=== PATIENT | male | born 1950 | race Caucasian/White ===

== ENCOUNTER 2016-11-07 22:15 | Inpatient (IN) ==
--- NOTE | 2016-11-07 22:38 | Emergency Department Note ---
Disposition Clinical Impression: CAP (community acquired pneumonia), Hypoxic CHF exacerbation Qualifiers: Congestive heart failure type: combined Qualified Code(s): I50.43 - Acute on chronic combined systolic (congestive) and diastolic (congestive) heart failure Disposition: Admitted As Inpatient Condition: Fair Referrals: NO,PCP [Non-Partnered Physician] - Forms: ED Satisfaction Letter Time of Disposition: 22:54 SOB HPI - General Chief Complaint: ED Shortness of Breath/Dyspnea Stated Complaint: CHF, ДМИТРИЙ Time Seen by Provider: 11/07/16 22:20 Source: patient, EMS Limitations: no limitations Nursing Notes Reviewed: Yes Vital Signs Reviewed: Yes - History of Present Illness 66-year-old male with a history of CHF, CAD status post stents 2 in July 2014 presents with worsening shortness of breath for the last 1 week, he has had intermittent productive sputum low in color, is also had worsening leg swelling. Patient also has a history of CAD, diabetes, obesity, CK-MB, PAD, chronic low back pain, hyperlipidemia, tobacco use. Patient was sent from the [facility] urgent care, where they did an chest x-ray that showed interval increase and bilateral pleural effusions, a troponin of 0.02 and white count of 11, they did not include his BNP imaging, he came by EMS, complains of shortness of breath and denies chest pain at this time, denies weight changes however he has not weighed himself lately. He was given DuoNeb 3 and Solu-Medrol 125 381 mg baby aspirin, and 40 of IV Lasix prior to arrival. Pt Subjective Complaint: shortness of breath Onset (ago): week(s) (1) Context: recent illness Severity: mild Consistency/Duration: intermittent Improves with: oxygen Worsens with: nothing Known history of: congestive heart failure - Related Data Allergies Allergy/AdvReac Type Severity Reaction Status Date / Time Doxepin Allergy Hives Verified 11/07/16 22:47 Penicillins Allergy Hives Verified 11/07/16 22:47 Sulfa (Sulfonamide Allergy Hives Verified 11/07/16 22:47 Antibiotics) All systems ED: reviewed and negative except as stated. Constitutional: Denies: fever, chills Cardiovascular: Reports: as per HPI, chest pain Respiratory: Reports: as per HPI, cough, dyspnea, wheezes, sputum production Gastrointestinal: Denies: abdominal pain, nausea Musculoskeletal: Reports: back pain (Chronic LBP). Denies: neck pain Neurological: Denies: headache, weakness Psychiatric: Denies: anxiety, depression Past Medical History - Past Medical History Attestation: Yes The following information was validated with the patient. Source: patient, old records reviewed Medical history: Reports: CHF, coronary artery disease, diabetes, hyperlipidemia , hypertension, peripheral artery disease, renal disease Psychiatric history: Reports: depression, PTSD - Social History Smoking Status: Former smoker Smokeless Tobacco Status: No Alcohol use: Reports: none Drug use: Reports: none Physical Exam - General Limitations: no limitations General appearance: alert, other (mildly short of breath) - ENT ENT exam: normal exam, normal oropharynx - Neck Neck exam: Present: normal inspection, full ROM - Chest Chest inspection: Present: normal inspection, symmetric chest wall rise - Respiratory Respiratory exam: Present: accessory muscle use, prolonged expiratory phase - Expanded Respiratory Exam Location: rales: Left, Right (R>L) - Cardiovascular Cardiovascular exam: Present: normal rhythm, +S3 - Abdominal Exam Abdominal exam: Present: soft. Absent: Non-Tender - Extremities Exam Extremities exam: Present: normal inspection, full ROM - Back Exam Back exam: Present: normal inspection, full ROM - Skin Skin exam: Present: warm, dry, other (+2 pitting edema bilaterally) Course Course Narrative: 66-year-old with CHF exacerbation, bilateral pleural effusions on chest x-ray, admitting to medicine service, adding a BNP and a BMP for further evaluation, also adding nitroglycerin for the patient for HF RDB has been given DuoNeb, Lasix, Solu-Medrol, aspirin 81 mg 3 troponin is negative EKG with no ischemic changes Vital Signs Temperature 98.6 F 11/07/16 22:18 Pulse Rate 82 11/07/16 22:18 Respiratory Rate 18 11/07/16 22:18 Blood Pressure 179/85 11/07/16 22:18 O2 Sat by Pulse Oximetry 88 11/07/16 22:18 Temperature 98.6 F 11/07/16 22:18 Pulse Rate 82 11/07/16 22:18 Respiratory Rate 18 11/07/16 22:18 Blood Pressure 179/85 11/07/16 22:18 O2 Sat by Pulse Oximetry 89 11/07/16 22:33 Oxygen Delivery Oxygen Delivery Nasal Cannula Shortness of Breath/Dyspnea - MDM Narrative Medical decision making narrative: 60 male with CHF exacerbation, boomurese at the urgent care, also given duo nebs, Solu-Medrol, this point we have nitroglycerin for CHF, he will also get Levaquin given that his concerning findings for possible pneumonia white count 11 with some neutrophilia, chest x-ray needs to be repeated but [facility] chest x-ray showed bilateral pleural effusions and possible right-sided consolidation - Differential Diagnosis Likely: congestive heart failure, pneumonia - Medical Records Medical records reviewed: Yes I reviewed the patient's medical records. - Lab Data Lab results reviewed: Yes I reviewed the patient's lab results. Lab results narrative: A T troponin 0.02 white blood cell count 11.0 hemoglobin 11.2 platelets 304 CK 108 AST 16 ALT 22 total bili 0.3 direct bili 0.1 sodium 140 potassium 5.3 chloride 109 bicarbonate 22 glucose 147 BUNs 37 creatinine 3.21 proBNP 65913 GFR 24 Result diagrams: 11/07/16 22:51 - Radiology Data Radiology results reviewed: Yes I reviewed the patient's radiology results. Verbal development of consolidation the right lower lobe and to a lesser degree in the right middle lobe left lower lobe likely representing accommodation atelectasis and pneumonia radiographic follow-up until clear is recommended interval increase in the size of right pleural effusion and interval development of small free-flowing left pleural effusion mild pericardial effusion on CXR 11/07 - EKG Data EKG attestation: Yes I reviewed and interpreted this EKG. EKG shows normal: Reports: sinus rhythm Rate: Reports: normal Rhythm: Reports: NSR (Rate 84 bpm MO 152 QRS [address] segment elevations or depressions, inverted T waves in V5 and V6) Interpretation: Reports: nonspecific ST-T wave changes - Core Measures AMI Core Measures Followed: Yes (given at [facility] 3 X81mg asa) Attestation Statement - Attestation Attestation: I, Chai Mcintyre MD, personally evaluated this patient and discussed their management with the resident physician. I reviewed the resident's note and agree with the documented findings, medical decision making, and plan of care. 66-year-old male transferred here from the [facility] urgent care for shortness of breath. Patient has a history of CHF. He complains of intermittent increased shortness of breath for the past 3 weeks but acutely much worse over the past 24 hours. No chest pain. No fever. On examination patient is a well-developed well-nourished elderly male in no acute distress. He is alert and oriented 3. There is no cyanosis or diaphoresis. Breath sounds are decreased bilaterally with some bibasilar rales. No wheezes noted. Heart regular rate and rhythm. Abdomen soft and nontender with normal bowel sounds. 1+ pedal edema. [facility]. Additional labs obtained here. BNP 1200, creatinine 2.86, potassium 5.5. The hospitalist, Dr. Rodriguez, was consulted and accepted admission of the patient.
[2016-11-07] MEDS ORDERED: Nitroglycerin 0.4 MG TAB.SUBL SL ONE (22:48)
[2016-11-07] MEDS ORDERED: Levofloxacin 750 MG/150 ML 750 MG/150 ML BAG IVPB ONE (22:54)
[2016-11-07] MEDS ORDERED: Acetaminophen 325 MG TABLET PO PRN (23:06)
[2016-11-07] MEDS ORDERED: Naloxone 0.4 MG/ML INJ IVP PRN (23:06)
[2016-11-07] MEDS ORDERED: Ondansetron 4 MG/2 ML VIAL IVP PRN (23:06)
[2016-11-07 23:11] LABS: Calcium 9.4 mg/dL (8.6-10.8); Potassium 5.5 mEq/L (3.5-4.5)
--- NOTE | 2016-11-08 00:26 | Internal Med History&Physical ---
Date of Encounter: 11/07/16 Time of Encounter: 23:45 Assessment and Plan (1) CHF (congestive heart failure) Current visit: Yes Status: Acute Patient presents with worsening shortness of breath, orthopnea and pedal edema. On exam, bilateral basal crepitations in. Edema present. Chest x-ray from [facility] reveals bilateral pleural effusions that are increasing. Elevated BNP on labs. Patient will be admitted to inpatient status. High risk due to risk of worsening respiratory failure and need for intravenous diuresis. Expected to be in the hospital for at least 2 midnights. Expected discharge disposition is to home. Patient will be placed on 60 mg intravenous Lasix twice a day. Strict input and output monitoring. Daily weights. Fluid restricted in sodium restricted diet. He states that he had an echo in July 2016 at the [facility]. Will obtain those records. If his troponins trend up, we will obtain a limited echo to evaluate for any wall motion of the modalities. Depending on the records from [facility] and his progress, we will consider cardiology consult. Qualifiers: Congestive heart failure type: unspecified congestive heart failure type Congestive heart failure chronicity: acute on chronic Qualified Code(s): I50.9 - Heart failure, unspecified (2) CAD (coronary artery disease) Current visit: Yes Status: Chronic Patient reports some chest tightness and has nonspecific T-wave changes on his EKG. Troponins are negative. Cycle troponins. Continue his current medications. Outpatient follow-up with his chief architect for stress test versus left heart catheterization. Qualifiers: Coronary Disease-Associated Artery/Lesion type: [place] artery [place] vs. transplanted heart: [place] heart Associated angina: without angina Qualified Code(s): I25.10 - Atherosclerotic heart disease of [place] coronary artery without angina pectoris (3) HTN (hypertension) Current visit: Yes Status: Chronic Controlled blood pressure. Continue home medications. Qualifiers: Hypertension type: essential hypertension Qualified Code(s): I10 - Essential (primary) hypertension (4) Diabetes mellitus Current visit: Yes Status: Chronic Continue home dose of basal insulin with sliding scale insulin. Renal function is at baseline. If renal function gets worse with diuresis, will consult nephrology-Dr. Pearson. Avoid nephrotoxic medications and hypotension. Qualifiers: Diabetes mellitus type: type 2 Diabetes mellitus complication status: with kidney complications Diabetes mellitus complication detail: with chronic kidney disease Diabetes mellitus senior living insulin use: with assistant terminal manager use Chronic kidney disease stage: stage 4 (severe) Qualified Code(s): E11.22 - Type 2 diabetes mellitus with diabetic chronic kidney disease; N18.4 - Chronic kidney disease, stage 4 (severe); Z79.4 - continuous churn buttermaker (current) use of insulin (5) PAD (peripheral artery disease) Current visit: Yes Status: Chronic Continue current home medications. Patient counseled regarding smoking cessation (6) Respiratory failure Current visit: Yes Status: Acute Patient does not use oxygen at home and is currently requiring oxygen. This is due to CHF exacerbation and pulmonary edema. Management as above. Qualifiers: Chronicity: acute Respiratory failure complication: hypoxia Qualified Code(s): J96.01 - Acute respiratory failure with hypoxia (7) Tobacco abuse Current visit: Yes Status: Chronic Counseled regarding the need for smoking cessation. Internal Medicine - H&P: HPI Chief complaint: Shortness of breath Admitted From: Hospital to Hospital Transfer Plans for Post Hospital Care: Home History of present illness: Mr. Jackson is a 66 year old male with a history of CHF, coronary artery disease was transferred [facility] to [facility] emergency department due to shortness of breath of 3 days' duration. Patient states that he has been struggling with shortness of breath since June 2016. He states that he was diagnosed with CHF at that time and he was admitted as inpatient in the [facility] and had echocardiogram performed. He states that he was diuresed while he was in the [place] and his shortness of breath improved and he was subsequently discharged. He states that he was following with a chief architect as an outpatient. He states that the cardio just had planned to do a stress test. However, the patient was not able to do it due to his fluctuating shortness of breath. He states that the current episode started about 3-4 days ago with worsening shortness of breath on exertion. He also reports orthopnea but denies any paroxysmal nocturnal dyspnea. He states that he has been sleeping in a recliner since June 2016 as he is unable to lie down flat due to shortness of breath. He reports a dry cough but denies any sputum production. He denies any wheezing, fever or chills. He reports chronic leg swelling since June 2016. He reports that his dose of Lasix was recently increased from 60 mg a day to 80 mg a day. He reports that he follows up with Dr. Pearson from nephrology for his chronic kidney disease. He denies any recent weight changes. He denies any recent sick contacts. He states that he lives alone and uses a scooter to get around. He uses a cane at home. He denies any recent travel history. He also reports chest tightness over his lower chest on both sides that is about 5/6 in intensity that occurs intermittently. He reports lightheadedness but denies any palpitations. He states that he is not compliant with fluid restriction or salt restriction. He states that he uses sea salt at home. He does check his weights daily. Past Med Surg Social Fam HX - Past Medical History Attestation: Yes The following information was validated with the patient. Source: patient Medical history: CHF, coronary artery disease, diabetes, hyperlipidemia, hypertension, peripheral artery disease, renal disease Psychiatric history: depression, PTSD - Past Surgical History Surgical History: non-contributory - Social History Smoking Status: Current every day smoker Smokeless Tobacco Status: No Alcohol use: none Drug use: none Current living situation: Home - Independent Activity Level: Uses cane/walker, Other (Scooter) Recent Out of Country Travel Within the Last 8 Weeks: No Exposure or Possible Exposure to Illness During Travel: No - Additional Family History Additional family history: Reviewed; not pertinent Internal Medicine - H&P: Meds Allergies Doxepin Allergy (Verified 11/07/16 22:47) Hives Penicillins Allergy (Verified 11/07/16 22:47) Hives Sulfa (Sulfonamide Antibiotics) Allergy (Verified 11/07/16 22:47) Hives All Systems PM: A 10-system review of systems was performed and is negative for pertinent findings except as documented above in the HPI. Review of systems: 10 systems have been reviewed and are negative except as mentioned in the history of present illness - Constitutional Vitals: Temp Pulse Resp BP Pulse Ox 98.6 F 82 18 179/85 89 11/07/16 22:18 11/07/16 22:18 11/07/16 22:18 11/07/16 22:18 11/07/16 22:33 Exam: Gen.: Lying in bed. Mild distress. Eyes: Pupils equal, round and reactive to light. Extraocular muscles intact. ENT: Moist mucous membranes. No oropharyngeal erythema or discharge. Chest: Bilateral basal crepitations present. End expiratory wheezing present. CVS: First and second heart sounds present. No murmurs, rubs or gallops. Mild tachycardia present. Bilateral lower extremity 2+ pitting pedal edema present. Abdomen: Soft, nontender, distended. Bowel sounds present. No hepatosplenomegaly. Skin: No decubitus ulcers appreciated. Bilateral lower extremity chronic venous stasis changes present. METALLURGICAL SPECIALIST: No focal neuro deficits present. Psychiatric: Alert, awake and oriented to time, place and person. Lymphatic system: No lymphadenopathy appreciated Internal Med - H&P Results - Labs CBC & Chem 7: 11/07/16 22:51 Labs: Cardiac Enzymes 11/07/16 Range/Units 23:56 Troponin I 0.03 (0-0.03) ng/mL Labs from [facility] reviewed. WBC count 11,000. Hemoglobin 11.2. Platelets 304. Sodium 140, potassium 4.3, chloride 109, bicarbonate 22, BUN 37, creatinine 2.81 (2.5 in September 2016), calcium 8.8, albumin 2.2, glucose 147 - EKG Data -: EKG Interpreted by Myself EKG shows normal: sinus rhythm, ST-T waves (T-wave inversions in leads 1, aVL, V5 and V6) Rate: normal - EKG Data Prior EKG available for review: yes When compared to previous EKG: there are significant changes Interpretation IM: suggestive of ischemia - Impressions Chest x-ray PA reveals increased bilateral pleural effusions. Reports of his CT of the chest revealed right lower lobe, middle lobe and left lower lobe consolidation which is suspicious for atelectatis versus pneumonia. Renal ultrasound reveals 1.3 cm hypoechoic lesion in the left kidney consistent with a cyst. Follow-up renal ultrasound is recommended.
[2016-11-08] MEDS ORDERED: Dextrose Gel 15 GM PO PRN ×2 (00:32)
[2016-11-08] MEDS ORDERED: D5% in Water 1,000 ML IVC PRN (00:32)
[2016-11-08] MEDS ORDERED: *HR* Dextrose 50 % in Water (Syg) 50 ML SYRINGE IVP PRN (00:32)
[2016-11-08] MEDS ORDERED: Insulin DETEMIR 100 UNIT/ML X5UNITS SQ SCH (00:45)
[2016-11-08] MEDS: Nitroglycerin 1 INCH/GM PACKET TP SCH ×2 (03:11→07:45)
[2016-11-08] MEDS: *HR* Heparin 5,000 UNIT/ML VIAL SQ SCH ×4 (03:12→23:47)
[2016-11-08 07:46] LABS: Albumin 2.1 g/dL (3.5-5.0); Albumin/Globulin Ratio 0.5 (1.1-2.2); Bilirubin,Total 0.2 mg/dL (0.2-1.2); Calcium 8.8 mg/dL (8.6-10.8); Potassium 5.4 mEq/L (3.5-4.5); Total Protein 6.1 g/dL (6.0-8.3)
[2016-11-08 07:58] LABS: Basophils % 0.1 %; Hematocrit 35.1 % (37.5-50.1); Immature Granulocytes % 0.4 % (0-4); Lymphocytes # 0.8 K/mcL (0.6-4.6); Lymphocytes % 10.8 %; Mean Corpuscular HGB Conc 31.3 g/dL (31.6-35.5); Mean Corpuscular Hemoglobin 27.3 pg (28.0-33.3); Mean Corpuscular Volume 87.1 fL (83.0-100.0); Monocytes # 0.1 K/mcL (0.0-1.3); Neutrophils # 6.1 K/mcL (1.6-8.9); Platelet Count 261 K/mcL (140-400); Red Blood Count 4.03 M/mcL (4.19-5.50); Red Cell Distribution Width 16.3 % (11.5-14.5); Segmented Neutrophils % 87.7 %
[2016-11-08] MEDS: Aspirin Enteric Coated 81 MG Tablet PO SCH (08:27)
[2016-11-08] MEDS: Furosemide 40 MG/4 ML VIAL IVP SCH ×2 (08:27→16:16)
[2016-11-08] MEDS: Insulin LISPRO 300 UNITS/3 ML VIAL SQ SCH ×4 (08:28→21:10)
[2016-11-08] MEDS ORDERED: Furosemide 40 MG/4 ML VIAL IVP SCH (09:00)
[2016-11-08] MEDS ORDERED: traMADol 50 MG TABLET PO PRN ×2 (11:07→11:13)
[2016-11-08] MEDS: amLODIPine 5 MG TABLET PO SCH (12:51)
--- NOTE | 2016-11-08 15:38 | Electrocardiograph Report ---
[place] [id number] Test Date: 2016-11-07 Pat Name: Jostin Jackson Department: 104 Room: [facility] Gender: M Python Engineer: LULA : 1950 Requested By: Presley Simmons Order Number: [id number] Reading MD: Ashley Mejia Measurements Intervals [place] Rate: 84 P: 87 SD: 152 QRS: 32 QRSD: 124 T: 86 QT: 372 QTc: 413 Interpretive Statements SINUS RHYTHM POSSIBLE LEFT ATRIAL ENLARGEMENT MODERATE INTRAVENTRICULAR CONDUCTION DELAY NONSPECIFIC T-WAVE ABNORMALITY Electronically Signed On 11-08-2016 15:36:33 EDT by Ashley Mejia
[2016-11-08] MEDS: Gabapentin 300 MG CAPSULE PO SCH ×2 (16:16→20:52)
--- NOTE | 2016-11-08 17:06 | Internal Med Progress Note ---
Date of Encounter: 11/08/16 Time of Encounter: 09:00 - Assessment and plan (1) DVT prophylaxis Current Visit: Yes Status: Acute Assessment and plan: Heparin subcutaneously (2) CHF exacerbation Current Visit: Yes Status: Acute Assessment and plan: Pt has a history of CHF. Presented with shortness of breath, elevated BNP, chest x-ray shows pulmonary vascular congestion and pleural effusion. - Consider CHF exacerbation. - Lasix 60 mg IV twice a day - Strict I/O - Supportive treatment with oxygen and BiPAP as needed - Place echocardiogram - Continue beta anita, imdur, add hydralazine Qualifiers: Congestive heart failure type: combined Qualified Code(s): I50.43 - Acute on chronic combined systolic (congestive) and diastolic (congestive) heart failure (3) CAD (coronary artery disease) Current Visit: Yes Status: Chronic Assessment and plan: Continue home medication aspirin, beta anita, statin. No chest pain. Qualifiers: Coronary Disease-Associated Artery/Lesion type: [place] artery [place] vs. transplanted heart: [place] heart Associated angina: without angina Qualified Code(s): I25.10 - Atherosclerotic heart disease of [place] coronary artery without angina pectoris (4) HTN (hypertension) Current Visit: Yes Status: Chronic Assessment and plan: Cont home medication. Hold Lisinopril b/o Cr 2.77 (possible chronic, no baseline available). add hydralazine po. Qualifiers: Hypertension type: essential hypertension Qualified Code(s): I10 - Essential (primary) hypertension (5) Diabetes mellitus Current Visit: Yes Status: Chronic Assessment and plan: Continue basal and sliding scale insulin. Follow up glucose level Qualifiers: Diabetes mellitus type: type 2 Diabetes mellitus complication status: with kidney complications Diabetes mellitus complication detail: with chronic kidney disease Diabetes mellitus intermediate teacher insulin use: with mcfp use Chronic kidney disease stage: stage 4 (severe) Qualified Code(s): E11.22 - Type 2 diabetes mellitus with diabetic chronic kidney disease; N18.4 - Chronic kidney disease, stage 4 (severe); Z79.4 - long term care pharmacist (current) use of insulin (6) PAD (peripheral artery disease) Current Visit: Yes Status: Chronic Assessment and plan: Continue aspirin and atorvastatin - Time Spent With Patient 25 - 35 minutes - Subjective Interval history: Patient is a 66-year-old male admitted for CHF exacerbation. His past medical history significant for CAD, CHF, diabetes, hypertension, PAD, CKD. Patient was seen and examined. Shortness of breath has improved after IV Lasix use. BP is high, add hydralazine 25 mg by mouth every 8 hours. Continue closely monitor patient. Strict I/O. - Constitutional Vitals: Temp Pulse Resp BP Pulse Ox 97.3 F L 83 18 183/80 93 11/08/16 15:50 11/08/16 15:50 11/08/16 15:50 11/08/16 15:50 11/08/16 15:50 General appearance: Present: A&O X 3, pleasant, no acute distress, answers questions appropriately - Head Head exam: Present: atraumatic, normocephalic - Eye Eye exam: Present: PERRL, conjuntiva pink, sclera anicteric Pupils: Present: PERRL - Neck Neck exam general surgery: Present: supple, trachea midline. Absent: lymphadenopathy - Respiratory Respiratory exam: Present: CTAB. Absent: accessory muscle use, rales, rhonchi, wheezes - Cardiovascular Cardiovascular exam: Present: RRR, +S1, +S2. Absent: diastolic murmur, gallop, rubs, systolic murmur - GI/Abdominal GI/Abdominal exam: Present: normal bowel sounds, soft, no peritoneal signs. Absent: distended, tenderness - Extremities Exam Extremities exam: Present: pedal edema (B/L), warm, radial pulses palpable and symetrical. Absent: calf tenderness, cyanotic - Neurological Exam Neurological exam: Present: CN II-XII intact, oriented X3, no focal deficits. Absent: pronater drift, facial droop, speech deficit - Skin Skin exam: Present: dry, intact Internal Medicine: Result - Labs CBC & Chem 7: 11/08/16 07:20 11/08/16 07:20 Labs: Short CBC 11/08/16 Range/Units 07:20 WBC 7.0 (4.3-11.1) K/mcL Hgb 11.0 L (12.9-16.9) g/dL Hct 35.1 L (37.5-50.1) % Plt Count 261 (140-400) K/mcL Neutrophils # 6.1 (1.6-8.9) K/mcL BMP 11/08/16 07:20 Sodium 134 L Potassium 5.4 H Chloride 109 Carbon Dioxide 19 BUN 36 H Creatinine 2.77 H Glucose 218 H Calcium 8.8 Cardiac Enzymes 11/08/16 Range/Units 07:20 Troponin I 0.02 (0-0.03) ng/mL Liver Function 11/08/16 Range/Units 07:20 Total Bilirubin 0.2 (0.2-1.2) mg/dL AST 13 (5-34) Units/L ALT 13 (0-55) Units/L Alkaline Phosphatase 126 (38-126) Units/L Albumin 2.1 L (3.5-5.0) g/dL - Impressions Impressions Chest X-Ray 11/08/16 05:07 IMPRESSION: Cardiomegaly with bilateral pleural effusions suggesting CHF. D/ / Carlos Taylor MD / Carlos Taylor MD Interpreting Provider: Carlos Taylor MD Consult Discharge Plan - Plan [facility]errals: [facility] [Primary Care Provider[facility] -
[2016-11-08] MEDS ORDERED: Perflutren Lipid Microsphere 1.3 ML in 0.9 % Sodium Chloride 8.7 ML IVP ONE (19:35)
--- NOTE | 2016-11-08 19:45 | Venous Imaging Report ---
LE Venous Duplex Patient Name:Jostin Jackson Order Number:[id number] Procedure Date:11/08/2016 Date:1950Age:66 yrs Gender:Male Location:[facility] Room #: 2A35 Extension Supervisor:Mattie Oliveros Referring MD:Carter Styles MD electronics mechanic:[facility] Yuki MD:Keven Iniguez MD Secondary Indications: Risk Factors Yes/No Anticoagulants Yes Smoking Current Yes Hx of DVT No Hx of Chemotherapy No Impressions: Normal bilateral lower extremity deep and superficial venous exam. Recommendations: After imaging the patient returned to their room. Findings Venous Duplex Results: Right: Venous imaging of the lower extremity reveals full patency and normal vessel compressibility of the right distal iliac, right common femoral, right superficial femoral, right popliteal, right posterior tibial, right peroneal, right great saphenous and right lesser saphenous. Doppler signals in the evaluated veins were normal. Left: Venous imaging of the lower extremity reveals full patency and normal vessel compressibility of the left distal iliac, left common femoral, left superficial femoral, left popliteal, left posterior tibial, left peroneal, left great saphenous and left lesser saphenous. Doppler signals in the evaluated veins were normal. Lower Extremity Venous Duplex Side Vein Compress Spontaneous Flow Augment Diameter (cm) Depth (cm) Right Distal Iliac Normal Yes Phasic Yes Right Common Femoral Normal Yes Phasic Yes Right Superficial Femoral Normal Yes Phasic Yes Right Popliteal Normal Yes Phasic Yes Right Posterior Tibial Normal Yes Phasic Yes Right Peroneal Normal Yes Phasic Yes Right Great Saphenous Normal Yes Phasic Yes Right Lesser Saphenous Normal Yes Phasic Yes Left Distal Iliac Normal Yes Phasic Yes Left Common Femoral Normal Yes Phasic Yes Left Superficial Femoral Normal Yes Phasic Yes Left Popliteal Normal Yes Phasic Yes Left Posterior Tibial Normal Yes Phasic Yes Left Peroneal Normal Yes Phasic Yes Left Great Saphenous Normal Yes Phasic Yes Left Lesser Saphenous Normal Yes Phasic Yes Updated by Keven Iniguez MD on 11/08/2016 7:40:35 PM electronically signed on 11/08/2016 7:40:47 PM with status of Final
[2016-11-08] MEDS: BuPROPion SR (12 HR) 150 MG TABLET PO SCH (20:52)
[2016-11-08] MEDS: hydrALAZINE 25 MG TABLET PO SCH ×2 (20:52→23:47)
[2016-11-08] MEDS: Insulin DETEMIR 100 UNIT/ML X5UNITS SQ SCH (20:53)
[2016-11-08] MEDS: traZODone 50 MG TABLET PO SCH (20:58)
[2016-11-08] MEDS: Magnesium Oxide 400 MG TABLET PO SCH (23:47)
[2016-11-09 02:36] LABS: Basophils % 0.1 %; Eosinophils # 0.1 K/mcL (0.0-0.6); Eosinophils % 0.4 %; Hematocrit 36.2 % (37.5-50.1); Hemoglobin 11.5 g/dL (12.9-16.9); Immature Granulocytes % 0.3 % (0-4); Lymphocytes # 2.4 K/mcL (0.6-4.6); Lymphocytes % 16.2 %; Mean Corpuscular HGB Conc 31.8 g/dL (31.6-35.5); Mean Corpuscular Hemoglobin 27.5 pg (28.0-33.3); Mean Corpuscular Volume 86.6 fL (83.0-100.0); Mean Platelet Volume 8.9 fL (9.4-12.4); Monocytes # 1.1 K/mcL (0.0-1.3); Monocytes % 7.8 %; Platelet Count 288 K/mcL (140-400); Red Blood Count 4.18 M/mcL (4.19-5.50); Red Cell Distribution Width 16.6 % (11.5-14.5); Segmented Neutrophils % 75.2 %
[2016-11-09 02:48] LABS: Calcium 9.1 mg/dL (8.6-10.8); Potassium 4.9 mEq/L (3.5-4.5)
[2016-11-09] MEDS: Lisinopril 20 MG TABLET PO SCH (08:53)
[2016-11-09] MEDS: Isosorbide MONOnitrate (24 HR) 30 MG TAB.ER.24H PO SCH (08:53)
[2016-11-09] MEDS: BuPROPion SR (12 HR) 150 MG TABLET PO SCH ×2 (08:53→21:34)
[2016-11-09] MEDS: Furosemide 40 MG/4 ML VIAL IVP SCH ×2 (08:53→16:02)
[2016-11-09] MEDS: amLODIPine 5 MG TABLET PO SCH (08:54)
[2016-11-09] MEDS: Magnesium Oxide 400 MG TABLET PO SCH ×2 (08:54→21:34)
[2016-11-09] MEDS: hydrALAZINE 25 MG TABLET PO SCH ×2 (08:54→16:03)
[2016-11-09] MEDS: Aspirin Enteric Coated 81 MG Tablet PO SCH (08:54)
[2016-11-09] MEDS: Gabapentin 300 MG CAPSULE PO SCH ×3 (08:54→21:34)
[2016-11-09] MEDS: *HR* Heparin 5,000 UNIT/ML VIAL SQ SCH ×2 (08:54→16:02)
[2016-11-09] MEDS: Insulin LISPRO 300 UNITS/3 ML VIAL SQ SCH ×4 (08:55→21:35)
[2016-11-09 10:23] LABS: Bilirubin,Urine Negative (Negative); Blood,Urine Trace (Negative); Clarity,Urine Clear (Clear); Color,Urine Yellow (Yellow); Glucose,Urine (UA) 100 mg/dL (Normal); Ketones,Urine Negative (Negative); Leukocyte Esterase,Urine Negative (Negative); Nitrite,Urine Negative (Negative); Protein,Urine >=300 mg/dL (Neg-Trace); Specific Gravity,Urine 1.012 (1.010-1.025); Urobilinogen,Urine Normal (Normal)
[2016-11-09 10:25] LABS: Bacteria,Urine None Seen per hpf (None-Few); Hyaline Casts,Urine None Seen per lpf (None-Few); RBC,Urine 0-3 per hpf (0-3); Squamous Epithelial Cell,Urine Moderate per lpf (None-Few); WBC,Urine 0-3 per hpf (0-3)
--- NOTE | 2016-11-09 15:16 | Internal Med Progress Note ---
Date of Encounter: 11/09/16 Time of Encounter: 10:00 - Assessment and plan (1) DVT prophylaxis Current Visit: Yes Status: Acute Assessment and plan: Heparin subcutaneously (2) CHF exacerbation Current Visit: Yes Status: Acute Assessment and plan: Pt has a history of CHF. Presented with shortness of breath, elevated BNP, chest x-ray shows pulmonary vascular congestion and pleural effusion. - Consider CHF exacerbation. - Lasix 60 mg IV twice a day - Strict I/O - Supportive treatment with oxygen and BiPAP as needed - Continue beta anita, imdur, add hydralazine, resume lisinopril - Echo shows EF 40% with moderate diastolic dysfunction. Qualifiers: Congestive heart failure type: combined Qualified Code(s): I50.43 - Acute on chronic combined systolic (congestive) and diastolic (congestive) heart failure (3) CAD (coronary artery disease) Current Visit: Yes Status: Chronic Assessment and plan: Continue home medication aspirin, beta anita, statin. No chest pain. Qualifiers: Coronary Disease-Associated Artery/Lesion type: [place] artery [place] vs. transplanted heart: [place] heart Associated angina: without angina Qualified Code(s): I25.10 - Atherosclerotic heart disease of [place] coronary artery without angina pectoris (4) HTN (hypertension) Current Visit: Yes Status: Chronic Assessment and plan: Cont home medication. Resume lisinopril, add hydralazine po. Qualifiers: Hypertension type: essential hypertension Qualified Code(s): I10 - Essential (primary) hypertension (5) Diabetes mellitus Current Visit: Yes Status: Chronic Assessment and plan: Continue basal and sliding scale insulin. Follow up glucose level Qualifiers: Diabetes mellitus type: type 2 Diabetes mellitus complication status: with kidney complications Diabetes mellitus complication detail: with chronic kidney disease Diabetes mellitus roasterman insulin use: with detention use Chronic kidney disease stage: stage 4 (severe) Qualified Code(s): E11.22 - Type 2 diabetes mellitus with diabetic chronic kidney disease; N18.4 - Chronic kidney disease, stage 4 (severe); Z79.4 - nursing home (current) use of insulin (6) PAD (peripheral artery disease) Current Visit: Yes Status: Chronic Assessment and plan: Continue aspirin and atorvastatin - Time Spent With Patient 25 - 35 minutes - Subjective Interval history: Patient is a 66-year-old male admitted for CHF exacerbation. His past medical history significant for CAD, CHF, diabetes, hypertension, PAD, CKD. Patient was seen and examined. Shortness of breath has improved after IV Lasix use. Pt has good urine output, decrease lasix to 40 mg bid iv. Pt knows he has chronic kidney problem, Cr stable, resume lisinopril 40mg po daily. Continue closely monitor patient. Strict I/O. Elevated WBC for unclear etiology, CXR negative, UA shows no UTI, will continue to monitor. - Constitutional Vitals: Temp Pulse Resp BP Pulse Ox 97.9 F 77 16 149/75 97 11/09/16 11:42 11/09/16 11:42 11/09/16 11:42 11/09/16 11:42 11/09/16 08:29 General appearance: Present: A&O X 3, pleasant, no acute distress, answers questions appropriately - Head Head exam: Present: atraumatic, normocephalic - Eye Eye exam: Present: PERRL, conjuntiva pink, sclera anicteric Pupils: Present: PERRL - Neck Neck exam general surgery: Present: supple, trachea midline. Absent: lymphadenopathy - Respiratory Respiratory exam: Present: CTAB. Absent: accessory muscle use, rales, rhonchi, wheezes - Cardiovascular Cardiovascular exam: Present: RRR, +S1, +S2. Absent: diastolic murmur, gallop, rubs, systolic murmur - GI/Abdominal GI/Abdominal exam: Present: normal bowel sounds, soft, no peritoneal signs. Absent: distended, tenderness - Extremities Exam Extremities exam: Present: warm, radial pulses palpable and symetrical. Absent : calf tenderness, cyanotic, pedal edema - Neurological Exam Neurological exam: Present: CN II-XII intact, oriented X3, no focal deficits. Absent: pronater drift, facial droop, speech deficit - Skin Skin exam: Present: dry, intact Internal Medicine: Result - Labs CBC & Chem 7: 11/09/16 02:24 11/09/16 02:24 Labs: Short CBC 11/09/16 Range/Units 02:24 WBC 14.6 H D (4.3-11.1) K/mcL Hgb 11.5 L (12.9-16.9) g/dL Hct 36.2 L (37.5-50.1) % Plt Count 288 (140-400) K/mcL Neutrophils # 11.0 H (1.6-8.9) K/mcL BMP 11/09/16 02:24 Sodium 138 Potassium 4.9 H Chloride 109 Carbon Dioxide 21 BUN 45 H Creatinine 2.78 H Glucose 110 H Calcium 9.1 Urine 11/09/16 Range/Units 10:08 Urine Color Yellow (Yellow) Urine Clarity Clear (Clear) Urine pH 7.0 (5.0-8.0) pH Units Ur Specific [place] 1.012 (1.010-1.025) Urine Protein >=300 H (Neg-Trace) mg/dL Urine Glucose (UA) 100 H (Normal) mg/dL Consult Discharge Plan - Plan [facility]: [facility] [Primary Care Provider[facility] -
[2016-11-09] MEDS: traZODone 50 MG TABLET PO SCH (21:33)
[2016-11-09] MEDS: Insulin DETEMIR 100 UNIT/ML X5UNITS SQ SCH (21:35)
[2016-11-10] MEDS: hydrALAZINE 25 MG TABLET PO SCH ×2 (00:14→08:13)
[2016-11-10] MEDS: *HR* Heparin 5,000 UNIT/ML VIAL SQ SCH ×2 (00:14→08:13)
[2016-11-10 06:21] LABS: Basophils # 0.1 K/mcL (0.0-0.2); Basophils % 0.5 %; Eosinophils # 0.3 K/mcL (0.0-0.6); Eosinophils % 2.6 %; Hematocrit 34.2 % (37.5-50.1); Hemoglobin 10.8 g/dL (12.9-16.9); Immature Granulocytes % 0.3 % (0-4); Lymphocytes # 3.1 K/mcL (0.6-4.6); Lymphocytes % 28.3 %; Mean Corpuscular HGB Conc 31.6 g/dL (31.6-35.5); Mean Corpuscular Hemoglobin 27.1 pg (28.0-33.3); Mean Corpuscular Volume 85.9 fL (83.0-100.0); Mean Platelet Volume 8.7 fL (9.4-12.4); Monocytes # 0.9 K/mcL (0.0-1.3); Monocytes % 8.7 %; Neutrophils # 6.4 K/mcL (1.6-8.9); Platelet Count 275 K/mcL (140-400); Red Blood Count 3.98 M/mcL (4.19-5.50); Red Cell Distribution Width 16.5 % (11.5-14.5); Segmented Neutrophils % 59.6 %
[2016-11-10 06:33] LABS: Calcium 8.6 mg/dL (8.6-10.8); Potassium 4.5 mEq/L (3.5-4.5)
[2016-11-10] MEDS: Magnesium Oxide 400 MG TABLET PO SCH (08:12)
[2016-11-10] MEDS: Aspirin Enteric Coated 81 MG Tablet PO SCH (08:12)
[2016-11-10] MEDS: BuPROPion SR (12 HR) 150 MG TABLET PO SCH (08:12)
[2016-11-10] MEDS: amLODIPine 5 MG TABLET PO SCH (08:12)
[2016-11-10] MEDS: Gabapentin 300 MG CAPSULE PO SCH (08:12)
[2016-11-10] MEDS: Furosemide 40 MG/4 ML VIAL IVP SCH (08:13)
[2016-11-10] MEDS: Isosorbide MONOnitrate (24 HR) 30 MG TAB.ER.24H PO SCH (08:13)
[2016-11-10] MEDS: Lisinopril 20 MG TABLET PO SCH (08:13)
[2016-11-10] MEDS: Insulin LISPRO 300 UNITS/3 ML VIAL SQ SCH (08:13)
[2016-11-10] MEDS ORDERED: Insulin LISPRO 300 UNITS/3 ML VIAL SQ SCH ×2 (08:35)
--- NOTE | 2016-11-10 11:05 | Discharge Summary ---
Date of Encounter: 11/10/16 Time of Encounter: 10:00 - Discharge Diagnosis (1) DVT prophylaxis Priority: Secondary Status: Acute (2) CHF exacerbation Priority: Primary Status: Acute Qualifiers: Congestive heart failure type: combined Qualified Code(s): I50.43 - Acute on chronic combined systolic (congestive) and diastolic (congestive) heart failure (3) CAD (coronary artery disease) Priority: Secondary Status: Chronic Qualifiers: Coronary Disease-Associated Artery/Lesion type: [place] artery [place] vs. 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 mellitus 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 Chronic kidney disease stage: stage 4 (severe) Qualified Code(s): E11.22 - Type 2 diabetes mellitus with diabetic chronic kidney disease; N18.4 - Chronic kidney disease, stage 4 (severe); Z79.4 - exterminator helper termite (current) use of insulin (6) PAD (peripheral artery disease) Priority: Secondary Status: Chronic - Discharge Medications Home Medications: Acetaminophen [Tylenol Arthritis] 1,300 mg PO BID 11/08/16 [History] Amlodipine Besylate 10 mg PO DAILY 11/08/16 [History] Aspirin [Lo-Dose Aspirin EC] 81 mg PO DAILY 11/08/16 [History] Atorvastatin Calcium [Lipitor] 80 mg PO HS 11/08/16 [History] BuPROPion SR (12 HR) [Wellbutrin SR] 150 mg PO BID 11/08/16 [History] Calcium Carbonate 1,300 mg PO DAILY 11/08/16 [History] Carvedilol [Coreg] 25 mg PO BID 11/08/16 [History] Cetirizine HCl [All Day Allergy] 10 mg PO DAILY 11/08/16 [History] Cholecalciferol (Vitamin D3) [Vitamin D3] 1,000 unit PO DAILY 11/08/16 [History] Clotrimazole 1% CRM [Lotrimin 1%] 1 appl TP DAILY 11/08/16 [History] Eucerin Creme 57 appl TP DAILY 11/08/16 [History] Ferrous Gluconate 324 mg PO BID 11/08/16 [History] Furosemide [Lasix] 60 mg PO BID 11/08/16 [History] Gabapentin [Gralise] 300 mg PO TID 11/08/16 [History] GuaiFENesin/Dextromethorphan [Children's Mucinex Cough Liq] 5 ml PO BID [History] Insulin Glargine [Lantus] 20 unit SQ HS 11/08/16 [History] Isosorbide MONOnitrate (24 HR) [Imdur] 90 mg PO DAILY 11/08/16 [History] Lisinopril [Zestril] 40 mg PO DAILY 11/08/16 [History] Magnesium Oxide [Magnesium] 400 mg PO BID 11/08/16 [History] Mometasone/Formoterol [Dulera 200 Mcg/5 Mcg Inhaler] 2 puff IH DAILY 11/08/16 [ History] Multivit-Min/FA/Lycopen/Lutein [Centravites 50 Plus Tablet] 1 each PO DAILY [History] Mupirocin [Bactroban Oint] 1 appl TP DAILY PRN 11/08/16 [History] Omeprazole [PriLOSEC] 20 mg PO DAILY 11/08/16 [History] Prazosin HCl [Minipress] 6 mg PO HS 11/08/16 [History] Spironolactone [Aldactone] 25 mg PO DAILY 11/08/16 [History] Tamsulosin HCl [Flomax] 0.4 mg PO DAILY 11/08/16 [History] Tramadol HCl [Ultram] 50 mg PO BID PRN 11/08/16 [History] Trazodone HCl 25 - 50 mg PO HS 11/08/16 [History] Vit C/E/Zn/Coppr/Lutein/Zeaxan [Preservision Areds 2 Softgel] 1 tab PO BID 11/08 [History] Allergies/Adverse Reactions: Allergies Doxepin Allergy (Verified 11/07/16 22:47) Hives Penicillins Allergy (Verified 11/07/16 22:47) Hives Sulfa (Sulfonamide Antibiotics) Allergy (Verified 11/07/16 22:47) Hives Procedures/tests Complete & Pending: Procedures Performed prior 72 hours Category Date Time Status ECG 12 lead ECG [ECG] Routine Y 11/07/16 22:22 Completed EV echocardiogram w enhance Routine Y 11/08/16 17:01 Completed Venous Doppler [EV venous imaging LE BI] Routine Y 11/08/16 00:30 Completed - Notes to Outpatient Provider 1. Patient's potassium pill is on hold upon discharge because he presents hyperkalemia upon admission (Which may be due to potassium and spironolactone use), please f/u potassium level. Date of admission: 11/07/16 23:56 Primary care physician: [facility] Consults: 11/08/16 03:31 Consult to Changer Fixer [CONS] Routine Reason for SW Consult: hi patient lives at home independently. may need home o2 Discharging clinician: Presley Simmons Anticipated date of discharge: 11/10/16 - Patient Status Disposition: Home, Self-Care Condition: Fair Functional capacity at discharge: uses cane/walker Overall status at discharge: patient is back to baseline - Discharge Instructions [facility] Up With: [facility] Care Provider[facility] - 11/15/16 - Diet and Activity Activity: increase activity as tolerated Diet: diabetic diet, low fat, low cholesterol, low salt diet Interval History: Mr. Jackson is a 66 year old male with a history of CHF, coronary artery disease was transferred from [facility] to [facility] emergency department due to shortness of breath of 3 days' duration. Patient states that he has been struggling with shortness of breath since June 2016. He states that he was diagnosed with CHF at that time and he was admitted as inpatient in the [facility] and had echocardiogram performed. He states that he was diuresed while he was in the [facility] and his shortness of breath improved and he was subsequently discharged. He states that he was following with a top cutter as an outpatient. He states that the cardio just had planned to do a stress test. However, the patient was not able to do it due to his fluctuating shortness of breath. He states that the current episode started about 3-4 days ago with worsening shortness of breath on exertion. He also reports orthopnea but denies any paroxysmal nocturnal dyspnea. He states that he has been sleeping in a recliner since June 2016 as he is unable to lie down flat due to shortness of breath. He reports a dry cough but denies any sputum production. He denies any wheezing, fever or chills. He reports chronic leg swelling since June 2016. He reports that his dose of Lasix was recently increased from 60 mg a day to 80 mg a day. He reports that he follows up with Dr. Pearson from nephrology for his chronic kidney disease. Hospital course: Mr. Jackson is a 66 year old male admitted for CHF exacerbation. Patient was given Lasix IV, he has very good urine output and a negative fluid balance. After treatment, his condition has improved. Appear euvolemic now. Will discharge patient home and follow-up with PCP in week. I saw and examined the patient today. He is awake alert, oriented 3. Denies chest pain or shortness of breath. Vital signs stable. Patient has a COPD, needs oxygen, he has oxygen at home ([facility] Patient is stable to discharge home and follow-up with PCP as outpatient. - Time Spent with Patient Total time spent providing and/or coordinating discharge services: 40 minutes Greater than 30 minutes - Constitutional Vitals: Temp Pulse Resp BP Pulse Ox 97.4 F L 73 16 181/81 100 11/10/16 07:36 11/10/16 07:36 11/10/16 07:36 11/10/16 07:36 11/10/16 07:36 General appearance: Present: A&O X 3, pleasant, no acute distress, answers questions appropriately - Head Head exam: Present: atraumatic, normocephalic - Eye Eye exam: Present: PERRL, conjuntiva pink, sclera anicteric Pupils: Present: PERRL - Neck Neck exam general surgery: Present: supple, trachea midline. Absent: lymphadenopathy - Respiratory Respiratory exam: Present: CTAB. Absent: accessory muscle use, rales, rhonchi, wheezes - Cardiovascular Cardiovascular exam: Present: RRR, +S1, +S2. Absent: diastolic murmur, gallop, rubs, systolic murmur - GI/Abdominal GI/Abdominal exam: Present: normal bowel sounds, soft, no peritoneal signs. Absent: distended, tenderness - Extremities Exam Extremities exam: Present: warm, radial pulses palpable and symetrical. Absent : calf tenderness, cyanotic, pedal edema - Neurological Exam Neurological exam: Present: CN II-XII intact, oriented X3, no focal deficits. Absent: pronater drift, facial droop, speech deficit - Skin Skin exam: Present: dry, intact
[2016-11-10 12:07] VITALS: BP 161/74
== END 2016-11-10 13:46 | disposition home or self-care (01) | DRG 291 ==
LOC: EMEROO 22:15 → 2ANU 22:15
PROVIDERS: ADMIT Internal Medicine Sleep Medicine; ATTEND Internal Medicine

== ENCOUNTER 2017-05-08 20:49 | Inpatient (IN) ==
[2017-05-09] MEDS ORDERED: Naloxone 0.4 MG/ML INJ IVP PRN (01:18)
[2017-05-09] MEDS ORDERED: Acetaminophen 325 MG TABLET PO PRN (01:18)
[2017-05-09] MEDS ORDERED: *HR* HYDROcodone/Acet 5/325 mg TABLET PO PRN (01:18)
[2017-05-09] MEDS ORDERED: D5% in Water 1,000 ML IVC PRN (01:23)
[2017-05-09] MEDS ORDERED: Dextrose Gel 15 GM PO PRN ×2 (01:23)
[2017-05-09] MEDS ORDERED: *HR* Dextrose 50 % in Water (Syg) 50 ML SYRINGE IVP PRN (01:23)
[2017-05-09] MEDS ORDERED: Ipratropium/Albuterol Neb 3 ML IH PRN (01:25)
[2017-05-09 01:30] LABS: Basophils % 0.4 %; Eosinophils % 0.1 %; Hematocrit 36.1 % (37.5-50.1); Hemoglobin 11.5 g/dL (12.9-16.9); Immature Granulocytes % 0.4 % (0-4); Lymphocytes # 0.5 K/mcL (0.6-4.6); Lymphocytes % 4.6 %; Mean Corpuscular HGB Conc 31.9 g/dL (31.6-35.5); Mean Corpuscular Hemoglobin 29.7 pg (28.0-33.3); Mean Corpuscular Volume 93.3 fL (83.0-100.0); Mean Platelet Volume 8.7 fL (9.4-12.4); Monocytes # 0.1 K/mcL (0.0-1.3); Monocytes % 0.9 %; Neutrophils # 9.5 K/mcL (1.6-8.9); Platelet Count 241 K/mcL (140-400); Red Blood Count 3.87 M/mcL (4.19-5.50); Red Cell Distribution Width 16.2 % (11.5-14.5); Segmented Neutrophils % 93.6 %
[2017-05-09] MEDS ORDERED: traZODone 50 MG TABLET PO PRN (01:31)
[2017-05-09 01:39] LABS: INR 1.1; Prothrombin Time 11.8 Seconds (9.4-12.1)
[2017-05-09 01:41] LABS: Activated Partial Thrombo Time 50.7 Seconds (26.0-36.0)
[2017-05-09 01:44] LABS: Albumin/Globulin Ratio 0.9 (1.1-2.2); Bilirubin,Total 0.2 mg/dL (0.3-1.0); Calcium 8.7 mg/dL (8.6-10.3); Globulin 3.2 g/dL (2.4-3.5); Potassium 4.8 mEq/L (3.5-5.1); Total Protein 6.2 g/dL (6.4-8.9)
[2017-05-09] MEDS ORDERED: *HR* Heparin 5,000 UNIT/ML VIAL IVP ONE (01:46)
[2017-05-09] MEDS ORDERED: *HR* Heparin 5,000 UNIT/ML VIAL IVP PRN ×2 (01:46)
[2017-05-09] MEDS ORDERED: Heparin 25,000 UNIT/500 ML D5W 25,000 UNIT/500 ML BAG IVC SCH (02:00)
[2017-05-09] MEDS ORDERED: Azithromycin 500 MG in D5% in Water 250 ML IVPB SCH (02:00)
[2017-05-09] MEDS: Ipratropium/Albuterol Neb 3 ML IH SCH ×4 (03:48→21:24)
--- NOTE | 2017-05-09 05:55 | Internal Med History&Physical ---
Date of Encounter: 05/09/17 Time of Encounter: 01:00 Assessment and Plan (1) Pulmonary embolism Current visit: Yes Status: Acute Patient has sudden onset SOB with desaturation and tachycardia. PE was suspected by [facility] and the patient has Ckd, cannot have CTA, patient was transferred to our hospital for VQ scan. - VQ scan has been done, consider intermittent probability of PE. - Patient also has elevated d-dimer. - Heparin drip was started at this point, after discussed with patient and family regarding the risks and benefits. Patient and the family agrees to the treatment plan. - Will order US legs to r/o DVT. - Echo to r/o RV strain. - As patient also has pneumonia and CHF exacerbation to explain the shortness of breath, will further consult pulmonology for further management. Patient is at high risk because he is on heparin drip and needed close monitoring Qualifiers: Pulmonary embolism type: other Chronicity: acute Acute cor pulmonale presence: without acute cor pulmonale Qualified Code(s): I26.99 - Other pulmonary embolism without acute cor pulmonale (2) CHF exacerbation Current visit: No Status: Acute Previous echo shows LVEF 40%. Patient has elevated BNP and symptoms of shortness of breath. Consider CHF exacerbation - We will place patient on IV Lasix. - Fluid restriction - Strict I and O - Closely monitor renal function as patient is on IV Lasix. We will consult nephrology. Qualifiers: Congestive heart failure type: combined Qualified Code(s): I50.43 - Acute on chronic combined systolic (congestive) and diastolic (congestive) heart failure (3) CAP (community acquired pneumonia) Current visit: No Status: Acute Chest x-ray shows bilateral basal pneumonia. We will continue azithromycin and Rocephin treatment. Qualifiers: Laterality: unspecified laterality Qualified Code(s): J18.9 - Pneumonia, unspecified organism (4) CAD (coronary artery disease) Current visit: No Status: Chronic Patient has history of CAD S/P stent. We will continue home medications. Troponin level in [place] is negative. We will track another [address] patient on continuous cardiac monitoring. Qualifiers: Coronary Disease-Associated Artery/Lesion type: [place] artery [place] vs. transplanted heart: [place] heart Associated angina: without angina Qualified Code(s): I25.10 - Atherosclerotic heart disease of [place] coronary artery without angina pectoris (5) HTN (hypertension) Current visit: No Status: Chronic Continue home medications but hold lisinopril and spironolactone because of CKD and hyperkalemia in [facility] (which is improved after keyaxalate use). 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 Jackson is a 67 year old male with history of CHF, diabetes, PAD, stage IV CKD, CAD S/P stent transferred from the [facility] for sudden onset shortness of breath, desaturation, and the tachycardia. [facility] transfer pt to our hospital for V/Q scan to r/o PE. Patient was admitted to the [facility] 2 days ago for pneumonia and was treated with azithromycin and Rocephin. Patient said his pneumonia symptoms started about 3 weeks ago with cough and yellowish sputum. No fever. Patient complaining of right-sided chest wall pain, was seen on deep breath and arm movement for about 3 weeks. Today, when he go to the bathroom, he suddenly developed shortness of breath, with saturation down to 80's, need a higher level oxygen to maintain saturation, and the tachycardia. His d-dimer level was found elevated. Patient was also found elevated BNP and was given Lasix 20 mg +40 mg in the [facility] before transfer. Patient feels much better after he gets to our hospital, oxygen saturation has improved as well. Tachycardia also resolved. Past Med Surg Social Fam HX - Past Medical History Medical history: CHF, coronary artery disease, diabetes, hyperlipidemia, hypertension, peripheral artery disease, renal disease Psychiatric history: depression, PTSD - Past Surgical History Surgical History: non-contributory, appendectomy - Social History Smoking Status: Current every day smoker Smokeless Tobacco Status: No Alcohol use: none Drug use: none - Family History Mother Name: Ruma Pantoja Living Status: Age at : 70 Cause of : lung cancer Internal Medicine - H&P: Meds Acetaminophen [Tylenol Arthritis] 1,300 mg PO BID 11/08/16 [History] Amlodipine Besylate 10 mg PO DAILY 11/08/16 [History] Aspirin [Lo-Dose Aspirin EC] 81 mg PO DAILY 11/08/16 [History] Atorvastatin Calcium [Lipitor] 80 mg PO HS 11/08/16 [History] BuPROPion SR (12 HR) [Wellbutrin SR] 150 mg PO BID 11/08/16 [History] Calcium Carbonate 1,300 mg PO DAILY 11/08/16 [History] Carvedilol [Coreg] 25 mg PO BID 11/08/16 [History] Cetirizine HCl [All Day Allergy] 5 mg PO DAILY 11/08/16 [History] Cholecalciferol (Vitamin D3) [Vitamin D3] 1,000 unit PO DAILY 11/08/16 [History] Clotrimazole 1% CRM [Lotrimin 1%] 1 appl TP DAILY 11/08/16 [History] Eucerin Creme 57 appl TP DAILY 11/08/16 [History] Ferrous Gluconate 324 mg PO BID 11/08/16 [History] Furosemide [Lasix] 40 mg PO BID 11/08/16 [History] Gabapentin [Gralise] 300 mg PO TID 11/08/16 [History] GuaiFENesin/Dextromethorphan [Children's Mucinex Cough Liq] 5 ml PO BID [History] Insulin Glargine [Lantus] 20 unit SQ HS 11/08/16 [History] Isosorbide MONOnitrate (24 HR) [Imdur] 90 mg PO DAILY 11/08/16 [History] Lisinopril [Zestril] 40 mg PO DAILY 11/08/16 [History] Magnesium Oxide [Magnesium] 400 mg PO BID 11/08/16 [History] Mometasone/Formoterol [Dulera 200 Mcg/5 Mcg Inhaler] 2 puff IH DAILY 11/08/16 [ History] Multivit-Min/FA/Lycopen/Lutein [Centravites 50 Plus Tablet] 1 each PO DAILY [History] Mupirocin [Bactroban Oint] 1 appl TP DAILY PRN 11/08/16 [History] Omeprazole [PriLOSEC] 20 mg PO DAILY 11/08/16 [History] Prazosin HCl [Minipress] 10 mg PO HS 11/08/16 [History] Spironolactone [Aldactone] 25 mg PO DAILY 11/08/16 [History] Tamsulosin HCl [Flomax] 0.4 mg PO DAILY 11/08/16 [History] Tramadol HCl [Ultram] 50 mg PO TID PRN 11/08/16 [History] Trazodone HCl 100 mg PO HS PRN 11/08/16 [History] Vit C/E/Zn/Coppr/Lutein/Zeaxan [Preservision Areds 2 Softgel] 1 tab PO BID 11/08 [History] Albuterol Inhaler 2 puff IH QID 05/09/17 [History] Albuterol Neb [AccuNeb] 3 ml IN Q6HR 05/09/17 [History] Calcitriol 0.25 mg PO DAILY 05/09/17 [History] Cetirizine HCl 5 mg PO DAILY 05/09/17 [History] Chlorhexidine Gluconate 12 % PO BID 05/09/17 [History] Ipratropium 2 puff IN BID 05/09/17 [History] 3 Allergy/AdvReac Type Severity Reaction Status Date / Time Doxepin Allergy Hives Verified 11/07/16 22:47 Penicillins Allergy Hives Verified 11/07/16 22:47 Sulfa (Sulfonamide Allergy Hives Verified 11/07/16 22:47 Antibiotics) All Systems PM: A 10-system review of systems was performed and is negative for pertinent findings except as documented above in the HPI. - Constitutional Vitals: Temp Pulse Resp BP Pulse Ox 98.4 F 86 18 163/78 95 05/08/17 22:26 05/09/17 04:48 05/09/17 04:48 05/09/17 04:48 05/09/17 04:48 General appearance: Present: A&O X 3, no acute distress, answers questions appropriately - Head Head exam: Present: atraumatic, normocephalic - Eye Eye exam: Present: PERRL, conjuntiva pink, sclera anicteric Pupils: Present: PERRL - Neck Neck exam general surgery: Present: supple, trachea midline. Absent: lymphadenopathy - Respiratory Respiratory exam: Present: chest wall tenderness (On the right side), CTAB. Absent: accessory muscle use, rales, rhonchi, wheezes Additional comments: Coarse breath sounds bilaterally - Cardiovascular Cardiovascular exam: Present: RRR, +S1, +S2. Absent: diastolic murmur, gallop, rubs, systolic murmur - GI/Abdominal GI/Abdominal exam: Present: normal bowel sounds, soft, no peritoneal signs. Absent: distended, tenderness - Extremities Exam Extremities exam: Present: warm, radial pulses palpable and symmetrical. Absent : calf tenderness, cyanotic, pedal edema - Neurological Exam Neurological exam: Present: CN II-XII intact, oriented X3, no focal deficits. Absent: pronater drift, facial droop, speech deficit - Skin Skin exam: Present: dry, intact Internal Med - H&P Results - Labs CBC & Chem 7: 05/09/17 01:20 05/09/17 01:20 Labs: Short CBC 05/09/17 Range/Units 01:20 WBC 10.2 (4.3-11.1) K/mcL Hgb 11.5 L (12.9-16.9) g/dL Hct 36.1 L (37.5-50.1) % Plt Count 241 (140-400) K/mcL Neutrophils # 9.5 H (1.6-8.9) K/mcL BMP 05/09/17 01:20 Sodium 136 Potassium 4.8 Chloride 113 H Carbon Dioxide 16 L BUN 42 H Creatinine 3.15 H Glucose 162 H Calcium 8.7 Liver Function 05/09/17 Range/Units 01:20 Total Bilirubin 0.2 L (0.3-1.0) mg/dL AST 17 (13-39) Units/L ALT 20 (7-52) Units/L Alkaline Phosphatase 105 H (34-104) Units/L Albumin 3.0 L (3.5-5.7) g/dL - EKG Data -: EKG Interpreted by Myself EKG shows normal: sinus rhythm Rate: tachycardia - Impressions ITS Impressions Pulmonary Perfusion Imaging 12/21/17 22:58 IMPRESSION: Given the presence of bilateral pleural effusions this is an intermediate probability scan pattern for pulmonary embolus. D/ / Calin Willis MD / Calin Willis MD Interpreting Provider: Calin Willis MD Chest X-Ray 05/08/17 23:15 IMPRESSION: Bibasilar pleuroparenchymal disease, right greater than left. D/ / Calin Willis MD / Calin Willis MD Interpreting Provider: Calin Willis MD
[2017-05-09] MEDS ORDERED: cefTRIAXone 1,000 MG in Water for inj. (sterile) 10 ML IVP SCH (09:00)
--- NOTE | 2017-05-09 09:21 | Pulmonology Consult Note ---
Date of Encounter: 05/09/17 Time of Encounter: 09:15 Assessment and Plan (1) Systolic and diastolic CHF, acute on chronic Current Visit: Yes Status: Acute Patient has acute on chronic systolic diastolic heart failure complicated by right lower pneumonia will continue diuresis as done by the primary team.. (2) HCAP (healthcare-associated pneumonia) Current Visit: Yes Status: Acute Reviewing the CT scan it looks like bilateral lower lobe airspace disease more on the right suspect aspiration , may he aspirated had a mucous plug caused this shortness of breadth highly doubt this is acute pulmonary embolis, DVT scan is negative , ECHO didnt show any RV strain will stop the heparin drip. will change the antibiotics to broad spectrum antibiotics to encourage sitting up and incentive spirometry. Discussed the recs with the Nurse. History of Present Illness Consult date: 05/09/17 Requesting physician: Anoop Parra Chief complaint: Shortness of breadth on exertion History of present illness: 67 year old male with past medical history signifcant for CAD s/p stent with ischemic cardiomyopathy with EF of 30% with severe pulmonary hypertension , COPD was recently treated for pneumonia at the [place] comes with sudden shortness of breadth and desaturation , diaphoretic and tachycardic concern for PE send from [place] for V/Q scan for evaluation for PE , V/Q scan shows intermediate probability for PE , was started on heparin drip , pulmonary was consulted for evaluation of pulmonary embolism. Patient says his shortness of breadth is slightly better , denies any chest pain , has some cough and some sputum production , denies any fever or chills . Past Med Surg Social Fam HX - Past Medical History Medical history: CHF, coronary artery disease, diabetes, hyperlipidemia, hypertension, peripheral artery disease, renal disease Psychiatric history: depression, PTSD - Past Surgical History Surgical History: non-contributory, appendectomy - Social History Smoking Status: Current every day smoker Smokeless Tobacco Status: No Alcohol use: none Drug use: none - Family History Mother Name: Ruma Pantoja Living Status: Age at : 70 Cause of : lung cancer Medications and Allergies Aspirin [Lo-Dose Aspirin EC] 81 mg PO DAILY 11/08/16 [History] Atorvastatin Calcium [Lipitor] 80 mg PO HS 11/08/16 [History] BuPROPion SR (12 HR) [Wellbutrin SR] 150 mg PO BID 11/08/16 [History] Carvedilol [Coreg] 25 mg PO BID 11/08/16 [History] Cholecalciferol (Vitamin D3) [Vitamin D3] 1,000 unit PO DAILY 11/08/16 [History] Ferrous Gluconate 324 mg PO BID 11/08/16 [History] GuaiFENesin/Dextromethorphan [Children's Mucinex Cough Liq] 5 ml PO BID [History] Insulin Glargine [Lantus] 20 unit SQ HS 11/08/16 [History] Isosorbide MONOnitrate (24 HR) [Imdur] 90 mg PO DAILY 11/08/16 [History] Magnesium Oxide [Magnesium] 400 mg PO BID 11/08/16 [History] Mometasone/Formoterol [Dulera 200 Mcg/5 Mcg Inhaler] 2 puff IH DAILY 11/08/16 [ History] Multivit-Min/FA/Lycopen/Lutein [Centravites 50 Plus Tablet] 1 each PO DAILY [History] Omeprazole [PriLOSEC] 20 mg PO DAILY 11/08/16 [History] Spironolactone [Aldactone] 25 mg PO DAILY 11/08/16 [History] Tamsulosin HCl [Flomax] 0.4 mg PO DAILY 11/08/16 [History] Tramadol HCl [Ultram] 50 mg PO TID PRN 11/08/16 [History] Trazodone HCl 100 mg PO HS PRN 11/08/16 [History] Vit C/E/Zn/Coppr/Lutein/Zeaxan [Preservision Areds 2 Softgel] 1 tab PO BID 11/08 [History] Albuterol Sulfate [Albuterol Inhaler] 2 puff IH Q6HR PRN 05/09/17 [History] Calcitriol [Rocaltrol] 0.25 mcg PO DAILY 05/09/17 [History] Cetirizine HCl [Zyrtec] 10 mg PO DAILY 05/09/17 [History] Ipratropium [Atrovent Inhaler] 2 puff IH BID PRN 05/09/17 [History] Ipratropium/Albuterol Neb [Duoneb] 3 ml IH Q6HR PRN 05/09/17 [History] 3 Allergy/AdvReac Type Severity Reaction Status Date / Time Doxepin Allergy Hives Verified 11/07/16 22:47 Penicillins Allergy Hives Verified 11/07/16 22:47 Sulfa (Sulfonamide Allergy Hives Verified 11/07/16 22:47 Antibiotics) All Systems: A 10-system review of systems was performed and is negative for pertinent findings except as documented above in the HPI. Physical Examination Vital Signs: Vital Signs, Last 4 Hours Temp Pulse Resp BP Pulse Ox 05/09/17 07:00 98.4 F 88 20 171/85 98 Effort: mildly labored Auscultation: bilateral: wheezes, other (bilateral crackles ) Extremities: edema (edema ) Results - Laboratory Findings CBC and BMP: 05/09/17 01:20 05/09/17 01:20 PT/INR, D-dimer PT 11.8 Seconds (9.4-12.1) 05/09/17 01:20 D-Dimer 1267 ng/mLFEU (0-500) H 05/09/17 01:20 Abnormal lab findings: Abnormal lab results RBC 3.87 M/mcL (4.19-5.50) L 05/09/17 01:20 Hgb 11.5 g/dL (12.9-16.9) L 05/09/17 01:20 Hct 36.1 % (37.5-50.1) L 05/09/17 01:20 RDW 16.2 % (11.5-14.5) H 05/09/17 01:20 MPV 8.7 fL (9.4-12.4) L 05/09/17 01:20 Neutrophils # 9.5 K/mcL (1.6-8.9) H 05/09/17 01:20 Lymphocytes # 0.5 K/mcL (0.6-4.6) L 05/09/17 01:20 APTT 50.7 Seconds (26.0-36.0) H 05/09/17 01:20 D-Dimer 1267 ng/mLFEU (0-500) H 05/09/17 01:20 Chloride 113 mEq/L (98-107) H 05/09/17 01:20 Carbon Dioxide 16 mEq/L (23-29) L 05/09/17 01:20 BUN 42 mg/dL (8-23) H 05/09/17 01:20 Creatinine 3.15 mg/dL (0.70-1.30) H 05/09/17 01:20 Est GFR ( Amer) 24 (> 60) L 05/09/17 01:20 Est GFR (Non-Af Amer) 20 (> 60) L 05/09/17 01:20 Glucose 162 mg/dL (70-105) H 05/09/17 01:20 POC Glucose 157 (58-89) H 05/08/17 22:23 Total Bilirubin 0.2 mg/dL (0.3-1.0) L 05/09/17 01:20 Alkaline Phosphatase 105 Units/L (34-104) H 05/09/17 01:20 Troponin I 0.04 ng/mL (< 0.04) H* 05/09/17 06:08 B-Natriuretic Peptide 1515 pg/mL (Less than 100) H 05/09/17 01:20 Serum Total Protein 6.2 g/dL (6.4-8.9) L 05/09/17 01:20 Albumin 3.0 g/dL (3.5-5.7) L 05/09/17 01:20 Albumin/Globulin Ratio 0.9 (1.1-2.2) L 05/09/17 01:20 - Clinical Findings Intake & Output: Intake & Output 05/08/17 05/09/17 05/09/17 23:59 07:59 15:59 Weight 89 kg Consult Discharge Plan - Plan [facility]: [facility]Primary Care Provider[facility] - 05/26/17 3:00 pm
[2017-05-09] MEDS: amLODIPine 5 MG TABLET PO SCH (09:32)
[2017-05-09] MEDS: Aspirin Enteric Coated 81 MG Tablet PO SCH (09:33)
[2017-05-09] MEDS: Isosorbide MONOnitrate (24 HR) 30 MG TAB.ER.24H PO SCH (09:33)
[2017-05-09] MEDS: Magnesium Oxide 400 MG TABLET PO SCH ×2 (09:34→20:03)
[2017-05-09] MEDS: (Preservision Areds 2) PO SCH ×2 (09:35→20:26)
--- NOTE | 2017-05-09 09:35 | Nephrology Consult Note ---
Date of Encounter: 05/09/17 Time of Encounter: 08:20 History of Present Illness - Reason for Consult Chronic Kidney Disease - History of Present Illness A/P-VQ scan-"intermediate probability pulmonary embolus. Mild elevation of creat 3.15, above patients baseline of 2.7-2.9. Most likely diuretics contributing. May have to accept higher azotemia related to diuretics, related to history of CHF. Avoid nephrotoxins. Will continue to monitor. Mr. Jackson is a 67 year old male known to practice with stable CKD 4 in setting of hypertension with diuretics contributing due to history of CHF, last seen about two months ago. Baseline creat 1.7-1.9. Other PMH-CHF, coronary artery disease, diabetes, hyperlipidemia, hypertension, peripheral artery disease, depression, PTSD. Patient had sudden onset of shortness of breath yesterday, was evaluated at [place], unable to do CTA with CKD and transferred to [facility] for VQ scan. Elevated D-Dimer, started on Heparin drip. CXR- bibasilar pleural effusions, airspace disease. At time of consult, patient sitting on edge of bed , eating breakfast. O2 sat 95% on room air. Denies any SOB. Creat 3.15, no documented urine output, though patient states voiding large amounts of urine. Denies any recent illness, vomiting, diarrhea or NSAID use. Past Med Surg Social Fam HX - Past Medical History Medical history: CHF, coronary artery disease, diabetes, hyperlipidemia, hypertension, peripheral artery disease, renal disease Psychiatric history: depression, PTSD - Past Surgical History Surgical History: non-contributory, appendectomy - Social History Smoking Status: Current every day smoker Smokeless Tobacco Status: No Alcohol use: none Drug use: none - Family History Mother Name: Ruma Pantoja Living Status: Age at : 70 Cause of : lung cancer Medications and Allergies Aspirin [Lo-Dose Aspirin EC] 81 mg PO DAILY 11/08/16 [History] Atorvastatin Calcium [Lipitor] 80 mg PO HS 11/08/16 [History] BuPROPion SR (12 HR) [Wellbutrin SR] 150 mg PO BID 11/08/16 [History] Carvedilol [Coreg] 25 mg PO BID 11/08/16 [History] Cholecalciferol (Vitamin D3) [Vitamin D3] 1,000 unit PO DAILY 11/08/16 [History] Ferrous Gluconate 324 mg PO BID 11/08/16 [History] GuaiFENesin/Dextromethorphan [Children's Mucinex Cough Liq] 5 ml PO BID [History] Insulin Glargine [Lantus] 20 unit SQ HS 11/08/16 [History] Isosorbide MONOnitrate (24 HR) [Imdur] 90 mg PO DAILY 11/08/16 [History] Magnesium Oxide [Magnesium] 400 mg PO BID 11/08/16 [History] Mometasone/Formoterol [Dulera 200 Mcg/5 Mcg Inhaler] 2 puff IH DAILY 11/08/16 [ History] Multivit-Min/FA/Lycopen/Lutein [Centravites 50 Plus Tablet] 1 each PO DAILY [History] Omeprazole [PriLOSEC] 20 mg PO DAILY 11/08/16 [History] Spironolactone [Aldactone] 25 mg PO DAILY 11/08/16 [History] Tamsulosin HCl [Flomax] 0.4 mg PO DAILY 11/08/16 [History] Tramadol HCl [Ultram] 50 mg PO TID PRN 11/08/16 [History] Trazodone HCl 100 mg PO HS PRN 11/08/16 [History] Vit C/E/Zn/Coppr/Lutein/Zeaxan [Preservision Areds 2 Softgel] 1 tab PO BID 11/08 [History] Albuterol Sulfate [Albuterol Inhaler] 2 puff IH Q6HR PRN 05/09/17 [History] Calcitriol [Rocaltrol] 0.25 mcg PO DAILY 05/09/17 [History] Cetirizine HCl [Zyrtec] 10 mg PO DAILY 05/09/17 [History] Ipratropium [Atrovent Inhaler] 2 puff IH BID PRN 05/09/17 [History] Ipratropium/Albuterol Neb [Duoneb] 3 ml IH Q6HR PRN 05/09/17 [History] 3 Allergy/AdvReac Type Severity Reaction Status Date / Time Doxepin Allergy Hives Verified 11/07/16 22:47 Penicillins Allergy Hives Verified 11/07/16 22:47 Sulfa (Sulfonamide Allergy Hives Verified 11/07/16 22:47 Antibiotics) Review of Systems All Systems: reviewed and no additional remarkable complaints except as stated Exam - Vital Signs Vital signs: Initial Vital Signs Temp Pulse Resp BP Pulse Ox 98.4 F 81 20 150/81 93 05/08/17 22:26 05/08/17 22:26 05/08/17 22:26 05/08/17 22:26 05/08/17 22:26 Vital Signs - Last 8 Hours Temp Pulse Resp BP Pulse Ox 05/09/17 07:00 98.4 F 88 20 171/85 98 05/09/17 04:48 86 18 163/78 95 05/09/17 03:48 20 98 Intake and Output 05/08/17 05/09/17 05/09/17 23:59 07:59 15:59 Other: Weight 89 kg Blood Glucose* 157 222 Patient Weight 05/09/17 23:59 Weight 89 kg - General Appearance General appearance: well-developed, well-nourished, appears started age EENT: mucous membranes moist Neck: no JVD Respiratory: clear Cardiology: edema, regular rate, regular rhythm Additional Comments: Mild pitting edema LE, left chronically > than right. Chronic vascular skin changes. Gastrointestinal: normoactive bowel sounds, no tenderness Integumentary: warm and dry Neurologic: alert and oriented x3 Psychiatric: mood/affect appropriate, cooperative Results - Lab Results 05/09/17 01:20 05/09/17 01:20 Most recent lab results Calcium 8.7 mg/dL (8.6-10.3) 05/09/17 01:20 Consult Discharge Plan - Plan [facility]errals: [facility] [Primary Care Provider] - 05/26/17 3:00 pm
[2017-05-09] MEDS: Insulin LISPRO 300 UNITS/3 ML VIAL SQ SCH ×4 (09:57→20:10)
[2017-05-09] MEDS: Furosemide 40 MG/4 ML VIAL IVP SCH ×2 (09:57→18:04)
[2017-05-09 10:19] LABS: Activated Partial Thrombo Time 282.3 Seconds (26.0-36.0)
[2017-05-09 10:35] LABS: Heparin anti-factor XA UFH 0.75 IU/mL (0.30-0.70)
[2017-05-09] MEDS ORDERED: Vancomycin 1,750 MG in D5% in Water 500 ML IVPB SCH (16:00)
--- NOTE | 2017-05-09 17:27 | Event Note ---
Date of Encounter: 05/09/17 Time of Encounter: 11:00 [facility] on chronic systolic heart failure and community-acquired pneumonia with concerns for pulmonary embolism Pulmonology consulted with recommendations with recommendations for CT scan which showed bilateral lower lobe airspace disease more on the right suspect aspiration Pulmonology does not suspect that this is an acute pulmonary embolis as DVT scan is negative and ECHO didnt show any RV strain. Heparin drip was therefore discontinued. Further recommendations to change antibiotics to broad spectrum.
[2017-05-09] MEDS: MetroNIDAZOLE 500 MG/100 ML 500 MG/100 ML BAG IVPB SCH ×2 (18:03→23:31)
[2017-05-09] MEDS: Aztreonam 1,000 MG in Water for inj. (sterile) 20 ML 10 ML IVP SCH ×2 (18:04→23:30)
[2017-05-09 18:18] LABS: Albumin 2.9 g/dL (3.5-5.7); Albumin/Globulin Ratio 0.9 (1.1-2.2); Bilirubin,Indirect 0.2 mg/dL (0.0-1.2); Bilirubin,Total 0.2 mg/dL (0.3-1.0); Globulin 3.1 g/dL (2.4-3.5)
[2017-05-09] MEDS: Vancomycin 1,750 MG in D5% in Water 500 ML IVPB SCH (19:26)
[2017-05-09] MEDS: Insulin DETEMIR 100 UNIT/ML X5UNITS SQ SCH (20:04)
[2017-05-10] MEDS: Ipratropium/Albuterol Neb 3 ML IH SCH ×4 (04:16→21:44)
--- NOTE | 2017-05-10 06:53 | Pulmonology Progress Note ---
Date of Encounter: 05/10/17 Time of Encounter: 06:45 Assessment and Plan (1) Systolic and diastolic CHF, acute on chronic Current Visit: Yes Status: Acute To continue diuresis , needs good blood pressure control as it worsens both systolic and diastolic function blood pressure management according to primary team . (2) HCAP (healthcare-associated pneumonia) Current Visit: Yes Status: Acute Patient is overall getting better with no much sputum production , will descalate antibiotics on discharge can go home on either levaquin for 7 Days or Doxycycline for 7 days . Will sign off call with questions . Subjective Principal diagnosis: Congestive heart failure Interval history: 67 year old male here admitted for exacerbation of congestive heart failure and Suspected gram positive and gram negative pneumonia. Saw him today sitting on the side of the bed feels he lots of better saying almost ready to go home. Objective PUL Vital signs: Last Vital Signs Temp 97.3 F L 05/10/17 04:28 Pulse 83 05/10/17 04:28 Resp 20 05/10/17 04:28 BP 164/84 05/10/17 04:28 Pulse Ox 97 05/10/17 04:28 Auscultation: bilateral: rhonchi (scattered rhonchi) Results - Laboratory Findings CBC and BMP: 05/10/17 08:52 05/10/17 08:49 PT/INR, D-dimer PT 11.8 Seconds (9.4-12.1) 05/09/17 01:20 D-Dimer 1267 ng/mLFEU (0-500) H 05/09/17 01:20 Abnormal lab findings: Abnormal lab results RBC 3.87 M/mcL (4.19-5.50) L 05/09/17 01:20 Hgb 11.5 g/dL (12.9-16.9) L 05/09/17 01:20 Hct 36.1 % (37.5-50.1) L 05/09/17 01:20 RDW 16.2 % (11.5-14.5) H 05/09/17 01:20 MPV 8.7 fL (9.4-12.4) L 05/09/17 01:20 Neutrophils # 9.5 K/mcL (1.6-8.9) H 05/09/17 01:20 Lymphocytes # 0.5 K/mcL (0.6-4.6) L 05/09/17 01:20 APTT 282.3 Seconds (26.0-36.0) H* D 05/09/17 09:27 D-Dimer 1267 ng/mLFEU (0-500) H 05/09/17 01:20 Heparin Anti-Xa, Unfract 0.75 IU/mL (0.30-0.70) H 05/09/17 09:27 Chloride 113 mEq/L (98-107) H 05/09/17 01:20 Carbon Dioxide 16 mEq/L (23-29) L 05/09/17 01:20 BUN 42 mg/dL (8-23) H 05/09/17 01:20 Creatinine 3.15 mg/dL (0.70-1.30) H 05/09/17 01:20 Est GFR ( Amer) 24 (> 60) L 05/09/17 01:20 Est GFR (Non-Af Amer) 20 (> 60) L 05/09/17 01:20 Glucose 162 mg/dL (70-105) H 05/09/17 01:20 POC Glucose 147 (58-89) H 05/09/17 16:38 Total Bilirubin 0.2 mg/dL (0.3-1.0) L 05/09/17 17:51 Troponin I 0.04 ng/mL (< 0.04) H* 05/09/17 17:51 B-Natriuretic Peptide 1515 pg/mL (Less than 100) H 05/09/17 01:20 Serum Total Protein 6.0 g/dL (6.4-8.9) L 05/09/17 17:51 Albumin 2.9 g/dL (3.5-5.7) L 05/09/17 17:51 Albumin/Globulin Ratio 0.9 (1.1-2.2) L 05/09/17 17:51 - Clinical Findings Intake & Output: Intake & Output 05/09/17 05/09/17 05/10/17 15:59 23:59 07:59 Intake Total 297 / 297 1420 / 1420 50 / 50 Output Total 400 / 400 1050 / 1050 450 / 450 Balance -103 / -103 370 / 370 -400 / -400 Weight 88.5 kg Consult Discharge Plan - Plan Instructions: Heart Failure (DC), Pulmonary Embolism (DC), Acute Kidney Injury (DC), Acute Kidney Injury (GEN), Diabetes Mellitus Type 2 in Adults (DC), Peripheral Vascular Disorders (DC), Chronic Hypertension (DC), Pneumonia (DC), Cigarette Smoking and Your Health, 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
[2017-05-10] MEDS: Insulin LISPRO 300 UNITS/3 ML VIAL SQ SCH ×4 (07:49→21:21)
[2017-05-10] MEDS: Furosemide 40 MG/4 ML VIAL IVP SCH ×2 (07:56→19:29)
[2017-05-10] MEDS: Aztreonam 1,000 MG in Water for inj. (sterile) 20 ML 10 ML IVP SCH ×2 (07:57→19:27)
[2017-05-10] MEDS: amLODIPine 5 MG TABLET PO SCH (07:59)
[2017-05-10] MEDS: Aspirin Enteric Coated 81 MG Tablet PO SCH (07:59)
[2017-05-10] MEDS: Isosorbide MONOnitrate (24 HR) 30 MG TAB.ER.24H PO SCH (07:59)
[2017-05-10] MEDS: Magnesium Oxide 400 MG TABLET PO SCH ×2 (08:00→19:50)
[2017-05-10] MEDS: MetroNIDAZOLE 500 MG/100 ML 500 MG/100 ML BAG IVPB SCH ×2 (08:01→19:28)
--- NOTE | 2017-05-10 08:20 | Nephrology Progress Note ---
Date of Encounter: 05/10/17 Time of Encounter: 08:00 - Assessment and Plan (1) GLORIA (acute kidney injury) Current Visit: Yes Status: Acute VQ scan-"intermediate probability pulmonary embolus. Mild elevation of creat 3.15, today labs pending, above patients baseline of 2.7-2.9. Most likely diuretics contributing. May have to accept higher azotemia related to diuretics , related to history of CHF. Avoid nephrotoxins. Will continue to monitor. If discharged, will follow in office. Subjective Interval history: Sitting on edge of bed, eating breakfast. Denies SOB. Wants to go home. Objective - Vital Signs Vital signs: Vital Signs Temp Pulse Resp BP Pulse Ox 05/10/17 07:30 97.6 F 82 15 167/97 96 05/10/17 04:28 97.3 F L 83 20 164/84 97 05/10/17 04:16 18 94 05/10/17 00:35 97.8 F 78 20 161/77 94 05/09/17 21:24 16 98 05/09/17 20:04 98.2 F 81 24 152/81 96 05/09/17 15:49 20 95 05/09/17 15:00 93 18 167/85 96 05/09/17 11:00 81 16 150/78 98 Intake and Output 05/09/17 05/10/17 05/10/17 23:59 07:59 15:59 Intake Total 1430 / 1430 50 / 50 Output Total 1050 / 1050 450 / 450 Balance 380 / 380 -400 / -400 Intake: IV Fluids 120 / 120 Azactam 1,000 MG In Water for 20 inj. (sterile) 10 ML @ 150 mls/ hr IVP Q8HR [facility] Rx#:[id number] Flagyl Premix 500 MG/100 ML 500 100 / 100 mg In 100 ml @ 100 mls/hr IVPB Q8HR [facility] Rx#:[id number] Oral 510 / 510 50 / 50 Free Water 800 / 800 Output: Urine 1050 / 1050 450 / 450 Other: Meal Dinner Percent of Meal Consumed 100% Stool Size Small Stool Consistency formed Stool Color Brown # Voids 0 0 # Urine Diapers 1 Weight 88.5 kg Blood Glucose* 179 74 Patient Weight 05/10/17 23:59 Weight 88.5 kg - General Appearance General appearance: Present: well-developed, well-nourished, appears started age EENT: Present: mucous membranes moist Neck: Present: no JVD Respiratory: Present: clear Cardiology: Present: edema, regular rate, regular rhythm Additional Comments: Mild Gastrointestinal: Present: normoactive bowel sounds, no tenderness Integumentary: Present: warm and dry Neurologic: Present: alert and oriented x3 Psychiatric: Present: mood/affect appropriate, cooperative - Lab 05/09/17 01:20 05/09/17 01:20 Most recent lab results Calcium 8.7 mg/dL (8.6-10.3) 05/09/17 01:20 Consult Discharge Plan - Plan [facility]errals: [facility] [Primary Care Provider] - 05/26/17 3:00 pm
[2017-05-10 09:04] LABS: Basophils # 0.1 K/mcL (0.0-0.2); Basophils % 0.6 %; Eosinophils # 0.1 K/mcL (0.0-0.6); Eosinophils % 1.2 %; Hematocrit 33.5 % (37.5-50.1); Hemoglobin 10.9 g/dL (12.9-16.9); Immature Granulocytes % 0.4 % (0-4); Lymphocytes # 2.2 K/mcL (0.6-4.6); Mean Corpuscular HGB Conc 32.5 g/dL (31.6-35.5); Mean Corpuscular Hemoglobin 29.7 pg (28.0-33.3); Mean Corpuscular Volume 91.3 fL (83.0-100.0); Mean Platelet Volume 8.8 fL (9.4-12.4); Monocytes # 0.7 K/mcL (0.0-1.3); Monocytes % 6.1 %; Neutrophils # 7.8 K/mcL (1.6-8.9); Platelet Count 274 K/mcL (140-400); Red Blood Count 3.67 M/mcL (4.19-5.50); Red Cell Distribution Width 15.8 % (11.5-14.5); Segmented Neutrophils % 71.7 %
[2017-05-10 09:42] LABS: Albumin 2.9 g/dL (3.5-5.7); Bilirubin,Total 0.3 mg/dL (0.3-1.0); Calcium 8.4 mg/dL (8.6-10.3); Total Protein 5.9 g/dL (6.4-8.9)
[2017-05-10] MEDS: (Preservision Areds 2) PO SCH ×2 (10:48→19:52)
--- NOTE | 2017-05-10 17:02 | Internal Med Progress Note ---
Date of Encounter: 05/10/17 Time of Encounter: 11:00 - Assessment and plan (1) HCAP (healthcare-associated pneumonia) Current Visit: Yes Status: Acute Assessment and plan: -Chest CT showed right larger than left pleural effusions in addition airspace disease in the right lower lobe at least in part represents compressive atelectasis from the pleural effusion. -Continue IV vancomycin and aztreonam -Pulmonology consulted and appreciate recommendations (2) Systolic and diastolic CHF, acute on chronic Current Visit: Yes Status: Acute Assessment and plan: -Continue IV diuresis with Lasix (3) CKD (chronic kidney disease) stage 4, GFR 15-29 ml/min Current Visit: Yes Status: Acute Assessment and plan: -Creatinine elevated but stable -Nephrology consulted and appreciate recommendations (4) HTN (hypertension) Current Visit: No Status: Chronic Assessment and plan: -Controlled; continue current management Qualifiers: Hypertension type: essential hypertension Qualified Code(s): I10 - Essential (primary) hypertension (5) Diabetes mellitus Current Visit: No Status: Chronic Assessment and plan: -Controlled; continue current management Qualifiers: Diabetes mellitus type: type 2 Diabetes mellitus complication status: with kidney complications Diabetes mellitus complication detail: with chronic kidney disease Diabetes mellitus termite exterminator helper insulin use: with termite exterminator helper use Chronic kidney disease stage: stage 4 (severe) Qualified Code(s): E11.22 - Type 2 diabetes mellitus with diabetic chronic kidney disease; N18.4 - Chronic kidney disease, stage 4 (severe); Z79.4 - halfway (current) use of insulin - Subjective Interval history: Patient reports some improvement in shortness of breath - Constitutional Vitals: Temp Pulse Resp BP Pulse Ox 97.8 F 84 17 173/82 98 05/10/17 15:16 05/10/17 15:16 05/10/17 16:13 05/10/17 15:16 05/10/17 16:13 General appearance: Present: A&O X 3, no acute distress, answers questions appropriately - Respiratory Respiratory exam: Present: CTAB. Absent: accessory muscle use, rales, rhonchi, wheezes - Cardiovascular Cardiovascular exam: Present: RRR, +S1, +S2. Absent: diastolic murmur, gallop, rubs, systolic murmur Internal Medicine: Result - Labs CBC & Chem 7: 05/10/17 08:52 05/10/17 08:49 Labs: Short CBC 05/10/17 Range/Units 08:52 WBC 10.8 (4.3-11.1) K/mcL Hgb 10.9 L (12.9-16.9) g/dL Hct 33.5 L (37.5-50.1) % Plt Count 274 (140-400) K/mcL Neutrophils # 7.8 (1.6-8.9) K/mcL BMP 05/10/17 08:49 Sodium 137 Potassium 4.0 Chloride 113 H Carbon Dioxide 17 L BUN 49 H Creatinine 3.09 H Glucose 95 Calcium 8.4 L Cardiac Enzymes 05/09/17 Range/Units 17:51 Troponin I 0.04 H* (< 0.04) ng/mL Liver Function 05/09/17 05/10/17 Range/Units 17:51 08:49 Total Bilirubin 0.2 L 0.3 (0.3-1.0) mg/dL Direct Bilirubin 0.0 (0.0-0.2) mg/dL AST 16 17 (13-39) Units/L ALT 18 19 (7-52) Units/L Alkaline Phosphatase 100 82 (34-104) Units/L Albumin 2.9 L 2.9 L (3.5-5.7) g/dL - ABG Interpretation ABG results: PT/INR, D-dimer PT 11.8 Seconds (9.4-12.1) 05/09/17 01:20 D-Dimer 1267 ng/mLFEU (0-500) H 05/09/17 01:20 Consult Discharge Plan - Plan Instructions: Heart Failure (DC), Pulmonary Embolism (DC), Acute Kidney Injury (DC), Acute Kidney Injury (GEN), Diabetes Mellitus Type 2 in Adults (DC), Peripheral Vascular Disorders (DC), Chronic Hypertension (DC), Pneumonia (DC), Cigarette Smoking and Your Health, Plywood Layup Line Core Layer (GEN) Referrals: [facility] [Primary Care Provider] - 05/26/17 3:00 pm
[2017-05-10] MEDS: Vancomycin 1,750 MG in D5% in Water 500 ML IVPB SCH (19:51)
[2017-05-10] MEDS: Insulin DETEMIR 100 UNIT/ML X5UNITS SQ SCH (19:51)
[2017-05-11] MEDS: Aztreonam 1,000 MG in Water for inj. (sterile) 20 ML 10 ML IVP SCH ×2 (00:04→11:07)
[2017-05-11] MEDS: MetroNIDAZOLE 500 MG/100 ML 500 MG/100 ML BAG IVPB SCH ×2 (00:05→11:08)
[2017-05-11] MEDS: Ipratropium/Albuterol Neb 3 ML IH SCH ×2 (05:00→10:57)
[2017-05-11 10:25] VITALS: BP 135/87
[2017-05-11] MEDS: Insulin LISPRO 300 UNITS/3 ML VIAL SQ SCH ×2 (11:04→13:11)
[2017-05-11] MEDS: Aspirin Enteric Coated 81 MG Tablet PO SCH (11:09)
[2017-05-11] MEDS: amLODIPine 5 MG TABLET PO SCH (11:09)
[2017-05-11] MEDS: Isosorbide MONOnitrate (24 HR) 30 MG TAB.ER.24H PO SCH (11:09)
[2017-05-11] MEDS: Furosemide 40 MG/4 ML VIAL IVP SCH (11:09)
[2017-05-11] MEDS: Magnesium Oxide 400 MG TABLET PO SCH (11:09)
[2017-05-11] MEDS: (Preservision Areds 2) PO SCH (11:09)
--- NOTE | 2017-05-11 12:16 | Discharge Summary ---
Date of Encounter: 05/11/17 Time of Encounter: 09:00 - Discharge Diagnosis (1) HCAP (healthcare-associated pneumonia) Priority: Primary Status: Acute (2) Systolic and diastolic CHF, acute on chronic Priority: Primary Status: Acute (3) CKD (chronic kidney disease) stage 4, GFR 15-29 ml/min Priority: Secondary Status: Acute (4) HTN (hypertension) Priority: Secondary Status: Chronic Qualifiers: Hypertension type: essential hypertension Qualified Code(s): I10 - Essential (primary) hypertension (5) Diabetes mellitus Priority: Secondary Status: Chronic Qualifiers: Diabetes mellitus type: type 2 Diabetes mellitus complication status: with kidney complications Diabetes mellitus complication detail: with chronic kidney disease Diabetes mellitus prison insulin use: with watermaster use Chronic kidney disease stage: stage 4 (severe) Qualified Code(s): E11.22 - Type 2 diabetes mellitus with diabetic chronic kidney disease; N18.4 - Chronic kidney disease, stage 4 (severe); Z79.4 - [facility] (current) use of insulin - Discharge Medications Prescriptions: Furosemide [Lasix] 20 mg PO BID #60 tablet Levofloxacin [Levaquin] 750 mg PO DAILY 7 Days #7 tablet Home Medications: Aspirin [Lo-Dose Aspirin EC] 81 mg PO DAILY 11/08/16 [History] Atorvastatin Calcium [Lipitor] 80 mg PO HS 11/08/16 [History] BuPROPion SR (12 HR) [Wellbutrin SR] 150 mg PO BID 11/08/16 [History] Carvedilol [Coreg] 25 mg PO BID 11/08/16 [History] Cholecalciferol (Vitamin D3) [Vitamin D3] 1,000 unit PO DAILY 11/08/16 [History] Ferrous Gluconate 324 mg PO BID 11/08/16 [History] GuaiFENesin/Dextromethorphan [Children's Mucinex Cough Liq] 5 ml PO BID [History] Insulin Glargine [Lantus] 20 unit SQ HS 11/08/16 [History] Isosorbide MONOnitrate (24 HR) [Imdur] 90 mg PO DAILY 11/08/16 [History] Magnesium Oxide [Magnesium] 400 mg PO BID 11/08/16 [History] Mometasone/Formoterol [Dulera 200 Mcg/5 Mcg Inhaler] 2 puff IH DAILY 11/08/16 [ History] Multivit-Min/FA/Lycopen/Lutein [Centravites 50 Plus Tablet] 1 each PO DAILY [History] Omeprazole [PriLOSEC] 20 mg PO DAILY 11/08/16 [History] Tamsulosin HCl [Flomax] 0.4 mg PO DAILY 11/08/16 [History] Tramadol HCl [Ultram] 50 mg PO TID PRN 11/08/16 [History] Trazodone HCl 100 mg PO HS PRN 11/08/16 [History] Vit C/E/Zn/Coppr/Lutein/Zeaxan [Preservision Areds 2 Softgel] 1 tab PO BID 11/08 [History] Albuterol Sulfate [Albuterol Inhaler] 2 puff IH Q6HR PRN 05/09/17 [History] Calcitriol [Rocaltrol] 0.25 mcg PO DAILY 05/09/17 [History] Cetirizine HCl [Zyrtec] 10 mg PO DAILY 05/09/17 [History] Ipratropium [ATROVENT Inhaler] 2 puff IH BID PRN 05/09/17 [History] Ipratropium/Albuterol Neb [Duoneb] 3 ml IH Q6HR PRN 05/09/17 [History] Furosemide [Lasix] 20 mg PO BID #60 tablet 05/11/17 [Rx] Levofloxacin [Levaquin] 750 mg PO DAILY 7 Days #7 tablet 05/11/17 [Rx] Allergies/Adverse Reactions: 3 Allergy/AdvReac Type Severity Reaction Status Date / Time Doxepin Allergy Hives Verified 11/07/16 22:47 Penicillins Allergy Hives Verified 11/07/16 22:47 Sulfa (Sulfonamide Allergy Hives Verified 11/07/16 22:47 Antibiotics) Procedures/tests Complete & Pending: Procedures Performed prior 72 hours Category Date Time Status CT chest wo con [CT] Routine Cat Scan 05/09/17 14:00 Completed NM pul vent and perfuse [NM] Stat Exams 05/08/17 22:58 Completed EV echocardiogram Routine Y 05/09/17 07:22 Completed Venous Doppler [EV venous imaging LE BI] Routine Y 05/09/17 01:40 Completed Date of admission: 05/08/17 22:05 [facility] care physician[facility] Consults: 05/09/17 01:36 Consult to Nephrology [CONS] Routine Consulting Provider: [facility] Reason for Consult: Stage CKD, help for management Call Completed: No 05/09/17 01:50 Consult to Pulmonology [CONS] Routine Consulting Provider: [facility] [place] Reason for Consult: intermittent probablity of PE, help for management Call Completed: No - Patient Status Disposition: Home, Self-Care - Discharge Instructions Instructions: Heart Failure (DC), Pulmonary Embolism (DC), Acute Kidney Injury (DC), Acute Kidney Injury (GEN), Diabetes Mellitus Type 2 in Adults (DC), Peripheral Vascular Disorders (DC), Chronic Hypertension (DC), Pneumonia (DC), Cigarette Smoking and Your Health, 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 Reason for the transfer was to rule out PE with a VQ scan. During patients hospital stay at [facility], PE was ruled out with VQ scan and venous Dopplers was negative for DVT. Chest CT showed right larger than left pleural effusions in addition airspace disease in the right lower lobe at least in part represents compressive atelectasis from the pleural effusion. Patient was treated for HCAP with IV vancomycin and aztreonam. Patient was also treated for acute on chronic systolic and diastolic failure with IV Lasix. Echocardiogram on 05/09/17 showed LVEF of 30% with global left ventricular systolic dysfunction in addition to mild left ventricular diastolic dysfunction with normal right ventricular structure/function; severe pulmonary hypertension. Patients symptoms of shortness of breath has resolved and will be discharged home to continue oral Lasix and a seven-day course of Levaquin. Patient will follow up with primary care provider as well as nephrology for management of CKD stage IV. - Time Spent with Patient Total time spent providing and/or coordinating discharge services: Less than 30 minutes - Constitutional Vitals: Temp Pulse Resp BP Pulse Ox 97.9 F 84 18 135/87 99 05/11/17 08:00 05/11/17 08:00 05/11/17 10:57 05/11/17 08:00 05/11/17 10:57 General appearance: Present: A&O X 3, no acute distress, answers questions appropriately - Respiratory Respiratory exam: Present: CTAB. Absent: accessory muscle use, rales, rhonchi, wheezes - Cardiovascular Cardiovascular exam: Present: RRR, +S1, +S2. Absent: diastolic murmur, gallop, rubs, systolic murmur
== END 2017-05-11 14:19 | disposition home or self-care (01) | DRG 190 ==
LOC: 2NENU 22:05
PROVIDERS: ADMIT Internal Medicine; ATTEND Hospitalist

== ENCOUNTER 2017-06-04 20:34 | Inpatient (IN) ==
[2017-06-04] MEDS ORDERED: Ipratropium/Albuterol Neb 3 ML IH ONE (21:13)
--- NOTE | 2017-06-04 21:32 | Emergency Department Note ---
Disposition Clinical Impression: Acute exacerbation of chronic obstructive airways disease CHF exacerbation Qualifiers: Congestive heart failure type: combined Qualified Code(s): I50.43 - Acute on chronic combined systolic (congestive) and diastolic (congestive) heart failure Disposition: Admitted As Inpatient Condition: Fair Time of Disposition: 23:08 SOB HPI - General Chief Complaint: ED Shortness of Breath/Dyspnea Stated Complaint: jarvis Time Seen by Provider: 06/04/17 21:05 Source: patient, EMS Mode of arrival: ambulatory Limitations: no limitations Nursing Notes Reviewed: Yes Vital Signs Reviewed: Yes - History of Present Illness 67-year-old male presents to the emergency department complaining of shortness of breath. He was transferred here from the [place] for CHF and COPD they did the entire work up there said he had COPD and CHF exacerbation. Patient states had shortness of breath for the last couple days he is normally on home oxygen but said that he only uses it when needed. She is a red be intubated for his COPD. States has increased swelling in his legs bilaterally as well as having difficult time breathing. [facility] Solu-Medrol as well as DuoNeb treatment and Lasix. Patient did well with this. They tried to admit him to their hospital was that he was sick enough to need to be transferred here. He otherwise has no complaints including nausea vomiting, fevers, headaches, blurry vision, neck pain, back pain, chest pain, abdominal pain, or any kind of pain with urination or any pain or tingling going on the arms or legs. She otherwise has no complaints - Related Data Home Medications Medication Instructions Recorded Confirmed Aspirin [Lo-Dose Aspirin EC] 81 mg PO DAILY 11/08/16 06/04/17 Atorvastatin Calcium [Lipitor] 80 mg PO HS 11/08/16 06/04/17 BuPROPion SR (12 HR) [Wellbutrin 150 mg PO BID 11/08/16 06/04/17 SR] Carvedilol [Coreg] 25 mg PO BID 11/08/16 06/04/17 Cholecalciferol (Vitamin D3) 2,000 unit PO DAILY 11/08/16 06/04/17 [Vitamin D3] Ferrous Gluconate 324 mg PO BID 11/08/16 06/04/17 Insulin Glargine [Lantus] 20 unit SQ HS 11/08/16 06/04/17 Isosorbide MONOnitrate (24 HR) 90 mg PO DAILY 11/08/16 06/04/17 [Imdur] Mometasone/Formoterol [Dulera 200 2 puff IH DAILY 11/08/16 06/04/17 Mcg/5 Mcg Inhaler] Omeprazole [PriLOSEC] 20 mg PO DAILY 11/08/16 06/04/17 Tamsulosin HCl [Flomax] 0.4 mg PO DAILY 11/08/16 06/04/17 Tramadol HCl [Ultram] 50 mg PO TID PRN 11/08/16 06/04/17 Trazodone HCl 100 mg PO HS PRN 11/08/16 06/04/17 Vit C/E/Zn/Coppr/Lutein/Zeaxan 1 tab PO BID 11/08/16 06/04/17 [Preservision Areds 2 Softgel] Albuterol Sulfate [Albuterol 2 puff IH QID 05/09/17 06/04/17 Inhaler] Calcitriol [Rocaltrol] 0.25 mcg PO DAILY 05/09/17 06/04/17 Cetirizine HCl [Zyrtec] 10 mg PO HS 05/09/17 06/04/17 Ipratropium [ATROVENT Inhaler] 2 puff IH BID 05/09/17 06/04/17 Ipratropium/Albuterol Neb [Duoneb] 3 ml IH Q6HR PRN 05/09/17 06/04/17 Amlodipine Besylate 10 mg PO DAILY 06/04/17 06/04/17 Calcium Carbonate 1,300 mg PO DAILY 06/04/17 06/04/17 Furosemide [Lasix] 40 mg PO BID 06/04/17 06/04/17 Gabapentin [Neurontin] 300 mg PO TID 06/04/17 06/04/17 GuaiFENesin/Dextromethorphan 5 ml PO BID PRN 06/04/17 06/04/17 [Tussin Dm Syrup] Prazosin HCl [Minipress] 10 mg PO HS 06/04/17 06/04/17 Allergies Allergy/AdvReac Type Severity Reaction Status Date / Time Doxepin Allergy Hives Verified 11/07/16 22:47 Penicillins Allergy Hives Verified 11/07/16 22:47 Sulfa (Sulfonamide Allergy Hives Verified 11/07/16 22:47 Antibiotics) Review of Systems: 10 point review of systems done and negative unless otherwise stated in history of present illness. All systems ED: reviewed and negative except as stated. Review of Systems: As Per HPI Past Medical History - Past Medical History Attestation: Yes The following information was validated with the patient. Source: patient Medical history: Reports: CHF, coronary artery disease, diabetes, hyperlipidemia , hypertension, peripheral artery disease, renal disease Surgical history: Reports: non-contributory, appendectomy Psychiatric history: Reports: depression, PTSD - Social History Smoking Status: Current every day smoker Smokeless Tobacco Status: No Alcohol use: Reports: none Drug use: Reports: none Physical Exam - General Limitations: no limitations General appearance: alert - Head Head exam: atraumatic, normocephalic, normal inspection - Eye Eye exam: Present: normal appearance, PERRL, EOMI - ENT ENT exam: normal exam, normal oropharynx, mucous membranes moist - Neck Neck exam: Present: normal inspection, full ROM, trachea midline - Chest Chest inspection: Present: normal inspection, symmetric chest wall rise - Respiratory Respiratory exam: Present: respiratory distress (Is in mild respiratory distress he is currently on nonrebreather when I examined him.), wheezes, accessory muscle use. Absent: stridor - Expanded Respiratory Exam Location: wheezes: Lower, Upper, Right, Left, rales: Left, Right, Upper, Lower, rhonchi: Left, Right, Upper, Lower - Cardiovascular Cardiovascular exam: Present: regular rate, normal rhythm, normal heart sounds - Extremities Exam Extremities exam: Present: normal inspection, full ROM. Absent: tenderness, pedal edema - Expanded Lower Extremity Exam Neurovascular/Tendon exam: Absent: motor deficit, sensory deficit, tendon deficit - Back Exam Back exam: Present: normal inspection, full ROM. Absent: tenderness - Neurological Exam Neurological exam: Present: alert, oriented X3 - Skin Skin exam: Present: warm Course Course Narrative: 67-year-old male presents to the emergency department complaining of COPD and CHF he has a workup done at the [facility]. He was transferred here for further evaluation. They did a whole workup there at this time I will call the hospitalist to see if they can admit him. Vital Signs Temperature 97.6 F 06/04/17 20:36 Pulse Rate 91 06/04/17 20:36 Respiratory Rate 22 06/04/17 20:36 Blood Pressure 186/100 06/04/17 20:36 O2 Sat by Pulse Oximetry 91 06/04/17 20:36 Temperature 97.6 F 06/04/17 20:36 Pulse Rate 95 06/04/17 22:16 Respiratory Rate 30 06/04/17 22:51 Blood Pressure 165/81 06/04/17 22:51 O2 Sat by Pulse Oximetry 98 06/04/17 22:16 Oxygen Delivery Oxygen Delivery Bipap Shortness of Breath/Dyspnea - MDM Narrative Medical decision making narrative: 67-year-old male presents to the emergency department complaining of CHF and COPD symptoms and the [facility] where they did most of the workup. I talked to the hospitalist Dr. Olivas. Who agreed to accept the patient but he asked that we review her labs are reordered the troponin, CBC, EMP as well as coags. Due to patient's difficulty in breathing we also gave him another 6 mL of DuoNeb treatment. I also started him on BiPAP as he was still in respiratory distress satting at 85% on BiPAP he did much better. He was started around to that it did help his breathing much more. Patient was already given Lasix. We also gave patient 2 mg of morphine as well as Nitropaste to help with the CHF. Patient tolerated all this well. X-ray was done at the [place] which did show pulmonary edema bilaterally. He is accepted to the hospitalist service and admitted there. Patient is admitted in stable condition. Patient was also started on Levaquin. - Medical Records Medical records reviewed: Yes I reviewed the patient's medical records. - Lab Data Lab results reviewed: Yes I reviewed the patient's lab results. Result diagrams: 06/04/17 21:54 06/04/17 21:54 Lab Results 06/04/17 06/04/17 06/04/17 Range/Units 21:54 21:54 21:54 WBC 12.2 H (4.3-11.1) K/mcL RBC 4.37 (4.19-5.50) M/mcL Hgb 12.9 (12.9-16.9) g/dL Hct 41.8 (37.5-50.1) % MCV 95.7 (83.0-100.0) fL MCH 29.5 (28.0-33.3) pg MCHC 30.9 L (31.6-35.5) g/dL RDW 18.0 H (11.5-14.5) % Plt Count 237 (140-400) K/mcL MPV 8.8 L (9.4-12.4) fL Immature Gran % 0.3 (0-4) % Seg Neutrophils % 93.9 % Lymphocytes % 4.8 % Monocytes % 0.6 % Eosinophils % 0.2 % Basophils % 0.2 % Neutrophils # 11.4 H (1.6-8.9) K/mcL Lymphocytes # 0.6 (0.6-4.6) K/mcL Monocytes # 0.1 (0.0-1.3) K/mcL Eosinophils # 0.0 (0.0-0.6) K/mcL Basophils # 0.0 (0.0-0.2) K/mcL PT 12.0 (9.4-12.1) Seconds INR 1.1 APTT 61.3 H (26.0-36.0) Seconds Sodium 136 (136-145) mEq/L Potassium 5.4 H (3.5-5.1) mEq/L Chloride 108 H (98-107) mEq/L Carbon Dioxide 24 (23-29) mEq/L BUN 40 H (8-23) mg/dL Creatinine 2.87 H (0.70-1.30) mg/dL Est GFR ( Amer) 27 L (> 60) Est GFR (Non-Af Amer) 22 L (> 60) BUN/Creatinine Ratio 14 (6-26) Glucose 224 H (70-105) mg/dL Calculated Osmolality 299 (280-300) Calcium 9.0 (8.6-10.3) mg/dL Magnesium 1.7 (1.6-2.6) mg/dL Total Bilirubin 0.3 (0.3-1.0) mg/dL AST 15 (13-39) Units/L ALT 15 (7-52) Units/L Alkaline Phosphatase 128 H (34-104) Units/L Troponin I (< 0.04) ng/mL B-Natriuretic Peptide (Less than 100) pg/mL Serum Total Protein 6.9 (6.4-8.9) g/dL Albumin 3.1 L (3.5-5.7) g/dL Globulin 3.8 H (2.4-3.5) g/dL Albumin/Globulin Ratio 0.8 L (1.1-2.2) 06/04/17 06/04/17 Range/Units 21:54 21:54 WBC (4.3-11.1) K/mcL RBC (4.19-5.50) M/mcL Hgb (12.9-16.9) g/dL Hct (37.5-50.1) % MCV (83.0-100.0) fL MCH (28.0-33.3) pg MCHC (31.6-35.5) g/dL RDW (11.5-14.5) % Plt Count (140-400) K/mcL MPV (9.4-12.4) fL Immature Gran % (0-4) % Seg Neutrophils % % Lymphocytes % % Monocytes % % Eosinophils % % Basophils % % Neutrophils # (1.6-8.9) K/mcL Lymphocytes # (0.6-4.6) K/mcL Monocytes # (0.0-1.3) K/mcL Eosinophils # (0.0-0.6) K/mcL Basophils # (0.0-0.2) K/mcL PT (9.4-12.1) Seconds INR APTT (26.0-36.0) Seconds Sodium (136-145) mEq/L Potassium (3.5-5.1) mEq/L Chloride (98-107) mEq/L Carbon Dioxide (23-29) mEq/L BUN (8-23) mg/dL Creatinine (0.70-1.30) mg/dL Est GFR ( Amer) (> 60) Est GFR (Non-Af Amer) (> 60) BUN/Creatinine Ratio (6-26) Glucose (70-105) mg/dL Calculated Osmolality (280-300) Calcium (8.6-10.3) mg/dL Magnesium (1.6-2.6) mg/dL Total Bilirubin (0.3-1.0) mg/dL AST (13-39) Units/L ALT (7-52) Units/L Alkaline Phosphatase (34-104) Units/L Troponin I 0.03 (< 0.04) ng/mL B-Natriuretic Peptide 1955 H (Less than 100) pg/mL Serum Total Protein (6.4-8.9) g/dL Albumin (3.5-5.7) g/dL Globulin (2.4-3.5) g/dL Albumin/Globulin Ratio (1.1-2.2) - Radiology Data Radiology results reviewed: Yes I reviewed the patient's radiology results. - EKG Data EKG attestation: Yes I reviewed and interpreted this EKG. EKG results narrative: EKG done at 2047 review myself and attending shows sinus rhythm at a rate of 94. There is no acute ST-T wave, no acute T-wave changes. There is no signs of any ischemia. There is no heart blocks or hypertrophy or heart strain. There is no WPW/Brugada syndrome there is no old EKG to compare with at this time. Critical Care Time Critical Care Time: Yes Total Critical Care Time: 35 Attestation: Critical care performed: Time is exclusive of separately billable procedures. Time includes: direct patient care, patient reassessment, coordination of patient care, interpretation of data (laboratory data, radiology data, and respiratory data), review of patient's medical records, medical consultation and documentation of patient care. Procedures included in critical care time: Procedures excluded from critical care time: Attestation Statement - Attestation Attestation: I, Chai Mcintyre MD, personally evaluated this patient and discussed their management with the resident physician. I reviewed the resident's note and agree with the documented findings, medical decision making, and plan of care. 67-year-old male transferred here from the local [place] for acute exacerbation of COPD and CHF. Patient complains of increased difficulty breathing over the past 2 days getting progressively worse. He was seen at the [place] urgent care and had a complete workup. Chest x-ray revealed pulmonary edema with bilateral pleural effusions, right greater than left. ProBNP was 23,000. The hospitalist at the [place] refused to accept the patient there for admission and recommended he be transferred here because they did not have any specialty backup. On examination patient is a well-developed well-nourished elderly male in mild respiratory distress. He is alert and oriented 3. There is no cyanosis or diaphoresis. Diffuse tight bilateral expiratory wheezes with prolonged expiratory phase. Heart regular. Abdomen soft and nontender. Patient was placed on BiPAP. The emergency department. Labs reviewed. No acute changes on EKG. The hospitalist, Dr. Olivas, was consulted and accepted admission of the patient.
[2017-06-04] MEDS ORDERED: *HR* Morphine 2 MG/ML SYRINGE IVP ONE (21:33)
[2017-06-04] MEDS ORDERED: Nitroglycerin 1 INCH/GM PACKET TP ONE (21:33)
[2017-06-04 22:00] LABS: Basophils % 0.2 %; Eosinophils % 0.2 %; Hematocrit 41.8 % (37.5-50.1); Hemoglobin 12.9 g/dL (12.9-16.9); Immature Granulocytes % 0.3 % (0-4); Lymphocytes # 0.6 K/mcL (0.6-4.6); Lymphocytes % 4.8 %; Mean Corpuscular HGB Conc 30.9 g/dL (31.6-35.5); Mean Corpuscular Hemoglobin 29.5 pg (28.0-33.3); Mean Corpuscular Volume 95.7 fL (83.0-100.0); Mean Platelet Volume 8.8 fL (9.4-12.4); Monocytes # 0.1 K/mcL (0.0-1.3); Monocytes % 0.6 %; Neutrophils # 11.4 K/mcL (1.6-8.9); Platelet Count 237 K/mcL (140-400); Red Blood Count 4.37 M/mcL (4.19-5.50); Segmented Neutrophils % 93.9 %
[2017-06-04 22:06] LABS: INR 1.1
[2017-06-04 22:08] LABS: Activated Partial Thrombo Time 61.3 Seconds (26.0-36.0)
[2017-06-04] MEDS ORDERED: Levofloxacin 750 MG/150 ML 750 MG/150 ML BAG IVPB ONE (22:12)
[2017-06-04 22:13] LABS: Albumin 3.1 g/dL (3.5-5.7); Albumin/Globulin Ratio 0.8 (1.1-2.2); Bilirubin,Total 0.3 mg/dL (0.3-1.0); Globulin 3.8 g/dL (2.4-3.5); Potassium 5.4 mEq/L (3.5-5.1); Total Protein 6.9 g/dL (6.4-8.9)
--- NOTE | 2017-06-04 22:21 | Internal Med History&Physical ---
<Cain Orozco - Last Filed: 06/04/17 23:41> Date of Encounter: 06/04/17 Time of Encounter: 22:18 Assessment and Plan (1) CHF exacerbation Current visit: Yes Status: Acute Patient has an elevated BNP from [facility] which was repeated here at [facility]. The patient has bilateral pleural effusions and pulmonary edema noted in the chest x-ray from [facility]. The patient has an extensive history of CHF but has been compliant to his medications accordingly he states. The patient currently is on furosemide 40 mg twice a day. It has been taking his medications as prescribed. Patient is also on spironolactone 25 mg daily. We will continue these medications at this time with the exception of the Lasix which we will start on a Lasix drip at 5 mg per hour. Patient's last EF was 30% on 05/09/2017, we will repeat this tomorrow. Patient was placed on BiPAP to great success here in the emergency department for symptoms. Patient administered nitroglycerin paste as well as diuretics. Patient tolerated well. Qualifiers: Congestive heart failure type: combined Qualified Code(s): I50.43 - Acute on chronic combined systolic (congestive) and diastolic (congestive) heart failure (2) COPD exacerbation Current visit: Yes Status: Acute This is likely a mixed picture of CHF combined with COPD exacerbation. We will administer 2 nebs when necessary as well as administer steroids. Patient agrees to plan. He states he is feeling better after being placed on BiPAP. (3) CKD (chronic kidney disease) stage 4, GFR 15-29 ml/min Current visit: No Status: Chronic GFR at baseline as well as creatinine improved from previous admission. We will continue to monitor patient. We will consult nephrology for further care and workup if necessary. Hold off at this time. (4) CAD (coronary artery disease) Current visit: No Status: Chronic Patient's troponin is negative for any elevation today. If patient begins to experience any chest pain we will repeat troponin. EKG demonstrates no acute findings. Qualifiers: Coronary Disease-Associated Artery/Lesion type: [place] artery [place] vs. transplanted heart: [place] heart Associated angina: without angina Qualified Code(s): I25.10 - Atherosclerotic heart disease of [place] coronary artery without angina pectoris (5) Diabetes mellitus Current visit: No Status: Chronic Sliding scale insulin. Qualifiers: Diabetes mellitus type: type 2 Diabetes mellitus complication status: with kidney complications Diabetes mellitus complication detail: with chronic kidney disease Diabetes mellitus exterminator insulin use: with fci use Chronic kidney disease stage: stage 4 (severe) Qualified Code(s): E11.22 - Type 2 diabetes mellitus with diabetic chronic kidney disease; N18.4 - Chronic kidney disease, stage 4 (severe); N18.4 - Chronic kidney disease, stage 4 ( severe); N18.4 - Chronic kidney disease, stage 4 (severe); N18.4 - Chronic kidney disease, stage 4 (severe); Z79.4 - termite exterminator (current) use of insulin; Z79.4 - shelter (current) use of insulin; Z79.4 - shelter (current) use of insulin; Z79.4 - shelter (current) use of insulin (6) HTN (hypertension) Current visit: No Status: Chronic Qualifiers: Hypertension type: essential hypertension Qualified Code(s): I10 - Essential (primary) hypertension Internal Medicine - H&P: HPI Chief complaint: Dyspnea Admitted From: Hospital to Hospital Transfer ([facility] in [place]) Plans for Post Hospital Care: Home History of present illness: Mr. Jackson is a 67 year old male with extensive history of COPD, CHF and CAD arrives to the emergency department complaining of dysp[place] at the [place] [facility]. The patient had a workup at the [place] [facility] care which revealed a small leukocytosis of 12.8, potassium of 5.8, creatinine of 2.8, elevated pro BNP, with a chest x-ray that demonstrates decompensated CHF associated with pulmonary edema. The patient was apparently going to be admitted to the [facility] but specialist did not feel he was appropriate at the [facility]. It was at that time he was transferred to [facility] emergency department for further care and workup. The patient arrived to [facility] emergency department 89% on 3 L nasal cannula. He was switched quickly to BiPAP due to elevated respiratory rate and slight alteration of mentation. On BiPAP the patient states he is feeling much better. He is no longer tachypneic and resting comfortably and BiPAP. He is still sitting upright but able to breathe without difficulty. He is speaking in full sentences to me in the room. The patient states that he has had numerous admissions for CHF exacerbation is well as pneumonia. The patient states he recently stopped taking his antibiotic 4 days ago after completing a round after his last discharge from [facility]. The patient states that he has been taking all of his other main medications as prescribed. He is otherwise resting comfortably on BiPAP at this time. The patient denies any fevers but does admit to cough, bilateral lower extremity edema, no hemoptysis, no unilateral leg swelling, no history of DVT or PE. He denies any chest discomfort associated with this episode of dyspnea. The patient states that he wants to get a thoracentesis due to this fluid in the lower part of his lungs. Patient's last admission was in late April. His last echocardiogram was on 05/09/2017. It demonstrated an EF of 30%. Past Med Surg Social Fam HX - Past Medical History Attestation: Yes The following information was validated with the patient. Source: patient, old records reviewed, nursing notes reviewed Medical history: CHF, coronary artery disease, diabetes, hyperlipidemia, hypertension, peripheral artery disease, renal disease Psychiatric history: depression, PTSD - Past Surgical History Surgical History: non-contributory, appendectomy - Social History Smoking Status: Current every day smoker Smokeless Tobacco Status: No Alcohol use: none Drug use: none Occupational status: previously employed, retired Current living situation: Home - Family History Mother Living Status: Internal Medicine - H&P: Meds Aspirin [Lo-Dose Aspirin EC] 81 mg PO DAILY 11/08/16 [History] Atorvastatin Calcium [Lipitor] 80 mg PO HS 11/08/16 [History] BuPROPion SR (12 HR) [Wellbutrin SR] 150 mg PO BID 11/08/16 [History] Carvedilol [Coreg] 25 mg PO BID 11/08/16 [History] Cholecalciferol (Vitamin D3) [Vitamin D3] 2,000 unit PO DAILY 11/08/16 [History] Ferrous Gluconate 324 mg PO BID 11/08/16 [History] Insulin Glargine [Lantus] 20 unit SQ HS 11/08/16 [History] Isosorbide MONOnitrate (24 HR) [Imdur] 90 mg PO DAILY 11/08/16 [History] Mometasone/Formoterol [Dulera 200 Mcg/5 Mcg Inhaler] 2 puff IH DAILY 11/08/16 [ History] Omeprazole [PriLOSEC] 20 mg PO DAILY 11/08/16 [History] Tamsulosin HCl [Flomax] 0.4 mg PO DAILY 11/08/16 [History] Tramadol HCl [Ultram] 50 mg PO TID PRN 11/08/16 [History] Trazodone HCl 100 mg PO HS PRN 11/08/16 [History] Vit C/E/Zn/Coppr/Lutein/Zeaxan [Preservision Areds 2 Softgel] 1 tab PO BID 11/08 [History] Albuterol Sulfate [Albuterol Inhaler] 2 puff IH QID 05/09/17 [History] Calcitriol [Rocaltrol] 0.25 mcg PO DAILY 05/09/17 [History] Cetirizine HCl [Zyrtec] 10 mg PO HS 05/09/17 [History] Ipratropium [ATROVENT Inhaler] 2 puff IH BID 05/09/17 [History] Ipratropium/Albuterol Neb [Duoneb] 3 ml IH Q6HR PRN 05/09/17 [History] Amlodipine Besylate 10 mg PO DAILY 06/04/17 [History] Calcium Carbonate 1,300 mg PO DAILY 06/04/17 [History] Furosemide [Lasix] 40 mg PO BID 06/04/17 [History] Gabapentin [Neurontin] 300 mg PO TID 06/04/17 [History] GuaiFENesin/Dextromethorphan [Tussin Dm Syrup] 5 ml PO BID PRN 06/04/17 [History ] Prazosin HCl [Minipress] 10 mg PO HS 06/04/17 [History] 3 Allergy/AdvReac Type Severity Reaction Status Date / Time Doxepin Allergy Hives Verified 11/07/16 22:47 Penicillins Allergy Hives Verified 11/07/16 22:47 Sulfa (Sulfonamide Allergy Hives Verified 11/07/16 22:47 Antibiotics) All Systems PM: A 10-system review of systems was performed and is negative for pertinent findings except as documented above in the HPI. - Constitutional Constitutional: weakness, no anorexia, no excessive sweating, no fever(s), no malaise - EENT Eyes: no change in vision, no discharge, no pain, no photophobia - Cardiovascular Cardiovascular ROS IM: dyspnea, dyspnea on exertion, edema, no chest pain, no irregular heart rhythm, no lightheadedness, no palpitations - Respiratory Respiratory: cough, dyspnea, dyspnea on exertion, wheezing, no hemoptysis, no snoring, no stridor, no pain on inspiration - Gastrointestinal Gastrointestinal: no abdominal pain, no diarrhea, no hematemesis, no hematochezia, no melena, no nausea, no vomiting - Musculoskeletal Musculoskeletal ROS IM: no numbness, no tingling - Integumentary Integumentary IM: no rash, no unusual bruising - Neurological Neurological ROS: no confusion, no convulsions, no focal weakness, no numbness, no tingling, no tremor(s) - Constitutional Vitals: Temp Pulse Resp BP Pulse Ox 97.6 F 95 16 177/81 98 06/04/17 20:36 06/04/17 22:16 06/04/17 22:16 06/04/17 22:16 06/04/17 22:16 General appearance: Present: mild distress (Respiratory on BiPAP, but improved from previous examination by ED physician. Patient speaking in full sentences at this time.), A&O X 3, pleasant - Head Head exam: Present: atraumatic, normocephalic - Eye Eye exam: Present: PERRL, conjuntiva pink, sclera anicteric Pupils: Present: PERRL - Neck Neck exam general surgery: Present: supple, trachea midline. Absent: lymphadenopathy - Respiratory Respiratory exam: Present: rales (bilateral lower lobes), wheezes, tachypnea ( mild). Absent: accessory muscle use, respiratory distress, rhonchi, stridor - Cardiovascular Cardiovascular exam: Present: RRR, +S1, +S2. Absent: diastolic murmur, gallop, rubs, systolic murmur - GI/Abdominal GI/Abdominal exam: Present: normal bowel sounds, soft, no peritoneal signs. Absent: distended, tenderness - Extremities Exam Extremities exam: Present: pedal edema (mild trace), warm, radial pulses palpable and symmetrical. Absent: calf tenderness, cyanotic - Neurological Exam Neurological exam: Present: CN II-XII intact, oriented X3, no focal deficits. Absent: pronater drift, facial droop, speech deficit - Skin Skin exam: Present: dry, intact Internal Med - H&P Results - Labs CBC & Chem 7: 06/04/17 21:54 06/04/17 21:54 Labs: Short CBC 06/04/17 Range/Units 21:54 WBC 12.2 H (4.3-11.1) K/mcL Hgb 12.9 (12.9-16.9) g/dL Hct 41.8 (37.5-50.1) % Plt Count 237 (140-400) K/mcL Neutrophils # 11.4 H (1.6-8.9) K/mcL BMP 06/04/17 21:54 Sodium 136 Potassium 5.4 H Chloride 108 H Carbon Dioxide 24 BUN 40 H Creatinine 2.87 H Glucose 224 H Calcium 9.0 Cardiac Enzymes 06/04/17 Range/Units 21:54 Troponin I 0.03 (< 0.04) ng/mL Liver Function 06/04/17 Range/Units 21:54 Total Bilirubin 0.3 (0.3-1.0) mg/dL AST 15 (13-39) Units/L ALT 15 (7-52) Units/L Alkaline Phosphatase 128 H (34-104) Units/L Albumin 3.1 L (3.5-5.7) g/dL <Lemuel Olivas - Last Filed: 06/05/17 04:20> Date of Encounter: 06/05/17 Time of Encounter: 02:20 - Constitutional Constitutional: fatigue, weakness, weight gain - EENT Eyes: no blurry vision, no change in vision Nose, mouth and throat: no nasal congestion, no sinus pressure, no sore throat - Cardiovascular Cardiovascular ROS IM: dyspnea, dyspnea on exertion, edema, orthopnea, paroxysmal nocturnal dyspnea - Respiratory Respiratory: cough, dyspnea, dyspnea on exertion, wheezing - Gastrointestinal Gastrointestinal: no abdominal pain, no diarrhea, no vomiting - Genitourinary Genitourinary ROS male: no dysuria, no flank pain, no hematuria - Musculoskeletal Musculoskeletal ROS IM: no back pain - Integumentary Integumentary IM: no rash - Neurological Neurological ROS: no confusion, no convulsions, no focal weakness - Psychiatric Psychiatric: no anxiety, no depression - Endocrine Endocrine IM: no polydipsia, no polyuria - Hematologic/Lymphatic Hematologic/Lymphatic: no easy bruising, no lymphadenopathy - Allergic/Immunologic Allergic/Immunologic: wheezing, no GI upset with certain foods - Constitutional Vitals: Temp Pulse Resp BP Pulse Ox 98.2 F 73 21 172/78 96 06/04/17 23:30 06/05/17 04:00 06/05/17 03:49 06/05/17 03:49 06/05/17 03:49 General appearance: Present: A&O X 3, pleasant Exam: No distress on BiPap; Off BiPap, patient in moderate respiratory distress - Head Head exam: Present: normal inspection - Eye Eye exam: Present: PERRL. Absent: scleral icterus - ENT ENT exam: Present: mucous membranes dry, normal exam - Neck Neck exam general surgery: Present: supple - Respiratory Respiratory exam: Present: decreased breath sounds, rales, respiratory distress (mild ), wheezes - Cardiovascular Cardiovascular exam: Present: RRR, +S1, +S2 - GI/Abdominal GI/Abdominal exam: Present: soft. Absent: guarding, tenderness - Extremities Exam Extremities exam: Present: pedal edema (1-2+), warm, radial pulses palpable and symmetrical - Back Exam Back exam: Absent: CVA tenderness (L), CVA tenderness (R) - Neurological Exam Neurological exam: Present: alert, oriented X3, no focal deficits - Psychiatric Psychiatric exam: Present: normal affect, normal mood - Skin Skin exam: Present: dry, warm Internal Med - H&P Results - Labs CBC & Chem 7: 06/04/17 21:54 06/04/17 21:54 - EKG Data -: EKG Interpreted by Myself - EKG Data EKG comments: 06/05/17 04:12 NSR; no acute ST-T changes - Diagnostic Studies Chest x-ray Status: image reviewed by me (CHF) - Attending Attestation I discussed the patient [facility] [place], PMH, ROS, lab data, and exam findings with Dr. Orozco. I then saw and examined patient independently as well. I spoke with ER earlier and requested he be placed on BIPap, receive IV Morphine, and nitropaste for concerns of acute pulmonary edema. Per reports from nursing staff and Dr. Orozco, patient improved markedly with the above measures. Presently, he is resting well on Bipap, but once I remove it, he becomes quite distressed from a respiratory standpoint. Therefore, we will continue BiPap for now, continue IV Lasix drip, and continue antibiotics with steroids and aerosols for COPD flare. Patient is in acute respiratory failure requiring above aggressive measures. Should he fail such measures, he would then need ETT and mechanical ventilation. As such, he will need acute inpatient care for several days and will likely need ongoing care and close follow up with cardiology upon discharge. 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 Patient needs to follow closely with local cardiology and/or [facility]. Other than my comments above and noted exam findings, I agree with Dr. Orozco's assessment and plan.
[2017-06-04 22:55] LABS: Magnesium 1.7 mg/dL (1.6-2.6)
[2017-06-04] MEDS ORDERED: *HR* Dextrose 50 % in Water (Syg) 50 ML SYRINGE IVP PRN (23:40)
[2017-06-04] MEDS ORDERED: Dextrose Gel 15 GM/37.5 ML TUBE PO PRN ×2 (23:40)
[2017-06-04] MEDS ORDERED: D5% in Water 1,000 ML IVC PRN (23:40)
[2017-06-05] MEDS: Ipratropium/Albuterol Neb 3 ML IH SCH ×7 (00:13→20:00)
[2017-06-05] MEDS: traZODone 50 MG TABLET PO SCH ×2 (01:46→20:57)
[2017-06-05] MEDS: Furosemide 240 MG in D5% in Water 96 ML IVC SCH (01:46)
[2017-06-05] MEDS: *HR* Heparin 5,000 UNIT/ML VIAL SQ SCH ×2 (06:30→18:25)
[2017-06-05] MEDS: Aspirin Enteric Coated 81 MG Tablet PO SCH (08:49)
[2017-06-05] MEDS: amLODIPine 5 MG TABLET PO SCH (08:49)
[2017-06-05] MEDS: Isosorbide MONOnitrate (24 HR) 30 MG TAB.ER.24H PO SCH (08:49)
[2017-06-05] MEDS: Spironolactone 25 MG TABLET PO SCH (08:49)
--- NOTE | 2017-06-05 16:33 | Internal Med Progress Note ---
Date of Encounter: 06/05/17 Time of Encounter: 16:39 - Assessment and plan (1) Systolic and diastolic CHF, acute on chronic Current Visit: No Status: Acute Assessment and plan: Continue Lasix drip at 5 mg per hour (2) COPD exacerbation Current Visit: Yes Status: Acute Assessment and plan: I will add IV steroids and antibiotics levaquin continue nebulizer (3) Respiratory failure Current Visit: No Status: Acute Assessment and plan: Acute on chronic hypoxic respiratory failure. The patient was on 3 L at home. Currently on 4 L nasal cannula he required the BiPAP on admission Qualifiers: Chronicity: acute Respiratory failure complication: hypoxia Qualified Code(s): J96.01 - Acute respiratory failure with hypoxia (4) HTN (hypertension) Current Visit: No Status: Chronic Assessment and plan: Continue home medications Qualifiers: Hypertension type: essential hypertension Qualified Code(s): I10 - Essential (primary) hypertension (5) Diabetes mellitus Current Visit: No Status: Chronic Qualifiers: Diabetes mellitus type: type 2 Diabetes mellitus complication status: with kidney complications Diabetes mellitus complication detail: with chronic kidney disease Diabetes mellitus nursing home insulin use: with exterminator helper use Chronic kidney disease stage: stage 4 (severe) Qualified Code(s): E11.22 - Type 2 diabetes mellitus with diabetic chronic kidney disease; N18.4 - Chronic kidney disease, stage 4 (severe); N18.4 - Chronic kidney disease, stage 4 ( severe); N18.4 - Chronic kidney disease, stage 4 (severe); N18.4 - Chronic kidney disease, stage 4 (severe); Z79.4 - long-term (current) use of insulin; Z79.4 - intermediate designer (current) use of insulin; Z79.4 - intermediate designer (current) use of insulin; Z79.4 - intermediate designer (current) use of insulin (6) CKD (chronic kidney disease) stage 4, GFR 15-29 ml/min Current Visit: No Status: Chronic Assessment and plan: Creatinine has been at her baseline continue Lasix drip (7) CAD (coronary artery disease) Current Visit: No Status: Chronic Assessment and plan: stable Qualifiers: Coronary Disease-Associated Artery/Lesion type: [place] artery [place] vs. transplanted heart: [place] heart Associated angina: without angina Qualified Code(s): I25.10 - Atherosclerotic heart disease of [place] coronary artery without angina pectoris - Time Spent With Patient 25 - 35 minutes - Subjective Interval history: Mr. Jackson is a 67 year old male with extensive history of COPD, CHF and CAD arrives to the emergency department complaining of dyspnea at the [facility]. The patient had a workup at the [facility] urgent care which revealed a small leukocytosis of 12.8, potassium of 5.8, creatinine of 2.8, elevated pro BNP, with a chest x-ray that demonstrates decompensated CHF associated with pulmonary edema. The patient arrived to [facility] emergency department 89% on 3 L nasal cannula. He was switched quickly to BiPAP due to elevated respiratory rate and slight alteration of mentation. On BiPAP the patient states he is feeling much better. Patient's last admission was in late April. His last echocardiogram was on 05/09/2017. It demonstrated an EF of 30%. Patient is doing better, he is off BiPAP, on 4 L nasal cannula sat 94%. 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 We will consult a pulmonary. - Constitutional Vitals: Temp Pulse Resp BP Pulse Ox 98.8 F 79 22 157/94 90 06/05/17 15:55 06/05/17 16:19 06/05/17 16:19 06/05/17 11:49 06/05/17 16:19 General appearance: Present: A&O X 3, morbidly obese, pleasant Exam: CONSTITUTIONAL: patient appears as an age appropriate male in no acute distress. EYES Clear sclerae, bilateral pupils are equal, reactive to light. EMOI. RESPIRATORY: No accessory muscle use, bilateral diminished BS to auscultation, no wheezing, no crackles/rales. CARDIOVASCULAR: Regular heart rate, normal S1 and S2, no murmurs GASTROINTESTINAL: bowel sounds present, soft, no tenderness. MUSCULOSKELETAL: Joints in normal range of motion, no clubbing, +++ edema, no cyanosis. Bilateral peripheral pulses 2+. NEUROLOGIC: CN II to XII are grossly intact, no focal neurological deficit. Internal Medicine: Result - Labs CBC & Chem 7: 06/04/17 21:54 06/04/17 21:54 - ABG Interpretation ABG results: PT/INR, D-dimer PT 12.0 Seconds (9.4-12.1) 06/04/17 21:54 Consult Discharge Plan - Plan [facility]errals: [facility] [Primary Care Provider] -
[2017-06-05] MEDS: MethylPREDNISolone 40 MG/ML VIAL IVP SCH (18:25)
[2017-06-05] MEDS: Gabapentin 300 MG CAPSULE PO SCH (20:57)
[2017-06-05] MEDS: Insulin LISPRO 300 UNITS/3 ML VIAL SQ SCH (20:58)
[2017-06-05] MEDS: traMADol 50 MG TABLET PO PRN (21:04)
[2017-06-06] MEDS: Ipratropium/Albuterol Neb 3 ML IH SCH ×7 (00:13→23:12)
[2017-06-06] MEDS: MethylPREDNISolone 40 MG/ML VIAL IVP SCH ×3 (00:59→21:45)
[2017-06-06] MEDS: *HR* Heparin 5,000 UNIT/ML VIAL SQ SCH ×2 (05:54→18:36)
[2017-06-06] MEDS ORDERED: Dextrose Gel 15 GM/37.5 ML TUBE PO PRN ×2 (08:50)
[2017-06-06] MEDS ORDERED: D5% in Water 1,000 ML IVC PRN (08:50)
[2017-06-06] MEDS ORDERED: *HR* Dextrose 50 % in Water (Syg) 50 ML SYRINGE IVP PRN (08:50)
[2017-06-06] MEDS: amLODIPine 5 MG TABLET PO SCH (08:56)
[2017-06-06] MEDS: Spironolactone 25 MG TABLET PO SCH (08:56)
[2017-06-06] MEDS: Isosorbide MONOnitrate (24 HR) 30 MG TAB.ER.24H PO SCH (08:56)
[2017-06-06] MEDS: Aspirin Enteric Coated 81 MG Tablet PO SCH (08:56)
[2017-06-06] MEDS: Gabapentin 300 MG CAPSULE PO SCH ×3 (08:56→21:45)
[2017-06-06 10:15] LABS: Calcium 8.4 mg/dL (8.6-10.3); Potassium 5.7 mEq/L (3.5-5.1)
--- NOTE | 2017-06-06 10:29 | Internal Med Progress Note ---
Date of Encounter: 06/06/17 Time of Encounter: 10:27 - Assessment and plan (1) Systolic and diastolic CHF, acute on chronic Current Visit: No Status: Acute Assessment and plan: Continue Lasix drip at 5 mg per hour, patient is not diuresing, blood pressure is not well controlled. Consult heel pricker (2) COPD exacerbation Current Visit: Yes Status: Acute Assessment and plan: Continue IV steroids and antibiotics levaquin continue nebulizer Consult pulmonary (3) Respiratory failure Current Visit: No Status: Acute Assessment and plan: Acute on chronic hypoxic respiratory failure. The patient was on 3 L at home. Currently on 4 L nasal cannula he required the BiPAP on admission Qualifiers: Chronicity: acute Respiratory failure complication: hypoxia Qualified Code(s): J96.01 - Acute respiratory failure with hypoxia (4) HTN (hypertension) Current Visit: No Status: Chronic Assessment and plan: Continue home medications Qualifiers: Hypertension type: essential hypertension Qualified Code(s): I10 - Essential (primary) hypertension (5) Diabetes mellitus Current Visit: No Status: Chronic Qualifiers: Diabetes mellitus type: type 2 Diabetes mellitus complication status: with kidney complications Diabetes mellitus complication detail: with chronic kidney disease Diabetes mellitus prison insulin use: with intermission coordinator use Chronic kidney disease stage: stage 4 (severe) Qualified Code(s): E11.22 - Type 2 diabetes mellitus with diabetic chronic kidney disease; N18.4 - Chronic kidney disease, stage 4 (severe); N18.4 - Chronic kidney disease, stage 4 ( severe); N18.4 - Chronic kidney disease, stage 4 (severe); N18.4 - Chronic kidney disease, stage 4 (severe); Z79.4 - [facility] (current) use of insulin; Z79.4 - intermission coordinator (current) use of insulin; Z79.4 - intermission coordinator (current) use of insulin; Z79.4 - [facility] (current) use of insulin (6) CKD (chronic kidney disease) stage 4, GFR 15-29 ml/min Current Visit: No Status: Chronic Assessment and plan: Creatinine trending up, continue Lasix drip, will consult nephrology (7) CAD (coronary artery disease) Current Visit: No Status: Chronic Assessment and plan: stable Qualifiers: Coronary Disease-Associated Artery/Lesion type: [place] artery [place] vs. transplanted heart: [place] heart Associated angina: without angina Qualified Code(s): I25.10 - Atherosclerotic heart disease of [place] coronary artery without angina pectoris (8) Hyperkalemia Current Visit: Yes Status: Acute Assessment and plan: from spirolactone, will d/c spirolactone will follow up am, - Time Spent With Patient 25 - 35 minutes - Subjective Interval history: Mr. Jackson is a 67 year old male with extensive history of COPD, CHF and CAD arrives to the emergency department complaining of dyspnea at the [facility]. The patient had a workup at the [facility] care which revealed a small leukocytosis of 12.8, potassium of 5.8, creatinine of 2.8, elevated pro BNP, with a chest x-ray that demonstrates decompensated CHF associated with pulmonary edema. The patient arrived to [facility] emergency department 89% on 3 L nasal cannula. He was switched quickly to BiPAP due to elevated respiratory rate and slight alteration of mentation. On BiPAP the patient states he is feeling much better. Patient's last admission was in late April. His last echocardiogram was on 05/09/2017. It demonstrated an EF of 30%. Patient is not doing well, he requires continuous BiPAP. With FiO2 60% He is not diuresing creatinine trending up, we will consult a certified nurse - Constitutional Vitals: Temp Pulse Resp BP Pulse Ox 98.2 F 73 26 162/86 94 06/06/17 06:58 06/06/17 08:55 06/06/17 08:05 06/06/17 06:58 06/06/17 08:05 General appearance: Present: A&O X 3, morbidly obese, pleasant Exam: CONSTITUTIONAL: patient appears as an age appropriate male in no acute distress. EYES Clear sclerae, bilateral pupils are equal, reactive to light. EMOI. RESPIRATORY: No accessory muscle use, bilateral clear to auscultation, no wheezing, no crackles/rales. CARDIOVASCULAR: Regular heart rate, normal S1 and S2, no murmurs GASTROINTESTINAL: bowel sounds present, soft, no tenderness. MUSCULOSKELETAL: Joints in normal range of motion, no clubbing, ++edema, no cyanosis. Bilateral peripheral pulses 2+. NEUROLOGIC: CN II to XII are grossly intact, no focal neurological deficit. Internal Medicine: Result - Labs CBC & Chem 7: 06/04/17 21:54 06/06/17 09:44 Labs: [facility] 06/06/17 09:44 Sodium 134 L Potassium 5.7 H Chloride 106 Carbon Dioxide 25 BUN 49 H Creatinine 3.07 H Glucose 243 H Calcium 8.4 L - ABG Interpretation ABG results: PT/INR, D-dimer PT 12.0 Seconds (9.4-12.1) 06/04/17 21:54 Consult Discharge Plan - Plan Referrals: [facility] [Primary Care Provider] -
--- NOTE | 2017-06-06 11:28 | Nephrology Consult Note ---
Date of Encounter: 06/06/17 Time of Encounter: 11:10 Assessment and Plan (1) GLORIA (acute kidney injury) Current Visit: No Status: Acute GLORIA superimposed on CKD. Baseline creat 1.7-1.9. in setting CHF, COPD exacerbation, diuretics. Would continue Lasix drip at present. Will obtain CXR today. Continue to monitor. Avoid nephrotoxins. Accurate I&O. History of Present Illness - Reason for Consult Acute Kidney Injury - History of Present Illness Mr. Jackson is a 67 year old male known to practice with stable CKD 4 in setting of hypertension with diuretics contributing due to history of CHF, last seen about two months ago. Baseline creat 1.7-1.9. Recent [place] for [facility], creat peaked to 3.15 during that stay. Other PMH-CHF, coronary artery disease, diabetes, hyperlipidemia, hypertension, peripheral artery disease, depression, PTSD. Patient was transferred to [place] on Jun 04 from [place] for shortness of breath and increased LE swelling. He was started on Lasix, duonebs and Solu- medrol. He missed his follow up Neph visit due to this. Initial creat 2.87, today 3.07. He currently is on a Lasix drip. LE mild pitting with shriveled appearance and chronic vascular skin changes. On Bipap, somewhat tachypneic, though he states he is doing better. Documented urine output for today is 850 cc. K+ 5.7. Past Med Surg Social Fam HX - Past Medical History Medical history: CHF, COPD, coronary artery disease, diabetes, hyperlipidemia, hypertension, peripheral artery disease, renal disease Psychiatric history: depression, PTSD - Past Surgical History Surgical History: appendectomy - Social History Smoking Status: Current every day smoker Smokeless Tobacco Status: No Alcohol use: none Drug use: none - Family History Mother Living Status: Medications and Allergies Aspirin [Lo-Dose Aspirin EC] 81 mg PO DAILY 11/08/16 [History] Atorvastatin Calcium [Lipitor] 80 mg PO HS 11/08/16 [History] BuPROPion SR (12 HR) [Wellbutrin SR] 150 mg PO BID 11/08/16 [History] Carvedilol [Coreg] 25 mg PO BID 11/08/16 [History] Cholecalciferol (Vitamin D3) [Vitamin D3] 2,000 unit PO DAILY 11/08/16 [History] Ferrous Gluconate 324 mg PO BID 11/08/16 [History] Insulin Glargine [Lantus] 20 unit SQ HS 11/08/16 [History] Isosorbide MONOnitrate (24 HR) [Imdur] 90 mg PO DAILY 11/08/16 [History] Mometasone/Formoterol [Dulera 200 Mcg/5 Mcg Inhaler] 2 puff IH DAILY 11/08/16 [ History] Omeprazole [PriLOSEC] 20 mg PO DAILY 11/08/16 [History] Tamsulosin HCl [Flomax] 0.4 mg PO DAILY 11/08/16 [History] Tramadol HCl [Ultram] 50 mg PO TID PRN 11/08/16 [History] Trazodone HCl 100 mg PO HS PRN 11/08/16 [History] Vit C/E/Zn/Coppr/Lutein/Zeaxan [Preservision Areds 2 Softgel] 1 tab PO BID 11/08 [History] Albuterol Sulfate [Albuterol Inhaler] 2 puff IH QID 05/09/17 [History] Calcitriol [Rocaltrol] 0.25 mcg PO DAILY 05/09/17 [History] Cetirizine HCl [Zyrtec] 10 mg PO HS 05/09/17 [History] Ipratropium [ATROVENT Inhaler] 2 puff IH BID 05/09/17 [History] Ipratropium/Albuterol Neb [Duoneb] 3 ml IH Q6HR PRN 05/09/17 [History] Amlodipine Besylate 10 mg PO DAILY 06/04/17 [History] Calcium Carbonate 1,300 mg PO DAILY 06/04/17 [History] Furosemide [Lasix] 40 mg PO BID 06/04/17 [History] Gabapentin [Neurontin] 300 mg PO TID 06/04/17 [History] GuaiFENesin/Dextromethorphan [Tussin Dm Syrup] 5 ml PO BID PRN 06/04/17 [History ] Prazosin HCl [Minipress] 10 mg PO HS 06/04/17 [History] 3 Allergy/AdvReac Type Severity Reaction Status Date / Time Doxepin Allergy Hives Verified 11/07/16 22:47 Penicillins Allergy Hives Verified 11/07/16 22:47 Sulfa (Sulfonamide Allergy Hives Verified 11/07/16 22:47 Antibiotics) Review of Systems All Systems: reviewed and no additional remarkable complaints except as stated Exam - Vital Signs Vital signs: Initial Vital Signs Temp Pulse Resp BP Pulse Ox 97.6 F 91 22 186/100 91 06/04/17 20:36 06/04/17 20:36 06/04/17 20:36 06/04/17 20:36 06/04/17 20:36 Vital Signs - Last 8 Hours Temp Pulse Resp BP Pulse Ox 06/06/17 10:33 98.5 F 86 20 172/92 93 06/06/17 08:55 73 06/06/17 08:05 26 94 06/06/17 06:58 98.2 F 73 20 162/86 94 06/06/17 06:17 22 97 06/06/17 04:33 97.9 F 90 17 166/95 87 06/06/17 04:20 78 Intake and Output 06/05/17 06/06/17 06/06/17 23:59 07:59 15:59 Intake Total 720 / 720 120 / 120 960 / 960 Output Total 350 / 350 500 / 500 350 / 350 Balance 370 / 370 -380 / -380 610 / 610 Intake: Oral 720 / 720 120 / 120 960 / 960 Output: Urine 350 / 350 500 / 500 350 / 350 Other: Meal Dinner Breakfast Percent of Meal Consumed 100% 90% Weight 100.839 kg Blood Glucose* 150 225 261 Patient Weight 06/06/17 23:59 Weight 100.839 kg - General Appearance General appearance: well-developed, well-nourished, appears started age EENT: mucous membranes moist Neck: no JVD Additional Comments: harsh, diminished Cardiology: edema, regular rate, regular rhythm Additional Comments: mild to 1+, shriveled appearance, chronic vascular skin changes. Gastrointestinal: normoactive bowel sounds, no tenderness Integumentary: warm and dry Neurologic: alert and oriented x3 Results - Lab Results 06/04/17 21:54 06/06/17 09:44 Most recent lab results Calcium 8.4 mg/dL (8.6-10.3) L 06/06/17 09:44 Magnesium 1.7 mg/dL (1.6-2.6) 06/04/17 21:54 Consult Discharge Plan - Plan [facility]errals: [facility] [Primary Care Provider] -
[2017-06-06] MEDS: Insulin LISPRO 300 UNITS/3 ML VIAL SQ SCH ×3 (11:38→21:45)
[2017-06-06] MEDS: Furosemide 240 MG in D5% in Water 96 ML IVC SCH ×2 (12:32→12:40)
--- NOTE | 2017-06-06 15:21 | Pulmonology Consult Note ---
Date of Encounter: 06/06/17 Time of Encounter: 09:00 Assessment and Plan (1) COPD exacerbation Current Visit: Yes Status: Suspected Patient with known diagnosis of COPD and tobacco abuse and I suspect this is mainly CHF exacerbation rather than COPD exacerbation. Lowering systemic steroid is appropriate and will add Symbicort to his treatment with empiric coverage of antibiotic is reasonable and to discontinue if cultures negative. I have advised the patient that he will need follow-up with pulmonary clinic with the rate is in [place] or at the [place] and he will need pulmonary function test and also should not smoke any tobacco. Patient will need pulmonary rehabilitation and pulmonary function tests. Thank you for consultation and please do not hesitate to call for any questions. (2) Systolic and diastolic CHF, acute on chronic Current Visit: No Status: Acute This is will be managed by the primary team (3) Suspected sleep apnea Current Visit: Yes Status: Suspected Patient will need workup as outpatient and have a sleep study if he has not had one before and having [place] BiPAP is helping his breathing which will be helpful for his respiratory failure as well as possible sleep apnea. History of Present Illness Consult date: 06/06/17 Requesting physician: Gus Rodriguez Reason for consult: COPD Chief complaint: Shortness of breath History of present illness: This is a pleasant 67-year-old man with multiple comorbidities and cardiopulmonary diseases. Patient has presented to the emergency room complaining of worsening of his dyspnea and he has known ejection fraction of 50 %. Patient is been diagnosed with CHF exacerbation. Patient has history of COPD and continues to smoke tobacco. He has productive cough with some wheezing and denies any hemoptysis and this has not significantly changed from his baseline. Patient does not remember about his last pulmonary function test and to use inhalers but not on a regular basis. Patient also might have been tested for obstructive sleep apnea but he does not remember. Patient has been placed on BiPAP and he feels it is helping him and he can breathe better. Patient denies any fever or chills and he has orthopnea. He denies any chest pain or nausea and vomiting at this time. Past Med Surg Social Fam HX - Past Medical History Medical history: CHF, COPD, coronary artery disease, diabetes, hyperlipidemia, hypertension, peripheral artery disease, renal disease Psychiatric history: depression, PTSD - Past Surgical History Surgical History: appendectomy - Social History Smoking Status: Current every day smoker Smokeless Tobacco Status: No Alcohol use: none Drug use: none - Family History Mother Living Status: Medications and Allergies Aspirin [Lo-Dose Aspirin EC] 81 mg PO DAILY 11/08/16 [History] Atorvastatin Calcium [Lipitor] 80 mg PO HS 11/08/16 [History] BuPROPion SR (12 HR) [Wellbutrin SR] 150 mg PO BID 11/08/16 [History] Carvedilol [Coreg] 25 mg PO BID 11/08/16 [History] Cholecalciferol (Vitamin D3) [Vitamin D3] 2,000 unit PO DAILY 11/08/16 [History] Ferrous Gluconate 324 mg PO BID 11/08/16 [History] Insulin Glargine [Lantus] 20 unit SQ HS 11/08/16 [History] Isosorbide MONOnitrate (24 HR) [Imdur] 90 mg PO DAILY 11/08/16 [History] Mometasone/Formoterol [Dulera 200 Mcg/5 Mcg Inhaler] 2 puff IH DAILY 11/08/16 [ History] Omeprazole [PriLOSEC] 20 mg PO DAILY 11/08/16 [History] Tamsulosin HCl [Flomax] 0.4 mg PO DAILY 11/08/16 [History] Tramadol HCl [Ultram] 50 mg PO TID PRN 11/08/16 [History] Trazodone HCl 100 mg PO HS PRN 11/08/16 [History] Vit C/E/Zn/Coppr/Lutein/Zeaxan [Preservision Areds 2 Softgel] 1 tab PO BID 11/08 [History] Albuterol Sulfate [Albuterol Inhaler] 2 puff IH QID 05/09/17 [History] Calcitriol [Rocaltrol] 0.25 mcg PO DAILY 05/09/17 [History] Cetirizine HCl [Zyrtec] 10 mg PO HS 05/09/17 [History] Ipratropium [ATROVENT Inhaler] 2 puff IH BID 05/09/17 [History] Ipratropium/Albuterol Neb [Duoneb] 3 ml IH Q6HR PRN 05/09/17 [History] Amlodipine Besylate 10 mg PO DAILY 06/04/17 [History] Calcium Carbonate 1,300 mg PO DAILY 06/04/17 [History] Furosemide [Lasix] 40 mg PO BID 06/04/17 [History] Gabapentin [Neurontin] 300 mg PO TID 06/04/17 [History] GuaiFENesin/Dextromethorphan [Tussin Dm Syrup] 5 ml PO BID PRN 06/04/17 [History ] Prazosin HCl [Minipress] 10 mg PO HS 06/04/17 [History] 3 Allergy/AdvReac Type Severity Reaction Status Date / Time Doxepin Allergy Hives Verified 11/07/16 22:47 Penicillins Allergy Hives Verified 11/07/16 22:47 Sulfa (Sulfonamide Allergy Hives Verified 11/07/16 22:47 Antibiotics) All Systems: A 10-system review of systems was performed and is negative for pertinent findings except as documented above in the HPI. Physical Examination Vital Signs: Vital Signs, Last 4 Hours Pulse Resp BP Pulse Ox 06/06/17 13:56 163/84 06/06/17 11:41 78 170/89 06/06/17 11:21 24 96 General appearance: no acute distress Eyes: nonicteric ENT: oropharynx dry Mallampati (class): 4 Neck: supple, no lymphadenopathy Effort: mildly labored Inspection: other (Obese) Auscultation: bilateral: diminished breath sounds, rales (In the bases) Percussion: bilateral: not dull Cardiovascular: regular rate and rhythm, murmur noted Gastrointestinal: normoactive bowel sounds, non-distended Extremities: no cyanosis, edema normal mental status, non-focal exam mood appropriate Results - Laboratory Findings CBC and BMP: 06/04/17 21:54 06/06/17 09:44 PT/INR, D-dimer PT 12.0 Seconds (9.4-12.1) 06/04/17 21:54 Abnormal lab findings: Abnormal lab results WBC 12.2 K/mcL (4.3-11.1) H 06/04/17 21:54 MCHC 30.9 g/dL (31.6-35.5) L 06/04/17 21:54 RDW 18.0 % (11.5-14.5) H 06/04/17 21:54 MPV 8.8 fL (9.4-12.4) L 06/04/17 21:54 Neutrophils # 11.4 K/mcL (1.6-8.9) H 06/04/17 21:54 APTT 61.3 Seconds (26.0-36.0) H 06/04/17 21:54 Sodium 134 mEq/L (136-145) L 06/06/17 09:44 Potassium 5.7 mEq/L (3.5-5.1) H 06/06/17 09:44 BUN 49 mg/dL (8-23) H 06/06/17 09:44 Creatinine 3.07 mg/dL (0.70-1.30) H 06/06/17 09:44 Est GFR ( Amer) 25 (> 60) L 06/06/17 09:44 Est GFR (Non-Af Amer) 20 (> 60) L 06/06/17 09:44 Glucose 243 mg/dL (70-105) H 06/06/17 09:44 POC Glucose 150 (58-89) H 06/05/17 19:30 Calcium 8.4 mg/dL (8.6-10.3) L 06/06/17 09:44 Alkaline Phosphatase 128 Units/L (34-104) H 06/04/17 21:54 B-Natriuretic Peptide 1955 pg/mL (Less than 100) H 06/04/17 21:54 Albumin 3.1 g/dL (3.5-5.7) L 06/04/17 21:54 Globulin 3.8 g/dL (2.4-3.5) H 06/04/17 21:54 Albumin/Globulin Ratio 0.8 (1.1-2.2) L 06/04/17 21:54 - Diagnostic Findings Chest x-ray: report reviewed, image reviewed - Clinical Findings Intake & Output: Intake & Output 06/05/17 06/06/17 06/06/17 23:59 07:59 15:59 Intake Total 720 / 720 120 / 120 1320 / 1320 Output Total 350 / 350 500 / 500 730 / 730 Balance 370 / 370 -380 / -380 590 / 590 Weight 100.839 kg Consult Discharge Plan - Plan [facility]errals: [facility] [Primary Care Provider] - 06/17/17 10:30 am (green team)
--- NOTE | 2017-06-06 16:44 | Cardiology Consult Note ---
<Nevin Garcia Jairon - Last Filed: 06/06/17 16:42> Date of Encounter: 06/06/17 Time of Encounter: 16:42 Assessment and Plan (1) Systolic and diastolic CHF, acute on chronic Current Visit: No Status: Acute CXR 06/06/2017 no significant interval change of CHF. -EF from October 2016 40%, EF from 05/09/2017 30%. -unclear if EF is chronic. [facility] -continue with IV diuresis -Will discuss with Dr. Bains (2) CAD (coronary artery disease) Current Visit: No Status: Chronic Patients last echo was 30% on 05/09/2017. ECG with no acute findings. Troponins negative. -Patient with history of stent, obtain previous records. -FU repeat echo Qualifiers: Coronary Disease-Associated Artery/Lesion type: [place] artery [place] vs. transplanted heart: [place] heart Associated angina: without angina Qualified Code(s): I25.10 - Atherosclerotic heart disease of [place] coronary artery without angina pectoris (3) Respiratory failure Current Visit: No Status: Acute Patient tolerating BiPAP. -continue management per primary team. Qualifiers: Chronicity: acute Respiratory failure complication: hypoxia Qualified Code(s): J96.01 - Acute respiratory failure with hypoxia (4) GOLRIA (acute kidney injury) Current Visit: No Status: Acute Nephrology following. -Continue IV diuresis with lasix. Discussion w patient/family: The assessment and plan as outlined above was discussed with the patient and/or family members who expressed understanding and agreement. All questions were answered. Thank you for involving us in the care of your patient. Please call with any questions. History of Present Illness Consult date: 06/06/17 Requesting physician: Gus Rodriguez Consult reason: Systolic and diastolic chf, acute on chronic Chief complaint: Shortness of breath/dyspnea History of present illness: Mr. Jackson is a 67 year old male with extensive past medical history COPD, CHF, and CAD who arrived to [facility] on 06/04/2016 as a transfer from the [place]. Chest x-ray at [facility] urgent care indicated decompensated CHF with pulmonary edema, creatinine of 2.8, potassium of 5.8, and elevated pro BNP. Patient was satting 89% on 3 L nasal cannula upon arrival. He was promptly switched to BiPAP secondary to respiratory distress. Patient reports improvement in his symptoms after beginning BiPAP. Patient was recently admitted to [facility] in late April. Echocardiogram examination on 05/09/2017 demonstrated an EF of 30%. Currently, patient is demonstrating an GLORIA superimposed on chronic kidney disease with nephrology following. Patient appears very fluid overloaded with diffuse edema in all 4 extremities. He is on a Lasix drip at 5 mg per hour. He has produced 1.5 L of urine in the last 24 hours. Past Med Surg Social Fam HX - Past Medical History Attestation: Yes The following information was validated with the patient. Source: patient Medical history: CHF, COPD, coronary artery disease, diabetes, hyperlipidemia, hypertension, peripheral artery disease, renal disease Psychiatric history: depression, PTSD - Past Surgical History Surgical History: appendectomy - Social History Smoking Status: Current every day smoker Smokeless Tobacco Status: No Alcohol use: none Drug use: none - Family History Mother Living Status: Medications and Allergies Aspirin [Lo-Dose Aspirin EC] 81 mg PO DAILY 11/08/16 [History] Atorvastatin Calcium [Lipitor] 80 mg PO HS 11/08/16 [History] BuPROPion SR (12 HR) [Wellbutrin SR] 150 mg PO BID 11/08/16 [History] Carvedilol [Coreg] 25 mg PO BID 11/08/16 [History] Cholecalciferol (Vitamin D3) [Vitamin D3] 2,000 unit PO DAILY 11/08/16 [History] Ferrous Gluconate 324 mg PO BID 11/08/16 [History] Insulin Glargine [Lantus] 20 unit SQ HS 11/08/16 [History] Isosorbide MONOnitrate (24 HR) [Imdur] 90 mg PO DAILY 11/08/16 [History] Mometasone/Formoterol [Dulera 200 Mcg/5 Mcg Inhaler] 2 puff IH DAILY 11/08/16 [ History] Omeprazole [PriLOSEC] 20 mg PO DAILY 11/08/16 [History] Tamsulosin HCl [Flomax] 0.4 mg PO DAILY 11/08/16 [History] Tramadol HCl [Ultram] 50 mg PO TID PRN 11/08/16 [History] Trazodone HCl 100 mg PO HS PRN 11/08/16 [History] Vit C/E/Zn/Coppr/Lutein/Zeaxan [Preservision Areds 2 Softgel] 1 tab PO BID 11/08 [History] Albuterol Sulfate [Albuterol Inhaler] 2 puff IH QID 05/09/17 [History] Calcitriol [Rocaltrol] 0.25 mcg PO DAILY 05/09/17 [History] Cetirizine HCl [Zyrtec] 10 mg PO HS 05/09/17 [History] Ipratropium [ATROVENT Inhaler] 2 puff IH BID 05/09/17 [History] Ipratropium/Albuterol Neb [Duoneb] 3 ml IH Q6HR PRN 05/09/17 [History] Amlodipine Besylate 10 mg PO DAILY 06/04/17 [History] Calcium Carbonate 1,300 mg PO DAILY 06/04/17 [History] Furosemide [Lasix] 40 mg PO BID 06/04/17 [History] Gabapentin [Neurontin] 300 mg PO TID 06/04/17 [History] GuaiFENesin/Dextromethorphan [Tussin Dm Syrup] 5 ml PO BID PRN 06/04/17 [History ] Prazosin HCl [Minipress] 10 mg PO HS 06/04/17 [History] 3 Allergy/AdvReac Type Severity Reaction Status Date / Time Doxepin Allergy Hives Verified 11/07/16 22:47 Penicillins Allergy Hives Verified 11/07/16 22:47 Sulfa (Sulfonamide Allergy Hives Verified 11/07/16 22:47 Antibiotics) All Systems Review: A 10-system review of systems was performed and is negative for pertinent findings except as documented above in the HPI. - Constitutional Constitutional: weakness, no fever(s), no frequent falls, no headache(s) - Cardiovascular Cardiovascular: dyspnea on exertion, leg edema, no chest pain at rest, no lightheadedness, no palpitations, no syncope - Respiratory Respiratory: dyspnea, no cough - Gastrointestinal Gastrointestinal: no abdominal pain, no diarrhea, no hematemesis, no hematochezia - Genitourinary Genitourinary: no dysuria, no hematuria - Integumentary Integumentary: no erythema, no rash - Neurological Neurological: no abnormal speech Physical Examination Vital Signs, Last 4 Hours Temp Pulse Resp BP Pulse Ox 06/06/17 16:06 98.1 F 90 20 170/74 97 06/06/17 15:30 88 06/06/17 13:56 163/84 General: Conversant, Other (Bipap currently) HEENT: Atraumatic, Normocephaly Cardiac: Reg Rate and Rhythm Lungs: Other (wheezes, bibasilar rales) Neuro: Alert and responsive Abdomen: Soft, Non-Tender Skin: No rashes noted on visualized skin Musculoskeletal: No Chest Wall Tenderness Extremities: No Clubbing, No Cyanosis, Other (marked edema, shriveled appearance of skin with chronic vascular skin changes) Results 06/04/17 21:54 06/06/17 09:44 Lab Results 06/06/17 09:44 Sodium 134 L Potassium 5.7 H Chloride 106 Carbon Dioxide 25 BUN 49 H Creatinine 3.07 H Glucose 243 H Calcium 8.4 L Consult Discharge Plan - Plan [facility]errals: [facility] [Primary Care Provider] - 06/17/17 10:30 am (jeimy team) <Arlene Bains - Last Filed: 06/07/17 10:34> Date of Encounter: 06/07/17 - Attending Attestation I examined this patient and my medical decision-making was reviewed with the Resident Physician. I agree with the documented findings, disposition and treatment plan. Impression: 67-year-old male presenting with shortness of breath, dyspnea. Patient's [facility]. He states that he has CAD and had stents placed in 2014 at the [facility]. He said that he started to decline in the spring of 2016 and has had multiple hospitalizations for similar complaints. He remembers being told that his heart was weak around that time but he does not recall if he had CHF previously. He also has chronic kidney disease, COPD and nicotine abuse. At the bedside, the patient is sitting upright, somewhat dyspneic but in no acute distress and able to converse. He is been intermittently short of breath for the last several months requiring repeated hospitalizations. Presently, this started a few days ago. He admits to noncompliance with fluid restriction. He admits to orthopneic symptoms and lower extremity edema. PLAN: 1. Decompensated heart failure: Patient had an echo performed in October 2016 demonstrating an ejection fraction of 40%. Then in April he had another one demonstrating an ejection fraction of 30%. It is unclear whether reduction in EF is relatively new or not. As appear that symptoms began around July 2016. At this time, I agree with IV diuresis with careful watch on renal function. [facility], with particular emphasis on history of EF. We briefly discussed the role for heart catheterization. He does have chronic kidney disease stage IV and would be at risk for contrast-induced nephropathy and probably a very small risk of requiring dialysis. I discussed this with the patient. He is hesitant to proceed if after review of records we discovered this is the appropriate approach. He would like to think about this , discussed with nephrology and his sons. Continue BB. Hold PERI/ARB given renal dysfunction. 2. CAD: He has CAD having stents in 2014. He denies any invasive procedures since that time. Recommend continuing aspirin and statin. Assessment and Plan Discussion w patient/family: The assessment and plan as outlined above was discussed with the patient and/or family members who expressed understanding and agreement. All questions were answered. Thank you for involving us in the care of your patient. Please call with any questions. History of Present Illness History of present illness: Mr. Jackson is a 67 year old male All Systems Review: A 10-system review of systems was performed and is negative for pertinent findings except as documented above in the HPI. Physical Examination Vital Signs, Last 4 Hours Temp Pulse Resp BP Pulse Ox 06/07/17 08:02 18 87 06/07/17 07:26 98.2 F 85 18 175/130 91 Results 06/07/17 06:15 06/07/17 06:15 Lab Results 06/07/17 06/07/17 06:15 06:15 WBC 9.9 Hgb 10.9 L D Hct 35.1 L Plt Count 221 Sodium 133 L Potassium 5.6 H Chloride 106 Carbon Dioxide 25 BUN 58 H Creatinine 3.19 H Glucose 228 H Calcium 8.4 L
[2017-06-06] MEDS: Budesonide/Formoterol 160/4.5 MDI IH SCH (20:15)
[2017-06-06] MEDS: traZODone 50 MG TABLET PO SCH (21:45)
[2017-06-06] MEDS: Levofloxacin 750 MG/150 ML 750 MG/150 ML BAG IVPB SCH (21:45)
[2017-06-07] MEDS: Ipratropium/Albuterol Neb 3 ML IH SCH ×6 (04:32→23:06)
[2017-06-07] MEDS: *HR* Heparin 5,000 UNIT/ML VIAL SQ SCH ×2 (06:12→17:33)
[2017-06-07 06:42] LABS: Calcium 8.4 mg/dL (8.6-10.3); Potassium 5.6 mEq/L (3.5-5.1)
--- NOTE | 2017-06-07 06:47 | Electrocardiograph Report ---
[address] [place], [place] [address] Test Date: 2017-06-04 Pat Name: Jostin Jackson Department: 104 Room: 2N11 Gender: M Human Resource Assistant: JESSICA : 1950 Requested By: Chai Mcintyre Order Number: [id number] Reading MD: Elpidio Bradshaw MD Measurements Intervals [place] Rate: 94 P: 89 KS: 191 QRS: 5 QRSD: 119 T: 59 QT: 347 QTc: 399 Interpretive Statements SINUS RHYTHM Poor R wave progression INFERIOR MYOCARDIAL INFARCTION, PROBABLY OLD BASELINE ARTIFACT, REPEAT EKG Electronically Signed On 06-07-2017 6:45:56 EST by Elpidio Bradshaw MD
[2017-06-07 07:31] LABS: Basophils % 0.1 %; Hematocrit 35.1 % (37.5-50.1); Immature Granulocytes % 0.5 % (0-4); Lymphocytes # 0.6 K/mcL (0.6-4.6); Lymphocytes % 5.5 %; Mean Corpuscular HGB Conc 31.1 g/dL (31.6-35.5); Mean Corpuscular Hemoglobin 29.1 pg (28.0-33.3); Mean Corpuscular Volume 93.6 fL (83.0-100.0); Mean Platelet Volume 9.5 fL (9.4-12.4); Monocytes # 0.3 K/mcL (0.0-1.3); Monocytes % 2.8 %; Platelet Count 221 K/mcL (140-400); Red Blood Count 3.75 M/mcL (4.19-5.50); Red Cell Distribution Width 16.9 % (11.5-14.5); Segmented Neutrophils % 91.1 %
[2017-06-07 07:45] LABS: Hemoglobin 10.9 g/dL (12.9-16.9)
[2017-06-07] MEDS: Gabapentin 300 MG CAPSULE PO SCH ×3 (07:50→20:13)
[2017-06-07] MEDS: Aspirin Enteric Coated 81 MG Tablet PO SCH (07:50)
[2017-06-07] MEDS: MethylPREDNISolone 40 MG/ML VIAL IVP SCH ×2 (07:50→20:14)
[2017-06-07] MEDS: amLODIPine 5 MG TABLET PO SCH (07:50)
[2017-06-07] MEDS: Isosorbide MONOnitrate (24 HR) 30 MG TAB.ER.24H PO SCH (07:50)
[2017-06-07] MEDS: Insulin LISPRO 300 UNITS/3 ML VIAL SQ SCH ×4 (07:51→20:14)
[2017-06-07] MEDS: Budesonide/Formoterol 160/4.5 MDI IH SCH ×2 (08:02→20:33)
--- NOTE | 2017-06-07 10:48 | Nephrology Progress Note ---
Date of Encounter: 06/07/17 Time of Encounter: 10:43 - Assessment and Plan (1) CKD (chronic kidney disease) stage 4, GFR 15-29 ml/min Current Visit: No Status: Chronic 1. CKD stage 4 with baseline creatinine in the high 2 range probably related to diabetes and hypertension. Serum cr minimally elevated as expected secondary to IV Lasix. Has hyperkalemia. Serum globulin is elevated Check SPEP, UA. Follow-up renal panel and uric acid level in a.m. pt is nonoliguric 2. Hyperkalemia. Has intermittent hyperkalemia as outpatient. Add renal diet to current diet order. Dose of Kayexalate today 3. Essential hypertension. BPs high. currently on amlodipine 10, carvedilol 25 twice a day, isosorbide 30 and prazosin 5 mg Add hydralazine 50 mg 3 times a day. Avoid ARB/ACEI given the advanced kidney 4. CHF, Acute, systolic. he is Volume overload. continue IV lasix drip. pt is non oliguric and in neg fluid balance. anticipate chaging lasix drip to scheduled iv lasix in a.m. CXR; cardiomegaly, interstitial edema and shelli pleural effusions Subjective Principal diagnosis: f/u of acute on chronic kidney disease Interval history: 67-year-old male with CKD stage IV baseline creatinine high 2 range was admitted with shortness of breath. DX ed with CHF and COPD exacerbation. Lasix drip at 5 mg per hour, IV steroids and Levaquin were started. Serum cr 2.8 on admission, 3 yesterday. Has home oxygen at 3 L. He was on BiPAP yesterday currently on 6 L of O2 Afebrile, BP 160-170, heart rate 80-90's Intake 1.9 urine output 1.5 L. Last night 1.3 urine output. Shortness of breath is slowly improving Objective - Vital Signs Vital signs: Vital Signs Temp Pulse Resp BP Pulse Ox 06/07/17 08:02 18 87 06/07/17 07:26 98.2 F 85 18 175/130 91 06/07/17 04:32 22 98 06/07/17 04:29 97.9 F 79 25 165/108 98 06/07/17 00:09 98.4 F 72 20 157/92 98 01/19/18 23:13 24 96 06/06/17 20:16 32 94 06/06/17 19:45 98.3 F 92 35 94 06/06/17 16:11 23 170/74 98 06/06/17 16:06 98.1 F 90 20 170/74 97 06/06/17 15:30 88 06/06/17 13:56 163/84 06/06/17 11:41 78 170/89 06/06/17 11:21 24 96 Intake and Output 06/06/17 06/07/17 06/07/17 23:59 07:59 15:59 Intake Total 150 / 150 0 / 0 480 / 480 Output Total 0 / 0 945 / 945 450 / 450 Balance 150 / 150 -945 / -945 Intake: IV Fluids 150 / 150 Levaquin Premix 750mg/150 mL 150 / 150 750 mg In 150 ml @ 100 mls/hr IVPB Q48H [facility] Rx#:[id number] Oral 0 / 0 0 / 0 480 / 480 Output: Urine 0 / 0 945 / 945 450 / 450 Other: Meal Breakfast Percent of Meal Consumed 100% Weight 100.2 kg Blood Glucose* 211 208 Patient Weight 06/07/17 23:59 Weight 100.2 kg - General Appearance Exam: CVS; s1s2 present, regular RESP; good air entry, scattered expiratory wheezing present ABD; soft, NT, BS present EXT; trace edema. 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 CN grossly intact - Lab 06/07/17 06:15 06/07/17 06:15 Most recent lab results Calcium 8.4 mg/dL (8.6-10.3) L 06/07/17 06:15 Magnesium 1.7 mg/dL (1.6-2.6) 06/04/17 21:54 Consult Discharge Plan - Plan [facility] Care Provider[facility] - 06/17/17 10:30 am (jeimy team)
--- NOTE | 2017-06-07 13:38 | Internal Med Progress Note ---
Date of Encounter: 06/07/17 Time of Encounter: 01:35 - Assessment and plan (1) Systolic and diastolic CHF, acute on chronic Current Visit: No Status: Acute Assessment and plan: Has acute on chronic combined systolic and diastolic heart failure. Continue Lasix drip at 5 mg per hour, patient is not diuresing, blood pressure is not well controlled. Follow again cardiology following. Symptomatically he is improving. (2) Respiratory failure with hypoxia Current Visit: Yes Status: Acute Assessment and plan: His decompensated congestive heart failure is causing respiratory failure with a high requirement of oxygen. He is not appropriately keeping his oxygen. Depending on his diuresis expect the oxygenation to improve. Qualifiers: Chronicity: acute Qualified Code(s): J96.01 - Acute respiratory failure with hypoxia (3) CKD (chronic kidney disease) stage 4, GFR 15-29 ml/min Current Visit: No Status: Chronic Assessment and plan: As chronic kidney disease stage IV now on Lasix infusion for his decompensated congestive heart failure. Nephrology following. He also had hyperkalemia. With Lasix infusion he is diuresing , leg swelling is improving but that is increasing his renal function which is expected. Continue to monitor his renal function. (4) Hyperkalemia Current Visit: Yes Status: Acute - Subjective Interval history: He has been treated for combined acute on chronic systolic and diastolic heart failure. Also has chronic kidney disease stage IV. On Lasix infusion. His BUN /creatinine is slightly increasing. Nephrology following. His shortness of breath is somewhat stable. He is keeping his oxygen in the mouth inserted in his nose advised to keep it in the Nose. also reports that he is having increasing urine output. Swelling is improving but he still has significant leg edema. Has cough without any hemoptysis. Denies any chest pain. No fever. - Constitutional Vitals: Temp Pulse Resp BP Pulse Ox 98.4 F 81 18 183/83 89 06/07/17 11:04 06/07/17 11:04 06/07/17 11:04 06/07/17 11:04 06/07/17 11:04 General appearance: Present: A&O X 3, morbidly obese, pleasant Exam: Chronically ill-looking elderly male. No respiratory distress at rest. He is on oxygen He has pallor or no cyanosis or jaundice. Neck without any cervical or supraclavicular lymphadenopathy. CVS, S1-S2 regular no significant murmur appreciated. RS, decreased air entry bilaterally. No crepitations noted. Abdomen, no distention. Soft. Nontender. No masses felt. Extremities, bilateral leg edema at least 2+. Chronic skin changes on both legs. 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 Right upper limb there is swelling. Internal Medicine: Result - Labs CBC & Chem 7: 06/07/17 06:15 06/07/17 06:15 Labs: Short CBC 06/07/17 Range/Units 06:15 WBC 9.9 (4.3-11.1) K/mcL Hgb 10.9 L D (12.9-16.9) g/dL Hct 35.1 L (37.5-50.1) % Plt Count 221 (140-400) K/mcL Neutrophils # 9.0 H (1.6-8.9) K/mcL BMP 06/07/17 06:15 Sodium 133 L Potassium 5.6 H Chloride 106 Carbon Dioxide 25 BUN 58 H Creatinine 3.19 H Glucose 228 H Calcium 8.4 L - ABG Interpretation ABG results: PT/INR, D-dimer PT 12.0 Seconds (9.4-12.1) 06/04/17 21:54 - Impressions Impressions Chest X-Ray 06/06/17 11:27 IMPRESSION: No significant interval change of congestive heart failure. D/ / Ni Lopez MD / Ni Lopez MD Interpreting Provider: Ni Lopez MD Consult Discharge Plan - Plan Referrals: [place],PCP [Primary Care Provider] - 06/17/17 10:30 am (green team)
[2017-06-07 15:20] LABS: Bilirubin,Urine Negative (Negative); Blood,Urine Small (Negative); Clarity,Urine Clear (Clear); Color,Urine Yellow (Yellow); Glucose,Urine (UA) 500 mg/dL (Normal); Ketones,Urine Negative (Negative); Leukocyte Esterase,Urine Negative (Negative); Nitrite,Urine Negative (Negative); PH,Urine 6.5 pH Units (5.0-8.0); Protein,Urine >=300 mg/dL (Neg-Trace); Specific Gravity,Urine 1.014 (1.010-1.025); Urobilinogen,Urine Normal (Normal)
[2017-06-07 15:22] LABS: Bacteria,Urine None Seen per hpf (None-Few); Hyaline Casts,Urine None Seen per lpf (None-Few); Squamous Epithelial Cell,Urine Moderate per lpf (None-Few); WBC,Urine 0-3 per hpf (0-3)
[2017-06-07] MEDS: hydrALAZINE 25 MG TABLET PO PRN (15:54)
[2017-06-07] MEDS: traZODone 50 MG TABLET PO SCH (20:13)
[2017-06-08] MEDS: Ipratropium/Albuterol Neb 3 ML IH SCH ×5 (04:44→20:32)
[2017-06-08] MEDS: *HR* Heparin 5,000 UNIT/ML VIAL SQ SCH ×2 (06:06→17:48)
[2017-06-08 06:27] LABS: Albumin 2.7 g/dL (3.5-5.7); Calcium 8.2 mg/dL (8.6-10.3); Phosphorous 3.7 mg/dL (2.7-4.5); Potassium 5.4 mEq/L (3.5-5.1); Uric Acid 7.1 mg/dL (2.3-7.6)
[2017-06-08] MEDS: amLODIPine 5 MG TABLET PO SCH (07:55)
[2017-06-08] MEDS: Isosorbide MONOnitrate (24 HR) 30 MG TAB.ER.24H PO SCH (07:55)
[2017-06-08] MEDS: MethylPREDNISolone 40 MG/ML VIAL IVP SCH ×2 (07:55→21:46)
[2017-06-08] MEDS: hydrALAZINE 25 MG TABLET PO PRN (07:55)
[2017-06-08] MEDS: Aspirin Enteric Coated 81 MG Tablet PO SCH (07:55)
[2017-06-08] MEDS: Insulin LISPRO 300 UNITS/3 ML VIAL SQ SCH ×4 (07:56→21:47)
[2017-06-08] MEDS: Gabapentin 300 MG CAPSULE PO SCH ×3 (07:56→21:48)
[2017-06-08] MEDS: Budesonide/Formoterol 160/4.5 MDI IH SCH ×2 (08:02→20:32)
[2017-06-08] MEDS ORDERED: Furosemide 240 MG in D5% in Water 96 ML IVC SCH ×2 (08:31→11:26)
[2017-06-08] MEDS ORDERED: Isosorbide MONOnitrate (24 HR) 30 MG TAB.ER.24H PO SCH (09:00)
--- NOTE | 2017-06-08 10:33 | Nephrology Progress Note ---
Date of Encounter: 06/08/17 Time of Encounter: 10:14 - Assessment and Plan (1) CKD (chronic kidney disease) stage 4, GFR 15-29 ml/min Current Visit: No Status: Chronic 1. CKD stage 4. Has worsening renal function as expected secondary to IV Lasix. f/u SPEP and renal panel in a.m. 2. Hyperkalemia. serum potassium improving. Continue renal diet. Repeat another dose of Kayexalate 3. Essential htn. Hydralazine was added yesterday, does not seem to her was increased by cardiology service today 4. CHF, Acute, systolic. LVEF 30% from last month. Pt is diuresing, in negative fluid balance and clinically improving. d/w cardiology service. Decrease IV Lasix drip from 5 mg to 2.5 mg per hour. Subjective Principal diagnosis: f/u of acute on chronic kidney disease Interval history: 67-year-old male with CKD stage IV baseline creatinine high 2 range was admitted with shortness of breath. DX ed with CHF and COPD exacerbation. Lasix drip at 5 mg per hour, IV steroids and Levaquin were started. Serum cr 2.8 on admission, trended up to 3.1 Has home oxygen at 3 L. Shortness of breath is improving, cough productive of minimal whitish phlegm. Peripheral edema is improving SBP remains high in 160s, heart rate 70s. On 6 L nasal cannula In negative fluid balance. Intake 1.4, urine output 2.4 L Objective - Vital Signs Vital signs: Vital Signs Temp Pulse Resp BP Pulse Ox 06/08/17 08:02 18 93 06/08/17 07:29 97.8 F 72 20 168/85 97 06/08/17 05:19 97.7 F 79 22 161/74 99 06/08/17 04:44 21 99 06/08/17 04:25 70 06/08/17 00:39 97.7 F 75 20 166/80 98 06/07/17 23:50 78 06/07/17 23:06 20 93 06/07/17 20:33 19 92 06/07/17 20:03 97.8 F 94 20 186/86 92 06/07/17 19:35 80 06/07/17 16:54 18 170/80 92 06/07/17 16:24 98.3 F 83 18 170/80 92 06/07/17 12:21 18 183/83 88 06/07/17 11:04 98.4 F 81 18 183/83 89 Intake and Output 06/07/17 06/08/17 06/08/17 23:59 07:59 15:59 Intake Total 480 / 480 150 / 150 Output Total 675 / 675 1000 / 1000 Balance -195 / -195 -850 / -850 Intake: Oral 480 / 480 150 / 150 Output: Urine 675 / 675 1000 / 1000 Other: Meal Dinner Percent of Meal Consumed 100% Weight 100 kg Blood Glucose* 227 263 Patient Weight 06/08/17 23:59 Weight 100 kg - General Appearance Exam: CVS; s1s2 present, regular RESP; good air entry, clear ABD; soft, NT, BS present EXT; 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 CN grossly intact - Lab 06/07/17 06:15 06/08/17 06:00 Most recent lab results Calcium 8.2 mg/dL (8.6-10.3) L 06/08/17 06:00 Phosphorus 3.7 mg/dL (2.7-4.5) 06/08/17 06:00 Magnesium 1.7 mg/dL (1.6-2.6) 06/04/17 21:54 Consult Discharge Plan - Plan [facility]errals: [facility] [Primary Care Provider] - 06/17/17 10:30 am (jeimy team)
--- NOTE | 2017-06-08 12:00 | Cardiology Progress Note ---
Date of Encounter: 06/08/17 Time of Encounter: 10:00 Assessment and Plan (1) CHF (congestive heart failure) Current Visit: No Status: Acute Patient presented with decompensated systolic heart failure. His I/O's suggest he is net positive and weights do not appear to be reliable. The patient overall feels better but is not back to his baseline. Discussed with Nephrology - worsening renal function. They recommended decreasing rate of lasix drip and potentially stopping it tomorrow. Overall, I suspect he is not compliant with heart failure lifestyle changes at home - diet and fluid intake. I discussed this with the patient and strongly encouraged strict attention to therapy. Recommend continuing coreg. Presume ACEI/ARB were not started as an outpatient secondary to renal dysfunction. Would not be a candidate for spironolactone. In regards to patient's presentation, [facility] It does appear that he had an echo performed in October 2016 demonstrating an ejection fraction of 40% - unclear whether this was new or old. He subsequently had another echo performed in April 2017 demonstrating an ejection fraction of 30%. Patient tells me that his symptoms and frequent rehospitalizations started in July 2016 suggesting that these findings may be new. We have requested records from the [place] - have not received them presumably due to the weekend. We will attempt requesting again on Friday. Have discussed consideration for proceeding with left heart catheterization with the patient. He states that he discussed this also with his sons. He expressed the understanding of the potential side effect of contrast-induced nephropathy, with risk of requiring dialysis which may be temporary or permanent. He states that regardless of this risk, he would want to proceed with left heart catheterization. This will need to be discussed with nephrology before proceeding and would ideally obtain medical records to determine whether cardiomyopathy is new or old. Qualifiers: Congestive heart failure type: unspecified congestive heart failure type Congestive heart failure chronicity: acute on chronic Qualified Code(s): I50.9 - Heart failure, unspecified (2) CAD (coronary artery disease) Current Visit: No Status: Chronic Patient reports known CAD, having stents placed in 2014 at the [facility]. He denies any invasive procedures since that time. Recommend continuing aspirin and statin. Qualifiers: Coronary Disease-Associated Artery/Lesion type: [place] artery [place] vs. transplanted heart: [place] heart Associated angina: without angina Qualified Code(s): I25.10 - Atherosclerotic heart disease of [place] coronary artery without angina pectoris (3) Swelling of right upper extremity Current Visit: Yes Status: Acute Patient plans to have RUE US done today. Discussion w patient/family: The assessment and plan as outlined above was discussed with the patient and/or family members who expressed understanding and agreement. All questions were answered. Thank you for involving us in the care of your patient. Please call with any questions. Subjective Principal diagnosis: f/u of acute on chronic kidney disease Interval history: Patient SOB and LE edema feeling better today but still not back to baseline. No new complaints. Objective Vital Signs, Last 4 Hours Resp Pulse Ox 06/08/17 11:25 18 92 06/08/17 08:02 18 93 General: Conversant, No Apparent Distress HEENT: Mucus Membranes Moist Neck: Other (no significant JVD) Cardiac: Reg Rate and Rhythm, Other (no significant murmur) Lungs: Other (breath sounds clear) Neuro: Alert and responsive, No focal deficits noted Abdomen: Soft, Other (normal bowel sounds) Extremities: Other (bilateral LE edema improving, BEL hose in place, RUE swelling) Results 06/07/17 06:15 06/08/17 06:00 Lab Results 06/08/17 06:00 Sodium 134 L Potassium 5.4 H Chloride 106 Carbon Dioxide 23 BUN 68 H Creatinine 3.41 H Glucose 242 H Calcium 8.2 L - Imaging and Cardiology Echo: report reviewed - EKG Interpretation EKG results cardiology: other (24h telemetry reviewed; demonstrates NSR average HR 77 bpm without significant dysrhythmia) Consult Discharge Plan - Plan [facility]errals: [facility] [Primary Care Provider] - 06/17/17 10:30 am (jeimy team)
--- NOTE | 2017-06-08 14:43 | Internal Med Progress Note ---
Date of Encounter: 06/08/17 Time of Encounter: 14:56 - Assessment and plan (1) Diabetes mellitus Current Visit: No Status: Chronic Assessment and plan: Insulin sliding scale. 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 Chronic kidney disease stage: stage 4 (severe) Qualified Code(s): E11.22 - Type 2 diabetes mellitus with diabetic chronic kidney disease; N18.4 - Chronic kidney disease, stage 4 (severe); N18.4 - Chronic kidney disease, stage 4 ( severe); N18.4 - Chronic kidney disease, stage 4 (severe); N18.4 - Chronic kidney disease, stage 4 (severe); Z79.4 - longterm (current) use of insulin; 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 (3) Systolic and diastolic CHF, acute on chronic Current Visit: No Status: Acute Assessment and plan: Has acute on chronic combined systolic and diastolic heart failure. Improving symptomatically. Good fluid balance. 1030 mL negative over the last 24 hours. Continue Lasix drip. Fluid restriction 1500 mL daily. Daily weights. Strict I 's and O's. (4) CKD (chronic kidney disease) stage 4, GFR 15-29 ml/min Current Visit: No Status: Chronic Assessment and plan: Avoid nephrotoxins. Follow up with nephrology. (5) COPD exacerbation Current Visit: Yes Status: Suspected Assessment and plan: Continue IV steroids and antibiotics levaquin continue nebulizer (6) Hyperkalemia Current Visit: Yes Status: Acute Assessment and plan: Hold spironolactone. Agree with Kayexalate. Low potassium diet. (7) Respiratory failure with hypoxia Current Visit: Yes Status: Acute Assessment and plan: His decompensated congestive heart failure is causing respiratory failure with a high requirement of oxygen. Depending on his diuresis expect the oxygenation to improve. Continue supplemental oxygen by nasal cannula. Qualifiers: Chronicity: acute Qualified Code(s): J96.01 - Acute respiratory failure with hypoxia - Subjective Interval history: Reports improvement and shortness of breath over the last 24 hours. Has been diuresing well with IV Lasix continuous infusion. Denies chest pain palpitations fevers chills nausea vomiting. - Constitutional Vitals: Temp Pulse Resp BP Pulse Ox 97.8 F 79 18 153/99 92 06/08/17 11:55 06/08/17 11:55 06/08/17 11:55 06/08/17 11:55 06/08/17 11:55 General appearance: Present: A&O X 3, morbidly obese, pleasant - Eye Eye exam: Present: PERRL, conjuntiva pink, sclera anicteric Pupils: Present: PERRL - Respiratory Respiratory exam: Present: CTAB, rales. Absent: accessory muscle use, rhonchi, wheezes - Cardiovascular Cardiovascular exam: Present: irregular rhythm, +S1, +S2. Absent: diastolic murmur, gallop, rubs, systolic murmur - GI/Abdominal GI/Abdominal exam: Present: normal bowel sounds, soft, no peritoneal signs. Absent: distended, tenderness - Extremities Exam Extremities exam: Present: pedal edema, warm, radial pulses palpable and symmetrical. Absent: calf tenderness, cyanotic - Skin Skin exam: Present: dry, intact Internal Medicine: Result - Labs CBC & Chem 7: 06/07/17 06:15 06/08/17 06:00 Labs: BMP 06/08/17 06:00 Sodium 134 L Potassium 5.4 H Chloride 106 Carbon Dioxide 23 BUN 68 H Creatinine 3.41 H Glucose 242 H Calcium 8.2 L Liver Function 06/08/17 Range/Units 06:00 Albumin 2.7 L (3.5-5.7) g/dL Urine 06/07/17 Range/Units 15:07 Urine Color Yellow (Yellow) Urine Clarity Clear (Clear) Urine pH 6.5 (5.0-8.0) pH Units Ur Specific [place] 1.014 (1.010-1.025) Urine Protein >=300 H (Neg-Trace) mg/dL Urine Glucose (UA) 500 H (Normal) mg/dL - ABG Interpretation ABG results: PT/INR, D-dimer PT 12.0 Seconds (9.4-12.1) 06/04/17 21:54 Consult Discharge Plan - Plan [facility]errals: [facility] [Primary Care Provider] - 06/17/17 10:30 am (green team)
[2017-06-08] MEDS: traZODone 50 MG TABLET PO SCH (21:48)
[2017-06-08] MEDS: Levofloxacin 750 MG/150 ML 750 MG/150 ML BAG IVPB SCH (21:49)
[2017-06-09] MEDS: Ipratropium/Albuterol Neb 3 ML IH SCH ×7 (00:25→23:40)
[2017-06-09] MEDS: *HR* Heparin 5,000 UNIT/ML VIAL SQ SCH ×2 (05:41→17:12)
[2017-06-09 06:43] LABS: Basophils % 0.1 %; Hematocrit 35.3 % (37.5-50.1); Hemoglobin 11.1 g/dL (12.9-16.9); Immature Granulocytes % 0.6 % (0-4); Lymphocytes # 0.5 K/mcL (0.6-4.6); Lymphocytes % 4.4 %; Mean Corpuscular HGB Conc 31.4 g/dL (31.6-35.5); Mean Corpuscular Hemoglobin 29.1 pg (28.0-33.3); Mean Corpuscular Volume 92.4 fL (83.0-100.0); Mean Platelet Volume 9.4 fL (9.4-12.4); Monocytes # 0.5 K/mcL (0.0-1.3); Monocytes % 4.4 %; Neutrophils # 10.8 K/mcL (1.6-8.9); Platelet Count 215 K/mcL (140-400); Red Blood Count 3.82 M/mcL (4.19-5.50); Red Cell Distribution Width 16.4 % (11.5-14.5); Segmented Neutrophils % 90.5 %
[2017-06-09 06:59] LABS: Albumin 2.8 g/dL (3.5-5.7); Calcium 8.2 mg/dL (8.6-10.3); Phosphorous 3.4 mg/dL (2.7-4.5); Potassium 5.5 mEq/L (3.5-5.1)
[2017-06-09] MEDS: amLODIPine 5 MG TABLET PO SCH (08:10)
[2017-06-09] MEDS: Isosorbide MONOnitrate (24 HR) 60 MG TAB.ER.24H PO SCH (08:10)
[2017-06-09] MEDS: Gabapentin 300 MG CAPSULE PO SCH ×3 (08:10→21:16)
[2017-06-09] MEDS: Insulin LISPRO 300 UNITS/3 ML VIAL SQ SCH ×5 (08:11→21:18)
[2017-06-09] MEDS: MethylPREDNISolone 40 MG/ML VIAL IVP SCH ×2 (08:11→21:17)
[2017-06-09] MEDS: Aspirin Enteric Coated 81 MG Tablet PO SCH (08:11)
[2017-06-09] MEDS: Budesonide/Formoterol 160/4.5 MDI IH SCH ×2 (08:26→20:07)
--- NOTE | 2017-06-09 09:46 | Cardiology Progress Note ---
Addendum entered and electronically signed by Nevin Garcia MD 06/09/17 15 :59: Cardiology to sign off. Re-consult as needed. FU as an outpatient for potential LHC already scheduled. Original Note: <Nevin Garcia - Last Filed: 06/09/17 15:21> Date of Encounter: 06/09/17 Time of Encounter: 09:43 Assessment and Plan (1) Systolic and diastolic CHF, acute on chronic Current Visit: No Status: Acute CXR 06/06/2017 no significant interval change of CHF. -Echo EF from October 2016 40%, Echo EF from 05/09/2017 30%. Unclear if these diminished ejection fractions new or old. Awaiting medical records. Patient states symptoms and frequent hospitalizations started in July 2016 suggesting that these findings may be new. -unclear if EF is chronic. [facility] medical records reviewed. -Nephrology recommends against LHC until renal function improves back to baseline -Lasix drip stopped today. -Will discuss with - Will consider LHC once patient is cleared from a renal standpoint in 4-5 weeks. -FU as an outpatient in 4-5 weeks. (2) CAD (coronary artery disease) Current Visit: No Status: Chronic Patient reports known CAD, having stents placed in [address] [facility]. He denies any invasive procedures since that time. -Recommend continuing aspirin, statin, and BB. Qualifiers: Coronary Disease-Associated Artery/Lesion type: [place] artery [place] vs. transplanted heart: [place] heart Associated angina: without angina Qualified Code(s): I25.10 - Atherosclerotic heart disease of [place] coronary artery without angina pectoris (3) Respiratory failure Current Visit: No Status: Acute Patient tolerating BiPAP. -continue management per primary team. Qualifiers: Chronicity: acute Respiratory failure complication: hypoxia Qualified Code(s): J96.01 - Acute respiratory failure with hypoxia (4) GLORIA (acute kidney injury) Current Visit: No Status: Acute Nephrology following. -Follow their recommendations regarding diuresis as creatinine continuing to trend upwards to 3.67 today (baseline 2.8). (5) Swelling of right upper extremity Current Visit: Yes Status: Acute RUE US performed on 06/08/2017 -No evidence of acute or chronic deep or superficial venous thrombus. Discussion w patient/family: The assessment and plan as outlined above was discussed with the patient and/or family members who expressed understanding and agreement. All questions were answered. Thank you for involving us in the care of your patient. Please call with any questions. Subjective Principal diagnosis: Decompensated systolic heart failure Interval history: Patient feeling much improved this morning. He denies shortness of breath, chest pain or pressure, cough, or mucous production. He denies chest palpitations, nausea, vomitting or diarrhea. Per patient, he wants to proceed with C despite risks of rn long term care need for dialysis afterwards secondary to his declining renal function. Objective Vital Signs, Last 4 Hours Temp Pulse Resp BP Pulse Ox 06/09/17 08:29 20 93 06/09/17 08:23 81 06/09/17 07:48 98.2 F 72 20 158/104 93 General: Conversant, No Apparent Distress HEENT: Atraumatic, Normocephaly, Mucus Membranes Moist Cardiac: Reg Rate and Rhythm, Normal S1 and S2 Lungs: Other (Bilateral bibasilar crackles, right greater than left, no wheeze or rhonchi. Diminished air movement at bases. ) Neuro: Alert and responsive, No focal deficits noted Abdomen: Soft, Non-Tender Extremities: No Clubbing, No Cyanosis, Other (2+ pitting edema) Results 06/09/17 06:30 06/09/17 06:30 Lab Results 06/09/17 06/09/17 06/09/17 06:30 06:30 06:30 WBC 11.9 H Hgb 11.1 L Hct 35.3 L Plt Count 215 Sodium 133 L Potassium 5.5 H Chloride 106 Carbon Dioxide 21 L BUN 90 H Creatinine 3.67 H Glucose 266 H Calcium 8.2 L Magnesium 1.3 L - VTE Documentation of Mechanical Device: Graduated compression elastic hosiery Consult Discharge Plan - Plan [facility]errals: [facility] [Primary Care Provider] - 06/17/17 10:30 am (jeimy team) <Mukul Adams - Last Filed: 06/09/17 19:36> Date of Encounter: 06/09/17 Assessment and Plan Discussion w patient/family: The assessment and plan as outlined above was discussed with the patient and/or family members who expressed understanding and agreement. All questions were answered. Thank you for involving us in the care of your patient. Please call with any questions. Objective Vital Signs, Last 4 Hours Temp Pulse Resp BP Pulse Ox 06/09/17 16:31 98.2 F 81 18 172/95 95 06/09/17 16:07 18 94 Results 06/09/17 06:30 06/09/17 06:30 Lab Results 06/09/17 06/09/17 06/09/17 06:30 06:30 06:30 WBC 11.9 H Hgb 11.1 L Hct 35.3 L Plt Count 215 Sodium 133 L Potassium 5.5 H Chloride 106 Carbon Dioxide 21 L BUN 90 H Creatinine 3.67 H Glucose 266 H Calcium 8.2 L Magnesium 1.3 L - Attending Attestation I examined this patient and my medical decision-making was reviewed with the Resident Physician. I agree with the documented findings, disposition and treatment plan as described except to the extent set forth below. PT reports shortness of breath much improved, now able lie flat to sleep. Also reports lower extremity swelling improved. He continues to uses BIPAP when short of breath with improvement in symptoms. IMP: 1. Acute on chronic decompensated systolic heart failure, with progressively decreasing EF from 40% October 2016, to 30% 04/2017. Symptoms, decreased EF highly suggestive of ischemic cardiomyopathy with progressive CAD. Pt is not a candidate for LHC due to acute on chronic renal failure, will tx medically, revaluate as outpatient in 4 to 5 weeks, unless pt develops ACS. Long conversation with patient concerning delaying LHC, report he will contact office with any chest pain or worsening CHF symptoms between now and outpatient visit. 2. CAD: known severe two vessel CAD, post PCI unknown vessel in 2014, old records requested. 3. GLORIA; worsening renal function, appreciate nephrology input, will delay LHC to allow improvement in renal function unless pt develops ACS.
--- NOTE | 2017-06-09 09:59 | Nephrology Progress Note ---
Date of Encounter: 06/09/17 Time of Encounter: 09:25 - Assessment and Plan (1) GLORIA (acute kidney injury) Current Visit: No Status: Acute GLORIA superimposed on CKD, Baseline creat 2.8 in setting CHF, COPD exacerbation, diuretics. Will discontinue Lasix drip. Recommend holding off on LHC if not emergent until back to baseline creat. Continue to monitor. Avoid nephrotoxins. Accurate I&O. Subjective Principal diagnosis: Decompensated systolic heart failure Interval history: Sitting on edge of bed. States breathing easier. documented urine output 1000cc. Objective - Vital Signs Vital signs: Vital Signs Temp Pulse Resp BP Pulse Ox 06/09/17 08:29 20 93 06/09/17 08:23 81 06/09/17 07:48 98.2 F 72 20 158/104 93 06/09/17 04:33 17 94 06/09/17 04:25 80 06/09/17 02:40 97.7 F 79 20 145/67 95 06/09/17 00:26 19 92 06/08/17 23:25 84 06/08/17 21:42 97.8 F 56 20 139/80 92 06/08/17 20:33 22 91 06/08/17 19:15 84 06/08/17 17:09 98.9 F 77 20 148/72 91 06/08/17 16:35 16 93 06/08/17 11:55 97.8 F 79 18 153/99 92 06/08/17 11:25 18 92 Intake and Output 06/08/17 06/09/17 06/09/17 23:59 07:59 15:59 Intake Total 400 / 400 300 / 300 480 / 480 Output Total 300 / 300 Balance 400 / 400 0 / 0 480 / 480 Intake: IV Fluids 160 / 160 Lasix 240 MG In Dextrose 5% 96 10 / 10 ML @ 10 MG/HR 5 mls/hr IVC . Q24H [facility] Rx#:[id number] Levaquin Premix 750mg/150 mL 150 / 150 750 mg In 150 ml @ 100 mls/hr IVPB Q48H [facility] Rx#:[id number] Oral 240 / 240 300 / 300 480 / 480 Output: Urine 300 / 300 Other: Meal Breakfast Percent of Meal Consumed 100% Stool Size Large Small Stool Consistency formed formed Stool Color Brown Brown # Urine Diapers 1 # Bowel Movements 1 Weight 98.9 kg Blood Glucose* 247 252 Patient Weight 06/09/17 23:59 Weight 98.9 kg - General Appearance General appearance: Present: well-developed, well-nourished, appears started age EENT: Present: mucous membranes moist Neck: Present: no JVD Additional Comments: harsh Cardiology: Present: no edema, regular rate, regular rhythm Gastrointestinal: Present: normoactive bowel sounds, no tenderness Integumentary: Present: warm and dry Neurologic: Present: alert and oriented x3 - Lab 06/09/17 06:30 06/09/17 06:30 Most recent lab results Calcium 8.2 mg/dL (8.6-10.3) L 06/09/17 06:30 Phosphorus 3.4 mg/dL (2.7-4.5) 06/09/17 06:30 Magnesium 1.3 mg/dL (1.6-2.6) L 06/09/17 06:30 - VTE Documentation of Mechanical Device: Graduated compression elastic hosiery Consult Discharge Plan - Plan [facility]: [facility] Provider[facility] - 06/17/17 10:30 am (jeimy team)
--- NOTE | 2017-06-09 15:04 | Internal Med Progress Note ---
Date of Encounter: 06/09/17 Time of Encounter: 15:01 - Assessment and plan (1) Diabetes mellitus Current Visit: No Status: Chronic Assessment and plan: Poorly controlled over the last 24 hours. We will increase Levemir to 8 units twice a day and add pre-meal bolus Humalog. 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 use Chronic kidney disease stage: stage 4 (severe) Qualified Code(s): E11.22 - Type 2 diabetes mellitus with diabetic chronic kidney disease; N18.4 - Chronic kidney disease, stage 4 (severe); N18.4 - Chronic kidney disease, stage 4 ( severe); N18.4 - Chronic kidney disease, stage 4 (severe); N18.4 - Chronic kidney disease, stage 4 (severe); Z79.4 - halfway (current) use of insulin; Z79.4 - halfway (current) use of insulin; Z79.4 - halfway (current) use of insulin; Z79.4 - superintendent container terminal (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 (3) Systolic and diastolic CHF, acute on chronic Current Visit: No Status: Acute Assessment and plan: Has acute on chronic combined systolic and diastolic heart failure. Improving symptomatically. Continue Lasix drip. Fluid restriction 1400 mL daily. Daily weights. Strict I 's and O's. (4) CKD (chronic kidney disease) stage 4, GFR 15-29 ml/min Current Visit: No Status: Chronic Assessment and plan: Avoid nephrotoxins. Appreciate nephrology recommendations. Agree with holding Lasix drip and monitoring kidney function. (5) COPD exacerbation Current Visit: Yes Status: Suspected Assessment and plan: Transition to oral prednisone 40 mg daily. Continue with Levaquin. Continue with inhaled albuterol and ipratropium. (6) Hyperkalemia Current Visit: Yes Status: Acute Assessment and plan: Hold spironolactone. Agree with Kayexalate. Low potassium diet. (7) Respiratory failure with hypoxia Current Visit: Yes Status: Acute Assessment and plan: His decompensated congestive heart failure is causing respiratory failure with a high requirement of oxygen. Depending on his diuresis expect the oxygenation to improve. Continue supplemental oxygen by nasal cannula. Qualifiers: Chronicity: acute Qualified Code(s): J96.01 - Acute respiratory failure with hypoxia - Subjective Interval history: Reports improvement and shortness of breath over the last 24 hours. Has been diuresing well with IV Lasix infusion. Denies chest pain palpitations fevers chills nausea vomiting. - Constitutional Vitals: Temp Pulse Resp BP Pulse Ox 98.1 F 73 18 115/57 93 06/09/17 11:09 06/09/17 11:09 06/09/17 12:02 06/09/17 11:09 06/09/17 12:02 General appearance: Present: A&O X 3, morbidly obese, pleasant - Respiratory Respiratory exam: Present: CTAB. Absent: accessory muscle use, rales, rhonchi, wheezes - Cardiovascular Cardiovascular exam: Present: irregular rhythm, +S1, +S2. Absent: diastolic murmur, gallop, rubs, systolic murmur - GI/Abdominal GI/Abdominal exam: Present: normal bowel sounds, soft, no peritoneal signs. Absent: distended, tenderness - Extremities Exam Extremities exam: Present: warm, radial pulses palpable and symmetrical. Absent : calf tenderness, cyanotic, pedal edema - Neurological Exam Neurological exam: Present: CN II-XII intact, oriented X3, no focal deficits. Absent: pronater drift, facial droop, speech deficit - Skin Skin exam: Present: dry, intact Internal Medicine: Result - Labs CBC & Chem 7: 06/09/17 06:30 06/09/17 06:30 Labs: Short CBC 06/09/17 Range/Units 06:30 WBC 11.9 H (4.3-11.1) K/mcL Hgb 11.1 L (12.9-16.9) g/dL Hct 35.3 L (37.5-50.1) % Plt Count 215 (140-400) K/mcL Neutrophils # 10.8 H (1.6-8.9) K/mcL BMP 06/09/17 06:30 Sodium 133 L Potassium 5.5 H Chloride 106 Carbon Dioxide 21 L BUN 90 H Creatinine 3.67 H Glucose 266 H Calcium 8.2 L Liver Function 06/09/17 Range/Units 06:30 Albumin 2.8 L (3.5-5.7) g/dL - ABG Interpretation ABG results: PT/INR, D-dimer PT 12.0 Seconds (9.4-12.1) 06/04/17 21:54 - Impressions Impressions Chest X-Ray 06/08/17 10:45 IMPRESSION: Stable chest demonstrating bilateral pleural effusions and cardiomegaly. D/ / 06/08/2017 15:47:23 Keven Sharpe MD / harleen Interpreting Provider: Keven Sharpe MD - VTE Documentation of Mechanical Device: Graduated compression elastic hosiery Consult Discharge Plan - Plan [facility]errals: [facility] [Primary Care Provider[facility] - 06/17/17 10:30 am (green team)
[2017-06-09] MEDS ORDERED: Magnesium Sulfate 1 GM in D5% in Water 100 ML IVPB ONE (16:00)
[2017-06-09] MEDS: traZODone 50 MG TABLET PO SCH (21:15)
[2017-06-09] MEDS: Insulin DETEMIR 100 UNIT/ML X5UNITS SQ SCH (21:17)
[2017-06-10] MEDS: hydrALAZINE 25 MG TABLET PO PRN (00:36)
[2017-06-10] MEDS: Ipratropium/Albuterol Neb 3 ML IH SCH ×6 (03:42→22:41)
[2017-06-10] MEDS: *HR* Heparin 5,000 UNIT/ML VIAL SQ SCH ×2 (05:35→17:41)
[2017-06-10 05:59] LABS: Hemoglobin 10.7 g/dL (12.9-16.9); Immature Granulocytes % 0.8 % (0-4); Lymphocytes # 0.5 K/mcL (0.6-4.6); Lymphocytes % 5.2 %; Mean Corpuscular HGB Conc 31.5 g/dL (31.6-35.5); Mean Corpuscular Hemoglobin 29.1 pg (28.0-33.3); Mean Corpuscular Volume 92.4 fL (83.0-100.0); Mean Platelet Volume 9.9 fL (9.4-12.4); Monocytes # 0.3 K/mcL (0.0-1.3); Neutrophils # 8.7 K/mcL (1.6-8.9); Platelet Count 202 K/mcL (140-400); Red Blood Count 3.68 M/mcL (4.19-5.50); Red Cell Distribution Width 15.9 % (11.5-14.5)
[2017-06-10 06:19] LABS: Calcium 8.2 mg/dL (8.6-10.3); Potassium 5.5 mEq/L (3.5-5.1)
[2017-06-10] MEDS: Budesonide/Formoterol 160/4.5 MDI IH SCH ×2 (07:47→20:12)
[2017-06-10] MEDS: Gabapentin 300 MG CAPSULE PO SCH ×2 (08:09→19:59)
[2017-06-10] MEDS: Isosorbide MONOnitrate (24 HR) 60 MG TAB.ER.24H PO SCH (08:09)
[2017-06-10] MEDS: amLODIPine 5 MG TABLET PO SCH (08:12)
[2017-06-10] MEDS: Insulin LISPRO 300 UNITS/3 ML VIAL SQ SCH ×7 (08:12→19:58)
[2017-06-10] MEDS: Aspirin Enteric Coated 81 MG Tablet PO SCH (08:13)
--- NOTE | 2017-06-10 08:14 | Nephrology Progress Note ---
Date of Encounter: 06/10/17 Time of Encounter: 08:12 - Assessment and Plan (1) CKD (chronic kidney disease) stage 4, GFR 15-29 ml/min Current Visit: No Status: Chronic The patient has acute kidney injury superimposed on stage IV chronic kidney disease. Baseline creatinine is around 2.8-3.0. Creatinine is improving since holding the Lasix. Patient has a clinical presentation of acute systolic congestive heart failure complicated by severe pulmonary hypertension. He likely requires a high preload to help maintain cardiac output in that situation. I think we can leave him off diuretics for another day or so. Possibly tomorrow regarding have to restart diuretics so that his congestive heart failure does not worsen. We will have to monitor his renal function closely. Once his renal function is stabilized he can undergo cardiac catheterization. The patient is aware of the inherent renal risks. (2) Systolic and diastolic CHF, acute on chronic Current Visit: No Status: Acute (3) GLORIA (acute kidney injury) Current Visit: No Status: Acute (4) COPD exacerbation Current Visit: Yes Status: Suspected Subjective Principal diagnosis: Decompensated systolic heart failure Interval history: Patient reports overall he is feeling better. Her shortness of breath has improved. He is not experiencing any chest pain. Serum creatinine is improved from 3.67 down to 3.29. B UN is 92. Urine output is 900 mL. Objective - Vital Signs Vital signs: Vital Signs Temp Pulse Resp BP Pulse Ox 06/10/17 07:48 16 98 06/10/17 05:35 66 06/10/17 03:43 18 100 06/10/17 03:00 97.3 F L 73 18 163/67 98 06/10/17 00:23 97.5 F L 69 19 172/83 99 06/09/17 23:38 20 99 06/09/17 23:15 65 06/09/17 21:15 77 06/09/17 20:14 97.6 F 74 17 168/76 98 06/09/17 20:07 18 92 06/09/17 16:31 98.2 F 81 18 172/95 95 06/09/17 16:07 18 94 06/09/17 15:20 98.0 F 75 18 164/77 94 06/09/17 12:02 18 93 06/09/17 11:09 98.1 F 73 20 115/57 95 06/09/17 08:29 20 93 01/22/18 08:23 81 Intake and Output 06/09/17 06/10/17 06/10/17 23:59 07:59 15:59 Intake Total 240 / 240 Output Total 350 / 350 Balance -110 / -110 Intake: Oral 240 / 240 Output: Urine 350 / 350 Other: Meal Dinner Percent of Meal Consumed 100% Stool Size Small Stool Consistency soft Stool Characteristics Normal for Patient Stool Color Brown Weight 98.997 kg Blood Glucose* 262 Patient Weight 06/10/17 23:59 Weight 98.997 kg - General Appearance Exam: Patient is alert and oriented. He is in no acute distress. Lungsbreath sounds in the bases otherwise clear. Heart regular rate and rhythm. Abdomen is benign. Extremities show 2+ lower extremity swelling. This is worse on the left. Compression stockings are in place. - Lab 06/10/17 05:40 06/10/17 05:40 Most recent lab results Calcium 8.2 mg/dL (8.6-10.3) L 06/10/17 05:40 Phosphorus 3.4 mg/dL (2.7-4.5) 06/09/17 06:30 Magnesium 1.3 mg/dL (1.6-2.6) L 06/09/17 06:30 - VTE Documentation of Mechanical Device: Graduated compression elastic hosiery Consult Discharge Plan - Plan Referrals: KRYST[facility],PCP [Primary Care Provider] - 06/17/17 10:30 am (jeimy team)
[2017-06-10] MEDS ORDERED: predniSONE 20 MG TABLET PO SCH (09:00)
[2017-06-10] MEDS ORDERED: levoFLOXacin 750 MG TABLET PO SCH (09:00)
[2017-06-10] MEDS: Insulin DETEMIR 100 UNIT/ML X5UNITS SQ SCH ×2 (09:13→19:59)
--- NOTE | 2017-06-10 13:31 | Internal Med Progress Note ---
Date of Encounter: 06/10/17 Time of Encounter: 13:29 - Subjective Interval history: Interval History: In NOD A&O x3 Breathing comfortably. Physical Exam: See below Assessment and Plan CAD (coronary artery disease) H/o prior stents placed in 2014 at the [facility]. Continue aspirin, statin , and BB. Cardiology want to do cath when renal function improves. Acute on chronic systolic and diastolic CHF: Current Visit: No Status: Acute Echo from October 2016 40% LVEF Echo from 05/09/2017 30% LVEF Lasix drip stopped due to GLORIA. Consider cath in 4-5 weeks when renal function improved. FU as an outpatient in 4-5 weeks. GLORIA (acute kidney injury) on CKD IV: Nephrology following. Creatine began trending up from baseline 2.8 Creatinine is improving since holding the Lasix. Hold for another day or so per nephrology. DM-2: Poor controll. Levimer increased to 10 units SQ BID in addition to SSI ( Med) with meals. Placed on DM diet today. - Constitutional Vitals: Temp Pulse Resp BP Pulse Ox 98.0 F 69 22 171/84 96 06/10/17 11:53 06/10/17 11:53 06/10/17 11:53 06/10/17 11:53 06/10/17 11:53 General appearance: Present: A&O X 3, morbidly obese, pleasant, no acute distress, answers questions appropriately - Head Head exam: Present: atraumatic, normocephalic - Eye Eye exam: Present: EOMI, normal appearance, PERRL, conjuntiva pink, sclera anicteric Pupils: Present: PERRL - Neck Neck exam general surgery: Present: supple, trachea midline. Absent: lymphadenopathy - Respiratory Respiratory exam: Present: CTAB. Absent: accessory muscle use, rales, respiratory distress, rhonchi, stridor, wheezes, tachypnea - Cardiovascular Cardiovascular exam: Present: RRR, +S1, +S2. Absent: diastolic murmur, gallop, JVD, rubs, systolic murmur - GI/Abdominal GI/Abdominal exam: Present: normal bowel sounds, soft, no peritoneal signs. Absent: distended, tenderness - Extremities Exam Extremities exam: Present: warm, radial pulses palpable and symmetrical. Absent : calf tenderness, cyanotic, pedal edema - Expanded Lower Extremities Exam Lower Leg exam: Present: swelling - Neurological Exam Neurological exam: Present: CN II-XII intact, oriented X3, no focal deficits. Absent: pronater drift, facial droop, speech deficit - Psychiatric Psychiatric exam: Present: normal affect, normal mood - Skin Skin exam: Present: dry, intact Internal Medicine: Result - Labs CBC & Chem 7: 06/10/17 05:40 06/10/17 05:40 Labs: Short CBC 06/10/17 Range/Units 05:40 WBC 9.5 (4.3-11.1) K/mcL Hgb 10.7 L (12.9-16.9) g/dL Hct 34.0 L (37.5-50.1) % Plt Count 202 (140-400) K/mcL Neutrophils # 8.7 (1.6-8.9) K/mcL BMP 06/10/17 05:40 Sodium 135 L Potassium 5.5 H Chloride 109 H Carbon Dioxide 22 L BUN 92 H Creatinine 3.29 H Glucose 240 H Calcium 8.2 L - ABG Interpretation ABG results: PT/INR, D-dimer PT 12.0 Seconds (9.4-12.1) 06/04/17 21:54 - VTE Documentation of Mechanical Device: Graduated compression elastic hosiery Consult Discharge Plan - Plan [facility]errals: [facility] [Primary Care Provider[facility] - 06/17/17 10:30 am (jeimy team)
[2017-06-10] MEDS: traZODone 50 MG TABLET PO SCH (19:59)
[2017-06-10] MEDS: Albuterol 2.5 MG/3 ML NEBULIZER IH PRN (20:11)
[2017-06-11] MEDS: Ipratropium/Albuterol Neb 3 ML IH SCH ×5 (04:53→19:59)
[2017-06-11 05:40] LABS: Albumin 2.6 g/dL (3.5-5.7); Albumin/Globulin Ratio 0.9 (1.1-2.2); Bilirubin,Total 0.2 mg/dL (0.3-1.0); Calcium 8.1 mg/dL (8.6-10.3); Potassium 4.8 mEq/L (3.5-5.1); Total Protein 5.6 g/dL (6.4-8.9)
[2017-06-11] MEDS: *HR* Heparin 5,000 UNIT/ML VIAL SQ SCH ×2 (05:48→17:01)
[2017-06-11] MEDS: Budesonide/Formoterol 160/4.5 MDI IH SCH ×2 (07:44→19:58)
[2017-06-11] MEDS: Insulin LISPRO 300 UNITS/3 ML VIAL SQ SCH ×7 (08:15→21:31)
[2017-06-11] MEDS: predniSONE 20 MG TABLET PO SCH (08:16)
[2017-06-11] MEDS: Aspirin Enteric Coated 81 MG Tablet PO SCH (08:16)
[2017-06-11] MEDS: Isosorbide MONOnitrate (24 HR) 60 MG TAB.ER.24H PO SCH (08:16)
[2017-06-11] MEDS: Gabapentin 300 MG CAPSULE PO SCH ×2 (08:16→21:29)
[2017-06-11] MEDS: amLODIPine 5 MG TABLET PO SCH (08:17)
--- NOTE | 2017-06-11 08:25 | Nephrology Progress Note ---
Date of Encounter: 06/11/17 Time of Encounter: 08:23 - Assessment and Plan (1) CKD (chronic kidney disease) stage 4, GFR 15-29 ml/min Current Visit: No Status: Chronic The patient has acute kidney injury superimposed on stage IV chronic kidney disease. Baseline creatinine is around 2.8-3.0. Creatinine is improving since holding the Lasix. Patient has a clinical presentation of acute systolic congestive heart failure complicated by severe pulmonary hypertension. He likely requires a high preload to help maintain cardiac output in that situation. The patient's blood pressure is suboptimal. I am going to make some changes to his hydralazine dosage. I am also going to resume Lasix at a conservative dose and continue to monitor his renal function. (2) Systolic and diastolic CHF, acute on chronic Current Visit: No Status: Acute (3) GLORIA (acute kidney injury) Current Visit: No Status: Acute (4) COPD exacerbation Current Visit: Yes Status: Suspected Subjective Principal diagnosis: Decompensated systolic heart failure Interval history: Patient reports she feels well. He says his breathing has been stable. Urine output is 1600 mL. Serum creatinine is relatively stable at 3.50. Blood pressure is suboptimal. Objective - Vital Signs Vital signs: Vital Signs Temp Pulse Resp BP Pulse Ox 06/11/17 07:47 66 18 143/105 99 06/11/17 04:53 18 98 06/11/17 04:15 97.6 F 70 16 169/76 96 06/10/17 23:44 97.8 F 65 20 176/79 06/10/17 22:42 16 97 06/10/17 20:13 18 97 06/10/17 19:28 97.9 F 80 18 181/88 94 06/10/17 17:30 75 06/10/17 16:16 97.4 F L 73 20 169/95 100 06/10/17 15:57 18 97 06/10/17 14:45 93 06/10/17 11:53 98.0 F 69 22 171/84 96 06/10/17 11:32 69 20 96 06/10/17 11:05 16 95 Intake and Output 06/10/17 06/11/17 06/11/17 23:59 07:59 15:59 Intake Total 120 / 120 400 / 400 Output Total 700 / 700 300 / 300 Balance -580 / -580 100 / 100 Intake: Oral 120 / 120 400 / 400 Output: Urine 700 / 700 300 / 300 Other: Meal Dinner Percent of Meal Consumed 100% Weight 99.32 kg Blood Glucose* 307 172 Patient Weight 06/11/17 23:59 Weight 99.32 kg - General Appearance Exam: Patient is alert and oriented. In no acute distress. Lung sounds otherwise clear. Heart regular rate and rhythm. Abdomen is benign. Lower extremity swelling is about the same as yesterday. - Lab 06/10/17 05:40 06/11/17 04:15 Most recent lab results Calcium 8.1 mg/dL (8.6-10.3) L 06/11/17 04:15 Phosphorus 3.4 mg/dL (2.7-4.5) 06/09/17 06:30 Magnesium 1.3 mg/dL (1.6-2.6) L 06/09/17 06:30 - VTE Documentation of Mechanical Device: Graduated compression elastic hosiery Consult Discharge Plan - Plan [facility]errals: [facility] [Primary Care Provider] - 06/17/17 10:30 am (jeimy team)
[2017-06-11 08:33] LABS: Alpha 2 Globulin (PEP) 1.36 g/dL (0.48-1.05)
[2017-06-11] MEDS: Furosemide 40 MG TABLET PO SCH (08:53)
[2017-06-11] MEDS: Insulin DETEMIR 100 UNIT/ML X5UNITS SQ SCH ×2 (08:53→21:30)
[2017-06-11 13:12] LABS: IFE Reflexed NOT DONE
--- NOTE | 2017-06-11 14:28 | Internal Med Progress Note ---
Date of Encounter: 06/11/17 Time of Encounter: 14:26 - Subjective Interval history: Interval History: In NOD A&O x3 Breathing comfortably. Physical Exam: See below Assessment and Plan CAD (coronary artery disease) H/o prior stents placed in 2014 at the [facility]. Continue aspirin, statin , and BB. Cardiology want to do cath when renal function improves. Acute on chronic systolic and diastolic CHF: Current Visit: No Status: Acute Echo from October 2016 40% LVEF Echo from 05/09/2017 30% LVEF Lasix drip stopped due to GLORIA. Consider cath in 4-5 weeks when renal function improved. FU as an outpatient in 4-5 weeks. GLORIA (acute kidney injury) on CKD IV: Nephrology following. Creatine began trending up from baseline 2.8 Creatinine is improved while holding Lasix. Nephrology okay with restarting Lasix today. DM-2: Poor controll. Levimer increased to 10 units SQ BID in addition to SSI ( Med) with meals. Placed on DM diet today. Essential HTN: PRN Hydralazne added Diabetic wound LLE.: Wound care consult ordered. General appearance: Present: A&O X 3, morbidly obese, pleasant, no acute distress, answers questions appropriately - Head Head exam: Present: atraumatic, normocephalic - Eye Eye exam: Present: EOMI, normal appearance, PERRL, conjuntiva pink, sclera anicteric Pupils: Present: PERRL - Neck Neck exam general surgery: Present: supple, trachea midline. Absent: lymphadenopathy - Respiratory Respiratory exam: Present: CTAB. Absent: accessory muscle use, rales, respiratory distress, rhonchi, stridor, wheezes, tachypnea - Cardiovascular Cardiovascular exam: Present: RRR, +S1, +S2. Absent: diastolic murmur, gallop, JVD, rubs, systolic murmur - GI/Abdominal GI/Abdominal exam: Present: normal bowel sounds, soft, no peritoneal signs. Absent: distended, tenderness - Extremities Exam Extremities exam: Present: warm, radial pulses palpable and symmetrical. Absent : calf tenderness, cyanotic, pedal edema - Expanded Lower Extremities Exam Lower Leg exam: Present: swelling - Neurological Exam Neurological exam: Present: CN II-XII intact, oriented X3, no focal deficits. Absent: pronater drift, facial droop, speech deficit - Psychiatric Psychiatric exam: Present: normal affect, normal mood - Constitutional Vitals: Temp Pulse Resp BP Pulse Ox 98.5 F 69 18 160/76 91 06/11/17 11:37 06/11/17 12:10 06/11/17 12:10 06/11/17 12:10 06/11/17 12:10 General appearance: Present: A&O X 3, morbidly obese, pleasant, no acute distress, answers questions appropriately Internal Medicine: Result - Labs CBC & Chem 7: 06/10/17 05:40 06/11/17 04:15 Labs: BMP 06/11/17 04:15 Sodium 140 Potassium 4.8 Chloride 113 H Carbon Dioxide 22 L BUN 97 H Creatinine 3.50 H Glucose 173 H Calcium 8.1 L Liver Function 06/11/17 Range/Units 04:15 Total Bilirubin 0.2 L (0.3-1.0) mg/dL AST 19 (13-39) Units/L ALT 48 (7-52) Units/L Alkaline Phosphatase 81 (34-104) Units/L Albumin 2.6 L (3.5-5.7) g/dL - ABG Interpretation ABG results: PT/INR, D-dimer PT 12.0 Seconds (9.4-12.1) 06/04/17 21:54 - VTE Documentation of Mechanical Device: Graduated compression elastic hosiery Consult Discharge Plan - Plan Referrals: KRYSTINA,PCP [Primary Care Provider] - 06/17/17 10:30 am (green team)
[2017-06-11] MEDS: hydrALAZINE 25 MG TABLET PO SCH ×2 (15:06→23:53)
[2017-06-11] MEDS: BuPROPion SR (12 HR) 150 MG TABLET PO SCH (17:01)
[2017-06-11] MEDS: Albuterol 2.5 MG/3 ML NEBULIZER IH PRN (19:58)
[2017-06-11] MEDS: traZODone 50 MG TABLET PO SCH (21:30)
[2017-06-11] MEDS: Clotrimazole 1% CRM 15 GM TUBE TP SCH (21:30)
[2017-06-11] MEDS: traMADol 50 MG TABLET PO PRN (21:41)
[2017-06-12] MEDS: Ipratropium/Albuterol Neb 3 ML IH SCH ×7 (00:50→23:35)
[2017-06-12 05:48] LABS: Albumin 2.4 g/dL (3.5-5.7); Albumin/Globulin Ratio 1.1 (1.1-2.2); Bilirubin,Total 0.2 mg/dL (0.3-1.0); Calcium 7.6 mg/dL (8.6-10.3); Globulin 2.2 g/dL (2.4-3.5); Potassium 4.7 mEq/L (3.5-5.1); Total Protein 4.6 g/dL (6.4-8.9)
[2017-06-12] MEDS: *HR* Heparin 5,000 UNIT/ML VIAL SQ SCH ×2 (05:54→16:57)
[2017-06-12] MEDS: Budesonide/Formoterol 160/4.5 MDI IH SCH ×2 (07:56→20:47)
[2017-06-12] MEDS: Insulin LISPRO 300 UNITS/3 ML VIAL SQ SCH ×7 (08:11→21:16)
[2017-06-12] MEDS: hydrALAZINE 25 MG TABLET PO SCH ×3 (08:18→23:32)
[2017-06-12] MEDS: Clotrimazole 1% CRM 15 GM TUBE TP SCH ×2 (08:18→21:15)
[2017-06-12] MEDS: Isosorbide MONOnitrate (24 HR) 60 MG TAB.ER.24H PO SCH (08:18)
[2017-06-12] MEDS: predniSONE 20 MG TABLET PO SCH (08:18)
[2017-06-12] MEDS: Gabapentin 300 MG CAPSULE PO SCH ×2 (08:18→21:15)
[2017-06-12] MEDS: Furosemide 40 MG TABLET PO SCH (08:18)
[2017-06-12] MEDS: amLODIPine 5 MG TABLET PO SCH (08:18)
[2017-06-12] MEDS: BuPROPion SR (12 HR) 150 MG TABLET PO SCH ×2 (08:18→16:58)
[2017-06-12] MEDS: Aspirin Enteric Coated 81 MG Tablet PO SCH (08:18)
[2017-06-12] MEDS: Insulin DETEMIR 100 UNIT/ML X5UNITS SQ SCH ×2 (09:23→21:16)
--- NOTE | 2017-06-12 09:34 | Nephrology Progress Note ---
Date of Encounter: 06/12/17 Time of Encounter: 09:05 - Assessment and Plan (1) GLORIA (acute kidney injury) Current Visit: No Status: Acute GLORIA superimposed on CKD, Baseline creat 2.8-3.0 in setting CHF, COPD exacerbation, diuretics. Renal fct slowly improving, creat 3.29. Documented urine output 300cc. SBP remains elevated, will increase Hydralazine. Recommend holding off on LHC if not emergent until back to baseline creat. Continue to monitor. Avoid nephrotoxins. Accurate I&O. Subjective Principal diagnosis: Decompensated systolic heart failure Interval history: Sitting up in chair, states feeling better. Objective - Vital Signs Vital signs: Vital Signs Temp Pulse Resp BP Pulse Ox 06/12/17 08:22 77 06/12/17 07:59 16 98 06/12/17 07:00 97.8 F 71 18 166/75 95 06/12/17 04:41 18 98 06/12/17 04:15 97.6 F 74 19 159/73 95 06/12/17 00:50 16 94 06/11/17 23:37 74 18 160/76 94 06/11/17 20:28 87 18 181/90 94 06/11/17 19:59 16 94 06/11/17 17:06 97 06/11/17 16:15 18 96 06/11/17 16:04 98.3 F 70 18 155/72 93 06/11/17 14:50 72 06/11/17 12:10 69 18 160/76 91 06/11/17 11:37 98.5 F 74 18 160/76 91 Intake and Output 06/11/17 06/12/17 06/12/17 23:59 07:59 15:59 Intake Total 640 / 640 240 / 240 120 / 120 Output Total 0 / 0 850 / 850 Balance 640 / 640 -610 / -610 120 / 120 Intake: Oral 640 / 640 240 / 240 120 / 120 Output: Urine 0 / 0 850 / 850 Other: Meal Dinner Breakfast Percent of Meal Consumed 100% 100% Stool Size Moderate Stool Consistency formed Stool Color Brown # Voids 1 Weight 104.128 kg Blood Glucose* 228 81 Patient Weight 06/12/17 23:59 Weight 104.128 kg - General Appearance General appearance: Present: well-developed, well-nourished, appears started age EENT: Present: mucous membranes moist Neck: Present: no JVD Respiratory: Present: clear Cardiology: Present: regular rate, regular rhythm Additional Comments: mild-1+ LE edema Gastrointestinal: Present: normoactive bowel sounds, no tenderness Integumentary: Present: warm and dry Neurologic: Present: alert and oriented x3 - Lab 06/10/17 05:40 06/12/17 04:05 Most recent lab results Calcium 7.6 mg/dL (8.6-10.3) L 06/12/17 04:05 Phosphorus 3.4 mg/dL (2.7-4.5) 06/09/17 06:30 Magnesium 1.3 mg/dL (1.6-2.6) L 06/09/17 06:30 - VTE Documentation of Mechanical Device: Graduated compression elastic hosiery Consult Discharge Plan - Plan Referrals: KRYSTINA,PCP [Primary Care Provider] - 06/17/17 10:30 am (green team)
--- NOTE | 2017-06-12 15:53 | Internal Med Progress Note ---
Date of Encounter: 06/12/17 Time of Encounter: 15:53 - Subjective Interval history: Interval History: In NOD A&O x3 Breathing comfortably. Physical Exam: See below Assessment and Plan CAD (coronary artery disease) H/o prior stents placed in 2014 at the [facility]. Continue aspirin, statin , and BB. Cardiology want to do cath when renal function improves. Acute on chronic systolic and diastolic CHF: Current Visit: No Status: Acute Echo from October 2016 40% LVEF Echo from 05/09/2017 30% LVEF Lasix drip stopped due to GLORIA. Consider cath in 4-5 weeks when renal function improved. FU as an outpatient in 4-5 weeks. GLORIA (acute kidney injury) on CKD IV: Nephrology following. Creatine began trending up from baseline 2.8 Creatinine is improved while holding Lasix. Nephrology okay with restarting Lasix today. DM-2: Poor controll. Levimer increased to 10 units SQ BID in addition to SSI ( Med) with meals. Placed on DM diet today. Essential HTN: PRN Hydralazne added Diabetic wound LLE.: Wound care consult ordered. General appearance: Present: A&O X 3, morbidly obese, pleasant, no acute distress, answers questions appropriately - Head Head exam: Present: atraumatic, normocephalic - Eye Eye exam: Present: EOMI, normal appearance, PERRL, conjuntiva pink, sclera anicteric Pupils: Present: PERRL - Neck Neck exam general surgery: Present: supple, trachea midline. Absent: lymphadenopathy - Respiratory Respiratory exam: Present: CTAB. Absent: accessory muscle use, rales, respiratory distress, rhonchi, stridor, wheezes, tachypnea - Cardiovascular Cardiovascular exam: Present: RRR, +S1, +S2. Absent: diastolic murmur, gallop, JVD, rubs, systolic murmur - GI/Abdominal GI/Abdominal exam: Present: normal bowel sounds, soft, no peritoneal signs. Absent: distended, tenderness - Extremities Exam Extremities exam: Present: warm, radial pulses palpable and symmetrical. Absent : calf tenderness, cyanotic, pedal edema - Expanded Lower Extremities Exam Lower Leg exam: Present: swelling - Neurological Exam Neurological exam: Present: CN II-XII intact, oriented X3, no focal deficits. Absent: pronater drift, facial droop, speech deficit - Psychiatric Psychiatric exam: Present: normal affect, normal mood - Constitutional Vitals: Temp Pulse Resp BP Pulse Ox 98.1 F 75 18 135/63 98 06/12/17 15:00 06/12/17 15:00 06/12/17 15:00 06/12/17 15:00 06/12/17 15:00 General appearance: Present: A&O X 3, morbidly obese, pleasant, no acute distress, answers questions appropriately Internal Medicine: Result - Labs CBC & Chem 7: 06/10/17 05:40 06/12/17 04:05 Labs: BMP 06/12/17 04:05 Sodium 141 Potassium 4.7 Chloride 117 H Carbon Dioxide 19 L BUN 99 H Creatinine 3.29 H Glucose 99 Calcium 7.6 L Liver Function 06/12/17 Range/Units 04:05 Total Bilirubin 0.2 L (0.3-1.0) mg/dL AST 23 (13-39) Units/L ALT 52 (7-52) Units/L Alkaline Phosphatase 71 (34-104) Units/L Albumin 2.4 L (3.5-5.7) g/dL - ABG Interpretation ABG results: PT/INR, D-dimer PT 12.0 Seconds (9.4-12.1) 06/04/17 21:54 - VTE Documentation of Mechanical Device: Graduated compression elastic hosiery Consult Discharge Plan - Plan Referrals: KRYSTINA,PCP [Primary Care Provider] - 06/17/17 10:30 am (green team)
[2017-06-12] MEDS: traZODone 50 MG TABLET PO SCH (21:14)
[2017-06-13] MEDS: Ipratropium/Albuterol Neb 3 ML IH SCH ×6 (04:29→23:37)
[2017-06-13] MEDS: *HR* Heparin 5,000 UNIT/ML VIAL SQ SCH ×2 (05:38→17:19)
[2017-06-13] MEDS: Budesonide/Formoterol 160/4.5 MDI IH SCH ×2 (07:49→20:00)
[2017-06-13] MEDS: Gabapentin 300 MG CAPSULE PO SCH ×2 (08:03→21:14)
[2017-06-13] MEDS: predniSONE 20 MG TABLET PO SCH (08:03)
[2017-06-13] MEDS: hydrALAZINE 25 MG TABLET PO SCH ×2 (08:03→17:18)
[2017-06-13] MEDS: BuPROPion SR (12 HR) 150 MG TABLET PO SCH ×2 (08:03→17:18)
[2017-06-13] MEDS: Aspirin Enteric Coated 81 MG Tablet PO SCH (08:03)
[2017-06-13] MEDS: Furosemide 40 MG TABLET PO SCH (08:04)
[2017-06-13] MEDS: amLODIPine 5 MG TABLET PO SCH (08:04)
[2017-06-13] MEDS: Insulin LISPRO 300 UNITS/3 ML VIAL SQ SCH ×7 (08:04→21:16)
[2017-06-13] MEDS: Isosorbide MONOnitrate (24 HR) 60 MG TAB.ER.24H PO SCH (08:04)
[2017-06-13] MEDS: Clotrimazole 1% CRM 15 GM TUBE TP SCH ×2 (08:04→21:35)
[2017-06-13 08:38] LABS: Basophils % 0.1 %; Eosinophils # 0.1 K/mcL (0.0-0.6); Hematocrit 33.9 % (37.5-50.1); Hemoglobin 10.8 g/dL (12.9-16.9); Immature Granulocytes % 0.7 % (0-4); Lymphocytes # 1.1 K/mcL (0.6-4.6); Lymphocytes % 8.7 %; Mean Corpuscular HGB Conc 31.9 g/dL (31.6-35.5); Mean Corpuscular Hemoglobin 29.5 pg (28.0-33.3); Mean Corpuscular Volume 92.6 fL (83.0-100.0); Monocytes # 1.2 K/mcL (0.0-1.3); Monocytes % 9.9 %; Neutrophils # 9.7 K/mcL (1.6-8.9); Platelet Count 217 K/mcL (140-400); Red Blood Count 3.66 M/mcL (4.19-5.50); Red Cell Distribution Width 16.4 % (11.5-14.5); Segmented Neutrophils % 79.6 %
[2017-06-13 08:53] LABS: Calcium 8.2 mg/dL (8.6-10.3); Potassium 4.6 mEq/L (3.5-5.1)
[2017-06-13] MEDS: Insulin DETEMIR 100 UNIT/ML X5UNITS SQ SCH ×2 (09:07→21:15)
--- NOTE | 2017-06-13 10:35 | Nephrology Progress Note ---
Date of Encounter: 06/13/17 Time of Encounter: 09:45 - Assessment and Plan (1) GLORIA (acute kidney injury) Current Visit: No Status: Acute GLORIA superimposed on CKD, Baseline creat 2.8-3.0 in setting CHF, COPD exacerbation, diuretics. Renal fct slowly improving, creat 3.24. Documented urine output 1350cc. SBP remains elevated, hesitant but will restart Lisinopril 10mg daily. Recommend holding off on LHC if not emergent until back to baseline creat. Continue to monitor. Avoid nephrotoxins. Accurate I&O. Subjective Principal diagnosis: Decompensated systolic heart failure Interval history: Sitting up in bed. States feeling good. SBP 150-170. Objective - Vital Signs Vital signs: Vital Signs Temp Pulse Resp BP Pulse Ox 06/13/17 08:12 76 06/13/17 07:51 17 98 06/13/17 07:24 97.7 F 70 17 171/75 96 06/13/17 04:29 20 99 06/13/17 04:18 97.7 F 79 18 178/97 98 06/13/17 03:20 79 06/12/17 23:35 16 98 06/12/17 23:30 82 06/12/17 23:11 81 18 173/81 96 06/12/17 21:05 80 06/12/17 20:48 16 98 06/12/17 20:11 78 18 163/73 97 06/12/17 16:00 20 96 06/12/17 15:00 98.1 F 75 18 135/63 98 06/12/17 11:34 18 150/68 96 06/12/17 10:46 98.3 F 76 18 150/68 96 Intake and Output 06/12/17 06/13/17 06/13/17 23:59 07:59 15:59 Intake Total 520 / 520 500 / 500 240 / 240 Output Total 500 / 500 600 / 600 Balance 20 / 20 -100 / -100 240 / 240 Intake: Oral 520 / 520 500 / 500 240 / 240 Output: Urine 500 / 500 Urine/Stool Mix 600 / 600 Other: Meal Dinner Breakfast Percent of Meal Consumed 100% 100% Stool Size Large Small Stool Consistency liquid liquid Stool Characteristics Normal for Patient Stool Color Brown Brown # Voids 1 # Bowel Movements 1 Weight 101.775 kg Blood Glucose* 237 165 Patient Weight 06/13/17 23:59 Weight 101.775 kg - General Appearance General appearance: Present: well-developed, well-nourished, appears started age EENT: Present: mucous membranes moist Neck: Present: no JVD Respiratory: Present: clear Cardiology: Present: edema, regular rate, regular rhythm Additional Comments: mild pitting LE Gastrointestinal: Present: normoactive bowel sounds, no tenderness Integumentary: Present: warm and dry Neurologic: Present: alert and oriented x3 Psychiatric: Present: mood/affect appropriate, cooperative - Lab 06/13/17 08:21 06/13/17 08:21 Most recent lab results Calcium 8.2 mg/dL (8.6-10.3) L 06/13/17 08:21 Phosphorus 3.4 mg/dL (2.7-4.5) 06/09/17 06:30 Magnesium 1.3 mg/dL (1.6-2.6) L 06/09/17 06:30 - VTE Documentation of Mechanical Device: Graduated compression elastic hosiery Consult Discharge Plan - Plan [facility]errals: [facility] [Primary Care Provider] - 06/17/17 10:30 am (jeimy team)
--- NOTE | 2017-06-13 18:04 | Internal Med Progress Note ---
Date of Encounter: 06/13/17 Time of Encounter: 18:03 - Subjective Interval history: Interval History: In NOD A&O x3 Breathing comfortably. Getting frustrated and wants cath now. Explained we are trying to prevent further renal impairment. Assessment and Plan CAD (coronary artery disease) H/o prior stents placed in 2014 at the [facility]. Continue aspirin, statin, and BB. Cardiology want to do cath when renal function improves. Acute on chronic systolic and diastolic CHF: Current Visit: No Status: Acute Echo from October 2016 40% LVEF Echo from 05/09/2017 30% LVEF Lasix drip stopped due to GLORIA. Consider cath in 4-5 weeks when renal function improved. FU as an outpatient in 4-5 weeks. GLORIA (acute kidney injury) on CKD IV: Nephrology following. Creatine began trending up from baseline 2.8 Creatinine is improved while holding Lasix. Nephrology okay with restarting Lasix today. DM-2: Poor controll. Levimer increased to 10 units SQ BID in addition to SSI ( Med) with meals. Placed on DM diet today. Essential HTN: PRN Hydralazne added Diabetic wound LLE.: Wound care consult ordered. General appearance: Present: A&O X 3, morbidly obese, pleasant, no acute distress, answers questions appropriately - Head Head exam: Present: atraumatic, normocephalic - Eye Eye exam: Present: EOMI, normal appearance, PERRL, conjuntiva pink, sclera anicteric Pupils: Present: PERRL - Neck Neck exam general surgery: Present: supple, trachea midline. Absent: lymphadenopathy - Respiratory Respiratory exam: Present: CTAB. Absent: accessory muscle use, rales, respiratory distress, rhonchi, stridor, wheezes, tachypnea - Cardiovascular Cardiovascular exam: Present: RRR, +S1, +S2. Absent: diastolic murmur, gallop, JVD, rubs, systolic murmur - GI/Abdominal GI/Abdominal exam: Present: normal bowel sounds, soft, no peritoneal signs. Absent: distended, tenderness - Extremities Exam Extremities exam: Present: warm, radial pulses palpable and symmetrical. Absent : calf tenderness, cyanotic, pedal edema - Expanded Lower Extremities Exam Lower Leg exam: Present: swelling - Neurological Exam Neurological exam: Present: CN II-XII intact, oriented X3, no focal deficits. Absent: pronater drift, facial droop, speech deficit - Psychiatric Psychiatric exam: Present: normal affect, normal mood - Constitutional Vitals: Temp Pulse Resp BP Pulse Ox 98.8 F 76 18 155/73 97 06/13/17 16:21 06/13/17 16:21 06/13/17 16:21 06/13/17 16:21 06/13/17 16:21 General appearance: Present: A&O X 3, morbidly obese, pleasant, no acute distress, answers questions appropriately Internal Medicine: Result - Labs CBC & Chem 7: 06/13/17 08:21 06/13/17 08:21 Labs: Short CBC 06/13/17 Range/Units 08:21 WBC 12.1 H (4.3-11.1) K/mcL Hgb 10.8 L (12.9-16.9) g/dL Hct 33.9 L (37.5-50.1) % Plt Count 217 (140-400) K/mcL Neutrophils # 9.7 H (1.6-8.9) K/mcL BMP 06/13/17 08:21 Sodium 140 Potassium 4.6 Chloride 115 H Carbon Dioxide 18 L BUN 99 H Creatinine 3.24 H Glucose 155 H Calcium 8.2 L - ABG Interpretation ABG results: PT/INR, D-dimer PT 12.0 Seconds (9.4-12.1) 06/04/17 21:54 - VTE Documentation of Mechanical Device: Graduated compression elastic hosiery Consult Discharge Plan - Plan Referrals: [facility] [Primary Care Provider] - 06/17/17 10:30 am (jeimy team)
[2017-06-13] MEDS ORDERED: hydrALAZINE 25 MG TABLET PO ONE (18:05)
[2017-06-13] MEDS: traZODone 50 MG TABLET PO SCH (21:14)
[2017-06-13] MEDS: traMADol 50 MG TABLET PO PRN (21:14)
[2017-06-14] MEDS: Ipratropium/Albuterol Neb 3 ML IH SCH ×6 (04:15→23:31)
[2017-06-14] MEDS: *HR* Heparin 5,000 UNIT/ML VIAL SQ SCH ×2 (05:20→16:48)
[2017-06-14 07:52] LABS: Basophils % 0.1 %; Eosinophils # 0.1 K/mcL (0.0-0.6); Hemoglobin 10.2 g/dL (12.9-16.9); Immature Granulocytes % 0.7 % (0-4); Lymphocytes # 1.3 K/mcL (0.6-4.6); Lymphocytes % 10.9 %; Mean Corpuscular HGB Conc 30.9 g/dL (31.6-35.5); Mean Corpuscular Hemoglobin 28.7 pg (28.0-33.3); Mean Platelet Volume 10.2 fL (9.4-12.4); Monocytes # 1.1 K/mcL (0.0-1.3); Monocytes % 9.3 %; Platelet Count 228 K/mcL (140-400); Red Blood Count 3.55 M/mcL (4.19-5.50); Red Cell Distribution Width 16.4 % (11.5-14.5)
[2017-06-14 08:04] LABS: Calcium 8.2 mg/dL (8.6-10.3); Potassium 4.4 mEq/L (3.5-5.1)
[2017-06-14] MEDS: Clotrimazole 1% CRM 15 GM TUBE TP SCH ×2 (08:26→20:51)
[2017-06-14] MEDS: Insulin LISPRO 300 UNITS/3 ML VIAL SQ SCH ×7 (08:26→20:52)
[2017-06-14] MEDS: amLODIPine 5 MG TABLET PO SCH (08:34)
[2017-06-14] MEDS: Isosorbide MONOnitrate (24 HR) 60 MG TAB.ER.24H PO SCH (08:34)
[2017-06-14] MEDS: Gabapentin 300 MG CAPSULE PO SCH ×2 (08:34→20:50)
[2017-06-14] MEDS: BuPROPion SR (12 HR) 150 MG TABLET PO SCH ×2 (08:34→16:48)
[2017-06-14] MEDS: Insulin DETEMIR 100 UNIT/ML X5UNITS SQ SCH ×2 (08:34→20:50)
[2017-06-14] MEDS: Aspirin Enteric Coated 81 MG Tablet PO SCH (08:35)
[2017-06-14] MEDS: predniSONE 20 MG TABLET PO SCH (08:35)
[2017-06-14] MEDS: Furosemide 40 MG TABLET PO SCH (08:35)
[2017-06-14] MEDS: Budesonide/Formoterol 160/4.5 MDI IH SCH ×2 (08:41→20:07)
--- NOTE | 2017-06-14 09:40 | Nephrology Progress Note ---
Date of Encounter: 06/14/17 Time of Encounter: 09:20 - Assessment and Plan (1) GLORIA (acute kidney injury) Current Visit: No Status: Acute GLORIA superimposed on CKD, Baseline creat 2.8-3.0 in setting CHF, COPD exacerbation, diuretics. Renal fct back to baseline, creat 3.08. Documented urine output 1300cc. SBP 150, restarted on Lisinopril 10mg daily. Recommend holding off on LHC if not emergent until back to baseline creat. Continue to monitor. Avoid nephrotoxins. Accurate I&O. Subjective Principal diagnosis: Decompensated systolic heart failure Interval history: Sitting up in bed. States feeling good. SBP 150. Objective - Vital Signs Vital signs: Vital Signs Temp Pulse Resp BP Pulse Ox 06/14/17 08:38 16 98 06/14/17 08:30 70 06/14/17 07:30 97.9 F 79 18 159/86 99 06/14/17 05:10 97.8 F 71 21 154/76 98 06/14/17 04:15 16 98 06/14/17 00:30 71 06/13/17 23:54 98.2 F 72 18 152/66 93 06/13/17 23:37 16 97 06/13/17 21:23 75 06/13/17 20:00 16 97 06/13/17 19:24 98.1 F 73 20 152/71 94 06/13/17 16:59 16 99 06/13/17 16:21 98.8 F 76 18 155/73 97 06/13/17 11:18 98.1 F 71 16 144/62 97 06/13/17 11:07 17 98 Intake and Output 06/13/17 06/14/17 06/14/17 23:59 07:59 15:59 Intake Total 640 / 640 400 / 400 360 / 360 Output Total 700 / 700 600 / 600 0 / 0 Balance -60 / -60 -200 / -200 360 / 360 Intake: Oral 640 / 640 400 / 400 360 / 360 Output: Urine 700 / 700 600 / 600 0 / 0 Other: Meal Dinner Breakfast Percent of Meal Consumed 100% 100% Weight 102.6 kg Blood Glucose* 189 81 Patient Weight 06/14/17 23:59 Weight 102.6 kg - General Appearance General appearance: Present: well-developed, well-nourished, appears started age EENT: Present: mucous membranes moist Neck: Present: no JVD Respiratory: Present: wheezing Cardiology: Present: edema, regular rate, regular rhythm Additional Comments: mild Gastrointestinal: Present: normoactive bowel sounds, no tenderness Integumentary: Present: warm and dry Neurologic: Present: alert and oriented x3 - Lab 06/14/17 07:27 06/14/17 07:27 Most recent lab results Calcium 8.2 mg/dL (8.6-10.3) L 06/14/17 07:27 Phosphorus 3.4 mg/dL (2.7-4.5) 06/09/17 06:30 Magnesium 1.3 mg/dL (1.6-2.6) L 06/09/17 06:30 - VTE Documentation of Mechanical Device: Graduated compression elastic hosiery Consult Discharge Plan - Plan Referrals: [facility] [Primary Care Provider] - 06/17/17 10:30 am (green team)
--- NOTE | 2017-06-14 10:27 | Internal Med Progress Note ---
Date of Encounter: 06/15/17 Time of Encounter: 10:24 - Subjective Interval history: Interval History: 06-13-2017: In NOD A&O x3 Breathing comfortably. Getting frustrated and wants cath now. Explained we are trying to prevent further renal impairment. 06-14-2017: Renal function essentially back to baseline. 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 Unverified but will talk to cardiology tomorrow. Assessment and Plan CAD (coronary artery disease) H/o prior stents placed in 2014 at the [facility]. Continue aspirin, statin, and BB. Cardiology want to do cath when renal function improves. Acute on chronic systolic and diastolic CHF: Current Visit: No Status: Acute Echo from October 2016 40% LVEF Echo from 05/09/2017 30% LVEF Lasix drip stopped due to GLORIA. Consider cath in 4-5 weeks when renal function improved. FU as an outpatient in 4-5 weeks. GLORIA (acute kidney injury) on CKD IV: Nephrology following. Creatine began trending up from baseline 2.8 Creatinine is improved while holding Lasix. Nephrology okay with restarting Lasix today. DM-2: Poor controll. Levimer increased to 10 units SQ BID in addition to SSI ( Med) with meals. Placed on DM diet today. Essential HTN: PRN Hydralazne added Diabetic wound LLE.: Wound care consult ordered. General appearance: Present: A&O X 3, morbidly obese, pleasant, no acute distress, answers questions appropriately - Head Head exam: Present: atraumatic, normocephalic - Eye Eye exam: Present: EOMI, normal appearance, PERRL, conjuntiva pink, sclera anicteric Pupils: Present: PERRL - Neck Neck exam general surgery: Present: supple, trachea midline. Absent: lymphadenopathy - Respiratory Respiratory exam: Present: CTAB. Absent: accessory muscle use, rales, respiratory distress, rhonchi, stridor, wheezes, tachypnea - Cardiovascular Cardiovascular exam: Present: RRR, +S1, +S2. Absent: diastolic murmur, gallop, JVD, rubs, systolic murmur - GI/Abdominal GI/Abdominal exam: Present: normal bowel sounds, soft, no peritoneal signs. Absent: distended, tenderness - Extremities Exam Extremities exam: Present: warm, radial pulses palpable and symmetrical. Absent : calf tenderness, cyanotic, pedal edema - Expanded Lower Extremities Exam Lower Leg exam: Present: swelling - Neurological Exam Neurological exam: Present: CN II-XII intact, oriented X3, no focal deficits. Absent: pronater drift, facial droop, speech deficit - Psychiatric Psychiatric exam: Present: normal affect, normal mood - Constitutional Vitals: Temp Pulse Resp BP Pulse Ox 97.9 F 70 16 159/86 98 06/14/17 07:30 06/14/17 08:30 06/14/17 08:38 06/14/17 07:30 06/14/17 08:38 General appearance: Present: A&O X 3, morbidly obese, pleasant, no acute distress, answers questions appropriately Internal Medicine: Result - Labs CBC & Chem 7: 06/14/17 07:27 06/14/17 07:27 Labs: Short CBC 06/14/17 Range/Units 07:27 WBC 11.5 H (4.3-11.1) K/mcL Hgb 10.2 L (12.9-16.9) g/dL Hct 33.0 L (37.5-50.1) % Plt Count 228 (140-400) K/mcL Neutrophils # 9.0 H (1.6-8.9) K/mcL BMP 06/14/17 07:27 Sodium 142 Potassium 4.4 Chloride 118 H Carbon Dioxide 19 L BUN 93 H Creatinine 3.08 H Glucose 79 Calcium 8.2 L - ABG Interpretation ABG results: PT/INR, D-dimer PT 12.0 Seconds (9.4-12.1) 06/04/17 21:54 - VTE Documentation of Mechanical Device: Graduated compression elastic hosiery Consult Discharge Plan - Plan Referrals: [facility] [Primary Care Provider] - 06/17/17 10:30 am (green team)
[2017-06-14] MEDS: traZODone 50 MG TABLET PO SCH (20:51)
[2017-06-15] MEDS: Ipratropium/Albuterol Neb 3 ML IH SCH ×6 (04:49→23:35)
[2017-06-15] MEDS: *HR* Heparin 5,000 UNIT/ML VIAL SQ SCH ×2 (07:00→17:01)
[2017-06-15 07:47] LABS: Calcium 8.3 mg/dL (8.6-10.3); Potassium 4.5 mEq/L (3.5-5.1)
[2017-06-15 07:53] LABS: Basophils % 0.1 %; Eosinophils # 0.1 K/mcL (0.0-0.6); Hematocrit 33.1 % (37.5-50.1); Hemoglobin 10.3 g/dL (12.9-16.9); Immature Granulocytes % 0.8 % (0-4); Lymphocytes # 1.2 K/mcL (0.6-4.6); Lymphocytes % 10.8 %; Mean Corpuscular HGB Conc 31.1 g/dL (31.6-35.5); Mean Corpuscular Hemoglobin 29.3 pg (28.0-33.3); Monocytes # 1.2 K/mcL (0.0-1.3); Monocytes % 10.7 %; Neutrophils # 8.4 K/mcL (1.6-8.9); Platelet Count 235 K/mcL (140-400); Red Blood Count 3.52 M/mcL (4.19-5.50); Red Cell Distribution Width 16.7 % (11.5-14.5); Segmented Neutrophils % 76.6 %
[2017-06-15] MEDS: Budesonide/Formoterol 160/4.5 MDI IH SCH ×2 (07:58→19:59)
[2017-06-15] MEDS: Insulin LISPRO 300 UNITS/3 ML VIAL SQ SCH ×7 (08:07→21:15)
[2017-06-15] MEDS: Isosorbide MONOnitrate (24 HR) 60 MG TAB.ER.24H PO SCH (08:11)
[2017-06-15] MEDS: Gabapentin 300 MG CAPSULE PO SCH ×2 (08:12→21:14)
[2017-06-15] MEDS: Insulin DETEMIR 100 UNIT/ML X5UNITS SQ SCH ×2 (08:12→21:14)
[2017-06-15] MEDS: BuPROPion SR (12 HR) 150 MG TABLET PO SCH ×2 (08:12→17:00)
[2017-06-15] MEDS: Furosemide 40 MG TABLET PO SCH (08:12)
[2017-06-15] MEDS: Aspirin Enteric Coated 81 MG Tablet PO SCH (08:12)
[2017-06-15] MEDS: predniSONE 20 MG TABLET PO SCH (08:12)
[2017-06-15] MEDS: Clotrimazole 1% CRM 15 GM TUBE TP SCH ×2 (08:12→21:15)
[2017-06-15] MEDS: amLODIPine 5 MG TABLET PO SCH (08:12)
--- NOTE | 2017-06-15 10:20 | Nephrology Progress Note ---
Date of Encounter: 06/15/17 Time of Encounter: 10:00 - Assessment and Plan (1) GLORIA (acute kidney injury) Current Visit: No Status: Acute GLORIA superimposed on CKD, Baseline creat 2.8-3.0 in setting CHF, COPD exacerbation, diuretics. Renal fct back to baseline, creat 3.01. Documented urine output 1325cc. SBP 130-160, restarted on Lisinopril 10mg daily. If going to have LHC tomorrow, will need preop IV fluids and Mucomyst started STEVEN. Continue to monitor. Avoid nephrotoxins. Accurate I&O. Subjective Principal diagnosis: Decompensated systolic heart failure Interval history: Sleeping, Supine. Arouses easily. States thinks having LHC tomorrow. Objective - Vital Signs Vital signs: Vital Signs Temp Pulse Resp BP Pulse Ox 06/15/17 08:18 75 06/15/17 08:00 18 96 06/15/17 07:50 96 18 136/97 96 06/15/17 03:50 97.8 F 69 20 165/85 99 06/15/17 00:21 98 F 80 18 163/77 93 06/14/17 23:31 18 94 06/14/17 20:28 97.8 F 75 20 146/71 99 06/14/17 20:07 17 136/87 100 06/14/17 16:45 74 06/14/17 16:30 70 19 136/87 99 06/14/17 15:32 16 142/60 97 06/14/17 12:00 71 06/14/17 11:39 16 99 06/14/17 11:14 70 18 142/60 99 Intake and Output 06/14/17 06/15/17 06/15/17 23:59 07:59 15:59 Intake Total 240 / 240 250 / 250 320 / 320 Output Total 350 / 350 925 / 925 Balance -110 / -110 -675 / -675 320 / 320 Intake: Oral 240 / 240 250 / 250 320 / 320 Output: Urine 350 / 350 925 / 925 Other: Meal Dinner Breakfast Percent of Meal Consumed 100% 100% Weight 103.8 kg Blood Glucose* 145 101 Patient Weight 06/15/17 23:59 Weight 103.8 kg - General Appearance General appearance: Present: well-developed, well-nourished, appears started age EENT: Present: mucous membranes moist Neck: Present: no JVD Respiratory: Present: clear Cardiology: Present: edema, regular rate, regular rhythm Additional Comments: mild, compression hose on. Gastrointestinal: Present: normoactive bowel sounds, no tenderness Integumentary: Present: warm and dry Neurologic: Present: alert and oriented x3 - Lab 06/15/17 06:58 06/15/17 06:58 Most recent lab results Calcium 8.3 mg/dL (8.6-10.3) L 06/15/17 06:58 Phosphorus 3.4 mg/dL (2.7-4.5) 06/09/17 06:30 Magnesium 1.3 mg/dL (1.6-2.6) L 06/09/17 06:30 - VTE Documentation of Mechanical Device: Graduated compression elastic hosiery Consult Discharge Plan - Plan Referrals: [facility] [Primary Care Provider] - 06/17/17 10:30 am (green team)
[2017-06-15] MEDS: traZODone 50 MG TABLET PO SCH (21:14)
--- NOTE | 2017-06-15 23:08 | Internal Med Progress Note ---
Date of Encounter: 06/15/17 Time of Encounter: 17:40 - Subjective Interval history: Interval History: 06-13-2017: In NOD A&O x3 Breathing comfortably. Getting frustrated and wants cath now. Explained we are trying to prevent further renal impairment. 06-14-2017: Renal function essentially back to baseline. 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 Unverified but will talk to cardiology tomorrow. 06-15-2017: Pt believes he is having a LHC tomorrow. Per pt report RN over the weekend talk to cardiology and convinced them to perform a LHC now instead of waiting as previously documented in his record. There is no documentation of this change concerning timing of LHC or even conformation that he will have a cath. Assessment and Plan CAD (coronary artery disease) H/o prior stents placed in 2014 at the [facility]. Continue aspirin, statin, and BB. Cardiology want to do cath when renal function improves. Acute on chronic systolic and diastolic CHF: Current Visit: No Status: Acute Echo from October 2016 40% LVEF Echo from 05/09/2017 30% LVEF Lasix drip stopped due to GLORIA. Consider cath in 4-5 weeks when renal function improved. FU as an outpatient in 4-5 weeks. GLORIA (acute kidney injury) on CKD IV: Nephrology following. Creatine began trending up from baseline 2.8 Creatinine is improved while holding Lasix. Nephrology okay with restarting Lasix and it was started over the weekend. DM-2: Poor controll. Levimer increased to 10 units SQ BID in addition to SSI ( Med) with meals. Placed on DM diet today. Essential HTN: PRN Hydralazne added Diabetic wound LLE.: Wound care consult ordered. General appearance: Present: A&O X 3, morbidly obese, pleasant, no acute distress, answers questions appropriately - Head Head exam: Present: atraumatic, normocephalic - Eye Eye exam: Present: EOMI, normal appearance, PERRL, conjuntiva pink, sclera anicteric Pupils: Present: PERRL - Neck Neck exam general surgery: Present: supple, trachea midline. Absent: lymphadenopathy - Respiratory Respiratory exam: Present: CTAB. Absent: accessory muscle use, rales, respiratory distress, rhonchi, stridor, wheezes, tachypnea - Cardiovascular Cardiovascular exam: Present: RRR, +S1, +S2. Absent: diastolic murmur, gallop, JVD, rubs, systolic murmur - GI/Abdominal GI/Abdominal exam: Present: normal bowel sounds, soft, no peritoneal signs. Absent: distended, tenderness - Extremities Exam Extremities exam: Present: warm, radial pulses palpable and symmetrical. Absent : calf tenderness, cyanotic, pedal edema - Expanded Lower Extremities Exam Lower Leg exam: Present: swelling - Neurological Exam Neurological exam: Present: CN II-XII intact, oriented X3, no focal deficits. Absent: pronater drift, facial droop, speech deficit - Psychiatric Psychiatric exam: Present: normal affect, normal mood - Constitutional Vitals: Temp Pulse Resp BP Pulse Ox 98.1 F 75 18 143/75 98 06/15/17 19:58 06/15/17 19:58 06/15/17 19:58 06/15/17 19:58 06/15/17 19:58 General appearance: Present: A&O X 3, morbidly obese, pleasant, no acute distress, answers questions appropriately Internal Medicine: Result - Labs CBC & Chem 7: 06/15/17 06:58 06/15/17 06:58 Labs: Short CBC 06/15/17 Range/Units 06:58 WBC 11.0 (4.3-11.1) K/mcL Hgb 10.3 L (12.9-16.9) g/dL Hct 33.1 L (37.5-50.1) % Plt Count 235 (140-400) K/mcL Neutrophils # 8.4 (1.6-8.9) K/mcL BMP 06/15/17 06:58 Sodium 142 Potassium 4.5 Chloride 119 H Carbon Dioxide 17 L BUN 87 H Creatinine 3.01 H Glucose 94 Calcium 8.3 L - ABG Interpretation ABG results: PT/INR, D-dimer PT 12.0 Seconds (9.4-12.1) 06/04/17 21:54 - VTE Documentation of Mechanical Device: Intermittent pneumatic compression device Consult Discharge Plan - Plan [facility]errals: [facility] [Primary Care Provider] - 06/17/17 10:30 am (green team)
[2017-06-16] MEDS: Ipratropium/Albuterol Neb 3 ML IH SCH ×5 (04:13→20:49)
[2017-06-16] MEDS: *HR* Heparin 5,000 UNIT/ML VIAL SQ SCH ×2 (06:35→17:12)
[2017-06-16 07:20] LABS: Eosinophils # 0.1 K/mcL (0.0-0.6); Eosinophils % 1.1 %; Hematocrit 31.8 % (37.5-50.1); Immature Granulocytes % 0.9 % (0-4); Lymphocytes # 1.2 K/mcL (0.6-4.6); Lymphocytes % 11.2 %; Mean Corpuscular HGB Conc 31.4 g/dL (31.6-35.5); Mean Corpuscular Hemoglobin 29.2 pg (28.0-33.3); Monocytes # 1.1 K/mcL (0.0-1.3); Monocytes % 9.6 %; Neutrophils # 8.5 K/mcL (1.6-8.9); Platelet Count 241 K/mcL (140-400); Red Blood Count 3.42 M/mcL (4.19-5.50); Red Cell Distribution Width 16.4 % (11.5-14.5); Segmented Neutrophils % 77.2 %
[2017-06-16] MEDS: Budesonide/Formoterol 160/4.5 MDI IH SCH ×2 (08:01→20:49)
[2017-06-16] MEDS: Insulin LISPRO 300 UNITS/3 ML VIAL SQ SCH ×7 (08:01→20:40)
[2017-06-16] MEDS: Furosemide 40 MG TABLET PO SCH (08:18)
[2017-06-16] MEDS: Insulin DETEMIR 100 UNIT/ML X5UNITS SQ SCH ×2 (08:19→20:30)
[2017-06-16 09:51] LABS: Calcium 8.2 mg/dL (8.6-10.3); Potassium 4.6 mEq/L (3.5-5.1)
--- NOTE | 2017-06-16 11:38 | Event Note ---
Date of Encounter: 06/16/17 Time of Encounter: 11:32 - Cardiology Event Note Cardiology reconsulted. Pt would like to have LHC while inpt. Please refer to prior cardiology progress note on 06/09/17 for full details. Creatinine 3.09-- near his baseline range with nephrology following. EF was 45-50% on CA echo 2016. 11/08/16 EF 40%. Current EF 30%, global hypokinesis. I did discuss with pt the choice of having a stress test first to evaluate for ischemia without the risk of contrast induced nephropathy, then only proceed with LHC if stress test is abnormal. Pt declines stress test. He is aware of the likelihood of developing worsening renal function/JORGE following his LHC that would necessitate dialysis. He reports that he accepts that risk and verbalizes understanding. All R/B/A to LHC were discussed and pt would like to proceed with LHC today. Prior PCI x 2 in 2014 at [facility]. No cath records available and pt unsure which arteries were stented. LHC today, further recommendations to follow.
--- NOTE | 2017-06-16 12:15 | Nephrology Progress Note ---
Date of Encounter: 06/16/17 Time of Encounter: 11:50 - Assessment and Plan (1) GLORIA (acute kidney injury) Current Visit: No Status: Acute GLORIA superimposed on CKD, Baseline creat 2.8-3.0 in setting CHF, COPD exacerbation, diuretics. Renal fct back to baseline, creat 3.09. Documented urine output 1325cc. SBP 130-160, restarted on Lisinopril 10mg daily. Recommend 24 hour preop IV fluids and Mucomyst prior LHC. Continue to monitor. Avoid nephrotoxins. Accurate I&O. Subjective Principal diagnosis: Decompensated systolic heart failure Interval history: Sitting on edge of bed. States [facility] today. Objective - Vital Signs Vital signs: Vital Signs Temp Pulse Resp BP Pulse Ox 06/16/17 11:22 98.0 F 87 18 92 06/16/17 11:06 20 96 06/16/17 08:02 20 96 06/16/17 07:29 98.1 F 79 20 162/86 96 06/16/17 04:35 97.8 F 71 20 130/51 96 06/16/17 04:13 17 95 06/16/17 00:43 98.1 F 81 18 148/73 95 06/15/17 23:35 16 143/75 97 06/15/17 19:58 98.1 F 75 18 143/75 98 06/15/17 16:21 16 132/54 97 06/15/17 16:02 97.9 F 79 18 132/54 98 Intake and Output 06/15/17 06/16/17 06/16/17 23:59 07:59 15:59 Intake Total 540 / 540 0 / 0 Output Total 450 / 450 Balance 540 / 540 -450 / -450 0 / 0 Intake: Oral 540 / 540 0 / 0 Output: Urine 450 / 450 Other: Meal Dinner Percent of Meal Consumed 100% Weight 104.2 kg Blood Glucose* 189 107 88 Patient Weight 06/16/17 23:59 Weight 104.2 kg - General Appearance General appearance: Present: well-developed, well-nourished, appears started age EENT: Present: mucous membranes moist Neck: Present: no JVD Respiratory: Present: clear Cardiology: Present: regular rate, regular rhythm Additional Comments: mild Gastrointestinal: Present: normoactive bowel sounds, no tenderness Integumentary: Present: warm and dry Neurologic: Present: alert and oriented x3 - Lab 06/16/17 07:02 06/16/17 07:02 Most recent lab results Calcium 8.2 mg/dL (8.6-10.3) L 06/16/17 07:02 Phosphorus 3.4 mg/dL (2.7-4.5) 06/09/17 06:30 Magnesium 1.3 mg/dL (1.6-2.6) L 06/09/17 06:30 - VTE Documentation of Mechanical Device: Intermittent pneumatic compression device Consult Discharge Plan - Plan [facility] - 06/26/17 11:15 am (This is at the discharge clinic in building 31.)
[2017-06-16] MEDS: 0.9 % Sodium Chloride 1,000 ML IVC SCH ×2 (12:29→23:53)
[2017-06-16] MEDS: Isosorbide MONOnitrate (24 HR) 60 MG TAB.ER.24H PO SCH (13:59)
[2017-06-16] MEDS: Gabapentin 300 MG CAPSULE PO SCH ×2 (14:00→20:25)
[2017-06-16] MEDS: Clotrimazole 1% CRM 15 GM TUBE TP SCH ×2 (14:00→21:47)
[2017-06-16] MEDS: predniSONE 20 MG TABLET PO SCH (14:00)
[2017-06-16] MEDS: BuPROPion SR (12 HR) 150 MG TABLET PO SCH ×2 (14:00→17:11)
[2017-06-16] MEDS: Aspirin Enteric Coated 81 MG Tablet PO SCH (14:00)
[2017-06-16] MEDS: amLODIPine 5 MG TABLET PO SCH (14:00)
[2017-06-16 14:56] LABS: INR 1.1; Prothrombin Time 11.8 Seconds (9.4-12.1)
--- NOTE | 2017-06-16 15:33 | Internal Med Progress Note ---
Date of Encounter: 06/16/17 Time of Encounter: 15:33 - Subjective Interval history: Interval History: 06-13-2017: In NOD A&O x3 Breathing comfortably. Getting frustrated and wants cath now. Explained we are trying to prevent further renal impairment. 06-14-2017: Renal function essentially back to baseline. Reportedly Nephrology ordnance artificer helper led cardiology atrst of patient and asked to reconsider earlier LHC and told possibly Friday. Unverified but will talk to cardiology tomorrow. 06-15-2017: Pt believes he is having a LHC tomorrow. Per pt report RN over the weekend talk to cardiology and convinced them to perform a LHC now instead of waiting as previously documented in his record. There is no documentation of this change concerning timing of LHC or even conformation that he will have a cath. 06/16/2017: Cardiac cath tomorrow. Mucomyyst and hydration per nephrology prior to cath. Assessment and Plan CAD (coronary artery disease) H/o prior stents placed in 2014 at the [facility]. Continue aspirin, statin, and BB. Cardiology want to do cath when renal function improves. Acute on chronic systolic and diastolic CHF: Current Visit: No Status: Acute Echo from October 2016 40% LVEF Echo from 05/09/2017 30% LVEF Lasix drip stopped due to GLORIA. COriginally consider cath in 4-5 weeks when renal function improved has changed and cath now planned for Tue because of his increased renal function. . FU as an outpatient in 4-5 weeks. GLORIA (acute kidney injury) on CKD IV: Nephrology following. Creatine began trending up from baseline 2.8 Creatinine is improved while holding Lasix. Nephrology okay with restarting Lasix and it was started over the weekend. DM-2: Poor controll. Levimer increased to 10 units SQ BID in addition to SSI ( Med) with meals. Placed on DM diet today. Essential HTN: PRN Hydralazne added Diabetic wound LLE.: Wound care consult ordered. General appearance: Present: A&O X 3, morbidly obese, pleasant, no acute distress, answers questions appropriately - Head Head exam: Present: atraumatic, normocephalic - Eye Eye exam: Present: EOMI, normal appearance, PERRL, conjuntiva pink, sclera anicteric Pupils: Present: PERRL - Neck Neck exam general surgery: Present: supple, trachea midline. Absent: lymphadenopathy - Respiratory Respiratory exam: Present: CTAB. Absent: accessory muscle use, rales, respiratory distress, rhonchi, stridor, wheezes, tachypnea - Cardiovascular Cardiovascular exam: Present: RRR, +S1, +S2. Absent: diastolic murmur, gallop, JVD, rubs, systolic murmur - GI/Abdominal GI/Abdominal exam: Present: normal bowel sounds, soft, no peritoneal signs. Absent: distended, tenderness - Extremities Exam Extremities exam: Present: warm, radial pulses palpable and symmetrical. Absent : calf tenderness, cyanotic, pedal edema - Expanded Lower Extremities Exam Lower Leg exam: Present: swelling - Neurological Exam Neurological exam: Present: CN II-XII intact, oriented X3, no focal deficits. Absent: pronater drift, facial droop, speech deficit - Psychiatric Psychiatric exam: Present: normal affect, normal mood - Constitutional Vitals: Temp Pulse Resp BP Pulse Ox 98.0 F 87 18 172/105 92 06/16/17 11:22 06/16/17 11:22 06/16/17 11:22 06/16/17 13:55 06/16/17 11:22 General appearance: Present: A&O X 3, morbidly obese, pleasant, no acute distress, answers questions appropriately Internal Medicine: Result - Labs CBC & Chem 7: 06/16/17 07:02 06/16/17 07:02 Labs: Short CBC 06/16/17 Range/Units 07:02 WBC 11.0 (4.3-11.1) K/mcL Hgb 10.0 L (12.9-16.9) g/dL Hct 31.8 L (37.5-50.1) % Plt Count 241 (140-400) K/mcL Neutrophils # 8.5 (1.6-8.9) K/mcL BMP 06/16/17 07:02 Sodium 140 Potassium 4.6 Chloride 119 H Carbon Dioxide 16 L BUN 88 H Creatinine 3.09 H Glucose 92 Calcium 8.2 L - ABG Interpretation ABG results: PT/INR, D-dimer PT 11.8 Seconds (9.4-12.1) 06/16/17 14:31 - VTE Documentation of Mechanical Device: Intermittent pneumatic compression device Consult Discharge Plan - Plan [facility]: [facility] Care Provider[facility] - 06/26/17 11:15 am (This is at the discharge clinic in building 31.)
[2017-06-16] MEDS: *HR* Acetylcysteine 20% 600 MG/3 ML ORAL SYRINGE PO SCH ×2 (17:12→21:46)
[2017-06-16] MEDS: traZODone 50 MG TABLET PO SCH (20:46)
[2017-06-17] MEDS: Ipratropium/Albuterol Neb 3 ML IH SCH ×6 (00:49→23:43)
[2017-06-17] MEDS: *HR* Heparin 5,000 UNIT/ML VIAL SQ SCH ×2 (06:44→17:34)
[2017-06-17 07:18] LABS: Basophils % 0.1 %; Eosinophils # 0.1 K/mcL (0.0-0.6); Eosinophils % 0.5 %; Hemoglobin 10.2 g/dL (12.9-16.9); Immature Granulocytes % 0.7 % (0-4); Lymphocytes # 0.9 K/mcL (0.6-4.6); Lymphocytes % 8.1 %; Mean Corpuscular HGB Conc 31.9 g/dL (31.6-35.5); Mean Corpuscular Hemoglobin 29.1 pg (28.0-33.3); Mean Corpuscular Volume 91.4 fL (83.0-100.0); Mean Platelet Volume 9.9 fL (9.4-12.4); Monocytes # 0.8 K/mcL (0.0-1.3); Monocytes % 7.7 %; Platelet Count 238 K/mcL (140-400); Red Cell Distribution Width 16.2 % (11.5-14.5); Segmented Neutrophils % 82.9 %
[2017-06-17 07:38] LABS: Calcium 8.1 mg/dL (8.6-10.3); Potassium 4.5 mEq/L (3.5-5.1)
--- NOTE | 2017-06-17 07:47 | Internal Med Progress Note ---
Date of Encounter: 06/17/17 Time of Encounter: 07:44 - Assessment and plan (1) Systolic and diastolic CHF, acute on chronic Current Visit: No Status: Acute Assessment and plan: Has acute on chronic combined systolic and diastolic heart failure. Improving symptomatically. Plans for [facility] today. Continue with Lasix by mouth 40 mg. Cardiology is following. The patient is also on a beta anita as well as Imdur. Monitor I&O's. Continue fluid restriction. (2) CAD (coronary artery disease) Current Visit: No Status: Chronic Assessment and plan: stable. Plans for a left heart catheter today. The patient has history of stents. Continue with aspirin and statin and beta anita. Qualifiers: Coronary Disease-Associated Artery/Lesion type: [place] artery [place] vs. transplanted heart: [place] heart Associated angina: without angina Qualified Code(s): I25.10 - Atherosclerotic heart disease of [place] coronary artery without angina pectoris (3) HTN (hypertension) Current Visit: No Status: Chronic Assessment and plan: Continue home medications Qualifiers: Hypertension type: essential hypertension Qualified Code(s): I10 - Essential (primary) hypertension (4) Diabetes mellitus Current Visit: No Status: Chronic Assessment and plan: Glucose is uncontrolled. The patient is nothing by mouth for his left heart catheter. We will make adjustment to his insulin regimen once he is taking by mouth. For now continue with Levemir 10 units twice a day as well as insulin sliding scale. Qualifiers: Diabetes mellitus type: type 2 Diabetes mellitus complication status: with kidney complications Diabetes mellitus complication detail: with chronic kidney disease Diabetes mellitus terminal gauger supervisor insulin use: with snf use Chronic kidney disease stage: stage 4 (severe) Qualified Code(s): E11.22 - Type 2 diabetes mellitus with diabetic chronic kidney disease; N18.4 - Chronic kidney disease, stage 4 (severe); N18.4 - Chronic kidney disease, stage 4 ( severe); N18.4 - Chronic kidney disease, stage 4 (severe); N18.4 - Chronic kidney disease, stage 4 (severe); Z79.4 - residential (current) use of insulin; Z79.4 - terminal gauger supervisor (current) use of insulin; Z79.4 - residential (current) use of insulin; Z79.4 - terminal gauger supervisor (current) use of insulin (5) GLORIA (acute kidney injury) Current Visit: No Status: Acute Assessment and plan: Nephrology is following. Creatinine seems to be around baseline. He does have chronic kidney disease stage IV. The patient has Mucomyst prior to [facility] (6) CKD (chronic kidney disease) stage 4, GFR 15-29 ml/min Current Visit: No Status: Chronic (7) DVT prophylaxis Current Visit: No Status: Acute Assessment and plan: Heparin subcutaneous - Subjective Interval history: No acute events. The patient was admitted with an acute exacerbation of combined systolic and diastolic heart failure. He required a Lasix drip. He remains on 2 L of nasal cannula oxygen. He is being followed by cardiology and nephrology with plans for [facility] today. Feels well this morning. He has been afebrile. - Constitutional Vitals: Temp Pulse Resp BP Pulse Ox 97.8 F 84 18 159/89 96 06/17/17 04:25 06/17/17 07:08 06/17/17 07:08 06/17/17 07:08 06/17/17 07:08 General appearance: Present: A&O X 3, morbidly obese, pleasant, no acute distress, answers questions appropriately Exam: GEN: NAD CVS: RRR. S1, S2, No m/r/g RESP: CTAB ABD: Soft, NT, ND, +BS EXT: No edema. 2+ DP. No rashes NEURO: Nonfocal Internal Medicine: Result - Labs CBC & Chem 7: 06/17/17 06:47 06/17/17 06:47 Labs: Short CBC 06/16/17 06/17/17 Range/Units 07:02 06:47 WBC 11.0 10.9 (4.3-11.1) K/mcL Hgb 10.0 L 10.2 L (12.9-16.9) g/dL Hct 31.8 L 32.0 L (37.5-50.1) % Plt Count 241 238 (140-400) K/mcL Neutrophils # 8.5 9.0 H (1.6-8.9) K/mcL BMP 06/16/17 06/17/17 07:02 06:47 Sodium 140 140 Potassium 4.6 4.5 Chloride 119 H 116 H Carbon Dioxide 16 L 17 L BUN 88 H 84 H Creatinine 3.09 H 2.76 H Glucose 92 82 Calcium 8.2 L 8.1 L - ABG Interpretation ABG results: PT/INR, D-dimer PT 11.8 Seconds (9.4-12.1) 06/16/17 14:31 - VTE Documentation of Mechanical Device: Intermittent pneumatic compression device Consult Discharge Plan - Plan Referrals: KRYSTINA,PCP [Primary Care Provider] - 06/26/17 11:15 am (This is at the discharge clinic in [place] [id number].)
[2017-06-17] MEDS: amLODIPine 5 MG TABLET PO SCH (07:51)
[2017-06-17] MEDS: Insulin DETEMIR 100 UNIT/ML X5UNITS SQ SCH ×2 (07:51→20:21)
[2017-06-17] MEDS: predniSONE 20 MG TABLET PO SCH (07:51)
[2017-06-17] MEDS: Aspirin Enteric Coated 81 MG Tablet PO SCH (07:51)
[2017-06-17] MEDS: Isosorbide MONOnitrate (24 HR) 60 MG TAB.ER.24H PO SCH (07:51)
[2017-06-17] MEDS: Gabapentin 300 MG CAPSULE PO SCH ×2 (07:51→20:20)
[2017-06-17] MEDS: Insulin LISPRO 300 UNITS/3 ML VIAL SQ SCH ×7 (07:55→20:52)
[2017-06-17] MEDS: BuPROPion SR (12 HR) 150 MG TABLET PO SCH ×2 (07:55→17:29)
[2017-06-17] MEDS: Clotrimazole 1% CRM 15 GM TUBE TP SCH ×2 (07:56→20:22)
[2017-06-17] MEDS: Budesonide/Formoterol 160/4.5 MDI IH SCH ×2 (08:03→20:29)
--- NOTE | 2017-06-17 08:22 | Event Note ---
Date of Encounter: 06/17/17 Time of Encounter: 08:20 - Cardiology Event Note LHC today. Discussed with Tila in [place]--MS has approved pt to have LHC at [facility]. Again, I did discuss with pt the choice of having a stress test first to evaluate for ischemia without the risk of contrast induced nephropathy, then only proceed with LHC if stress test is abnormal. Pt declines stress test. He is aware of the likelihood of developing worsening renal function/JORGE following his LHC that would necessitate dialysis. He reports that he accepts that risk and verbalizes understanding. All R/B/A to LHC were discussed and pt would like to proceed with LHC today for CMP--EF 30%. EF was previously low normal 45-50% , then 40% 10/2016, now 30%. Pt has received IV fluids and Mucomyst as nephrology recommended.
--- NOTE | 2017-06-17 08:29 | Nephrology Progress Note ---
Date of Encounter: 06/17/17 Time of Encounter: 08:28 - Assessment and Plan (1) CKD (chronic kidney disease) stage 4, GFR 15-29 ml/min Current Visit: No Status: Chronic The patient has acute kidney injury superimposed on stage IV chronic kidney disease. Baseline creatinine is around 2.8-3.0. The patient's renal function is back to baseline. I am going to increase the hydralazine to improve blood pressure control. His CO2 was low so he will be started on some sodium bicarbonate as well. (2) Systolic and diastolic CHF, acute on chronic Current Visit: No Status: Acute (3) GLORIA (acute kidney injury) Current Visit: No Status: Acute (4) COPD exacerbation Current Visit: Yes Status: Suspected Subjective Principal diagnosis: Decompensated systolic heart failure Interval history: Patient denies any complaints. He denies any chest pain or shortness of breath. His swelling is improving. Cardiac catheterization was held yesterday because the patient had not received any IV fluids. Patient has subsequently been started on IV fluids and I believe he is going to undergo a cardiac catheterization today. Creatinine has decreased down to 2.76. Blood pressure remains suboptimal. Urine output is excellent. Objective - Vital Signs Vital signs: Vital Signs Temp Pulse Resp BP Pulse Ox 06/17/17 08:03 16 97 06/17/17 07:08 84 18 159/89 96 06/17/17 04:48 20 96 06/17/17 04:25 97.8 F 75 19 165/84 92 06/17/17 00:50 18 06/16/17 20:51 20 97 06/16/17 20:36 98.1 F 74 18 155/82 06/16/17 16:27 97.6 F 76 18 172/87 96 06/16/17 16:23 18 94 06/16/17 13:55 172/105 06/16/17 11:22 98.0 F 87 18 92 06/16/17 11:06 20 96 Intake and Output 06/16/17 06/17/17 06/17/17 23:59 07:59 15:59 Intake Total 1680 / 1680 0 / 0 Output Total 1350 / 1350 900 / 900 Balance 330 / 330 -900 / -900 Intake: IV Fluids 1000 / 1000 0.9 % Sodium Chloride 1,000 ML 1000 / 1000 @ 80 mls/hr IVC .[id number] [facility] Rx #:[id number] Oral 680 / 680 0 / 0 Output: Urine 1350 / 1350 900 / 900 Other: Meal pudding and crackers Percent of Meal Consumed 100% Weight 103.2 kg Blood Glucose* 206 86 Patient Weight 06/17/17 23:59 Weight 103.2 kg - General Appearance Exam: Patient is alert and oriented. He is in no acute distress. Lungs mage breath sounds otherwise clear. Heart regular rate and rhythm. Abdomen is benign. Lower extremity swelling appears to be improved. - Lab 06/17/17 06:47 06/17/17 06:47 Most recent lab results Calcium 8.1 mg/dL (8.6-10.3) L 06/17/17 06:47 Phosphorus 3.4 mg/dL (2.7-4.5) 06/09/17 06:30 Magnesium 1.3 mg/dL (1.6-2.6) L 06/09/17 06:30 - VTE Documentation of Mechanical Device: Graduated compression elastic hosiery Consult Discharge Plan - Plan [facility]errals: [facility] [Primary Care Provider] - 06/26/17 11:15 am (This is at the discharge clinic in building .)
[2017-06-17] MEDS: hydrALAZINE 25 MG TABLET PO SCH ×2 (08:49→20:19)
[2017-06-17] MEDS: *HR* Acetylcysteine 20% 600 MG/3 ML ORAL SYRINGE PO SCH ×2 (08:49→20:21)
[2017-06-17] MEDS ORDERED: *HR* Heparin 10,000 UNIT/10 ML VIAL ONE (13:17)
[2017-06-17] MEDS ORDERED: Heparin 1,000 UNITS/500 mL 500 ML ONE (13:17)
[2017-06-17] MEDS ORDERED: 0.9 % Sodium Chloride 1,000 ML ONE ×2 (13:17→13:24)
--- NOTE | 2017-06-17 13:30 | Pre-Sedation Evaluation ---
Pre-sedation evaluation - Pre-sedation checklist Date of procedure: 06/17/17 Procedure: [facility] Recent Vitals: Last Vital Signs Temp 97.8 F 06/17/17 04:25 Pulse 72 06/17/17 12:06 Resp 19 06/17/17 12:06 BP 111/82 06/17/17 12:06 Pulse Ox 94 06/17/17 12:06 H&P (including ROS) documented in medical record: Yes Previous reaction to sedatives/anesthetics: No Dietary Status: NPO after Midnight Airway Assessment: Patient can open mouth completely, TMJ function normal, Micrognathia (under-bite, receding chin) absent, Neck with adequate range of motion Dentition: No loose teeth or bridges Possible difficult airway: Yes If Yes;: History of Obstructive Sleep Apnea ASA Classification *see protocol: CLASS II-Mild systemic disease Plan of Care: Pt appropriate candidate for procedure/moderate/conscious sedation , Risks/benefits of procedure/sedation discussed w/ patient/family
[2017-06-17] MEDS ORDERED: *HR* Midazolam HCl 2 MG/2 ML VIAL ONE ×2 (13:43→14:07)
[2017-06-17] MEDS ORDERED: *HR* FentaNYL (PF) 100 MCG/2 ML VIAL ONE (13:43)
[2017-06-17] MEDS ORDERED: Nitroglycerin 1,000 MCG/10 ML VIAL IV ONE (14:03)
[2017-06-17] MEDS ORDERED: Verapamil 5 MG/2 ML VIAL ONE (14:03)
--- NOTE | 2017-06-17 14:43 | Event Note ---
Date of Encounter: 06/17/17 Time of Encounter: 14:40 - Cardiology Event Note [facility] completed. VISUALIZATION DEVELOPER RCA. No intervention warranted. CMP is a mix of ischemic and nonischemic. ASA, Statin, BB. Would recommend resuming ACEi if renal function tolerates. 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 Admits to claudication symptoms. Recommend consult to vascular. Will call. Will need to recheck echo as outpt in 3 months. Will coordinate outpt follow-up in 2-3 weeks. Cardiology signing off. Reconsult PRN.
[2017-06-17] MEDS ORDERED: 0.9 % Sodium Chloride 1,000 ML IVC SCH (14:45)
--- NOTE | 2017-06-17 14:58 | Invasive Diagnostic Lab Proc ---
Name: Jostin Jackson Date of Study: 06/17/2017 Date: 1950 Ht: 68.9in Medical Record#: [id number] Age: 67 Wt: 227.96lb Gender: Male BSA: 2.18 Order #: [id number] BMI: 33.76 Physicians Procedure Physician: Ashley Mejia MD, [facility] Referring MD: Referring MD: Staff Name Position Time In Leonardo Rosas RN Slot Manager 01:30 PM Emma Scott RT (R) Monitor 01:30 PM Pj Schmidt RT (R) Scrub 01:30 PM Indications Indication Cardiomyopathy Procedures Performed Procedure CORONARY ARTERY ANGIO S&I Pre-Procedure Checklist Informed consent is complete signed and on chart. H&P is on chart. ID band is on and ID verified with patient. Patient NPO for procedure The procedure was described for the patient and questions were answered. ECG is on chart. Plan of Care Patient will tolerate the procedure without complications. Adequate level of comfort will be maintained. Hemodynamics will remain stable Patient will recover from procedure without complications. Respiratory function will be maintained. Cardiac rhythm will remain stable. Patient temperature will be maintained. Patient and/or family have verbalized understanding of the procedure. Patient Education Chief Complaint/Reason for Test: Cardiac Cath Developmental Category: Adult (18-64 years) Developmentally Appropriate for Age: Yes Learning Barriers: None Education Needs: Procedure Education Method: Verbal Information Taught: Cardiac Cath Educational Evaluation: Able to repeat information Intravenous Access Time IV Size Location DC'd Fluid/Drip Rate Units RN 12:23 PM Extended IV Lt Basilic Vein 0.9NaCl 25 ml/hr Leonardo Rosas RN Allergies Penicillin SULFA (sulfonamide) Doxepin Penicillins Sulfa (Sulfonamide Antibiotics) PCN, SULFA,DOXEPIN, NSAIDS Vital Signs Time BP (mmHg) HR (bpm) O2 Sat. RR (bpm) LOC 12:24 PM 159 / 89 84 97 % 16 5 = Fully awake and oriented or at pre-proc level 01:50 PM / % 5 = Fully awake and oriented or at pre-proc level 01:50 PM / % 4 = Oriented but drowsy 02:11 PM / % 4 = Oriented but drowsy 01:48 PM 176 / 84 80 98 % 23 01:52 PM 149 / 71 79 91 % 20 01:57 PM 148 / 67 79 93 % 27 02:02 PM 151 / 68 79 93 % 25 02:07 PM 159 / 79 78 98 % 21 02:12 PM 146 / 70 77 93 % 27 02:17 PM 145 / 66 77 93 % 18 02:22 PM 139 / 64 76 95 % 22 02:27 PM 143 / 69 80 96 % 22 02:32 PM 150 / 67 78 94 % 20 Procedural Medications Time Medication Dose Units Method Given By 01:47 PM Oxygen 2 L/min nasal cannula Leonardo Rosas RN 01:47 PM Versed 2 mg Intravenous Leonardo Rosas RN 01:47 PM Fentanyl 50 mcg Intravenous Leonardo Rosas RN 01:50 PM Lidocaine 2% 20 ml Subcutaneous Ashley Mejia MD, FAC 02:13 PM Lidocaine 2% 0.5 ml Subcutaneous Ashley Mejia MD, FAC 02:15 PM Heparin 4000 units Nitroglycerin 200 mcg Verapamil 2.5 mg Intraarterial Ashley Mejia MD, FAC 02:28 PM Versed 1 mg Intravenous Leonardo Rosas RN 02:28 PM Fentanyl 25 mcg Intravenous Leonardo Rosas RN ASA Classification: CLASS II- Mild systemic disease (i.e. well-controlled diabetes, hypertension, asthma, cigarette smoking) Chantel Score Preprocedure Postprocedure Activity 2- Moves 4 extremities sustained head lift Activity Circulation 2- SBP +/= 20 points of pre-anesthetic level Circulation Consciousness 2- Awake and alert oriented x 3 Consciousness O2 Saturation 2- Able to maintain O2 satruation of 92% on room air O2 Saturation Respiratory 2- Able to deep breathe and cough well Respiratory Total Score 10 Total Score Contrast Agent: Isovue Diagnostic Contrast: 67 ml Total Contrast: 67 ml Fluoro Dose: 573 mGy Activated Clotting Time Time Seconds to Clot 02:31 PM 199 Procedure Log Time Note Enter By 01:30 PM Pt arrived to cath laboratory technician 2 at 13:30 [facility] 01:30 PM Leonardo Rosas RN Position: Slot Manager Time in: 13:30 [facility] 01:30 PM Emma Scott RT (R) Position: Monitor Time in: 13:30 [facility] 01:30 PM Physician arrived 13:30 [facility] 01:30 PM Pj Schmidt RT (R) Position: Scrub Time in: 13:30 [facility] 01:30 PM Patient charges- Angio tray pack, Navilyst 3mm J, Pulse Oximetry and ACIST tubing and transducer dspell35 PM Case Start :35 PM Sergio completed 35 PM Sign in performed according to hospital policy. :35 PM Procedure start 13:35 dsp:42 PM CathStat :42 PM Vitals capture started with the following parameters, Patient=Adult, Interval=5 min, Initial Gspldyuv=619 mmHg, Deflation Rate=5 mmHg, Cuff placed on Right Arm :43 PM Patient charges- Angio tray pack, Navilyst 3mm J, Pulse Oximetry and ACIST tubing and transducer dspell43 PM IV Supplies used: J loop Angio Cath. 43 PM Case Delayed No, inpatient : PM Hair removed from procedure site in holding area using clippers. Bilateral groin prepped with Chloraprep by Emma Scott (Rhonda), safety strap applied then patient was draped. Skin intact. 46 PM Vitals capture started with the following parameters, Patient=Adult, Interval=5 min, Initial Djrnjfkh=728 mmHg, Deflation Rate=5 mmHg, Cuff placed on Right Arm :46 PM ASA Class CLASS II- Mild systemic disease (i.e. well-controlled diabetes, hypertension, asthma, cigarette smoking) :47 PM Time: 13:47 Oxygen on at 2 L/min per nasal cannula by Leonardo Rosas RN :47 PM Time: 13:47 Versed 2 mg Intravenous Given by Leonardo Rosas RN :48 PM HR=80 bpm, JEGT=251/84 mmhg, SpO2=98.0 %, Resp=23 B/min, Comment=NSR 01:49 PM Time: 13:47 Fentanyl 50 mcg Intravenous Given by Leonardo Rosas RN :49 PM Time: 13:49 Patient comfortable and pain free: Yes 50 PM Time: 13:50LOC: 5 = Fully awake and oriented or at pre-proc level dsp:50 PM Clinical Presentation: Unstable angina dspell:50 PM Time out performed according to hospital policy 50 PM Pressure channel 1 zeroed. 01:51 PM Time: 13:50 20 ml Lidocaine 2% to right groin Subcutaneous Given by Ashley Mejia MD, [facility] dspsadaf 01:52 PM HR=79 bpm, YJDQ=736/71 mmhg, SpO2=91.0 %, Resp=20 B/min, Comment=NSR 01:52 PM Access obtained by percutaneous puncture. 5Fr 10cm Terumo Mercer sheath placed in right Femoral artery. [id number] dspell 01:53 PM 5Fr FR 4 catheter inserted over the wire [facility] dspell 01:53 PM 0.035 145cm Navilyst 3mmJ wire [id number] dspell 01:53 PM RCA angiography performed in multiple views. dspell 01:55 PM Wire removed dspell 01:55 PM 0.035 145cm [place] Hi-Torque wire [id number] dspell 01:57 PM HR=79 bpm, RRCD=865/67 mmhg, SpO2=93.0 %, Resp=27 B/min, Comment=NSR 01:59 PM contrast injected, images obtained of the right iliac dsp 02:00 PM Catheter removed dspell 02:00 PM Wire removed dsp 02:00 PM Prepping the left wrist for access dspell 02:02 PM HR=79 bpm, FQFU=191/68 mmhg, SpO2=93.0 %, Resp=25 B/min, Comment=NSR 02:07 PM HR=78 bpm, RHTM=358/79 mmhg, SpO2=98 %, Resp=21 B/min 02:10 PM Time: 14:10 Fentanyl 25 mcg Intravenous Given by Leonardo Rosas RN 02:10 PM Time: 14:10 Versed 1 mg Intravenous Given by Leonardo Rosas RN 02:11 PM Time: 13:50LOC: 4 = Oriented but drowsy dspsadaf 02:12 PM Time: 13:49 Patient comfortable and pain free: Yes 02:12 PM HR=77 bpm, KVNV=842/70 mmhg, SpO2=93.0 %, Resp=27 B/min, Comment=NSR 02:13 PM Time: 14:13 0.5 ml Lidocaine 2% to left radial Subcutaneous Given by Ashley Mejia MD, [facility] dspell 02:13 PM Access obtained by percutaneous puncture. 5Fr 10cm Terumo Glidesheath sheath placed in left Radial artery. [id number] dspell 02:15 PM Time: 14:15 Patient given 4,000 units Heparin, 200 mcg Nitroglycerin, and 2.5 mg Verapamil Intraarterial by Ashley Mejia MD, [facility]. This is given to reduce risk of vessel spasm and thrombosis. dspell 02:16 PM 5Fr FR 4 catheter inserted over the wire [facility] dspell 02:16 PM 0.035 260cm Navilyst 3mmJ wire [id number] dspell 02:17 PM HR=77 bpm, KZAN=031/66 mmhg, SpO2=93.0 %, Resp=18 B/min, Comment=NSR 02:19 PM Lesion found in Proximal RCA. Pre Stenosis: 100 Pre CAROLYNN Flow: 0: No Flow/No perfusion dspell 02:19 PM Catheter removed dspell 02:20 PM 5Fr FL 4 catheter inserted over the wire [facility] dspell 02:20 PM LCA angiography performed in multiple views. dspell 02:21 PM Recorded Pressure: Ao, HR=79, Condition=Condition 1 (Aorta) Ao 127/58/90 02:21 PM Recorded Pressure: Ao, HR=78, Condition=Condition 1 (Aorta) Ao 123/54/83 02:22 PM HR=76 bpm, XQJY=364/64 mmhg, SpO2=95.0 %, Resp=22 B/min, Comment=NSR 02:22 PM Recorded Pressure: Ao, HR=76, Condition=Condition 1 (Aorta) Ao 108/50/73 02:23 PM Catheter removed dspell 02:24 PM Coronary Dominance: right dspellman 02:24 PM Procedure completed at 14:24 dspellman 02:27 PM HR=80 bpm, HYSD=816/69 mmhg, SpO2=96.0 %, Resp=22 B/min, Comment=NSR 02:27 PM Time: 14:12 Patient comfortable and pain free: Yes dspell:27 PM Time: 14:11LOC: 4 = Oriented but drowsy dspell 02:31 PM Sheath left in place to be pulled on floor/holding areaV+Pad dspell 02:31 PM At 14:31 the ACT was 199 seconds. dspell 02:32 PM HR=78 bpm, XALT=860/67 mmhg, SpO2=94.0 %, Resp=20 B/min, Comment=NSR 02:33 PM 18 ml air in Vasc Band. dspell 02:34 PM Estimated Blood Loss: minimal dspell 02:34 PM Post ECG NSR dspell 02:34 PM Post Blood Pressure 150/67 dspell 02:35 PM Sign out completed: Radiation Dose 573.47 mGy Fluoro Time: 7.6 Isovue 370 - 200ml contrast 67 ml given by Ashley Mejia MD, [facility]. Complications: NoneCardiac Rehab Consult needed: NoConfirmed administered medications: Yes dspell 02:36 PM 14:35 Post Pulses Lt Radial 2+ dspell 02:36 PM 14:36 Post Pulses Bilateral DP & PT 1+ dspell 02:36 PM Information taught Cardiac Cath and Mynx dspell 02:36 PM Education needs Procedure, Plan of Care, and Responsibilities of Patient in Care dspell 02:36 PM Learning barriers :None ell 02:36 PM Education Methods Verbal dspell 02:36 PM Education evaluation Able to repeat information dspell 02:37 PM Site status No bleeding/hematoma - Rt Groin as reported by Pj Schmidt RT (R) at 14:36 dspell 02:37 PM Site status No bleeding/hematoma - Lt Wrist as reported by Pj Schmidt RT (R) at 14:37 dspell 02:37 PM Opsite applied dspell 02:39 PM Report given to Magno FIGUEROA Pt taken to 2N Room #11. 14:39 dspell 02:39 PM Delay to floor No dspell 02:39 PM Patient out of room: 14:39 dspell 02:39 PM Family placed in consult room. dspell 02:39 PM Complications: None dspell 02:39 PM Fluoro Time: 7.6 dspellman 02:40 PM Isovue 370 - 200ml,1 Bottle(s) used. dspell 02:43 PM Lesion found in LMCA. Pre Stenosis: 20 Pre CAROLYNN Flow: dspell 02:43 PM Lesion found in Proximal LAD. Pre Stenosis: 35 Pre CAROLYNN Flow: dspellman 02:43 PM Lesion found in Mid LAD. Pre Stenosis: 20 Pre CAROLYNN Flow: dspellman 02:44 PM Lesion found in 1st Diagonal. Pre Stenosis: 30 Pre CAROLYNN Flow: dspellman 02:44 PM Lesion found in Proximal Circumflex. Pre Stenosis: 30 Pre CAROLYNN Flow: dspellman Complications Complication None None Hemodynamics Pressures Site Systolic/A Wave Diastolic/V Wave Mean AO 127 58 90 AO 123 54 83 AO 108 50 73 Post Procedure Information Blood Pressure: 150/67 mmHg Rhythm: NSR Site Checks Time Location Status Staff Sheath In? Note 02:36 PM Rt Groin No bleeding/hematoma Pj Schmidt RT (R) 02:37 PM Lt Wrist No bleeding/hematoma Pj Schmidt RT (R) Pulses Time Site Pre-Procedure Post-Procedure Note 06/17/2017 12:24:00 PM Bilateral DP & PT 1+ 06/17/2017 12:24:00 PM Bilateral radial 2+ 2:35:00 PM Lt Radial 2+ 2:36:00 PM Bilateral DP & PT 1+ Updated by Emma Scott RT (R) on 06/17/2017 2:50:05 PM Emma Scott RT electronically signed on 06/17/2017 2:50:51 PM with status of Final
[2017-06-17] MEDS ORDERED: *HR* Atropine Sulfate 1 MG/10 ML SYRINGE ONE (16:13)
[2017-06-17] MEDS: Furosemide 40 MG TABLET PO SCH (17:27)
--- NOTE | 2017-06-17 18:19 | Vascular/Endovasc Consult Note ---
Date of Encounter: 06/17/17 Time of Encounter: 18:00 Assessment and Plan (1) Atherosclerosis of [place] arteries of extremities with intermittent claudication, bilateral legs Current Visit: Yes Status: Chronic The pathophysiology and natural history of peripheral vascular disease was discussed with the patient and all questions were answered. The patient reports disabling claudication. He denies rest pain, ulceration or gangrene. He has a diminished pulse exam. His ambulation is limited by shortness of breath. He has no signs or symptoms of acute or limb threatening ischemia. Atherosclerotic risk factor reduction and smoking cessation was discussed with the patient. He was advised to continue with ASA. Cilostazol may be considered. (2) CAD (coronary artery disease) Current Visit: No Status: Chronic Qualifiers: Coronary Disease-Associated Artery/Lesion type: [place] artery [place] vs. transplanted heart: [place] heart Associated angina: without angina Qualified Code(s): I25.10 - Atherosclerotic heart disease of [place] coronary artery without angina pectoris (3) HTN (hypertension) Current Visit: No Status: Chronic Qualifiers: Hypertension type: essential hypertension Qualified Code(s): I10 - Essential (primary) hypertension (4) Diabetes mellitus Current Visit: No Status: Chronic Qualifiers: Diabetes mellitus type: type 2 Diabetes mellitus complication status: with kidney complications Diabetes mellitus complication detail: with chronic kidney disease Diabetes mellitus halfway insulin use: with halfway use Chronic kidney disease stage: stage 4 (severe) Qualified Code(s): E11.22 - Type 2 diabetes mellitus with diabetic chronic kidney disease; N18.4 - Chronic kidney disease, stage 4 (severe); N18.4 - Chronic kidney disease, stage 4 ( severe); N18.4 - Chronic kidney disease, stage 4 (severe); N18.4 - Chronic kidney disease, stage 4 (severe); Z79.4 - halfway (current) use of insulin; Z79.4 - halfway (current) use of insulin; Z79.4 - halfway (current) use of insulin; Z79.4 - halfway (current) use of insulin (5) Tobacco abuse Current Visit: No Status: Chronic - History of Present Illness Consult date: 06/17/17 Requesting physician: Sincere Plasencia Consult reason: Peripheral vascular disease with disabling claudication Chief complaint: Claudication History of present illness: Mr. Jackson is a 67 year old male with a history of COPD, coronary artery disease , CHF, diabetes and hypertension who was admitted to [facility] with dyspnea. The patient was noted to be in congestive heart failure. As part of his evaluation he underwent a left heart catheterization. During the procedure, it was noted that the patient had evidence of severe peripheral vascular disease which prevented femoral access. He ultimately underwent his left heart cath via radial approach. Vascular surgery was then consulted for further evaluation. The patient reports that he has been previously diagnosed with peripheral vascular disease. Although his activity is limited by his shortness of breath, he does report disabling claudication at 50 feet. He denies rest pain, ulceration or gangrene. He reports that he has seen a vascular surgeon at the [facility] in [place] and has been treated medically. At this time, the patient denies chest pain or shortness of breath. Past Med Surg Social Fam HX - Past Medical History Medical history: CHF, COPD, coronary artery disease, diabetes, hyperlipidemia, hypertension, peripheral artery disease, renal disease Psychiatric history: depression, PTSD - Past Surgical History Surgical History: appendectomy - Social History Smoking Status: Current every day smoker Smokeless Tobacco Status: No Alcohol use: none Drug use: none - Family History Mother Living Status: Medications and Allergies Aspirin [Lo-Dose Aspirin EC] 81 mg PO DAILY 11/08/16 [History] Atorvastatin Calcium [Lipitor] 80 mg PO HS 11/08/16 [History] BuPROPion SR (12 HR) [Wellbutrin SR] 150 mg PO BID 11/08/16 [History] Carvedilol [Coreg] 25 mg PO BID 11/08/16 [History] Cholecalciferol (Vitamin D3) [Vitamin D3] 2,000 unit PO DAILY 11/08/16 [History] Ferrous Gluconate 324 mg PO BID 11/08/16 [History] Insulin Glargine [Lantus] 20 unit SQ HS 11/08/16 [History] Isosorbide MONOnitrate (24 HR) [Imdur] 90 mg PO DAILY 11/08/16 [History] Mometasone/Formoterol [Dulera 200 Mcg/5 Mcg Inhaler] 2 puff IH DAILY 11/08/16 [ History] Omeprazole [PriLOSEC] 20 mg PO DAILY 11/08/16 [History] Tamsulosin HCl [Flomax] 0.4 mg PO DAILY 11/08/16 [History] Tramadol HCl [Ultram] 50 mg PO TID PRN 11/08/16 [History] Trazodone HCl 100 mg PO HS PRN 11/08/16 [History] Vit C/E/Zn/Coppr/Lutein/Zeaxan [Preservision Areds 2 Softgel] 1 tab PO BID 11/08 [History] Albuterol Sulfate [Albuterol Inhaler] 2 puff IH QID 05/09/17 [History] Calcitriol [Rocaltrol] 0.25 mcg PO DAILY 05/09/17 [History] Cetirizine HCl [Zyrtec] 10 mg PO HS 05/09/17 [History] Ipratropium [ATROVENT Inhaler] 2 puff IH BID 05/09/17 [History] Ipratropium/Albuterol Neb [Duoneb] 3 ml IH Q6HR PRN 05/09/17 [History] Amlodipine Besylate 10 mg PO DAILY 06/04/17 [History] Calcium Carbonate 1,300 mg PO DAILY 06/04/17 [History] Furosemide [Lasix] 40 mg PO BID 06/04/17 [History] Gabapentin [Neurontin] 300 mg PO TID 06/04/17 [History] GuaiFENesin/Dextromethorphan [Tussin Dm Syrup] 5 ml PO BID PRN 06/04/17 [History ] Prazosin HCl [Minipress] 10 mg PO HS 06/04/17 [History] 3 Allergy/AdvReac Type Severity Reaction Status Date / Time Doxepin Allergy Hives Verified 11/07/16 22:47 Penicillins Allergy Hives Verified 11/07/16 22:47 Sulfa (Sulfonamide Allergy Hives Verified 11/07/16 22:47 Antibiotics) All Systems Review: A 10-system review of systems was performed and is negative for pertinent findings except as documented above in the HPI. - Constitutional Constitutional: no chills, no fever(s) - Cardiovascular Cardiovascular: no chest pain at rest, no dyspnea at rest - Respiratory Respiratory: no cough - Gastrointestinal Gastrointestinal: no abdominal pain - Neurological Neurological: no focal weakness Exam Vital Signs, Last 4 Hours Temp Pulse Pulse Resp BP Pulse Ox 06/17/17 18:17 86 154/69 06/17/17 17:15 81 81 155/72 06/17/17 17:00 84 81 152/69 06/17/17 16:45 86 81 139/105 06/17/17 16:35 85 167/78 06/17/17 16:30 84 166/74 06/17/17 16:25 83 166/75 06/17/17 16:20 81 81 131/79 06/17/17 16:11 80 06/17/17 15:47 81 18 151/67 91 06/17/17 15:30 81 157/101 93 06/17/17 15:15 77 18 149/66 89 06/17/17 15:00 79 18 154/73 91 06/17/17 14:50 97.9 F 79 79 18 157/85 92 General: Present: Conversant, No Apparent Distress HEENT: Present: Atraumatic, Trachea midline, Pupils equal Neck: Absent: JVD, Lymphadenopathy, Left Carotid bruit, Right Carotid bruit Cardiac: Present: Reg Rate and Rhythm, Normal S1 and S2 Lungs: Present: Normal Breath Sounds, No Wheeze, Rales, Rhonchi Neuro: Present: Alert and responsive, No focal deficits noted, Cranial nerves grossly intact, Motor nerves grossly intact, Sensory nerves grossly intact Abdomen: Present: Soft, Non-tender, Other (abdominal aorta not palpable). Absent: Masses Vascular: Present: Normal capillary refill, Pulse, diminished (femoral pulses 1+ , popliteal, dorsalis pedis and posterior tibial pulses absent), Edema (trace). Absent: Cyanosis Skin: Present: No rashes noted on visualized skin Musculoskeletal: Present: No Chest Wall Tenderness Consult Discharge Plan - Plan [facility] Provider[facility] - 06/26/17 11:15 am (This is at the discharge clinic in [place] [address].)
[2017-06-17] MEDS: traZODone 50 MG TABLET PO SCH (20:20)
[2017-06-17] MEDS: 0.9 % Sodium Chloride 1,000 ML IVC SCH (23:08)
[2017-06-18] MEDS: Ipratropium/Albuterol Neb 3 ML IH SCH ×7 (03:38→23:47)
[2017-06-18] MEDS: *HR* Heparin 5,000 UNIT/ML VIAL SQ SCH ×2 (05:13→16:51)
[2017-06-18] MEDS: Budesonide/Formoterol 160/4.5 MDI IH SCH ×2 (07:47→20:16)
[2017-06-18 08:17] LABS: Albumin 2.6 g/dL (3.5-5.7); Albumin/Globulin Ratio 1.1 (1.1-2.2); Bilirubin,Total 0.2 mg/dL (0.3-1.0); Calcium 7.8 mg/dL (8.6-10.3); Globulin 2.4 g/dL (2.4-3.5); Potassium 4.5 mEq/L (3.5-5.1)
[2017-06-18] MEDS: Insulin LISPRO 300 UNITS/3 ML VIAL SQ SCH ×7 (08:21→21:18)
[2017-06-18] MEDS: Gabapentin 300 MG CAPSULE PO SCH ×2 (08:42→21:18)
[2017-06-18] MEDS: Furosemide 40 MG TABLET PO SCH (08:42)
[2017-06-18] MEDS: BuPROPion SR (12 HR) 150 MG TABLET PO SCH ×2 (08:42→16:57)
[2017-06-18] MEDS: amLODIPine 5 MG TABLET PO SCH (08:42)
[2017-06-18] MEDS: Isosorbide MONOnitrate (24 HR) 60 MG TAB.ER.24H PO SCH (08:42)
[2017-06-18] MEDS: predniSONE 10 MG TABLET PO SCH (08:42)
[2017-06-18] MEDS: hydrALAZINE 25 MG TABLET PO SCH ×3 (08:42→21:19)
[2017-06-18] MEDS: 0.9 % Sodium Chloride 1,000 ML IVC SCH (08:43)
[2017-06-18] MEDS: Aspirin Enteric Coated 81 MG Tablet PO SCH (08:43)
[2017-06-18] MEDS: Insulin DETEMIR 100 UNIT/ML X5UNITS SQ SCH ×2 (08:49→21:20)
--- NOTE | 2017-06-18 09:37 | Nephrology Progress Note ---
Date of Encounter: 06/18/17 Time of Encounter: 09:05 - Assessment and Plan (1) GLORIA (acute kidney injury) Current Visit: No Status: Acute GLORIA superimposed on CKD, Baseline creat 2.8-3.0 in setting CHF, COPD exacerbation, diuretics. Renal fct stable so far post [facility], creat 2.60. Documented urine output 2100cc. SBP 150-180, will increase Hydralazine. Will stop IV fluids. Continue to monitor. Avoid nephrotoxins. Accurate I&O. Subjective Principal diagnosis: Decompensated systolic heart failure Interval history: Sitting on edge of bed. S/P LHC yesterday. Medical management. Objective - Vital Signs Vital signs: Vital Signs Temp Pulse Pulse Resp BP Pulse Ox 06/18/17 08:35 76 06/18/17 07:50 16 94 06/18/17 07:21 97.7 F 74 15 183/81 95 06/18/17 03:06 98 F 73 15 158/71 93 06/17/17 23:43 15 95 06/17/17 23:02 97.9 F 70 15 153/93 95 06/17/17 23:00 153/93 06/17/17 20:47 134/103 06/17/17 20:33 134/103 06/17/17 20:29 15 93 06/17/17 19:22 97.8 F 78 18 150/74 94 06/17/17 18:17 86 154/69 06/17/17 17:15 81 81 155/72 06/17/17 17:00 84 81 152/69 06/17/17 16:45 86 81 139/105 06/17/17 16:35 85 167/78 06/17/17 16:30 84 166/74 06/17/17 16:25 83 166/75 06/17/17 16:20 81 81 131/79 06/17/17 16:11 80 06/17/17 15:47 81 18 151/67 91 06/17/17 15:30 81 157/101 93 06/17/17 15:15 77 18 149/66 89 06/17/17 15:00 79 18 154/73 91 06/17/17 14:50 97.9 F 79 79 18 157/85 92 06/17/17 12:06 72 19 111/82 94 06/17/17 11:46 94 06/17/17 11:19 16 94 Intake and Output 06/17/17 06/18/17 06/18/17 23:59 07:59 15:59 Intake Total 540 / 540 240 / 240 1440 / 1440 Output Total 400 / 400 1100 / 1100 0 / 0 Balance 140 / 140 -860 / -860 1440 / 1440 Intake: IV Fluids 1200 / 1200 0.9 % Sodium Chloride 1,000 ML 200 / 200 @ 80 mls/hr IVC .[id number] MARSHA Rx #:[id number] Oral 540 / 540 240 / 240 240 / 240 Output: Urine 400 / 400 1100 / 1100 0 / 0 Other: Meal Dinner Percent of Meal Consumed 100% Stool Size Moderate Stool Consistency formed Stool Characteristics Normal for Patient Stool Color Brown Weight 107.4 kg Blood Glucose* 138 85 Patient Weight 06/18/17 23:59 Weight 107.4 kg - General Appearance General appearance: Present: well-developed, well-nourished, appears started age EENT: Present: mucous membranes moist Neck: Present: no JVD Respiratory: Present: clear Cardiology: Present: edema, regular rate, regular rhythm Additional Comments: mild Gastrointestinal: Present: normoactive bowel sounds, no tenderness Integumentary: Present: warm and dry Neurologic: Present: alert and oriented x3 - Lab 06/17/17 06:47 06/18/17 05:54 Most recent lab results Calcium 7.8 mg/dL (8.6-10.3) L 06/18/17 05:54 Phosphorus 3.4 mg/dL (2.7-4.5) 06/09/17 06:30 Magnesium 1.3 mg/dL (1.6-2.6) L 06/09/17 06:30 - VTE Documentation of Mechanical Device: Graduated compression elastic hosiery Consult Discharge Plan - Plan [facility]errals: [facility]Primary Care Provider[facility] - 06/26/17 11:15 am (This is at the discharge clinic in building [facility].)
--- NOTE | 2017-06-18 10:21 | Internal Med Progress Note ---
Date of Encounter: 06/18/17 Time of Encounter: 10:19 - Assessment and plan (1) Systolic and diastolic CHF, acute on chronic Current Visit: No Status: Acute Assessment and plan: Has acute on chronic combined systolic and diastolic heart failure. Improving symptomatically. LHC noted. No intervention. Continue with Lasix by mouth 40 mg. Cardiology is following. The patient is also on a beta anita as well as Imdur. Monitor I&O's. Continue fluid restriction. (2) PVD (peripheral vascular disease) Current Visit: Yes Status: Acute Assessment and plan: He was found to have 95% right iliac stenosis when the right femoral was accessed during left heart catheterization. Vascular has been consulted. Plan is likely to be nonsurgical. per nursing staff vascular is thinking about starting anticoagulation with Xarelto We will await their final recommendations today. Patient is likely to be discharged tomorrow (3) CAD (coronary artery disease) Current Visit: No Status: Chronic Assessment and plan: stable. LHC results noted. The patient has history of stents. Continue with aspirin and statin and beta anita. Qualifiers: Coronary Disease-Associated Artery/Lesion type: [place] artery [place] vs. transplanted heart: [place] heart Associated angina: without angina Qualified Code(s): I25.10 - Atherosclerotic heart disease of [place] coronary artery without angina pectoris (4) HTN (hypertension) Current Visit: No Status: Chronic Assessment and plan: Continue home medications. Hydralazine increased to 50 mg BID per nephro as BP is elevated Qualifiers: Hypertension type: essential hypertension Qualified Code(s): I10 - Essential (primary) hypertension (5) Diabetes mellitus Current Visit: No Status: Chronic Assessment and plan: continue with Levemir 10 units twice a day as well as insulin sliding scale. Qualifiers: Diabetes mellitus type: type 2 Diabetes mellitus complication status: with kidney complications Diabetes mellitus complication detail: with chronic kidney disease Diabetes mellitus snf insulin use: with snf use Chronic kidney disease stage: stage 4 (severe) Qualified Code(s): E11.22 - Type 2 diabetes mellitus with diabetic chronic kidney disease; N18.4 - Chronic kidney disease, stage 4 (severe); N18.4 - Chronic kidney disease, stage 4 ( severe); N18.4 - Chronic kidney disease, stage 4 (severe); N18.4 - Chronic kidney disease, stage 4 (severe); Z79.4 - technician terminal and repeater (current) use of insulin; Z79.4 - technician terminal and repeater (current) use of insulin; Z79.4 - technician terminal and repeater (current) use of insulin; Z79.4 - technician terminal and repeater (current) use of insulin (6) GLORIA (acute kidney injury) Current Visit: No Status: Acute Assessment and plan: Nephrology is following. s/p LHC. creatinine is actually better this morning. check labs in am and if ok can possilby d/c. creatinine seems around baseline. He does have chronic kidney disease stage IV. The patient had Mucomyst prior to C (7) CKD (chronic kidney disease) stage 4, GFR 15-29 ml/min Current Visit: No Status: Chronic Assessment and plan: Avoid nephrotoxins. Appreciate nephrology recommendations. (8) DVT prophylaxis Current Visit: No Status: Acute Assessment and plan: Heparin subcutaneous - Subjective Interval history: No acute events. Had LHC yesterday with disease seen but no intervention. found to have PVD and vascular consulted. The patient was admitted with an acute exacerbation of combined systolic and diastolic heart failure. He required a Lasix drip. He remains on 2 L of nasal cannula oxygen. He is being followed by cardiology and nephrolog. Feels well this morning. He has been afebrile. - Constitutional Vitals: Temp Pulse Resp BP Pulse Ox 97.7 F 76 16 183/81 94 06/18/17 07:21 06/18/17 08:35 06/18/17 07:50 06/18/17 07:21 06/18/17 07:50 General appearance: Present: A&O X 3, morbidly obese, pleasant, no acute distress, answers questions appropriately Exam: GEN: NAD CVS: RRR. S1, S2, No m/r/g RESP: CTAB ABD: Soft, NT, ND, +BS EXT: No edema. 2+ DP. No rashes NEURO: Nonfocal Internal Medicine: Result - Labs CBC & Chem 7: 06/17/17 06:47 06/18/17 05:54 Labs: BMP 06/18/17 05:54 Sodium 141 Potassium 4.5 Chloride 118 H Carbon Dioxide 17 L BUN 79 H Creatinine 2.60 H Glucose 80 Calcium 7.8 L Liver Function 06/18/17 Range/Units 05:54 Total Bilirubin 0.2 L (0.3-1.0) mg/dL AST 18 (13-39) Units/L ALT 40 (7-52) Units/L Alkaline Phosphatase 72 (34-104) Units/L Albumin 2.6 L (3.5-5.7) g/dL - ABG Interpretation ABG results: PT/INR, D-dimer PT 11.8 Seconds (9.4-12.1) 06/16/17 14:31 - VTE Documentation of Mechanical Device: Graduated compression elastic hosiery Consult Discharge Plan - Plan Referrals: KRYSTINA,PCP [Primary Care Provider] - 06/26/17 11:15 am (This is at the discharge clinic in [place] [address].)
[2017-06-18] MEDS: Clotrimazole 1% CRM 15 GM TUBE TP SCH ×2 (11:39→21:20)
[2017-06-18] MEDS: traZODone 50 MG TABLET PO SCH (21:19)
[2017-06-19] MEDS: Ipratropium/Albuterol Neb 3 ML IH SCH ×3 (03:46→10:45)
[2017-06-19 03:55] LABS: Eosinophils # 0.1 K/mcL (0.0-0.6); Eosinophils % 0.9 %; Immature Granulocytes % 0.8 % (0-4); Lymphocytes # 1.4 K/mcL (0.6-4.6); Lymphocytes % 13.2 %; Mean Corpuscular HGB Conc 32.3 g/dL (31.6-35.5); Mean Corpuscular Hemoglobin 29.3 pg (28.0-33.3); Mean Corpuscular Volume 90.9 fL (83.0-100.0); Mean Platelet Volume 9.8 fL (9.4-12.4); Monocytes % 8.8 %; Neutrophils # 8.3 K/mcL (1.6-8.9); Platelet Count 236 K/mcL (140-400); Red Blood Count 3.41 M/mcL (4.19-5.50); Red Cell Distribution Width 16.2 % (11.5-14.5); Segmented Neutrophils % 76.3 %
[2017-06-19 04:17] LABS: Calcium 8.1 mg/dL (8.6-10.3); Potassium 4.7 mEq/L (3.5-5.1)
[2017-06-19] MEDS: *HR* Heparin 5,000 UNIT/ML VIAL SQ SCH (05:17)
--- NOTE | 2017-06-19 07:01 | Vascular/[facility] Progress Note ---
Date of Encounter: 06/18/17 Time of Encounter: 16:30 - Assessment and plan (1) Atherosclerosis of [place] arteries of extremities with intermittent claudication, bilateral legs Current Visit: Yes Status: Chronic The patient has a long history of peripheral vascular disease with disabling claudication. He continues to deny rest pain, ulceration or gangrene. He has a diminished pulse exam. His ambulation is limited by shortness of breath. He was advised to continue with ASA. His previous echocardiogram was reviewed. The patient may not be able to tolerate Cilostazol. Recommend Plavix 75mg daily. Will check RAMSEY. (2) CAD (coronary artery disease) Current Visit: Yes Status: Chronic Qualifiers: Coronary Disease-Associated Artery/Lesion type: [place] artery [place] vs. transplanted heart: [place] heart Associated angina: without angina Qualified Code(s): I25.10 - Atherosclerotic heart disease of [place] coronary artery without angina pectoris (3) HTN (hypertension) Current Visit: Yes Status: Chronic He was counseled regarding atherosclerotic risk factor reduction. Qualifiers: Hypertension type: essential hypertension Qualified Code(s): I10 - Essential (primary) hypertension (4) Tobacco abuse Current Visit: Yes Status: Chronic He was counseled regarding atherosclerotic risk factor reduction. (5) Diabetes mellitus Current Visit: Yes Status: Chronic Qualifiers: Diabetes mellitus type: type 2 Diabetes mellitus complication status: with kidney complications Diabetes mellitus complication detail: with chronic kidney disease Diabetes mellitus termite treater helper insulin use: with intermediate use Chronic kidney disease stage: stage 4 (severe) Qualified Code(s): E11.22 - Type 2 diabetes mellitus with diabetic chronic kidney disease; N18.4 - Chronic kidney disease, stage 4 (severe); N18.4 - Chronic kidney disease, stage 4 ( severe); N18.4 - Chronic kidney disease, stage 4 (severe); N18.4 - Chronic kidney disease, stage 4 (severe); Z79.4 - alf (current) use of insulin; Z79.4 - terminal manager (current) use of insulin; Z79.4 - alf (current) use of insulin; Z79.4 - terminal manager (current) use of insulin - Subjective Interval history: The patient reports no acute issues overnight. He is comfortable today and states that he hopes to go home soon. He denies chest pain or shortness of breath. Vital Signs, Last 4 Hours Temp Pulse Resp BP Pulse Ox 06/19/17 05:15 73 06/19/17 03:47 16 93 06/19/17 03:30 97.4 F L 80 18 187/77 93 - Physical Examination General: Present: Conversant, No Apparent Distress HEENT: Present: Pupils equal Cardiac: Present: Reg Rate and Rhythm Lungs: Present: Normal Breath Sounds Neuro: Present: Alert and responsive, No focal deficits noted, Motor nerves grossly intact, Sensory nerves grossly intact Vascular: Present: Normal capillary refill, Pulse, diminished, Edema (trace). Absent: Cyanosis Abdomen: Present: Soft, Non-tender. Absent: Masses Skin: Present: No rashes noted on visualized skin Musculoskeletal: Present: No Chest Wall Tenderness - VTE Documentation of Mechanical Device: Graduated compression elastic hosiery Results 06/19/17 03:39 06/19/17 03:39 Lab Results, Last 24 hours 06/18/17 06/19/17 06/19/17 05:54 03:39 03:39 WBC 10.9 Hgb 10.0 L Hct 31.0 L Plt Count 236 Sodium 141 142 Potassium 4.5 4.7 Chloride 118 H 119 H Carbon Dioxide 17 L 16 L BUN 79 H 74 H Creatinine 2.60 H 2.71 H Glucose 80 73 Calcium 7.8 L 8.1 L Total Bilirubin 0.2 L AST 18 ALT 40 Alkaline Phosphatase 72 - Imaging / Other Tests Cardiac cath: report reviewed, image reviewed Consult Discharge Plan - Plan Referrals: [facility] [Primary Care Provider] - 06/26/17 11:15 am (This is at the discharge clinic in [place] [address].)
[2017-06-19] MEDS: Insulin LISPRO 300 UNITS/3 ML VIAL SQ SCH ×4 (07:56→12:03)
[2017-06-19] MEDS: hydrALAZINE 25 MG TABLET PO SCH (08:01)
[2017-06-19] MEDS: BuPROPion SR (12 HR) 150 MG TABLET PO SCH (08:01)
[2017-06-19] MEDS: predniSONE 10 MG TABLET PO SCH (08:02)
[2017-06-19] MEDS: Furosemide 40 MG TABLET PO SCH (08:02)
[2017-06-19] MEDS: Gabapentin 300 MG CAPSULE PO SCH (08:02)
[2017-06-19] MEDS: amLODIPine 5 MG TABLET PO SCH (08:02)
[2017-06-19] MEDS: Aspirin Enteric Coated 81 MG Tablet PO SCH (08:02)
[2017-06-19] MEDS: Isosorbide MONOnitrate (24 HR) 60 MG TAB.ER.24H PO SCH (08:02)
[2017-06-19] MEDS: Clotrimazole 1% CRM 15 GM TUBE TP SCH (08:04)
[2017-06-19] MEDS: Insulin DETEMIR 100 UNIT/ML X5UNITS SQ SCH (08:48)
--- NOTE | 2017-06-19 09:43 | Discharge Summary ---
Date of Encounter: 06/19/17 Time of Encounter: 09:41 - Discharge Diagnosis (1) Systolic and diastolic CHF, acute on chronic Priority: Primary Status: Acute (2) PVD (peripheral vascular disease) Priority: Primary Status: Acute (3) CAD (coronary artery disease) Priority: Secondary Status: Chronic Qualifiers: Coronary Disease-Associated Artery/Lesion type: [place] artery [place] vs. transplanted heart: [place] heart Associated angina: without angina Qualified Code(s): I25.10 - Atherosclerotic heart disease of [place] coronary artery without angina pectoris (4) HTN (hypertension) Priority: Primary Status: Chronic Qualifiers: Hypertension type: essential hypertension Qualified Code(s): I10 - Essential (primary) hypertension (5) Diabetes mellitus Priority: Secondary Status: Chronic Qualifiers: Diabetes mellitus type: type 2 Diabetes mellitus complication status: with kidney complications Diabetes mellitus complication detail: with chronic kidney disease Diabetes mellitus halfway insulin use: with halfway use Chronic kidney disease stage: stage 4 (severe) Qualified Code(s): E11.22 - Type 2 diabetes mellitus with diabetic chronic kidney disease; N18.4 - Chronic kidney disease, stage 4 (severe); N18.4 - Chronic kidney disease, stage 4 ( severe); N18.4 - Chronic kidney disease, stage 4 (severe); N18.4 - Chronic kidney disease, stage 4 (severe); Z79.4 - snf (current) use of insulin; Z79.4 - snf (current) use of insulin; Z79.4 - snf (current) use of insulin; Z79.4 - superintendent marine oil terminal (current) use of insulin (6) GLORIA (acute kidney injury) Priority: Primary Status: Acute (7) CKD (chronic kidney disease) stage 4, GFR 15-29 ml/min Priority: Secondary Status: Chronic - Discharge Medications Prescriptions: Clopidogrel [Plavix] 75 mg PO DAILY #30 tablet Gabapentin [Neurontin] 300 mg PO BID #60 capsule hydrALAZINE [HydrALAZINE] 50 mg PO BID #60 tablet Isosorbide MONOnitrate (24 HR) [Imdur] 120 mg PO DAILY #30 tab.er.24h Lisinopril [Zestril] 10 mg PO DAILY #30 tablet Sodium Bicarbonate 650 mg PO TID #90 tablet Home Medications: Aspirin [Lo-Dose Aspirin EC] 81 mg PO DAILY 11/08/16 [History] Atorvastatin Calcium [Lipitor] 80 mg PO HS 11/08/16 [History] BuPROPion SR (12 HR) [Wellbutrin SR] 150 mg PO BID 11/08/16 [History] Carvedilol [Coreg] 25 mg PO BID 11/08/16 [History] Cholecalciferol (Vitamin D3) [Vitamin D3] 2,000 unit PO DAILY 11/08/16 [History] Ferrous Gluconate 324 mg PO BID 11/08/16 [History] Insulin Glargine [Lantus] 20 unit SQ HS 11/08/16 [History] Mometasone/Formoterol [Dulera 200 Mcg/5 Mcg Inhaler] 2 puff IH DAILY 11/08/16 [ History] Omeprazole [PriLOSEC] 20 mg PO DAILY 11/08/16 [History] Tamsulosin HCl [Flomax] 0.4 mg PO DAILY 11/08/16 [History] Tramadol HCl [Ultram] 50 mg PO TID PRN 11/08/16 [History] Trazodone HCl 100 mg PO HS PRN 11/08/16 [History] Vit C/E/Zn/Coppr/Lutein/Zeaxan [Preservision Areds 2 Softgel] 1 tab PO BID 11/08 [History] Albuterol Sulfate [Albuterol Inhaler] 2 puff IH QID 05/09/17 [History] Calcitriol [Rocaltrol] 0.25 mcg PO DAILY 05/09/17 [History] Cetirizine HCl [Zyrtec] 10 mg PO HS 05/09/17 [History] Ipratropium [ATROVENT Inhaler] 2 puff IH BID 05/09/17 [History] Ipratropium/Albuterol Neb [Duoneb] 3 ml IH Q6HR PRN 05/09/17 [History] Amlodipine Besylate 10 mg PO DAILY 06/04/17 [History] Calcium Carbonate 1,300 mg PO DAILY 06/04/17 [History] Furosemide [Lasix] 40 mg PO BID 06/04/17 [History] GuaiFENesin/Dextromethorphan [Tussin Dm Syrup] 5 ml PO BID PRN 06/04/17 [History ] Prazosin HCl [Minipress] 10 mg PO HS 06/04/17 [History] Clopidogrel [Plavix] 75 mg PO DAILY #30 tablet 06/19/17 [Rx] Gabapentin [Neurontin] 300 mg PO BID #60 capsule 06/19/17 [Rx] Isosorbide MONOnitrate (24 HR) [Imdur] 120 mg PO DAILY #30 tab.er.24h 06/19/17 [ Rx] Lisinopril [Zestril] 10 mg PO DAILY #30 tablet 06/19/17 [Rx] Sodium Bicarbonate 650 mg PO TID #90 tablet 06/19/17 [Rx] hydrALAZINE [HydrALAZINE] 50 mg PO BID #60 tablet 06/19/17 [Rx] Allergies/Adverse Reactions: 3 Allergy/AdvReac Type Severity Reaction Status Date / Time Doxepin Allergy Hives Verified 11/07/16 22:47 Penicillins Allergy Hives Verified 11/07/16 22:47 Sulfa (Sulfonamide Allergy Hives Verified 11/07/16 22:47 Antibiotics) Procedures/tests Complete & Pending: Procedures Performed prior 72 hours Category Date Time Status CL Cardiac Catheterization [CL] Routine Musical Instrument Supervisor 06/16/17 11:38 Completed EV ankle brachial index BI Routine Y 06/19/17 07:13 Ordered Date of admission: 06/05/17 04:20 [facility] Consults: 06/05/17 16:54 Consult to Pulmonology [CONS] Routine Consulting Provider: Walt Lind Reason for Consult: COPD and CHF , hypoxia, need BIPAP Time Notified: 16:55 Call Completed: Yes 06/06/17 10:39 Consult to Nephrology [CONS] Routine Consulting Provider: Kidney & HTN Spclst RODRI Reason for Consult: ARF on CKD III Call Completed: Yes 06/06/17 10:48 Consult to Cardiology [CONS] Routine Comment: Consulting Provider: Arlene Bains Reason for Consult: CHD diastolic Call Completed: Yes 06/06/17 12:33 Consult to Invasive Line Access Team [CONS] Routine Reason for Consult: LIMITED ACCESS Line Type: EPIV 06/11/17 14:38 Consult to Wound Care [CONS] Routine Reason for Consult: WOUND TO LEFT LOWER LEG Call Completed: Yes 06/16/17 11:32 Consult to Cardiology [CONS] Routine Comment: Consulting Provider: Cardiology Julianne Reason for Consult: LHC, per hospitalist Call Completed: Yes 06/17/17 14:44 Consult to Vascular Surgery [CONS] Routine Consulting Provider: Vascular Surgery [place] Reason for Consult: PAD--95% right iliac stenosis, claudication symptoms Call Completed: Yes - Patient Status Disposition: Home, Self-Care Overall status at discharge: patient is progressing back to baseline - Discharge Instructions Instructions: Lisinopril (By mouth), Gabapentin (By mouth), Hydralazine (By mouth), Isosorbide Mononitrate (By mouth), Clopidogrel (By mouth), Sodium Bicarbonate (By mouth) Follow Up With: Shanita Ybarra CNP [Advanced Practice Nurse] - 07/03/17 2:45 pm (Needs a renal panel done before visit) Keven Iniguez MD [Partnered Physician] - 07/28/17 9:00 am () [facility],PCP [Primary Care Provider] - 06/26/17 11:15 am (This is at the discharge clinic in [place] [address].) - Diet and Activity Activity: increase activity as tolerated Diet: diabetic diet, low salt diet Hospital course: Mr. Jackson is a 67 year old male with extensive history of COPD, CHF and CAD arrives to the emergency department complaining of dyspnea at the [facility]. The patient had a workup at the [facility] urgent care which revealed a small leukocytosis of 12.8, potassium of 5.8, creatinine of 2.8, elevated pro BNP, with a chest x-ray that demonstrates decompensated CHF associated with pulmonary edema. The patient was apparently going to be admitted to the [facility] but specialist did not feel he was appropriate at the [facility]. It was at that time he was transferred to [facility] emergency department for further care and workup. The patient arrived to [facility] emergency department 89% on 3 L nasal cannula. He was switched quickly to BiPAP due to elevated respiratory rate and slight alteration of mentation. The patient was admitted to the hospitalist service for an acute exacerbation of heart failure as well as some component of COPD exacerbation. The patient does have chronic kidney disease and his creatinine did elevate above baseline and we had multiple services following the patient including cardiology, pulmonary, nephrology. The patient was maintained initially on BiPAP and Lasix drip and eventually switched to IV Lasix and then oral Lasix. [facility] and noted that his EF was 30% there. They offered him a cardiac catheter and discussion was done with the patient, family, nephrology about the need for left heart catheter with an elevated kidney function. Eventually the patient went for heart catheterization and was given Mucomyst prior to that. His heart catheter showed double vessel coronary artery disease with previously stented mid LAD and diagonal patent. There was PUBLIC INFORMATION COORDINATOR of the proximal RCA. During the heart catheter while the femoral artery was being accessed on the right, and was noted by the finisher map and chart that the patient had 95% right iliac stenosis for which vascular were consulted and started patient on Plavix. He will follow-up with vascular. He had no vascular intervention done. He will also follow up with cardiology as well as nephrology. The patient was stable for discharge on 06/19/2017. - Time Spent with Patient Total time spent providing and/or coordinating discharge services: Greater than 30 minutes - Constitutional Vitals: Temp Pulse Resp BP Pulse Ox 97.5 F L 80 125 183/89 91 06/19/17 07:34 06/19/17 08:09 06/19/17 07:34 06/19/17 07:34 06/19/17 07:34 General appearance: Present: A&O X 3, morbidly obese, pleasant, no acute distress, answers questions appropriately Exam: GEN: NAD CVS: RRR. S1, S2, No m/r/g RESP: CTAB ABD: Soft, NT, ND, +BS EXT: No edema. 2+ DP. No rashes NEURO: Nonfocal - VTE Documentation of Mechanical Device: Graduated compression elastic hosiery
--- NOTE | 2017-06-19 09:47 | Nephrology Progress Note ---
Date of Encounter: 06/19/17 Time of Encounter: 09:35 - Assessment and Plan (1) GLORIA (acute kidney injury) Current Visit: No Status: Acute GLORIA superimposed on CKD, Baseline creat 2.8-3.0 in setting CHF, COPD exacerbation, diuretics. Renal fct stable post [facility], creat 2.71. SBP elevated 180 , will add Lisinopril 10 mg daily. Will follow in office in two weeks with labs. Subjective Principal diagnosis: Decompensated systolic heart failure Interval history: Laying in bed. S/P LH. Medical management. Objective - Vital Signs Vital signs: Vital Signs Temp Pulse Resp BP Pulse Ox 06/19/17 08:09 80 06/19/17 07:34 97.5 F L 79 125 183/89 91 06/19/17 05:15 73 06/19/17 03:47 16 93 06/19/17 03:30 97.4 F L 80 18 187/77 93 06/19/17 00:40 77 06/19/17 00:16 98.0 F 80 18 181/83 94 06/18/17 23:47 16 94 06/18/17 21:15 81 06/18/17 20:16 18 94 06/18/17 19:42 93 18 172/91 94 06/18/17 16:38 18 97 06/18/17 16:04 98.0 F 81 18 162/78 92 06/18/17 15:57 77 06/18/17 11:30 93 06/18/17 11:25 97.8 F 80 18 147/69 95 06/18/17 11:15 16 96 Intake and Output 06/18/17 06/19/17 06/19/17 23:59 07:59 15:59 Intake Total 540 / 540 240 / 240 Output Total 520 / 520 520 / 520 Balance -520 / -520 20 / 20 240 / 240 Intake: Oral 540 / 540 240 / 240 Output: Urine 520 / 520 520 / 520 Other: Meal Dinner Breakfast Percent of Meal Consumed 100% 100% Weight 105.829 kg Blood Glucose* 162 73 Patient Weight 06/19/17 23:59 Weight 105.829 kg - General Appearance General appearance: Present: well-developed, well-nourished, appears started age EENT: Present: mucous membranes moist Neck: Present: no JVD Respiratory: Present: clear Cardiology: Present: regular rate, regular rhythm Additional Comments: mild edema, shriveled skin Gastrointestinal: Present: normoactive bowel sounds, no tenderness Integumentary: Present: warm and dry Neurologic: Present: alert and oriented x3 - Lab 06/19/17 03:39 06/19/17 03:39 Most recent lab results Calcium 8.1 mg/dL (8.6-10.3) L 06/19/17 03:39 Phosphorus 3.4 mg/dL (2.7-4.5) 06/09/17 06:30 Magnesium 1.3 mg/dL (1.6-2.6) L 06/09/17 06:30 - VTE Documentation of Mechanical Device: Graduated compression elastic hosiery Consult Discharge Plan - Plan Referrals: Shanita Ybarra CNP [Advanced Practice Nurse] - (2 weeks) Keven Iniguez MD [Partnered Physician] - (2 weeks) [facility],PCP [Primary Care Provider] - 06/26/17 11:15 am (This is at the discharge clinic in [place] [address].)
[2017-06-19] MEDS: Budesonide/Formoterol 160/4.5 MDI IH SCH (10:45)
[2017-06-19 10:48] VITALS: BP 159/84
--- NOTE | 2017-06-20 07:54 | Vascular/Endovas Progress Note ---
Date of Encounter: 06/19/17 Time of Encounter: 10:30 - Assessment and plan (1) Atherosclerosis of [place] arteries of extremities with intermittent claudication, bilateral legs Status: Chronic The patient has a long history of peripheral vascular disease with disabling claudication. He continues to deny rest pain, ulceration or gangrene. He has a diminished pulse exam. His ambulation is limited by shortness of breath. He was advised to continue with ASA and take Plavix. His vascular labs were reviewed. His ABIs are consistent with moderate disease. He may follow-up in vascular clinic after discharge. (2) CAD (coronary artery disease) Status: Chronic Qualifiers: Coronary Disease-Associated Artery/Lesion type: [place] artery [place] vs. transplanted heart: [place] heart Associated angina: without angina Qualified Code(s): I25.10 - Atherosclerotic heart disease of [place] coronary artery without angina pectoris (3) HTN (hypertension) Status: Chronic He was again counseled regarding atherosclerotic risk factor reduction. Qualifiers: Hypertension type: essential hypertension Qualified Code(s): I10 - Essential (primary) hypertension (4) Tobacco abuse Status: Chronic He was counseled again regarding atherosclerotic risk factor reduction. (5) Diabetes mellitus Status: Chronic Qualifiers: Diabetes mellitus type: type 2 Diabetes mellitus complication status: with kidney complications Diabetes mellitus complication detail: with chronic kidney disease Diabetes mellitus termite control technician insulin use: with termite control technician use Chronic kidney disease stage: stage 4 (severe) Qualified Code(s): E11.22 - Type 2 diabetes mellitus with diabetic chronic kidney disease; N18.4 - Chronic kidney disease, stage 4 (severe); N18.4 - Chronic kidney disease, stage 4 ( severe); N18.4 - Chronic kidney disease, stage 4 (severe); N18.4 - Chronic kidney disease, stage 4 (severe); Z79.4 - intermodal truck driver (current) use of insulin; Z79.4 - intermodal truck driver (current) use of insulin; Z79.4 - intermodal truck driver (current) use of insulin; Z79.4 - group home (current) use of insulin - Subjective Interval history: The patient states that he feels well today. He denies any leg pain or tenderness He denies chest pain or shortness of breath. - Physical Examination General: Present: Conversant, No Apparent Distress Cardiac: Present: Reg Rate and Rhythm Lungs: Present: Normal Breath Sounds Neuro: Present: Alert and responsive, Motor nerves grossly intact, Other Vascular: Present: Normal capillary refill, Pulse, diminished. Absent: Cyanosis , Edema Abdomen: Present: Soft, Non-tender Skin: Present: No rashes noted on visualized skin - VTE Documentation of Mechanical Device: Graduated compression elastic hosiery Results 06/19/17 03:39 06/19/17 03:39 - Imaging / Other Tests Non Invasive Vascular Testing: report reviewed, image reviewed (Right RAMSEY 0.61, Left RAMSEY 0.69) Consult Discharge Plan - Plan Instructions: Lisinopril (By mouth), Gabapentin (By mouth), Hydralazine (By mouth), Isosorbide Mononitrate (By mouth), Clopidogrel (By mouth), Sodium Bicarbonate (By mouth) Referrals: Shanita Ybarra CNP [Advanced Practice Nurse] - 07/03/17 2:45 pm (Needs a renal panel done before visit) Keven Iniguez MD [Partnered Physician] - 07/28/17 9:00 am () [facility] [Primary Care Provider] - 06/26/17 11:15 am (This is at the discharge clinic in [place] [id number].) Prescriptions: Clopidogrel [Plavix] 75 mg PO DAILY #30 tablet Gabapentin [Neurontin] 300 mg PO BID #60 capsule hydrALAZINE [HydrALAZINE] 50 mg PO BID #60 tablet Isosorbide MONOnitrate (24 HR) [Imdur] 120 mg PO DAILY #30 tab.er.24h Lisinopril [Zestril] 10 mg PO DAILY #30 tablet Sodium Bicarbonate 650 mg PO TID #90 tablet
== END 2017-06-19 15:15 | disposition home or self-care (01) | DRG 286 ==
LOC: 2NNU 20:34 → EMEROO 20:34 → 2NNU 23:20 → SUATTDRO 06-05 04:20
PROVIDERS: ADMIT Pediatrics; ATTEND Internal Medicine

== ENCOUNTER 2017-06-22 14:50 | Inpatient (IN) ==
[2017-06-22] MEDS ORDERED: Ipratropium/Albuterol Neb 3 ML IH ONE (14:57)
[2017-06-22] MEDS ORDERED: methylPREDNISolone 125 MG/2 ML VIAL IVP ONE (14:57)
--- NOTE | 2017-06-22 15:18 | Emergency Department Note ---
Disposition Clinical Impression: Hypoxia, COPD exacerbation, Elevated troponin CHF exacerbation Qualifiers: Congestive heart failure type: unspecified Qualified Code(s): I50.9 - Heart failure, unspecified Disposition: Admitted As Inpatient Condition: Fair Referrals: [facility] [Primary Care Provider] - Forms: ED Satisfaction Letter Time of Disposition: 18:01 SOB HPI - General Chief Complaint: ED Shortness of Breath/Dyspnea Stated Complaint: difficulty in breathing Time Seen by Provider: 06/22/17 14:55 Source: patient, EMS Mode of arrival: EMS Limitations: no limitations Nursing Notes Reviewed: Yes Vital Signs Reviewed: Yes - History of Present Illness Patient is a 67-year-old male with past medical history of COPD, CHF, CAD with stent placement, hypertension, CKD, hyperlipidemia. He presents today via EMS due to shortness of breath. Patient with at the [facility] urgent care. While there, he was found to be hypoxic. He had an elevated troponin level of 1.24. The patient was given aspirin 325 mg, Lasix 20 mg IV, had a chest x- ray and EKG performed. EKG showed no acute ST changes. No official read was sent over for chest x-ray. On presentation, the patient had been placed on CPAP by EMS. EMS states that when they first picked the patient up, he was pale and had perioral cyanosis. The patient noted significant improvement in breathing after being placed on CPAP. His only complaint currently is shortness of breath and increased lower extremity swelling despite taking Lasix 80 mg daily and also taking steroid inhalers daily. He also states that he has been taking daily prednisone as well. He was just recently discharged for difficulty in breathing within the past few weeks from our hospital. - Related Data Home Medications Medication Instructions Recorded Confirmed Aspirin [Lo-Dose Aspirin EC] 81 mg PO DAILY 11/08/16 06/04/17 Atorvastatin Calcium [Lipitor] 80 mg PO HS 11/08/16 06/04/17 BuPROPion SR (12 HR) [Wellbutrin 150 mg PO BID 11/08/16 06/04/17 SR] Carvedilol [Coreg] 25 mg PO BID 11/08/16 06/04/17 Cholecalciferol (Vitamin D3) 2,000 unit PO DAILY 11/08/16 06/04/17 [Vitamin D3] Ferrous Gluconate 324 mg PO BID 11/08/16 06/04/17 Insulin Glargine [Lantus] 20 unit SQ HS 11/08/16 06/04/17 Mometasone/Formoterol [Dulera 200 2 puff IH DAILY 11/08/16 06/04/17 Mcg/5 Mcg Inhaler] Omeprazole [PriLOSEC] 20 mg PO DAILY 11/08/16 06/04/17 Tamsulosin HCl [Flomax] 0.4 mg PO DAILY 11/08/16 06/04/17 Tramadol HCl [Ultram] 50 mg PO TID PRN 11/08/16 06/04/17 Trazodone HCl 100 mg PO HS PRN 11/08/16 06/04/17 Vit C/E/Zn/Coppr/Lutein/Zeaxan 1 tab PO BID 11/08/16 06/04/17 [Preservision Areds 2 Softgel] Albuterol Sulfate [Albuterol 2 puff IH QID 05/09/17 06/04/17 Inhaler] Calcitriol [Rocaltrol] 0.25 mcg PO DAILY 05/09/17 06/04/17 Cetirizine HCl [Zyrtec] 10 mg PO HS 05/09/17 06/04/17 Ipratropium [ATROVENT Inhaler] 2 puff IH BID 05/09/17 06/04/17 Ipratropium/Albuterol Neb [Duoneb] 3 ml IH Q6HR PRN 05/09/17 06/04/17 Amlodipine Besylate 10 mg PO DAILY 06/04/17 06/04/17 Calcium Carbonate 1,300 mg PO DAILY 06/04/17 06/04/17 Furosemide [Lasix] 40 mg PO BID 06/04/17 06/04/17 GuaiFENesin/Dextromethorphan 5 ml PO BID PRN 06/04/17 06/04/17 [Tussin Dm Syrup] Prazosin HCl [Minipress] 10 mg PO HS 06/04/17 06/04/17 Previous Rx's Medication Instructions Recorded Clopidogrel [Plavix] 75 mg PO DAILY #30 tablet 06/19/17 Gabapentin [Neurontin] 300 mg PO BID #60 capsule 06/19/17 Isosorbide MONOnitrate (24 HR) 120 mg PO DAILY #30 tab.er.24h 02/01/18 [Imdur] Lisinopril [Zestril] 10 mg PO DAILY #30 tablet 06/19/17 Sodium Bicarbonate 650 mg PO TID #90 tablet 06/19/17 hydrALAZINE [HydrALAZINE] 50 mg PO BID #60 tablet 06/19/17 Allergies Allergy/AdvReac Type Severity Reaction Status Date / Time Doxepin Allergy Hives Verified 11/07/16 22:47 Penicillins Allergy Hives Verified 11/07/16 22:47 Sulfa (Sulfonamide Allergy Hives Verified 11/07/16 22:47 Antibiotics) All systems ED: reviewed and negative except as stated. Constitutional: Denies: fever Cardiovascular: Denies: chest pain Respiratory: Reports: cough, dyspnea Gastrointestinal: Denies: abdominal pain, nausea, vomiting, diarrhea Genitourinary: Denies: urgency, dysuria, frequency, hematuria Neurological: Denies: weakness, numbness, paresthesias Past Medical History - Past Medical History Attestation: Yes The following information was validated with the patient. Source: patient Medical history: Reports: CHF, COPD, coronary artery disease, diabetes, hyperlipidemia, hypertension, peripheral artery disease, renal disease Surgical history: Reports: appendectomy Psychiatric history: Reports: depression, PTSD - Social History Smoking Status: Current every day smoker Smokeless Tobacco Status: No Alcohol use: Reports: none Drug use: Reports: none Physical Exam - General Limitations: other General appearance: alert - Head Head exam: atraumatic, normocephalic, normal inspection - Eye Eye exam: Present: normal appearance, PERRL, EOMI - ENT ENT exam: normal exam, normal oropharynx, mucous membranes moist - Neck Neck exam: Present: normal inspection, full ROM, trachea midline - Chest Chest inspection: Present: normal inspection, symmetric chest wall rise - Respiratory Respiratory exam: Present: wheezes (Wheezes and decreased aeration throughout), accessory muscle use, other (Currently on CPAP by EMS) - Cardiovascular Cardiovascular exam: Present: regular rate, normal rhythm, normal heart sounds - Abdominal Exam Abdominal exam: Present: soft, Non-Tender. Absent: tenderness, distention, guarding, rebound, rigidity - Extremities Exam Extremities exam: Present: full ROM, pedal edema (Bilateral lower extremity pitting edema and venous stasis dermatitis). Absent: tenderness - Neurological Exam Neurological exam: Present: alert, oriented X3 - Psychiatric Psychiatric exam: Present: normal affect, normal mood - Skin Skin exam: Present: warm, dry, intact Course Course Narrative: Patient is currently satting 97% on CPAP. He is also hypertensive. The rest of the vitals within normal limits. Patient has already been given aspirin 325 and IV Lasix at [facility]. We will repeat blood work, troponin. We will obtain chest x-ray. Patient will need be admitted due to hypoxia, increased work of breathing, COPD exacerbation versus CHF exacerbation. We will also place the patient on BiPAP. 17:55 patient had no acute ST changes on EKG, sinus rhythm. However, he did have an elevated troponin of 1.1. Chest x-ray shows persistent bilateral pleural effusions. Creatinine 2.77, near baseline for him. He denies any current chest pain but does admit to dyspnea. This is the highest his troponin has been when compared to previous records. I spoke with Dr. Mejia with cardiology, we discussed starting heparin despite no chest pain at this time. Dr. Mejia was agreeable with this plan after discussing case, no further recommendations and he will act as a consult. Patient is tolerating BIPAP well. Will admit for elevated trop, COPD vs CHF exacerbation. Chest X-Ray 06/22/17 14:56 IMPRESSION: Small persistent bilateral pleural effusions and bibasilar atelectasis. D/ / Lazaro Logan MD / Lazaro Logan MD Interpreting Provider: Lazaro Logan MD Vital Signs Temperature 97 F L 06/22/17 14:53 Pulse Rate 84 06/22/17 14:53 Respiratory Rate 16 06/22/17 14:53 Blood Pressure 190/109 06/22/17 14:53 O2 Sat by Pulse Oximetry 97 06/22/17 14:53 Temperature 97 F L 06/22/17 15:01 Pulse Rate 74 06/22/17 18:00 Respiratory Rate 20 06/22/17 18:00 Blood Pressure 193/89 06/22/17 18:00 O2 Sat by Pulse Oximetry 97 06/22/17 18:00 Oxygen Delivery Oxygen Delivery Bipap Shortness of Breath/Dyspnea - [facility] [place] Narrative Medical decision making narrative: Patient is currently satting 97% on CPAP. He is also hypertensive. The rest of the vitals within normal limits. Patient has already been given aspirin 325 and IV Lasix at [facility]. We will repeat blood work, troponin. We will obtain chest x-ray. Patient will need be admitted due to hypoxia, increased work of breathing, COPD exacerbation versus CHF exacerbation. We will also place the patient on BiPAP. 17:[address] had no acute ST changes on EKG, sinus rhythm. However, he did have an elevated troponin of 1.1. Chest x-ray shows persistent bilateral pleural effusions. Creatinine 2.77, near baseline for him. He denies any current chest pain but does admit to dyspnea. This is the highest his troponin has been when compared to previous records. I spoke with Dr. Mejia with cardiology, we discussed starting heparin despite no chest pain at this time. Dr. Mejia was agreeable with this plan after discussing case, no further recommendations and he will act as a consult. Patient is tolerating BIPAP well. Will admit for elevated trop, COPD vs CHF exacerbation. - Medical Records Medical records reviewed: Yes I reviewed the patient's medical records. - Lab Data Lab results reviewed: Yes I reviewed the patient's lab results. Result diagrams: 06/22/17 16:20 Lab Results 06/22/17 06/22/17 06/22/17 Range/Units 16:20 16:30 16:30 VBG pH (7.32-7.42) pH Units VBG pCO2 (41-51) mmHg VBG pO2 (25-50) mmHg VBG HCO3 (21-27) mEq/L Sodium 138 (136-145) mEq/L Potassium 4.2 (3.5-5.1) mEq/L Chloride 115 H (98-107) mEq/L Carbon Dioxide 17 L (23-29) mEq/L BUN 57 H (8-23) mg/dL Creatinine 2.77 H (0.70-1.30) mg/dL Est GFR ( Amer) 28 L (> 60) Est GFR (Non-Af Amer) 23 L (> 60) BUN/Creatinine Ratio 21 (6-26) Glucose 124 H (70-105) mg/dL Calculated Osmolality 303 H (280-300) Lactic Acid 0.4 L (0.5-2.2) mmol/L Calcium 8.2 L (8.6-10.3) mg/dL Troponin I 1.14 H* (< 0.04) ng/mL B-Natriuretic Peptide (Less than 100) pg/mL Specimen Rejected 06/22/17 06/22/17 06/22/17 Range/Units 16:30 16:45 16:47 VBG pH 7.38 (7.32-7.42) pH Units VBG pCO2 30 L (41-51) mmHg VBG pO2 180 H (25-50) mmHg VBG HCO3 18 L (21-27) mEq/L Sodium (136-145) mEq/L Potassium (3.5-5.1) mEq/L Chloride (98-107) mEq/L Carbon Dioxide (23-29) mEq/L BUN (8-23) mg/dL Creatinine (0.70-1.30) mg/dL Est GFR ( Amer) (> 60) Est GFR (Non-Af Amer) (> 60) BUN/Creatinine Ratio (6-26) Glucose (70-105) mg/dL Calculated Osmolality (280-300) Lactic Acid (0.5-2.2) mmol/L Calcium (8.6-10.3) mg/dL Troponin I (< 0.04) ng/mL B-Natriuretic Peptide 1803 H (Less than 100) pg/mL Specimen Rejected Clotted - Radiology Data Radiology results reviewed: Yes I reviewed the patient's radiology results. Chest X-Ray 06/22/17 14:56 IMPRESSION: Small persistent bilateral pleural effusions and bibasilar atelectasis. D/ / Lazaro Logan MD / Lazaro Logan MD Interpreting Provider: Lazaro Logan MD - EKG Data EKG attestation: Yes I reviewed and interpreted this EKG. EKG results narrative: 06/22/2017 at 14:56. Normal sinus rhythm. Rate 84. FL 155. QRS 117. QTC 407. No acute ST elevation or depression when compared to 06/04/2017 EKG S.B.A.R. - S.B.A.R. Situation: Demographics, MOA Background: Presenting Complaint, Relevant PMH, Meds, & Allergies Assessment: Vital Signs, Course and respsone to treatment, Exam Concerns, Patient/Family Expectation, Pertinant Lab Results, Outstanding Labs Recommendation: Barrier(s) to disposition, Recommendation based on pending studies, treatments, or consults Stanislaw Report Given to: Cain Dover Repor Time: 18:01 Attestation Statement - Attestation Attestation: I examined this patient and my medical decision-making was reviewed with the Resident Physician. I agree with the documented findings, disposition and treatment plan as described except to the extent set forth below. Patient was not hypoxic respiratory failure requiring BiPAP. Possible superimposed and STEMI. We will proceed with heparinization. Continue BiPAP. Patient has clinical improvement with placement of BiPAP and resolution of hypoxia. Critical care performed: Time is exclusive of separately billable procedures. Time includes: direct patient care, patient reassessment, coordination of patient care, interpretation of data (laboratory data, radiology data, and respiratory data), review of patient's medical records, medical consultation and documentation of patient care. Procedures included in critical care time:35 Procedures excluded from critical care time: 0
[2017-06-22 16:49] LABS: VBG HCO3 18 mEq/L (21-27); VBG PCO2 30 mmHg (41-51); VBG PH 7.38 pH Units (7.32-7.42); VBG PO2 180 mmHg (25-50)
[2017-06-22 17:02] LABS: Calcium 8.2 mg/dL (8.6-10.3); Potassium 4.2 mEq/L (3.5-5.1)
[2017-06-22] MEDS ORDERED: *HR* Heparin 5,000 UNIT/ML VIAL IVP ONE (17:07)
[2017-06-22] MEDS ORDERED: *HR* Heparin 5,000 UNIT/ML VIAL IVP PRN ×2 (17:07)
[2017-06-22 18:19] LABS: Hematocrit 32.5 % (37.5-50.1); Hemoglobin 10.5 g/dL (12.9-16.9); Mean Corpuscular HGB Conc 32.3 g/dL (31.6-35.5); Mean Corpuscular Hemoglobin 29.2 pg (28.0-33.3); Mean Corpuscular Volume 90.5 fL (83.0-100.0); Mean Platelet Volume 9.4 fL (9.4-12.4); Platelet Count 190 K/mcL (140-400); Red Blood Count 3.59 M/mcL (4.19-5.50)
[2017-06-22 18:24] LABS: INR 1.1; Prothrombin Time 12.1 Seconds (9.4-12.1)
[2017-06-22 18:27] LABS: Activated Partial Thrombo Time 37.7 Seconds (26.0-36.0)
[2017-06-22] MEDS: Heparin 25,000 UNIT/500 ML D5W 25,000 UNIT/500 ML BAG IVC SCH (18:54)
[2017-06-22] MEDS ORDERED: *HR* HYDROcodone/Acet 5/325 mg TABLET PO PRN (19:38)
[2017-06-22] MEDS ORDERED: Naloxone 0.4 MG/ML INJ IVP PRN (19:38)
[2017-06-22] MEDS ORDERED: Acetaminophen 325 MG TABLET PO PRN (19:38)
[2017-06-22] MEDS ORDERED: Ipratropium/Albuterol Neb 3 ML IH PRN (20:32)
--- NOTE | 2017-06-22 20:41 | Internal Med History&Physical ---
<Cain Eric - Last Filed: 06/22/17 22:09> Date of Encounter: 06/22/17 Time of Encounter: 18:00 Assessment and Plan (1) Acute exacerbation of CHF (congestive heart failure) Current visit: Yes Status: Acute Acute on chronic exacerbation of CHF. BNP 1803 on admission. Hx of COPD and CHF , tobacco abuse. Pt. hypoxic on admission w/pedal edema bilaterally and edema in hands. Pt. reports taking 40 mg PO lasix BID. Will hold PO lasix and administer 40 mg IVP lasix BID. 1.5L daily fluid restriction. Monitor I&O and daily weight. Continuous cardiac telemetry. Supplemental O2 w/titration and SpO2 monitoring. DuoNebs Q4 PRN. Echocardiogram on 05/09/17 showed LVEF 30%, normal LV chamber size, global left ventricular systolic dysfunction, mild concentric left ventricular hypertrophy, mild left ventricular diastolic dysfunction, normal right ventricular structure and function, mild mitral regurgitation, severe pulmonary hypertension, and estimated RSVP is 60 mmHg. Cardiology consult ordered in ED and I appreciate the consult. Pt. discussed w/ Dr. Simmons who agrees w/plan of care. Pt. is high risk for cardiac event, respiratory distress, and further morbidity d/t current hypoxia, elevated troponin, acute exacerbation of CHF, current sx, hx, and risk factors. Inpatient. Qualifiers: Congestive heart failure type: unspecified Qualified Code(s): I50.9 - Heart failure, unspecified (2) Respiratory failure with hypoxia Current visit: Yes Status: Acute Acute respiratory failure with hypoxia most likely due to current acute exacerbation of CHF. Patient has history of COPD and CHF with recent tobacco abuse. Patient reports he has been hospitalized 5 times in the past month. Chest x-ray today shows small persistent bilateral pleural effusions and bibasilar atelectasis. Patient placed on BiPAP/CPAP on and off times. ABG ordered. Supplemental O2 with titration and SPO2 monitoring. DuoNeb every 4 when necessary. Continuous cardiac telemetry. Pt. reports being discharged on 06/19/17 following heart cath on 06/17/16 and being SOB since. Pt. to be monitored closely for signs of cardiac and/or respiratory distress. Qualifiers: Chronicity: acute Qualified Code(s): J96.01 - Acute respiratory failure with hypoxia (3) Leukocytosis Current visit: Yes Status: Acute Acute leukocytosis w/WBC of 15.2 on admission. Most likely reactive to CHF exacerbation and hypoxia d/t pts. denial of fever, chills, N/V, diarrhea. Blood cultures x2 ordered in ED. Respiratory infection panel ordered. Will add abx coverage based on culture and infection panel results if warranted. Qualifiers: Leukocytosis type: unspecified Qualified Code(s): D72.829 - Elevated white blood cell count, unspecified (4) Elevated troponin Current visit: Yes Status: Acute Acutely elevated initial troponin of 1.14 on admission. Pt. had elevated troponin in 05/04 of 0.04 and 0.05. Pt. placed on heparin drip. Denies chest pain. Pt. currently in CHF exacerbation. Will continue to trend troponin. Continuous cardiac telemetry. Cardiology consult ordered in ED and I appreciate the consult. Continue aspirin, HTN and HLD medications. Nitro PRN. Continue heparin drip. (5) HTN (hypertension) Current visit: Yes Status: Chronic Hx of chronic HTN. Monitor pt. and VS. Continue pts. Imdur, lisinopril, hydralazine, Coreg, amlodipine. Qualifiers: Hypertension type: essential hypertension Qualified Code(s): I10 - Essential (primary) hypertension (6) HLD (hyperlipidemia) Current visit: Yes Status: Chronic Hx of chronic HLD. Lipid panel in a.m. labs. Continue pts. Lipitor. Qualifiers: Hyperlipidemia type: pure hypercholesterolemia Qualified Code(s): E78.00 - Pure hypercholesterolemia, unspecified; E78.0 - Pure hypercholesterolemia (7) CAD (coronary artery disease) Current visit: Yes Status: Chronic Hx of chronic CAD. Continuous cardiac telemetry. Continue pts. aspirin, Lipitor , carvedilol, amlodipine, Imdur, lisinopril, hydralazine. Qualifiers: Coronary Disease-Associated Artery/Lesion type: [place] artery [place] vs. transplanted heart: [place] heart Associated angina: without angina Qualified Code(s): I25.10 - Atherosclerotic heart disease of [place] coronary artery without angina pectoris (8) CKD (chronic kidney disease) stage 4, GFR 15-29 ml/min Current visit: Yes Status: Chronic Hx of CKD. Currently stage 4 w/GFR of 23 and creatinine of 2.77. Will use IV fluids judiciously d/t current renal dysfunction and acute exacerbation of CHF. Avoid nephrotoxins. Monitor I&O and daily weight. (9) Diabetes mellitus Current visit: Yes Status: Chronic Hx of chronic diabetes controlled w/insulin. BG checks ACHS. A1c in a.m. labs. Low-dose correction insulin sliding scale w/hypoglycemic protocol. 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 started on heparin drip. Will monitor pt. for signs of bleeding. Internal Medicine - H&P: HPI Chief complaint: SOB/Dyspnea Admitted From: Emergency Dept Plans for Post Hospital Care: Home History of present illness: Mr. Jackson is a 67 year old male with medical history of CHF, COPD, CAD, diabetes controlled with insulin, HLD, HTN, PVD, and CK-MB presents from the ED with chief complaint of shortness of breath and dyspnea since 06/19/17 when he was released from the hospital following heart catheterization on June 17. Patient reports he has jagdeep hospitalized 5x in last month. Reports hx of CO in July 2014 w/stent placement x2. Patient reports SOB/dyspnea, orthopnea, weight gain, and pedal edema but denies recent illness, fever, chills, nausea, vomiting, chest pain, changes in vision, headache, abdominal pain, dizziness, lightheadedness, pre-syncope or syncope. Past Med Surg Social Fam HX - Past Medical History Source: patient, old records reviewed Medical history: CHF, COPD, coronary artery disease, diabetes, hyperlipidemia, hypertension, peripheral artery disease, renal disease Psychiatric history: depression, PTSD - Past Surgical History Surgical History: appendectomy - Social History Smoking Status: Former smoker Packs per day: Reports quitting 06/19/17 Smokeless Tobacco Status: No Alcohol use: none Drug use: none Current living situation: Home, With Family Activity Level: Independent ambulation Recent Out of Country Travel Within the Last 8 Weeks: No Exposure or Possible Exposure to Illness During Travel: No - Family History Mother Race: Family Member Ethnicity: Non- Living Status: Internal Medicine - H&P: Meds Aspirin [Lo-Dose Aspirin EC] 81 mg PO DAILY 11/08/16 [History] Atorvastatin Calcium [Lipitor] 80 mg PO HS 11/08/16 [History] BuPROPion SR (12 HR) [Wellbutrin SR] 150 mg PO BID 11/08/16 [History] Carvedilol [Coreg] 25 mg PO BID 11/08/16 [History] Cholecalciferol (Vitamin D3) [Vitamin D3] 2,000 unit PO DAILY 11/08/16 [History] Ferrous Gluconate 324 mg PO BID 11/08/16 [History] Insulin Glargine [Lantus] 20 unit SQ HS 11/08/16 [History] Mometasone/Formoterol [Dulera 200 Mcg/5 Mcg Inhaler] 2 puff IH DAILY 11/08/16 [ History] Omeprazole [PriLOSEC] 20 mg PO DAILY 11/08/16 [History] Tamsulosin HCl [Flomax] 0.4 mg PO DAILY 11/08/16 [History] Tramadol HCl [Ultram] 50 mg PO TID PRN 11/08/16 [History] Trazodone HCl 100 mg PO HS PRN 11/08/16 [History] Vit C/E/Zn/Coppr/Lutein/Zeaxan [Preservision Areds 2 Softgel] 1 tab PO BID 11/08 [History] Albuterol Sulfate [Albuterol Inhaler] 2 puff IH QID 05/09/17 [History] Calcitriol [Rocaltrol] 0.25 mcg PO DAILY 05/09/17 [History] Cetirizine HCl [Zyrtec] 10 mg PO HS 05/09/17 [History] Ipratropium [ATROVENT Inhaler] 2 puff IH BID 05/09/17 [History] Ipratropium/Albuterol Neb [Duoneb] 3 ml IH Q6HR PRN 05/09/17 [History] Amlodipine Besylate 10 mg PO DAILY 06/04/17 [History] Calcium Carbonate 1,300 mg PO DAILY 06/04/17 [History] Furosemide [Lasix] 40 mg PO BID 06/04/17 [History] GuaiFENesin/Dextromethorphan [Tussin Dm Syrup] 5 ml PO BID PRN 06/04/17 [History ] Prazosin HCl [Minipress] 10 mg PO HS 06/04/17 [History] Clopidogrel [Plavix] 75 mg PO DAILY #30 tablet 06/19/17 [Rx] Gabapentin [Neurontin] 300 mg PO BID #60 capsule 06/19/17 [Rx] Isosorbide MONOnitrate (24 HR) [Imdur] 120 mg PO DAILY #30 tab.er.24h 06/19/17 [ Rx] Lisinopril [Zestril] 10 mg PO DAILY #30 tablet 06/19/17 [Rx] Sodium Bicarbonate 650 mg PO TID #90 tablet 06/19/17 [Rx] hydrALAZINE [HydrALAZINE] 50 mg PO BID #60 tablet 06/19/17 [Rx] 3 Allergy/AdvReac Type Severity Reaction Status Date / Time Doxepin Allergy Hives Verified 11/07/16 22:47 Penicillins Allergy Hives Verified 11/07/16 22:47 Sulfa (Sulfonamide Allergy Hives Verified 11/07/16 22:47 Antibiotics) All Systems PM: A 10-system review of systems was performed and is negative for pertinent findings except as documented above in the HPI. - Constitutional Constitutional: no chills, no fever(s), no night sweats - EENT Eyes: no change in vision, no discharge, no pain, no photophobia Ears: no ear discharge, no ear pain, no tinnitus Nose, mouth and throat: no dysphagia, no nasal discharge, no neck pain, no sore throat - Breasts Breasts: as per HPI - Cardiovascular Cardiovascular ROS IM: as per HPI, dyspnea, dyspnea on exertion, edema ( Bilateral pedal edema), orthopnea, no chest pain, no diaphoresis, no lightheadedness, no palpitations, no syncope - Respiratory Respiratory: as per HPI, dyspnea, dyspnea on exertion, no cough, no wheezing, no excessive phlegm production - Gastrointestinal Gastrointestinal: no abdominal pain, no diarrhea, no hematemesis, no hematochezia, no melena, no nausea, no vomiting - Genitourinary Genitourinary ROS male: as per HPI - Musculoskeletal Musculoskeletal ROS IM: no numbness, no tingling - Integumentary Integumentary IM: as per HPI, erythema (Bilateral LEs d/t PAD), no rash, no unusual bruising - Neurological Neurological ROS: no confusion, no convulsions, no focal weakness, no numbness, no tingling, no tremor(s) - Psychiatric Psychiatric: as per HPI, anxiety, other (PTSD) - Endocrine Endocrine IM: as per HPI - Hematologic/Lymphatic Hematologic/Lymphatic: no easy bruising - Allergic/Immunologic Allergic/Immunologic: as per HPI - Constitutional Vitals: Temp Pulse Resp BP Pulse Ox 97 F L 74 21 175/83 97 06/22/17 15:01 06/22/17 18:00 06/22/17 20:06 06/22/17 20:06 06/22/17 18:00 General appearance: Present: cooperative, A&O X 3 ( ), pleasant, obese, severe distress (Respiratory), answers questions appropriately - Head Head exam: Present: atraumatic, normocephalic - Eye Eye exam: Present: PERRL, conjuntiva pink, sclera anicteric Pupils: Present: PERRL - ENT ENT exam: Present: normal exam - Neck Neck exam general surgery: Present: normal inspection, supple, trachea midline. Absent: lymphadenopathy - Respiratory Respiratory exam: Present: accessory muscle use, decreased breath sounds, CTAB, wheezes. Absent: rales, rhonchi - Cardiovascular Cardiovascular exam: Present: RRR, +S1, +S2. Absent: diastolic murmur, gallop, rubs, systolic murmur - GI/Abdominal GI/Abdominal exam: Present: normal bowel sounds, soft, no peritoneal signs. Absent: distended, tenderness - Rectal Rectal exam: Present: deferred - Additional comments: exam deferred. - Extremities Exam Extremities exam: Present: pedal edema (Bilateral), warm, radial pulses palpable and symmetrical. Absent: calf tenderness, cyanotic - Back Exam Back exam: Present: normal inspection - Neurological Exam Neurological exam: Present: CN II-XII intact, oriented X3, no focal deficits. Absent: pronater drift, facial droop, speech deficit - Psychiatric Psychiatric exam: Present: normal affect, normal mood - Skin Skin exam: Present: dry, intact Internal Med - H&P Results - Labs CBC & Chem 7: 06/22/17 18:10 06/22/17 16:20 - EKG Data EKG shows normal: sinus rhythm - EKG Data Prior EKG available for review: yes EKG comments: 06/22/17 20:52 EKG dated 06/04/17 shows sinus rhythm with poor R-wave progression, inferior myocardial infarction (probably old), baseline artifact. Repeat EKG. EKG dated 06/22/17 shows sinus rhythm with possible left atrial enlargement, possible anterior myocardial infarction of indeterminate age, inferior myocardial infarction (probably old). - Diagnostic Studies Chest x-ray Additional comments: Impressions Chest X-Ray 06/22/17 14:56 IMPRESSION: Small persistent bilateral pleural effusions and bibasilar atelectasis. D/ / Lazaro Logan MD / Lazaro Logan MD Interpreting Provider: Lazaro Logan MD <Be Simmonslisakaran - Last Filed: 06/23/17 05:21> Date of Encounter: 06/23/17 Internal Medicine - H&P: HPI History of present illness: Mr. Jackson is a 67 year old male All Systems PM: A 10-system review of systems was performed and is negative for pertinent findings except as documented above in the HPI. - Constitutional Vitals: Temp Pulse Resp BP Pulse Ox 97.4 F L 82 19 174/76 98 06/23/17 03:30 06/23/17 03:30 06/23/17 03:30 06/23/17 03:30 06/23/17 03:30 Internal Med - H&P Results - Labs CBC & Chem 7: 06/23/17 01:24 06/23/17 01:24 Labs: Short CBC 06/23/17 Range/Units 01:24 WBC 10.3 (4.3-11.1) K/mcL Hgb 9.8 L (12.9-16.9) g/dL Hct 31.2 L (37.5-50.1) % Plt Count 193 (140-400) K/mcL Neutrophils # 10.0 H (1.6-8.9) K/mcL BMP 06/23/17 01:24 Sodium 139 Potassium 4.8 Chloride 113 H Carbon Dioxide 16 L BUN 60 H Creatinine 3.05 H Glucose 285 H Calcium 8.2 L Cardiac Enzymes 06/22/17 06/23/17 Range/Units 22:32 04:01 Troponin I 1.05 H* 0.79 H* (< 0.04) ng/mL Liver Function 06/23/17 Range/Units 01:24 Total Bilirubin 0.3 (0.3-1.0) mg/dL AST 13 (13-39) Units/L ALT 23 (7-52) Units/L Alkaline Phosphatase 70 (34-104) Units/L Albumin 2.6 L (3.5-5.7) g/dL - ABG Interpretation ABG results: 06/22/17 23:22 ABG pH 7.31 L ABG pCO2 34 L ABG pO2 63 L ABG HCO3 17 L ABG Total CO2 18 L ABG O2 Saturation 90 L ABG Base Excess -8 L - Attending Attestation I have seen and examined this pt independently. I have discussed with COMBINATION WELDER Mr Gavin regarding the management plan. Agree with the documentation.
[2017-06-22] MEDS ORDERED: Dextrose Gel 15 GM/37.5 ML TUBE PO PRN ×2 (21:01)
[2017-06-22] MEDS ORDERED: D5% in Water 1,000 ML IVC PRN (21:01)
[2017-06-22] MEDS ORDERED: *HR* Dextrose 50 % in Water (Syg) 50 ML SYRINGE IVP PRN (21:01)
[2017-06-22] MEDS ORDERED: Nitroglycerin 0.4 MG TAB.SUBL SL PRN (21:13)
[2017-06-22] MEDS: Insulin LISPRO 300 UNITS/3 ML VIAL SQ SCH (22:36)
[2017-06-22] MEDS: Furosemide 40 MG/4 ML VIAL IVP SCH (22:37)
[2017-06-22 23:25] LABS: ABG Base Excess -8 mEq/L (-2 to 3); ABG HCO3 17 mEq/L (21-27); ABG Oxygen Saturation 90 % (95-98); ABG PCO2 34 mmHg (35-45); ABG PH 7.31 pH Units (7.32-7.45); ABG PO2 63 mmHg (85-104); ABG TCO2 18 mEq/L (20-26)
[2017-06-23 01:44] LABS: Basophils % 0.1 %; Hematocrit 31.2 % (37.5-50.1); Hemoglobin 9.8 g/dL (12.9-16.9); Immature Granulocytes % 0.5 % (0-4); Lymphocytes # 0.3 K/mcL (0.6-4.6); Lymphocytes % 2.4 %; Mean Corpuscular HGB Conc 31.4 g/dL (31.6-35.5); Mean Corpuscular Hemoglobin 28.9 pg (28.0-33.3); Mean Platelet Volume 10.2 fL (9.4-12.4); Monocytes % 0.3 %; Platelet Count 193 K/mcL (140-400); Red Blood Count 3.39 M/mcL (4.19-5.50); Red Cell Distribution Width 15.9 % (11.5-14.5); Segmented Neutrophils % 96.7 %
[2017-06-23 01:50] LABS: Hemoglobin A1C 5.8 %
[2017-06-23 03:19] LABS: Albumin 2.6 g/dL (3.5-5.7); Bilirubin,Total 0.3 mg/dL (0.3-1.0); Calcium 8.2 mg/dL (8.6-10.3); Chol/HDL Ratio 2.4 (0-4.9); Globulin 2.7 g/dL (2.4-3.5); Magnesium 1.2 mg/dL (1.6-2.6); Potassium 4.8 mEq/L (3.5-5.1); Total Protein 5.3 g/dL (6.4-8.9)
[2017-06-23] MEDS: Isosorbide MONOnitrate (24 HR) 60 MG TAB.ER.24H PO SCH (08:28)
[2017-06-23] MEDS: hydrALAZINE 25 MG TABLET PO SCH ×2 (08:28→21:39)
[2017-06-23] MEDS: Furosemide 40 MG/4 ML VIAL IVP SCH ×2 (08:28→17:03)
[2017-06-23] MEDS: Aspirin Enteric Coated 81 MG Tablet PO SCH (08:28)
[2017-06-23] MEDS: Insulin LISPRO 300 UNITS/3 ML VIAL SQ SCH ×4 (08:29→21:39)
--- NOTE | 2017-06-23 09:26 | Nephrology Consult Note ---
Date of Encounter: 06/23/17 Time of Encounter: 09:24 Assessment and Plan (1) Chronic kidney disease, stage IV (severe) Current Visit: Yes Status: Acute The patient has stage IV chronic kidney disease in the setting of diabetes and hypertension. He underwent a cardiac catheterization last week. His renal function is relatively stable. Patient presents again with worsening shortness of breath and fluid retention related to systolic congestive heart failure as well as severe pulmonary hypertension. His blood pressure is poorly controlled. I agree with the current regimen of IV Lasix for diuresis. I would increase the patient's PERI inhibitor to get better control of his blood pressure. The hope would be that better blood pressure control would lead to some improvement in his symptoms we will monitor his renal function as well as here in the hospital. (2) Systolic CHF, acute Current Visit: Yes Status: Acute (3) Pulmonary HTN Current Visit: Yes Status: Acute (4) Benign hypertension with chronic kidney disease, stage IV Current Visit: Yes Status: Acute (5) Type 2 diabetes mellitus with diabetic chronic kidney disease Current Visit: Yes Status: Acute Qualifiers: Diabetes mellitus chcf insulin use: with chcf use Chronic kidney disease stage: stage 4 (severe) Qualified Code(s): E11.22 - Type 2 diabetes mellitus with diabetic chronic kidney disease; N18.4 - Chronic kidney disease, stage 4 (severe); N18.4 - Chronic kidney disease, stage 4 (severe); N18.4 - Chronic kidney disease, stage 4 (severe); N18.4 - Chronic kidney disease, stage 4 (severe); Z79.4 - [facility] (current) use of insulin; 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 Patient was recently hospitalized with acute exacerbation of systolic congestive heart failure. Underwent a cardiac catheterization. He was found to have an occluded right coronary artery with collateralization. He did not undergo any intervention. Patient has had repeated hospitalizations for shortness of breath and fluid retention. Following his hospital discharge he said within a day or 2 he developed worsening shortness of breath as well as swelling. He presents now with acute exacerbation of systolic congestive heart failure and shortness of breath. He does have severe pulmonary hypertension. His pressure has been poorly controlled. This is despite increasing his medications at the time of his last hospitalization last week. From a renal perspective he is relatively stable. Serum creatinine was 2.77 on admission 3.05 today. His troponin however is slightly higher than when he was hospitalized last week. Troponin is ranged from 0.79-1.05 over the past 2 days. Patient has been experiencing some chest tightness. He has been experiencing worsening shortness of breath as well as fluid retention. Past Med Surg Social Fam HX - Past Medical History Medical history: CHF, COPD, coronary artery disease, diabetes, hyperlipidemia, hypertension, peripheral artery disease, renal disease Psychiatric history: depression, PTSD - Past Surgical History Surgical History: appendectomy - Social History Smoking Status: Former smoker Packs per day: Reports quitting 06/19/17 Smokeless Tobacco Status: No Alcohol use: none Drug use: none - Family History Mother Name: hannah yates Race: Family Member Ethnicity: Non- Living Status: Age at : 70 Cause of : bone cancer Hx Family Cancer: Yes Medications and Allergies Aspirin [Lo-Dose Aspirin EC] 81 mg PO DAILY 11/08/16 [History] Atorvastatin Calcium [Lipitor] 80 mg PO HS 11/08/16 [History] BuPROPion SR (12 HR) [Wellbutrin SR] 150 mg PO BID 11/08/16 [History] Carvedilol [Coreg] 25 mg PO BID 11/08/16 [History] Cholecalciferol (Vitamin D3) [Vitamin D3] 2,000 unit PO DAILY 11/08/16 [History] Ferrous Gluconate 324 mg PO BID 11/08/16 [History] Insulin Glargine [Lantus] 20 unit SQ HS 11/08/16 [History] Mometasone/Formoterol [Dulera 200 Mcg/5 Mcg Inhaler] 2 puff IH DAILY 11/08/16 [ History] Omeprazole [PriLOSEC] 20 mg PO DAILY 11/08/16 [History] Tamsulosin HCl [Flomax] 0.4 mg PO DAILY 11/08/16 [History] Tramadol HCl [Ultram] 50 mg PO TID PRN 11/08/16 [History] Trazodone HCl 100 mg PO HS PRN 11/08/16 [History] Vit C/E/Zn/Coppr/Lutein/Zeaxan [Preservision Areds 2 Softgel] 1 tab PO BID 11/08 [History] Albuterol Sulfate [Albuterol Inhaler] 2 puff IH QID 05/09/17 [History] Calcitriol [Rocaltrol] 0.25 mcg PO DAILY 05/09/17 [History] Cetirizine HCl [Zyrtec] 10 mg PO HS 05/09/17 [History] Ipratropium [ATROVENT Inhaler] 2 puff IH BID 05/09/17 [History] Ipratropium/Albuterol Neb [Duoneb] 3 ml IH Q6HR PRN 05/09/17 [History] Amlodipine Besylate 10 mg PO DAILY 06/04/17 [History] Calcium Carbonate 1,300 mg PO DAILY 06/04/17 [History] Furosemide [Lasix] 40 mg PO BID 06/04/17 [History] GuaiFENesin/Dextromethorphan [Tussin Dm Syrup] 5 ml PO BID PRN 06/04/17 [History ] Prazosin HCl [Minipress] 10 mg PO HS 06/04/17 [History] Clopidogrel [Plavix] 75 mg PO DAILY #30 tablet 06/19/17 [Rx] Gabapentin [Neurontin] 300 mg PO BID #60 capsule 06/19/17 [Rx] Isosorbide MONOnitrate (24 HR) [Imdur] 120 mg PO DAILY #30 tab.er.24h 06/19/17 [ Rx] Lisinopril [Zestril] 10 mg PO DAILY #30 tablet 06/19/17 [Rx] Sodium Bicarbonate 650 mg PO TID #90 tablet 06/19/17 [Rx] hydrALAZINE [HydrALAZINE] 50 mg PO BID #60 tablet 06/19/17 [Rx] 3 Allergy/AdvReac Type Severity Reaction Status Date / Time Doxepin Allergy Hives Verified 11/07/16 22:47 Penicillins Allergy Hives Verified 11/07/16 22:47 Sulfa (Sulfonamide Allergy Hives Verified 11/07/16 22:47 Antibiotics) Review of Systems Constitutional: as per HPI Eyes: bilateral: blurred vision (patient denies), diplopia (patient denies) Nose, mouth and throat: no dizziness, no headache(s) Cardiovascular: as per HPI, chest pain, chest pain at rest, dyspnea, dyspnea on exertion, edema, orthopnea Respiratory: dyspnea, dyspnea on exertion Gastrointestinal: no abdominal pain, no change in bowel habits Musculoskeletal: no muscle weakness, no numbness Integumentary: no hirsutism, no striae Neurological: as per HPI Psychiatric: no depression, no difficulty concentrating Endocrine: as per HPI Hematologic/Lymphatic: no easy bruising, no lymphadenopathy Exam - Vital Signs Vital signs: Initial Vital Signs Temp Pulse Resp BP Pulse Ox 97 F L 84 16 190/109 97 06/22/17 14:53 06/22/17 14:53 06/22/17 14:53 06/22/17 14:53 06/22/17 14:53 Vital Signs - Last 8 Hours Temp Pulse Resp BP Pulse Ox 06/23/17 08:12 16 99 06/23/17 06:38 98.4 F 90 15 185/94 97 06/23/17 03:52 23 98 06/23/17 03:30 97.4 F L 82 19 174/76 98 06/23/17 02:59 182/86 98 Intake and Output 06/22/17 06/23/17 06/23/17 23:59 07:59 15:59 Intake Total 0 / 0 150 / 150 120 / 120 Output Total 600 / 600 900 / 900 Balance -600 / -600 -750 / -750 120 / 120 Intake: IV Fluids 50 / 50 Heparin 25,000 UNIT/500 ML D5W 50 / 50 25,000 unit In 500 ml @ 9.5 UNIT/KG/HR 20.253 mls/hr IVC . Q24H [facility] Rx#:[id number] Oral 0 / 0 100 / 100 120 / 120 Output: Urine 600 / 600 900 / 900 Other: Meal Dinner Breakfast Percent of Meal Consumed 100% 100% Blood Glucose* 254 - General Appearance Exam: Patient is alert and oriented. In no acute distress. Blood pressure is 185/ 94. Lungs exhibit diminished breath sounds in the bases. No rales wheezing or rhonchi. Heart regular rate and rhythm with a 2/6 talk ejection murmur. Abdomen shows bowel sounds braze masses organomegaly or tenderness. There is edema of the thighs. There is also edema of both upper extremities. There is not a lot of edema of the lower parts of the legs. Results - Lab Results 06/23/17 01:24 06/23/17 01:24 Most recent lab results ABG pH 7.31 pH Units (7.32-7.45) L 06/22/17 23:22 ABG pCO2 34 mmHg (35-45) L 06/22/17 23:22 ABG pO2 63 mmHg (85-104) L 06/22/17 23:22 ABG HCO3 17 mEq/L (21-27) L 06/22/17 23:22 ABG O2 Saturation 90 % (95-98) L 06/22/17 23:22 Calcium 8.2 mg/dL (8.6-10.3) L 06/23/17 01:24 Magnesium 1.2 mg/dL (1.6-2.6) L 06/23/17 01:24 Consult Discharge Plan - Plan [facility]errals: [facility]Primary Care Provider[facility] -
--- NOTE | 2017-06-23 10:00 | Internal Med Progress Note ---
<AbdiasliviercheyenneCain Diop - Last Filed: 06/23/17 13:30> Date of Encounter: 06/23/17 Time of Encounter: 08:10 - Assessment and plan (1) Systolic and diastolic CHF, acute on chronic Current Visit: No Status: Acute Assessment and plan: Patient presenting with acute exacerbation of systolic heart failure. Last ejection fraction 30% (05/04), current BNP 1800, bilateral pleural effusions with left greater than right, pulmonary vascularization increased shortness of breath pitting edema bilateral upper and lower extremities and abdomen and back. Plan: - Lasix 40 mg IV twice a day - 1500 mL fluid restrictions - Daily standing weights - Strict intake and output monitoring - Low sodium diet - Maximize cardiac medications. (2) CAD (coronary artery disease) Current Visit: Yes Status: Chronic Assessment and plan: Known history of coronary artery disease and peripheral vascular disease. - Risk factors include chronic smoker, diabetes, known CAD, hypertension [facility] performed 06/17/2017: Impressions: Double vessel coronary artery disease. Previously stented mid LAD and diagonal 1 are patent. 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 Peripheral vascular disease. - Recommendations at that time demonstrate optimal medical therapy and aggressive risk factor modifications. Plan: - Continue aspirin, Plavix, atorvastatin 80 mg by mouth at bedtime, PERI inhibitor and beta anita Qualifiers: Coronary Disease-Associated Artery/Lesion type: zuni artery [place] vs. transplanted heart: zuni heart Associated angina: without angina Qualified Code(s): I25.10 - Atherosclerotic heart disease of zuni coronary artery without angina pectoris (3) Diabetes mellitus Current Visit: Yes Status: Chronic Assessment and plan: Patient is a known type II diabetic with recurrent A1c 5.8, known stage IV chronic kidney disease PAD and CAD. - Continue Lantus 10 units at bedtime - Continue low-dose sliding scale and patient - ACHS glucose checks. Qualifiers: Diabetes mellitus type: type 2 Diabetes mellitus complication status: with kidney complications Diabetes mellitus complication detail: with chronic kidney disease Diabetes mellitus alf insulin use: with dark room attendant use Chronic kidney disease stage: stage 4 (severe) Qualified Code(s): E11.22 - Type 2 diabetes mellitus with diabetic chronic kidney disease; N18.4 - Chronic kidney disease, stage 4 (severe); N18.4 - Chronic kidney disease, stage 4 ( severe); N18.4 - Chronic kidney disease, stage 4 (severe); N18.4 - Chronic kidney disease, stage 4 (severe); Z79.4 - long-term (current) use of insulin; Z79.4 - long-term (current) use of insulin; Z79.4 - demonstrator knitting (current) use of insulin; Z79.4 - demonstrator knitting (current) use of insulin (4) PAD (peripheral artery disease) Current Visit: No Status: Chronic Assessment and plan: Known peripheral artery disease, patient is symptomatic seen by vascular surgery. His ago for recommended follow-up and medical management. LHC demonstrated iliac vessel with 95% occlusion Plan: - Continue aspirin and Plavix as recommended by vascular surgery - Continue statin and continue treatment for coronary artery disease - Continue to monitor peripheral pulses. - Encouraged patient to quit smoking (5) Tobacco abuse Current Visit: No Status: Chronic Assessment and plan: Patient is a known daily smoker, recently reducing tobacco abuse. He has secondary coronary artery disease and peripheral vascular disease. - Encouraged tobacco cessation (6) CKD (chronic kidney disease) stage 4, GFR 15-29 ml/min Current Visit: Yes Status: Chronic Assessment and plan: Acute on chronic stage IV kidney disease. Likely contribute including cardiogenic as patient has a ejection fraction 30% in the setting of stage IV kidney disease. - Patient followed by Dr. Pearson with nephrology - Continue to avoid nephrotoxic medications renally dose antibiotics. (7) Atherosclerosis of zuni arteries of extremities with intermittent claudication, bilateral legs Current Visit: No Status: Chronic Assessment and plan: As discussed above. (8) Elevated troponin Current Visit: Yes Status: Acute Assessment and plan: Patient had elevated troponins currently decreasing. Patient was started on heparin drip concerns for ACS. Known vascular disease, systolic heart failure with current acute systolic heart failure exacerbation. Recently seen by cardiology and is undergoing medical management. Plan: - Cardiology following appreciate recommendations - Continue aspirin, Plavix, atorvastatin, beta anita, PERI inhibitor, nitroglycerin - Waiting cardiology's recommendations before discontinuing heparin drip. (9) HTN (hypertension) Current Visit: No Status: Chronic Assessment and plan: Patient is a known history of hypertension, currently blood pressure both systolic and diastolic elevated. Home antihypertensive medications include: Amlodipine 10 mg by mouth daily, Coreg 25 mg by mouth twice a day, Lasix 40 mg by mouth twice a day, lisinopril 10 mg by mouth daily, hydralazine 50 mg by mouth twice a day. Plan: - Addition of captopril 25 mg by mouth 3 times a day - Corig 25 mg by mouth twice a day - Hydralazine 50 mg by mouth twice a day, 10 mg IV every 6 hours when necessary. Qualifiers: Hypertension type: essential hypertension Qualified Code(s): I10 - Essential (primary) hypertension (10) DVT prophylaxis Current Visit: Yes Status: Acute Assessment and plan: Heparin drip in the setting of elevated troponins - Subjective Interval history: Mr. Jackson has been seen and evaluated at patient bedside. He is alert, awake and interactive. He denies any chest pain and says that his SOB has improved but still feels short of breath. He wears 3L nc oxygen at home and tolerating 3L now. Denies any other problems. He feels the edema in his LE is much improved compared to yesterday. - Constitutional Vitals: Temp Pulse Resp BP Pulse Ox 98.4 F 90 16 185/94 99 06/23/17 06:38 06/23/17 06:38 06/23/17 08:12 06/23/17 06:38 06/23/17 08:12 General appearance: Present: cooperative, A&O X 3 ( ), pleasant, obese, severe distress (Respiratory), answers questions appropriately Exam: General: Patient alert, awake, oriented 3, interactive, in no acute distress, pale skin HEENT: Normocephalic, atraumatic, pupils equal reactive to light,oral mucosa moist, neck supple trachea midline no palpable lymphadenopathy, no thyromegaly. Chest: Symmetric bilateral correlating with respiratory effort, effort nonlabored. Cardiac: Regular rate and rhythm, positive S1 and S2. Radial pulses 2+ bilateral, posterior tibial and dorsal pedal pulses trace bilateral. Respiratory: Diminished breath sounds in bilateral lung bases with left worse compared to right. The auscultation bilateral apices Abdomen: Obese, nontender to palpation, palpable abdominal edema with pitting in the lower back. Positive bowel sounds Extremities: Symmetric bilateral, bilateral lower extremities demonstrate chronic changes secondary to poor perfusion and recurrent bilateral lower extremity edema, scabs on bilateral shins healing appropriately without erythema or drainage. Neurologic: No focal deficits appreciated on examination. Face symmetric, muscle strength symmetric bilateral upper and lower extremities. Internal Medicine: Result - Labs CBC & Chem 7: 06/23/17 01:24 06/23/17 01:24 Labs: Short CBC 06/23/17 Range/Units 01:24 WBC 10.3 (4.3-11.1) K/mcL Hgb 9.8 L (12.9-16.9) g/dL Hct 31.2 L (37.5-50.1) % Plt Count 193 (140-400) K/mcL Neutrophils # 10.0 H (1.6-8.9) K/mcL BMP 06/23/17 01:24 Sodium 139 Potassium 4.8 Chloride 113 H Carbon Dioxide 16 L BUN 60 H Creatinine 3.05 H Glucose 285 H Calcium 8.2 L Cardiac Enzymes 06/22/17 06/23/17 Range/Units 22:32 04:01 Troponin I 1.05 H* 0.79 H* (< 0.04) ng/mL Liver Function 06/23/17 Range/Units 01:24 Total Bilirubin 0.3 (0.3-1.0) mg/dL AST 13 (13-39) Units/L ALT 23 (7-52) Units/L Alkaline Phosphatase 70 (34-104) Units/L Albumin 2.6 L (3.5-5.7) g/dL - ABG Interpretation ABG results: ABG ABG pH 7.31 pH Units (7.32-7.45) L 06/22/17 23:22 ABG pCO2 34 mmHg (35-45) L 06/22/17 23:22 ABG pO2 63 mmHg (85-104) L 06/22/17 23:22 ABG O2 Saturation 90 % (95-98) L 06/22/17 23:22 PT/INR, D-dimer PT 12.1 Seconds (9.4-12.1) 06/22/17 18:10 - VTE Documentation of Mechanical Device: Graduated compression elastic hosiery Consult Discharge Plan - Plan [facility]errals: [facility]Primary Care Provider[facility] - <Donte Burgos P - Last Filed: 06/23/17 16:52> Date of Encounter: 06/23/17 - Constitutional Vitals: Temp Pulse Resp BP Pulse Ox 96.7 F L 76 16 175/90 97 06/23/17 16:40 06/23/17 16:40 06/23/17 16:40 06/23/17 16:40 06/23/17 16:40 Internal Medicine: Result - Labs CBC & Chem 7: 06/23/17 01:24 06/23/17 01:24 Labs: Short CBC 06/23/17 Range/Units 01:24 WBC 10.3 (4.3-11.1) K/mcL Hgb 9.8 L (12.9-16.9) g/dL Hct 31.2 L (37.5-50.1) % Plt Count 193 (140-400) K/mcL Neutrophils # 10.0 H (1.6-8.9) K/mcL BMP 06/23/17 01:24 Sodium 139 Potassium 4.8 Chloride 113 H Carbon Dioxide 16 L BUN 60 H Creatinine 3.05 H Glucose 285 H Calcium 8.2 L Cardiac Enzymes 06/22/17 06/23/17 Range/Units 22:32 04:01 Troponin I 1.05 H* 0.79 H* (< 0.04) ng/mL Liver Function 06/23/17 Range/Units 01:24 Total Bilirubin 0.3 (0.3-1.0) mg/dL AST 13 (13-39) Units/L ALT 23 (7-52) Units/L Alkaline Phosphatase 70 (34-104) Units/L Albumin 2.6 L (3.5-5.7) g/dL - ABG Interpretation ABG results: ABG ABG pH 7.31 pH Units (7.32-7.45) L 06/22/17 23:22 ABG pCO2 34 mmHg (35-45) L 06/22/17 23:22 ABG pO2 63 mmHg (85-104) L 06/22/17 23:22 ABG O2 Saturation 90 % (95-98) L 06/22/17 23:22 PT/INR, D-dimer PT 12.1 Seconds (9.4-12.1) 06/22/17 18:10 - Attending Attestation I examined this patient and my medical decision-making was reviewed with the Resident Physician. I agree with the documented findings, disposition and treatment plan as described except to the extent set forth below. 67/male Admitted with shortness of breath. Noted that patient had a elevated troponin. Patient is known to have a chronic kidney disease stage IV going into stage V. Cardiology/nephrology on the board. Started him on captopril and will titrate the dose so that region gait appropriate dose of lisinopril which he is presently on. We will follow the recommendations from cardiology/nephrology.
[2017-06-23] MEDS ORDERED: Insulin DETEMIR 100 UNIT/ML X5UNITS SQ ONE (10:35)
--- NOTE | 2017-06-23 10:44 | Cardiology Consult Note ---
Date of Encounter: 06/23/17 Time of Encounter: 09:00 Assessment and Plan (1) Elevated troponin Current Visit: Yes Status: Acute Troponin 1.14, 1.05, 0.79 in the setting of recent LHC, CKD-4, HTN urgency, and acute exacerbation of CHF; likely demand ischemia, however ACS cannot be ruled out. Patient denies chest pain or discomfort. No acute ECG changes noted. Recent [facility] 06/17/2017 demonstrated LATENT PRINT EXAMINER of RCA otherwise non-obstructive CAD; medical management recommended. Continue asa, statin, betablocker, and nitrates. No indication for Cardiac rehab at this time. Will continue to follow. (2) Acute exacerbation of CHF (congestive heart failure) Current Visit: Yes Status: Acute Recent discharge, presents with acute on chronic CHF exacerbation. Patient reports compliance with Na/fluid restriction diet. TTE 05/09/17: LVEF 30%, global LV systolic dysfunction, mild cLVH, mild LVDD, mild MR, severe PH (est. RVSP=60 mmHg) Significant volume overload upon exam. BNP 1803. CXR: small persistent bilateral pleural effusions, bibasilar atelectasis. Nephrology following, on IV lasix 40 mg BID. Hx of CKD-4. Of note, was not discharged on increased dose of lasix after CHF diagnosis. Cumulative I&O: -1350 mL. Na/Fluid restriction diet, daily weights, strict I&O's. Qualifiers: Congestive heart failure type: systolic Qualified Code(s): I50.23 - Acute on chronic systolic (congestive) heart failure (3) Chronic kidney disease, stage IV (severe) Current Visit: Yes Status: Acute (4) HTN (hypertension) Current Visit: Yes Status: Chronic Remains severely elevated. Discussed with Dr. Bradshaw, will add amlodipine. Qualifiers: Hypertension type: essential hypertension Qualified Code(s): I10 - Essential (primary) hypertension Discussion w patient/family: The assessment and plan as outlined above was discussed with the patient and/or family members who expressed understanding and agreement. All questions were answered. Thank you for involving us in the care of your patient. Please call with any questions. The patient was discussed and reviewed with Dr. Bradshaw; changes to be made accordingly. History of Present Illness Consult date: 06/23/17 Requesting physician: Cain Eric Consult reason: Elevated troponin Chief complaint: Shortness of breath History of present illness: Mr. Jackson is a 67 year old male with PMHx significant for CKD-4, systolic CHF, CAD, DMII, HLD, HTN, and PVD who presented to the ED with complaints of left lower extremity weakness and worsening shortness of breath since discharge. He was discharged 06/19/17 after extended hospitalization. During hospitalization he was found to have systolic CHF (EF 30%) and underwent LHC which demonstrated LATENT PRINT EXAMINER of pRCA, otherwise non-obstructive CAD--medical management recommended. He reports he has been compliant with medications and diet since discharge. BP was severely elevated upon admission and exam. Recent CV testing: TTE 05/09/17: LVEF 30%, global LV systolic dysfunction, mild cLVH, mild LVDD , mild MR, severe PH (est. RVSP 60 mmHg). LHC 06/17/17: 20% LMCA, 35% pLAD, 20% mLAD, 30% 1st Diag, 30% pLCx, and 100% pRCA--LATENT PRINT EXAMINER. 95% mid right common iliac Past Med Surg Social Fam HX - Past Medical History Attestation: Yes The following information was validated with the patient. Source: patient Medical history: CHF, COPD, coronary artery disease, diabetes, hyperlipidemia, hypertension, peripheral artery disease, renal disease Psychiatric history: depression, PTSD - Past Surgical History Surgical History: appendectomy - Social History Smoking Status: Former smoker Packs per day: Reports quitting 06/19/17 Smokeless Tobacco Status: No Alcohol use: none Drug use: none - Family History Mother Name: hannah yates Race: Family Member Ethnicity: Non- Living Status: Age at : 70 Cause of : bone cancer Hx Family Cancer: Yes Medications and Allergies Aspirin [Lo-Dose Aspirin EC] 81 mg PO DAILY 11/08/16 [History] Atorvastatin Calcium [Lipitor] 80 mg PO HS 11/08/16 [History] BuPROPion SR (12 HR) [Wellbutrin SR] 150 mg PO BID 11/08/16 [History] Carvedilol [Coreg] 25 mg PO BID 11/08/16 [History] Cholecalciferol (Vitamin D3) [Vitamin D3] 2,000 unit PO DAILY 11/08/16 [History] Ferrous Gluconate 324 mg PO BID 11/08/16 [History] Insulin Glargine [Lantus] 20 unit SQ HS 11/08/16 [History] Mometasone/Formoterol [Dulera 200 Mcg/5 Mcg Inhaler] 2 puff IH DAILY 11/08/16 [ History] Omeprazole [PriLOSEC] 20 mg PO DAILY 11/08/16 [History] Tamsulosin HCl [Flomax] 0.4 mg PO DAILY 11/08/16 [History] Tramadol HCl [Ultram] 50 mg PO TID PRN 11/08/16 [History] Trazodone HCl 100 mg PO HS PRN 11/08/16 [History] Vit C/E/Zn/Coppr/Lutein/Zeaxan [Preservision Areds 2 Softgel] 1 tab PO BID 11/08 [History] Albuterol Sulfate [Albuterol Inhaler] 2 puff IH QID 05/09/17 [History] Calcitriol [Rocaltrol] 0.25 mcg PO DAILY 05/09/17 [History] Cetirizine HCl [Zyrtec] 10 mg PO HS 05/09/17 [History] Ipratropium [ATROVENT Inhaler] 2 puff IH BID 05/09/17 [History] Ipratropium/Albuterol Neb [Duoneb] 3 ml IH Q6HR PRN 05/09/17 [History] Amlodipine Besylate 10 mg PO DAILY 06/04/17 [History] Calcium Carbonate 1,300 mg PO DAILY 06/04/17 [History] Furosemide [Lasix] 40 mg PO BID 06/04/17 [History] GuaiFENesin/Dextromethorphan [Tussin Dm Syrup] 5 ml PO BID PRN 06/04/17 [History ] Prazosin HCl [Minipress] 10 mg PO HS 06/04/17 [History] Clopidogrel [Plavix] 75 mg PO DAILY #30 tablet 06/19/17 [Rx] Gabapentin [Neurontin] 300 mg PO BID #60 capsule 06/19/17 [Rx] Isosorbide MONOnitrate (24 HR) [Imdur] 120 mg PO DAILY #30 tab.er.24h 06/19/17 [ Rx] Lisinopril [Zestril] 10 mg PO DAILY #30 tablet 06/19/17 [Rx] Sodium Bicarbonate 650 mg PO TID #90 tablet 06/19/17 [Rx] hydrALAZINE [HydrALAZINE] 50 mg PO BID #60 tablet 06/19/17 [Rx] 3 Allergy/AdvReac Type Severity Reaction Status Date / Time Doxepin Allergy Hives Verified 11/07/16 22:47 Penicillins Allergy Hives Verified 11/07/16 22:47 Sulfa (Sulfonamide Allergy Hives Verified 11/07/16 22:47 Antibiotics) All Systems Review: A 10-system review of systems was performed and is negative for pertinent findings except as documented above in the HPI. - Cardiovascular Cardiovascular: as per HPI Physical Examination Vital Signs, Last 4 Hours Temp Pulse Resp BP Pulse Ox 06/23/17 10:37 98 F 74 16 158/73 97 06/23/17 08:12 16 99 General: Conversant, No Apparent Distress HEENT: Atraumatic, Normocephaly, Mucus Membranes Moist Cardiac: Reg Rate and Rhythm, Normal S1 and S2 Lungs: Other (Decreased throughout) Neuro: Alert and responsive Abdomen: Soft Extremities: Other (BLE 2+, bilateral redness to LE) Results 06/23/17 01:24 06/23/17 01:24 Lab Results 06/22/17 06/23/17 06/23/17 22:32 01:24 01:24 WBC 10.3 Hgb 9.8 L Hct 31.2 L Plt Count 193 APTT Sodium 139 Potassium 4.8 Chloride 113 H Carbon Dioxide 16 L BUN 60 H Creatinine 3.05 H Glucose 285 H Calcium 8.2 L Magnesium 1.2 L Total Bilirubin 0.3 AST 13 ALT 23 Alkaline Phosphatase 70 Troponin I 1.05 H* 06/23/17 06/23/17 06/23/17 01:24 04:01 08:39 WBC Hgb Hct Plt Count APTT 83.8 H D 76.3 H Sodium Potassium Chloride Carbon Dioxide BUN Creatinine Glucose Calcium Magnesium Total Bilirubin AST ALT Alkaline Phosphatase Troponin I 0.79 H* Active Medications Acetaminophen (Tylenol) 650 mg PO Q6HR PRN PRN Reason: Mild Pain/Fever Stop: 12/22/17 19:39 Hydrocodone Bitart/Acetaminophen ([place] 5-325 Mg) 1 tab PO Q6H PRN PRN Reason: Moderate Pain Stop: 12/22/17 19:39 Albuterol/Ipratropium (Duoneb) 3 ml IH [id number] PRN PRN Reason: Shortness Of Breath/Wheezing Stop: 12/22/17 20:33 Last Admin: 06/23/17 08:12 Dose: 3 ml Amlodipine Besylate (Norvasc) 5 mg PO DAILY MARSHA PRN Reason: Protocol Stop: 12/23/17 10:46 Aspirin (Aspirin Ec) 81 mg PO DAILY MARSHA Stop: 12/23/17 09:01 Last Admin: 06/23/17 08:28 Dose: 81 mg Atorvastatin Calcium (Lipitor) 80 mg PO HS MARSHA Stop: 12/23/17 21:01 Captopril (Capoten) 25 mg PO TIDAC MARSHA Stop: 12/23/17 09:24 Carvedilol (Coreg) 25 mg PO BIDWM MARSHA PRN Reason: Protocol Stop: 12/23/17 09:01 Clopidogrel Bisulfate (Plavix) 75 mg PO DAILY MARSHA Stop: 12/23/17 09:01 Last Admin: 06/23/17 08:28 Dose: 75 mg Dextrose/Water (Dextrose 50% (Syg)) 25 ml IVP AD PRN PRN Reason: Hypoglycemia Stop: 12/22/17 21:02 Furosemide (Lasix) 40 mg IVP BIDDIURETIC MARSHA Stop: 12/22/17 21:01 Glucagon (Glucagen) 1 mg IM ONCE PRN PRN Reason: Hypoglycemia Stop: 12/22/17 21:02 Glucose (Gluctose) 15 gm PO ONCE PRN PRN Reason: Hypoglycemia Stop: 12/22/17 21:02 Glucose (Gluctose) 30 gm PO ONCE PRN PRN Reason: Hypoglycemia Stop: 12/22/17 21:02 Heparin Sodium (Porcine) (Heparin) 4,000 unit IVP Q6HR PRN PRN Reason: SEE COMMENTS Stop: 12/22/17 17:08 Heparin Sodium (Porcine) (Heparin) 2,000 unit IVP Q6H PRN PRN Reason: SEE COMMENTS Stop: 12/22/17 17:08 Hydralazine HCl (Hydralazine) 10 mg IVP Q6HR PRN PRN Reason: Hypertension Stop: 12/23/17 02:30 Last Admin: 06/23/17 03:01 Dose: 10 mg Hydralazine HCl (Hydralazine) 50 mg PO BID [facility] Stop: 12/23/17 09:01 Last Admin: 06/23/17 08:28 Dose: 50 mg Heparin Sodium/Dextrose (Heparin 25,000 Unit/500 Ml D5w) 25,000 unit in 500 mls @ 20.253 mls/hr IVC .Q24H MARSHA; 9.5 UNIT/KG/HR PRN Reason: Protocol Stop: 12/22/17 17:16 Last Titration: 06/23/17 02:15 Dose: 9.5 unit/kg/hr, 20.253 mls/hr Dextrose (Dextrose 5%) 1,000 mls @ 100 mls/hr IVC .Q10H PRN PRN Reason: HYPOGLYCEMIA Stop: 12/22/17 21:02 Insulin Detemir (Levemir) 10 unit SQ HS [facility] Stop: 12/23/17 21:01 Insulin Human Lispro (Humalog) 0 units SQ TIDAC [facility] PRN Reason: Protocol Stop: 12/23/17 07:31 Last Admin: 06/23/17 08:29 Dose: 6 units Insulin Human Lispro (Humalog) 0 units SQ HS [facility] PRN Reason: Protocol Stop: 12/22/17 21:16 Last Admin: 06/22/17 22:36 Dose: Not Given Isosorbide Mononitrate (Imdur) 120 mg PO DAILY [facility] Stop: 12/23/17 09:01 Last Admin: 06/23/17 08:28 Dose: 120 mg Naloxone HCl (Narcan) 0.4 mg IVP Q2MIN PRN PRN Reason: SEE COMMENTS Stop: 12/22/17 19:39 Nitroglycerin (Nitroglycerin) 0.4 mg SL Q5MIN PRN PRN Reason: Chest Pain Stop: 12/22/17 21:14 Prazosin HCl (Minipress) 10 mg PO HS [facility] Stop: 12/23/17 21:01 Tamsulosin HCl (Flomax) 0.4 mg PO DAILY [facility] PRN Reason: Protocol Stop: 12/23/17 09:01 Last Admin: 06/23/17 08:28 Dose: 0.4 mg Trazodone HCl (Trazodone) 100 mg PO HS PRN PRN Reason: Sleep Stop: 12/23/17 05:23 - Imaging and Cardiology Echo: report reviewed Cardiac cath: report reviewed Other Results: 12 hour: avg GA=590 ST - EKG Interpretation EKG results cardiology: personally reviewed Consult Discharge Plan - Plan [facility]errals: [facility] [Primary Care Provider] -
[2017-06-23] MEDS: amLODIPine 5 MG TABLET PO SCH (11:17)
--- NOTE | 2017-06-23 17:17 | Electrocardiograph Report ---
[place] [id number] Test Date: 2017-06-22 Pat Name: Jostin Jackson Department: 103 Room: [id number] Gender: M General Intern: ALYSSA : 1950 Requested By: Luis Marie Order Number: [id number] Reading MD: Arlene Bains Measurements Intervals [place] Rate: 84 P: 54 WA: 155 QRS: -4 QRSD: 117 T: 71 QT: 367 QTc: 407 Interpretive Statements SINUS RHYTHM POSSIBLE LEFT ATRIAL ENLARGEMENT [-0.1mV P WAVE IN V1/V2] POSSIBLE ANTERIOR MYOCARDIAL INFARCTION [30 ms Q WAVE IN V3/V4, OR R < 0.2 mV IN V4], OF INDETERMINATE AGE INFERIOR MYOCARDIAL INFARCTION [40+ ms Q WAVE AND/OR ST/T ABNORMALITY IN II/aVF], PROBABLY OLD Electronically Signed On 06-23-2017 17:16:16 EST by Arlene Bains
[2017-06-23] MEDS: Insulin DETEMIR 100 UNIT/ML X5UNITS SQ SCH (21:39)
[2017-06-23] MEDS: Heparin 25,000 UNIT/500 ML D5W 25,000 UNIT/500 ML BAG IVC SCH (21:40)
[2017-06-24 04:23] LABS: Basophils % 0.1 %; Eosinophils % 0.4 %; Hematocrit 28.5 % (37.5-50.1); Immature Granulocytes % 0.4 % (0-4); Lymphocytes # 1.2 K/mcL (0.6-4.6); Lymphocytes % 11.1 %; Mean Corpuscular HGB Conc 31.6 g/dL (31.6-35.5); Mean Corpuscular Hemoglobin 29.1 pg (28.0-33.3); Mean Corpuscular Volume 92.2 fL (83.0-100.0); Mean Platelet Volume 9.8 fL (9.4-12.4); Monocytes # 0.6 K/mcL (0.0-1.3); Monocytes % 5.3 %; Neutrophils # 9.3 K/mcL (1.6-8.9); Nucleated Red Blood Cells 0.2 /100 WBC (0); Platelet Count 175 K/mcL (140-400); Red Blood Count 3.09 M/mcL (4.19-5.50); Segmented Neutrophils % 82.7 %
[2017-06-24 04:58] LABS: Albumin 2.4 g/dL (3.5-5.7); Bilirubin,Total 0.2 mg/dL (0.3-1.0); Calcium 8.1 mg/dL (8.6-10.3); Globulin 2.5 g/dL (2.4-3.5); Potassium 4.2 mEq/L (3.5-5.1); Total Protein 4.9 g/dL (6.4-8.9)
[2017-06-24] MEDS: Insulin LISPRO 300 UNITS/3 ML VIAL SQ SCH ×4 (08:24→21:46)
[2017-06-24] MEDS: amLODIPine 5 MG TABLET PO SCH (08:27)
[2017-06-24] MEDS: Aspirin Enteric Coated 81 MG Tablet PO SCH (08:27)
[2017-06-24] MEDS: Furosemide 40 MG/4 ML VIAL IVP SCH ×2 (08:27→15:33)
[2017-06-24] MEDS: hydrALAZINE 25 MG TABLET PO SCH ×2 (08:27→21:44)
[2017-06-24] MEDS: Isosorbide MONOnitrate (24 HR) 60 MG TAB.ER.24H PO SCH (08:27)
--- NOTE | 2017-06-24 08:41 | Nephrology Progress Note ---
Date of Encounter: 06/24/17 Time of Encounter: 08:40 - Assessment and Plan (1) Chronic kidney disease, stage IV (severe) Current Visit: Yes Status: Acute Patient has stable stage IV chronic kidney disease. His blood pressure control is improving with the addition of an PERI inhibitor. He is undergoing diuresis for acute on chronic systolic congestive heart failure in the setting of severe pulmonary hypertension. We will continue to monitor his renal function. (2) Systolic CHF, acute Current Visit: Yes Status: Acute (3) Pulmonary HTN Current Visit: Yes Status: Acute (4) Benign hypertension with chronic kidney disease, stage IV Current Visit: Yes Status: Acute (5) Type 2 diabetes mellitus with diabetic chronic kidney disease Current Visit: Yes Status: Acute Qualifiers: Diabetes mellitus terminologist insulin use: with terminologist use Chronic kidney disease stage: stage 4 (severe) Qualified Code(s): E11.22 - Type 2 diabetes mellitus with diabetic chronic kidney disease; N18.4 - Chronic kidney disease, stage 4 (severe); N18.4 - Chronic kidney disease, stage 4 (severe); N18.4 - Chronic kidney disease, stage 4 (severe); N18.4 - Chronic kidney disease, stage 4 (severe); Z79.4 - remote computer terminal operator (current) use of insulin; Z79.4 - retirement ( current) use of insulin; Z79.4 - remote computer terminal operator (current) use of insulin; Z79.4 - retirement (current) use of insulin Subjective Interval history: The patient reports she is still experiencing some shortness of breath but overall it is improving. Blood pressure is improving as well. Urine output is 1.8 L. Serum creatinine is stable at 2.97. Objective - Vital Signs Vital signs: Vital Signs Temp Pulse Resp BP Pulse Ox 06/24/17 06:38 97.6 F 66 17 166/74 96 06/24/17 04:09 14 97 06/24/17 03:55 96.2 F L 65 18 135/67 97 06/23/17 23:44 97.5 F L 72 18 150/76 97 06/23/17 21:21 96.5 F L 69 16 161/89 99 06/23/17 16:40 96.7 F L 76 16 175/90 97 06/23/17 10:37 98 F 74 16 158/73 97 Intake and Output 06/23/17 06/24/17 06/24/17 23:59 07:59 15:59 Intake Total 450 / 450 0 / 0 Output Total 900 / 900 Balance -450 / -450 0 / 0 Intake: IV Fluids 450 / 450 Heparin 25,000 UNIT/500 ML D5W 450 / 450 25,000 unit In 500 ml @ 9.5 UNIT/KG/HR 20.253 mls/hr IVC . Q24H MARSHA Rx#:[id number] Oral 0 / 0 0 / 0 Output: Urine 900 / 900 Other: # Voids 0 0 Weight 103.1 kg Blood Glucose* 162 106 Patient Weight 06/24/17 23:59 Weight 103.1 kg - General Appearance Exam: The patient is alert and oriented. He is in no acute distress. Lungs diminished breath sounds. Heart regular rate and rhythm. Abdomen is benign. He continues to have lower extremity swelling. - Lab 06/24/17 03:22 06/24/17 03:22 Most recent lab results ABG pH 7.31 pH Units (7.32-7.45) L 06/22/17 23:22 ABG pCO2 34 mmHg (35-45) L 06/22/17 23:22 ABG pO2 63 mmHg (85-104) L 06/22/17 23:22 ABG HCO3 17 mEq/L (21-27) L 06/22/17 23:22 ABG O2 Saturation 90 % (95-98) L 06/22/17 23:22 Calcium 8.1 mg/dL (8.6-10.3) L 06/24/17 03:22 Magnesium 1.2 mg/dL (1.6-2.6) L 06/23/17 01:24 - VTE Documentation of Mechanical Device: Graduated compression elastic hosiery Consult Discharge Plan - Plan [facility]: [facility] [Primary Care Provider] -
--- NOTE | 2017-06-24 10:01 | Cardiology Progress Note ---
Date of Encounter: 06/24/17 Time of Encounter: 09:10 Assessment and Plan (1) Acute exacerbation of CHF (congestive heart failure) Current Visit: Yes Status: Acute Recent discharge, presents with acute on chronic CHF exacerbation. Patient reports compliance with Na/fluid restriction diet. TTE 05/09/17: LVEF 30%, global LV systolic dysfunction, mild cLVH, mild LVDD, mild MR, severe PH (est. RVSP=60 mmHg) Significant volume overload upon exam. BNP 1803. CXR: small persistent bilateral pleural effusions, bibasilar atelectasis. Patient reports dyspnea improved today, continues to c/o bilateral upper extremity edema Nephrology following, on IV lasix 40 mg BID. Hx of CKD-4. Of note, was not discharged on increased dose of lasix after CHF diagnosis. Cumulative I&O: -1440 mL. Na/Fluid restriction diet, daily weights, strict I&O's. Qualifiers: Congestive heart failure type: systolic Qualified Code(s): I50.23 - Acute on chronic systolic (congestive) heart failure (2) Elevated troponin Current Visit: Yes Status: Acute Troponin 1.14, 1.05, 0.79 in the setting of recent LHC, CKD-4, HTN urgency, and acute exacerbation of CHF; likely demand ischemia, however ACS cannot be ruled out. Patient denies chest pain or discomfort. No acute ECG changes noted. 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 Continue asa, statin, betablocker, and nitrates. No indication for Cardiac rehab at this time. Will continue to follow. (3) Chronic kidney disease, stage IV (severe) Current Visit: Yes Status: Acute Nephrology following. (4) HTN (hypertension) Current Visit: Yes Status: Chronic Improved with addition of amlodipine, continue to monitor for now. Qualifiers: Hypertension type: essential hypertension Qualified Code(s): I10 - Essential (primary) hypertension Discussion w patient/family: The assessment and plan as outlined above was discussed with the patient and/or family members who expressed understanding and agreement. All questions were answered. Thank you for involving us in the care of your patient. Please call with any questions. The patient was discussed and reviewed with Dr. Bradshaw; changes to be made accordingly. Subjective Principal diagnosis: systolic CHF exacerbation, elevated troponin Interval history: Seen and examined. Reports shortness of breath has improved today, not yet at baseline. Continues to have generalized upper and lower extremity edema. Patient reports desire to be transferred to the [facility] short term [facility] upon discharge, plan communicated with primary team. Objective Vital Signs, Last 4 Hours Temp Pulse Resp BP Pulse Ox 06/24/17 06:38 97.6 F 66 17 166/74 96 General: Conversant, No Apparent Distress, Other (pale, appears chronically ill ) HEENT: Atraumatic, Normocephaly, Mucus Membranes Moist Cardiac: Reg Rate and Rhythm, Normal S1 and S2 Lungs: Other (decreased bilaterally) Neuro: Alert and responsive Abdomen: Soft Extremities: Other (generalized edema noted to upper and lower extremities) Results 06/24/17 03:22 06/24/17 03:22 Lab Results 06/24/17 06/24/17 06/24/17 03:22 03:22 08:06 WBC 11.2 H Hgb 9.0 L Hct 28.5 L Plt Count 175 APTT 81.3 H Sodium 136 Potassium 4.2 Chloride 115 H Carbon Dioxide 20 L BUN 71 H Creatinine 2.97 H Glucose 113 H Calcium 8.1 L Total Bilirubin 0.2 L AST 12 L ALT 23 Alkaline Phosphatase 63 Active Medications Acetaminophen (Tylenol) 650 mg PO Q6HR PRN PRN Reason: Mild Pain/Fever Stop: 12/22/17 19:39 Hydrocodone Bitart/Acetaminophen ([place] 5-325 Mg) 1 tab PO Q6H PRN PRN Reason: Moderate Pain Stop: 12/22/17 19:39 Albuterol/Ipratropium (Duoneb) 3 ml IH [id number] PRN PRN Reason: Shortness Of Breath/Wheezing Stop: 12/22/17 20:33 Last Admin: 06/23/17 08:12 Dose: 3 ml Amlodipine Besylate (Norvasc) 5 mg PO DAILY MARSHA PRN Reason: Protocol Stop: 12/23/17 10:46 Last Admin: 06/24/17 08:27 Dose: 5 mg Aspirin (Aspirin Ec) 81 mg PO DAILY MARSHA Stop: 12/23/17 09:01 Last Admin: 06/24/17 08:27 Dose: 81 mg Atorvastatin Calcium (Lipitor) 80 mg PO HS [facility] Stop: 12/23/17 21:01 Last Admin: 06/23/17 21:38 Dose: 80 mg Captopril (Capoten) 25 mg PO TIDAC MARSHA Stop: 12/23/17 09:24 Last Admin: 06/24/17 08:27 Dose: 25 mg Carvedilol (Coreg) 25 mg PO BIDWM MARSHA PRN Reason: Protocol Stop: 12/23/17 09:01 Last Admin: 06/24/17 08:27 Dose: 25 mg Clopidogrel Bisulfate (Plavix) 75 mg PO DAILY MARSHA Stop: 12/23/17 09:01 Last Admin: 06/24/17 08:27 Dose: 75 mg Dextrose/Water (Dextrose 50% (Syg)) 25 ml IVP AD PRN PRN Reason: Hypoglycemia Stop: 12/22/17 21:02 Furosemide (Lasix) 40 mg IVP BIDDIURETIC [facility] Stop: 12/22/17 21:01 Last Admin: 06/24/17 08:27 Dose: 40 mg Glucagon (Glucagen) 1 mg IM ONCE PRN PRN Reason: Hypoglycemia Stop: 12/22/17 21:02 Glucose (Gluctose) 15 gm PO ONCE PRN PRN Reason: Hypoglycemia Stop: 12/22/17 21:02 Glucose (Gluctose) 30 gm PO ONCE PRN PRN Reason: Hypoglycemia Stop: 12/22/17 21:02 Heparin Sodium (Porcine) (Heparin) 4,000 unit IVP Q6HR PRN PRN Reason: SEE COMMENTS Stop: 12/22/17 17:08 Heparin Sodium (Porcine) (Heparin) 2,000 unit IVP Q6H PRN PRN Reason: SEE COMMENTS Stop: 12/22/17 17:08 Hydralazine HCl (Hydralazine) 10 mg IVP Q6HR PRN PRN Reason: Hypertension Stop: 12/23/17 02:30 Last Admin: 06/23/17 03:01 Dose: 10 mg Hydralazine HCl (Hydralazine) 50 mg PO BID MARSHA Stop: 12/23/17 09:01 Last Admin: 06/24/17 08:27 Dose: 50 mg Heparin Sodium/Dextrose (Heparin 25,000 Unit/500 Ml D5w) 25,000 unit in 500 mls @ 20.253 mls/hr IVC .Q24H MARSHA; 9.5 UNIT/KG/HR PRN Reason: Protocol Stop: 12/22/17 17:16 Last Admin: 06/23/17 21:40 Dose: 9.5 unit/kg/hr, 20.253 mls/hr Dextrose (Dextrose 5%) 1,000 mls @ 100 mls/hr IVC .Q10H PRN PRN Reason: HYPOGLYCEMIA Stop: 12/22/17 21:02 Insulin Detemir (Levemir) 10 unit SQ HS [facility] Stop: 12/23/17 21:01 Last Admin: 06/23/17 21:39 Dose: 10 unit Insulin Human Lispro (Humalog) 0 units SQ TIDAC [facility] PRN Reason: Protocol Stop: 12/23/17 07:31 Last Admin: 06/24/17 08:24 Dose: Not Given Insulin Human Lispro (Humalog) 0 units SQ HS [facility] PRN Reason: Protocol Stop: 12/22/17 21:16 Last Admin: 06/23/17 21:39 Dose: Not Given Isosorbide Mononitrate (Imdur) 120 mg PO DAILY [facility] Stop: 12/23/17 09:01 Last Admin: 06/24/17 08:27 Dose: 120 mg Naloxone HCl (Narcan) 0.4 mg IVP Q2MIN PRN PRN Reason: SEE COMMENTS Stop: 12/22/17 19:39 Nitroglycerin (Nitroglycerin) 0.4 mg SL Q5MIN PRN PRN Reason: Chest Pain Stop: 12/22/17 21:14 Prazosin HCl (Minipress) 10 mg PO HS [facility] Stop: 12/23/17 21:01 Last Admin: 06/23/17 21:38 Dose: 10 mg Tamsulosin HCl (Flomax) 0.4 mg PO DAILY [facility] PRN Reason: Protocol Stop: 12/23/17 09:01 Last Admin: 06/24/17 08:27 Dose: 0.4 mg Trazodone HCl (Trazodone) 100 mg PO HS PRN PRN Reason: Sleep Stop: 12/23/17 05:23 - Imaging and Cardiology Echo: report reviewed Cardiac cath: report reviewed Other Results: 12 hour tele: avg HR=66 SR. No significant event noted. - EKG Interpretation EKG results cardiology: personally reviewed - VTE Documentation of Mechanical Device: Graduated compression elastic hosiery Consult Discharge Plan - Plan [facility]errals: [facility] [Primary Care Provider] -
[2017-06-24] MEDS: BuPROPion SR (12 HR) 150 MG TABLET PO SCH ×2 (11:45→21:45)
[2017-06-24] MEDS: traMADol 50 MG TABLET PO PRN ×2 (11:45→21:51)
--- NOTE | 2017-06-24 13:40 | Internal Med Progress Note ---
<Cain Peck - Last Filed: 06/24/17 16:47> Date of Encounter: 06/24/17 Time of Encounter: 12:00 - Assessment and plan (1) Systolic and diastolic CHF, acute on chronic Current Visit: No Status: Acute Assessment and plan: Patient presenting with acute exacerbation of systolic heart failure. Last ejection fraction 30% (05/04), current BNP 1800, bilateral pleural effusions with left greater than right, pulmonary vascularization increased shortness of breath pitting edema bilateral upper and lower extremities and abdomen and back. 06/24: Patient continues to have appropriate urinary output, -2.2 L. Continue current management. We will reevaluate urinary output tomorrow and may consider increased to 40 mg IV Lasix 3 times a day. Plan: - Lasix 40 mg IV twice a day - 1500 mL fluid restrictions - Daily standing weights - Strict intake and output monitoring - Low sodium diet - Maximize cardiac medications. (2) CAD (coronary artery disease) Current Visit: Yes Status: Chronic Assessment and plan: Known history of coronary artery disease and peripheral vascular disease. - Risk factors include chronic smoker, diabetes, known CAD, hypertension [facility] performed 06/17/2017: Impressions: Double vessel coronary artery disease. Previously stented mid LAD and diagonal 1 are patent. 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 Peripheral vascular disease. - Recommendations at that time demonstrate optimal medical therapy and aggressive risk factor modifications. Plan: - Continue aspirin, Plavix, atorvastatin 80 mg by mouth at bedtime, PERI inhibitor and beta anita Qualifiers: Coronary Disease-Associated Artery/Lesion type: [place] artery [place] vs. transplanted heart: [place] heart Associated angina: without angina Qualified Code(s): I25.10 - Atherosclerotic heart disease of [place] coronary artery without angina pectoris (3) Diabetes mellitus Current Visit: Yes Status: Chronic Assessment and plan: Patient is a known type II diabetic with recurrent A1c 5.8, known stage IV chronic kidney disease PAD and CAD. - Continue Lantus 10 units at bedtime - Continue low-dose sliding scale and patient - ACHS glucose checks. Qualifiers: Diabetes mellitus type: type 2 Diabetes mellitus complication status: with kidney complications Diabetes mellitus complication detail: with chronic kidney disease Diabetes mellitus nursing home insulin use: with terminal system operator use Chronic kidney disease stage: stage 4 (severe) Qualified Code(s): E11.22 - Type 2 diabetes mellitus with diabetic chronic kidney disease; N18.4 - Chronic kidney disease, stage 4 (severe); N18.4 - Chronic kidney disease, stage 4 ( severe); N18.4 - Chronic kidney disease, stage 4 (severe); N18.4 - Chronic kidney disease, stage 4 (severe); Z79.4 - oil heaterman (current) use of insulin; Z79.4 - shelter (current) use of insulin; Z79.4 - oil heaterman (current) use of insulin; Z79.4 - shelter (current) use of insulin (4) PAD (peripheral artery disease) Current Visit: No Status: Chronic Assessment and plan: Known peripheral artery disease, patient is symptomatic seen by vascular surgery. His ago for recommended follow-up and medical management. LHC demonstrated iliac vessel with 95% occlusion Plan: - Continue aspirin and Plavix as recommended by vascular surgery - Continue statin and continue treatment for coronary artery disease - Continue to monitor peripheral pulses. - Encouraged patient to quit smoking (5) Tobacco abuse Current Visit: No Status: Chronic Assessment and plan: Patient is a known daily smoker, recently reducing tobacco abuse. He has secondary coronary artery disease and peripheral vascular disease. - Encouraged tobacco cessation (6) CKD (chronic kidney disease) stage 4, GFR 15-29 ml/min Current Visit: Yes Status: Chronic Assessment and plan: Acute on chronic stage IV kidney disease. Likely contribute including cardiogenic as patient has a ejection fraction 30% in the setting of stage IV kidney disease. - Patient followed by Dr. Pearson with nephrology - Continue to avoid nephrotoxic medications renally dose antibiotics. (7) Atherosclerosis of [place] arteries of extremities with intermittent claudication, bilateral legs Current Visit: No Status: Chronic Assessment and plan: As discussed above. (8) Elevated troponin Current Visit: Yes Status: Acute Assessment and plan: Patient had elevated troponins currently decreasing. Patient was started on heparin drip concerns for ACS. Known vascular disease, systolic heart failure with current acute systolic heart failure exacerbation. Recently seen by cardiology and is undergoing medical management. 06/24: Troponins trending down, continue current management, patient denies chest pain or chest pressure. Plan: - Cardiology following appreciate recommendations - Continue aspirin, Plavix, atorvastatin, beta anita, PERI inhibitor, nitroglycerin - Waiting cardiology's recommendations before discontinuing heparin drip. (9) HTN (hypertension) Current Visit: No Status: Chronic Assessment and plan: Patient is a known history of hypertension, currently blood pressure both systolic and diastolic elevated. Home antihypertensive medications include: Amlodipine 10 mg by mouth daily, Coreg 25 mg by mouth twice a day, Lasix 40 mg by mouth twice a day, lisinopril 10 mg by mouth daily, hydralazine 50 mg by mouth twice a day. Plan: - Currently on captopril 25 mg by mouth 3 times a day, plan to adjust home dose lisinopril accordingly - Corig 25 mg by mouth twice a day - Hydralazine 50 mg by mouth twice a day, 10 mg IV every 6 hours when necessary. Qualifiers: Hypertension type: essential hypertension Qualified Code(s): I10 - Essential (primary) hypertension (10) DVT prophylaxis Current Visit: Yes Status: Acute Assessment and plan: Heparin drip in the setting of elevated troponins - Subjective Interval history: Mr. Jackson has been seen and evaluated at patient bedside. He is alert, awake and interactive. He is sitting up at bedside this morning with his feet up the side of bed. He states that he is more swollen his lower extremities from sitting up at bedside. He denies any worsening of his shortness of breath with minimal improvement compared to yesterday. He has noticed decrease in his overall edema. He has no further concerns at this time. - Constitutional Vitals: Temp Pulse Resp BP Pulse Ox 97.6 F 66 17 166/74 96 06/24/17 06:38 06/24/17 06:38 06/24/17 06:38 06/24/17 06:38 06/24/17 06:38 General appearance: Present: cooperative, A&O X 3 ( ), pleasant, obese, severe distress (Respiratory), answers questions appropriately Exam: General: Patient alert, awake, oriented 3, interactive, in no acute distress, pale skin HEENT: Normocephalic, atraumatic, pupils equal reactive to light,oral mucosa moist, neck supple trachea midline no palpable lymphadenopathy, no thyromegaly. Chest: Symmetric bilateral correlating with respiratory effort, effort nonlabored. Cardiac: Regular rate and rhythm, positive S1 and S2. Radial pulses 2+ bilateral, posterior tibial and dorsal pedal pulses trace bilateral. Respiratory: Rhonchi appreciated in bilateral lung bases. Abdomen: Obese, nontender to palpation, palpable abdominal edema with pitting in the lower back. Positive bowel sounds Extremities: Symmetric bilateral, bilateral lower extremities demonstrate chronic changes secondary to poor perfusion and recurrent bilateral lower extremity edema, scabs on bilateral shins healing appropriately without erythema or drainage. Bilateral extremities with 1+ pitting edema Neurologic: No focal deficits appreciated on examination. Face symmetric, muscle strength symmetric bilateral upper and lower extremities. Internal Medicine: Result - Labs CBC & Chem 7: 06/24/17 03:22 06/24/17 03:22 Labs: Short CBC 06/24/17 Range/Units 03:22 WBC 11.2 H (4.3-11.1) K/mcL Hgb 9.0 L (12.9-16.9) g/dL Hct 28.5 L (37.5-50.1) % Plt Count 175 (140-400) K/mcL Neutrophils # 9.3 H (1.6-8.9) K/mcL BMP 06/24/17 03:22 Sodium 136 Potassium 4.2 Chloride 115 H Carbon Dioxide 20 L BUN 71 H Creatinine 2.97 H Glucose 113 H Calcium 8.1 L Liver Function 06/24/17 Range/Units 03:22 Total Bilirubin 0.2 L (0.3-1.0) mg/dL AST 12 L (13-39) Units/L ALT 23 (7-52) Units/L Alkaline Phosphatase 63 (34-104) Units/L Albumin 2.4 L (3.5-5.7) g/dL - ABG Interpretation ABG results: ABG ABG pH 7.31 pH Units (7.32-7.45) L 06/22/17 23:22 ABG pCO2 34 mmHg (35-45) L 06/22/17 23:22 ABG pO2 63 mmHg (85-104) L 06/22/17 23:22 ABG O2 Saturation 90 % (95-98) L 06/22/17 23:22 PT/INR, D-dimer PT 12.1 Seconds (9.4-12.1) 06/22/17 18:10 - VTE Documentation of Mechanical Device: Graduated compression elastic hosiery Consult Discharge Plan - Plan [facility]errals: [facility] [Primary Care Provider] - <Yovany Church - Last Filed: 06/24/17 18:12> Date of Encounter: 06/24/17 - Assessment and plan (1) Respiratory failure with hypoxia Current Visit: Yes Status: Acute Qualifiers: Chronicity: acute Qualified Code(s): J96.01 - Acute respiratory failure with hypoxia (2) Acute exacerbation of CHF (congestive heart failure) Current Visit: Yes Status: Acute Qualifiers: Congestive heart failure type: systolic Qualified Code(s): I50.23 - Acute on chronic systolic (congestive) heart failure (3) CAD (coronary artery disease) Current Visit: Yes Status: Chronic Qualifiers: Coronary Disease-Associated Artery/Lesion type: [place] artery [place] vs. transplanted heart: [place] heart Associated angina: without angina Qualified Code(s): I25.10 - Atherosclerotic heart disease of [place] coronary artery without angina pectoris (4) Diabetes mellitus Current Visit: Yes Status: Chronic Qualifiers: Diabetes mellitus type: type 2 Diabetes mellitus complication status: with kidney complications Diabetes mellitus complication detail: with chronic kidney disease Diabetes mellitus nursing home insulin use: with terminal system operator use Chronic kidney disease stage: stage 4 (severe) Qualified Code(s): E11.22 - Type 2 diabetes mellitus with diabetic chronic kidney disease; N18.4 - Chronic kidney disease, stage 4 (severe); N18.4 - Chronic kidney disease, stage 4 ( severe); N18.4 - Chronic kidney disease, stage 4 (severe); N18.4 - Chronic kidney disease, stage 4 (severe); Z79.4 - shelter (current) use of insulin; Z79.4 - shelter (current) use of insulin; Z79.4 - shelter (current) use of insulin; Z79.4 - oil heaterman (current) use of insulin (5) HTN (hypertension) Current Visit: Yes Status: Chronic Qualifiers: Hypertension type: essential hypertension Qualified Code(s): I10 - Essential (primary) hypertension (6) Tobacco abuse Current Visit: No Status: Chronic (7) PAD (peripheral artery disease) Current Visit: No Status: Chronic - Constitutional Vitals: Temp Pulse Resp BP Pulse Ox 97.6 F 81 15 182/94 97 06/24/17 06:38 06/24/17 15:00 06/24/17 16:25 06/24/17 15:00 06/24/17 16:25 Internal Medicine: Result - Labs CBC & Chem 7: 06/24/17 03:22 06/24/17 03:22 Labs: Short CBC 06/24/17 Range/Units 03:22 WBC 11.2 H (4.3-11.1) K/mcL Hgb 9.0 L (12.9-16.9) g/dL Hct 28.5 L (37.5-50.1) % Plt Count 175 (140-400) K/mcL Neutrophils # 9.3 H (1.6-8.9) K/mcL BMP 06/24/17 03:22 Sodium 136 Potassium 4.2 Chloride 115 H Carbon Dioxide 20 L BUN 71 H Creatinine 2.97 H Glucose 113 H Calcium 8.1 L Liver Function 06/24/17 Range/Units 03:22 Total Bilirubin 0.2 L (0.3-1.0) mg/dL AST 12 L (13-39) Units/L ALT 23 (7-52) Units/L Alkaline Phosphatase 63 (34-104) Units/L Albumin 2.4 L (3.5-5.7) g/dL - ABG Interpretation ABG results: ABG ABG pH 7.31 pH Units (7.32-7.45) L 06/22/17 23:22 ABG pCO2 34 mmHg (35-45) L 06/22/17 23:22 ABG pO2 63 mmHg (85-104) L 06/22/17 23:22 ABG O2 Saturation 90 % (95-98) L 06/22/17 23:22 PT/INR, D-dimer PT 12.1 Seconds (9.4-12.1) 06/22/17 18:10 - Attending Attestation I examined this patient and my medical decision-making was reviewed with the Resident Physician on 06/24/17. I agree with the documented findings, disposition and treatment plan as described except to the extent set forth below. Mr Jackson is currently admitted for acute on chronic systolic heart failure. He remains moderate to high risk due to potential for worsening clinical status. Mr Jackson is back on bipap at this time. Wants to go to rehab at discharge. No CP. Bowels OK. Edema worse today. Exam Alert. Mod distress Mucus membranes dry Heart distant Crackles heard bilaterally Abd soft Edema present I/P 1. Hypoxia 2. CHF exacerbation Further diagnoses and plan as above
[2017-06-24] MEDS: *HR* Heparin 5,000 UNIT/ML VIAL SQ SCH (16:48)
[2017-06-24] MEDS: Magnesium Oxide 400 MG TABLET PO SCH (21:44)
[2017-06-24] MEDS: Insulin DETEMIR 100 UNIT/ML X5UNITS SQ SCH (21:45)
[2017-06-24] MEDS: Loratadine 10 MG TABLET PO SCH (21:45)
[2017-06-24] MEDS: Gabapentin 300 MG CAPSULE PO SCH (21:45)
[2017-06-24] MEDS: traZODone 50 MG TABLET PO PRN (21:51)
[2017-06-24] MEDS: Nystatin POWDER 30 GM BOTTLE TP SCH (23:07)
[2017-06-25 05:31] LABS: Basophils % 0.1 %; Eosinophils # 0.1 K/mcL (0.0-0.6); Eosinophils % 0.8 %; Hematocrit 28.4 % (37.5-50.1); Hemoglobin 9.2 g/dL (12.9-16.9); Immature Granulocytes % 0.4 % (0-4); Lymphocytes # 1.4 K/mcL (0.6-4.6); Lymphocytes % 13.9 %; Mean Corpuscular HGB Conc 32.4 g/dL (31.6-35.5); Mean Corpuscular Hemoglobin 29.1 pg (28.0-33.3); Mean Corpuscular Volume 89.9 fL (83.0-100.0); Mean Platelet Volume 10.1 fL (9.4-12.4); Monocytes # 0.6 K/mcL (0.0-1.3); Neutrophils # 8.1 K/mcL (1.6-8.9); Platelet Count 173 K/mcL (140-400); Red Blood Count 3.16 M/mcL (4.19-5.50); Red Cell Distribution Width 15.9 % (11.5-14.5); Segmented Neutrophils % 78.8 %
[2017-06-25] MEDS: *HR* Heparin 5,000 UNIT/ML VIAL SQ SCH ×2 (05:33→18:27)
[2017-06-25 05:48] LABS: Albumin 2.4 g/dL (3.5-5.7); Bilirubin,Total 0.2 mg/dL (0.3-1.0); Globulin 2.3 g/dL (2.4-3.5); Potassium 4.1 mEq/L (3.5-5.1); Total Protein 4.7 g/dL (6.4-8.9)
[2017-06-25] MEDS: Nystatin POWDER 30 GM BOTTLE TP SCH ×3 (09:00→20:53)
--- NOTE | 2017-06-25 10:00 | Nephrology Progress Note ---
Date of Encounter: 06/25/17 Time of Encounter: 09:58 - Assessment and Plan (1) Chronic kidney disease, stage IV (severe) Current Visit: Yes Status: Acute Patient has stable stage IV chronic kidney disease. His blood pressure control is improving with the addition of an PERI inhibitor. The patient's renal function is stable. He seems to be tolerating the diuresis for his acute on chronic systolic congestive heart failure. (2) Systolic CHF, acute Current Visit: Yes Status: Acute (3) Pulmonary HTN Current Visit: Yes Status: Acute (4) Benign hypertension with chronic kidney disease, stage IV Current Visit: Yes Status: Acute (5) Type 2 diabetes mellitus with diabetic chronic kidney disease Current Visit: Yes Status: Acute Qualifiers: Diabetes mellitus mcc insulin use: with termite control technician use Chronic kidney disease stage: stage 4 (severe) Qualified Code(s): E11.22 - Type 2 diabetes mellitus with diabetic chronic kidney disease; N18.4 - Chronic kidney disease, stage 4 (severe); N18.4 - Chronic kidney disease, stage 4 (severe); N18.4 - Chronic kidney disease, stage 4 (severe); N18.4 - Chronic kidney disease, stage 4 (severe); Z79.4 - terminal make up operator (current) use of insulin; Z79.4 - [facility] ( current) use of insulin; Z79.4 - [facility] (current) use of insulin; Z79.4 - terminal make up operator (current) use of insulin Subjective Principal diagnosis: systolic CHF exacerbation, elevated troponin Interval history: The patient reports his shortness of breath is improving. He still has some edema but it seems to be slowly improving as well. His blood pressures under better control. Renal function is relatively stable. Objective - Vital Signs Vital signs: Vital Signs Temp Pulse Resp BP Pulse Ox 06/25/17 06:49 96.7 F L 80 150/63 97 06/25/17 04:10 18 97 06/25/17 04:08 96.8 F L 70 20 148/63 97 06/25/17 00:02 17 97 06/24/17 19:43 97.8 F 84 18 183/86 95 06/24/17 16:25 15 97 06/24/17 15:00 81 19 182/94 97 Intake and Output 06/24/17 06/25/17 06/25/17 23:59 07:59 15:59 Intake Total 660 / 660 0 / 0 240 / 240 Output Total 1850 / 1850 600 / 600 500 / 500 Balance -1190 / -1190 -600 / -600 -260 / -260 Intake: Oral 660 / 660 0 / 0 240 / 240 Output: Urine 1850 / 1850 600 / 600 500 / 500 Other: Meal Dinner Breakfast Percent of Meal Consumed 95% 95% # Voids 0 Weight 98.8 kg Blood Glucose* 220 118 Patient Weight 06/25/17 23:59 Weight 98.8 kg - General Appearance Exam: Patient is alert and oriented. He is in no acute distress. Lungs diminished breath sounds otherwise clear. Heart regular rate and rhythm with a 2/6 systolic ejection murmur. Abdomen is benign. There is 2+ lower extremity swelling. Upper extremity swelling seems to be improving. - Lab 06/25/17 04:20 06/25/17 04:20 Most recent lab results ABG pH 7.31 pH Units (7.32-7.45) L 06/22/17 23:22 ABG pCO2 34 mmHg (35-45) L 06/22/17 23:22 ABG pO2 63 mmHg (85-104) L 06/22/17 23:22 ABG HCO3 17 mEq/L (21-27) L 06/22/17 23:22 ABG O2 Saturation 90 % (95-98) L 06/22/17 23:22 Calcium 8.0 mg/dL (8.6-10.3) L 06/25/17 04:20 Magnesium 1.2 mg/dL (1.6-2.6) L 06/23/17 01:24 - VTE Documentation of Mechanical Device: Graduated compression elastic hosiery Consult Discharge Plan - Plan [facility]errals: [facility] [Primary Care Provider] -
[2017-06-25] MEDS: Cholecalciferol (D-3) 1,000 UNIT TABLET PO SCH (10:35)
[2017-06-25] MEDS: Aspirin Enteric Coated 81 MG Tablet PO SCH (10:35)
[2017-06-25] MEDS: BuPROPion SR (12 HR) 150 MG TABLET PO SCH ×2 (10:35→20:52)
[2017-06-25] MEDS: Gabapentin 300 MG CAPSULE PO SCH ×2 (10:50→20:52)
[2017-06-25] MEDS: hydrALAZINE 25 MG TABLET PO SCH ×2 (10:51→20:51)
[2017-06-25] MEDS: Isosorbide MONOnitrate (24 HR) 60 MG TAB.ER.24H PO SCH (10:53)
[2017-06-25] MEDS: Magnesium Oxide 400 MG TABLET PO SCH ×2 (10:53→20:52)
[2017-06-25] MEDS: Furosemide 40 MG/4 ML VIAL IVP SCH ×2 (10:54→18:26)
[2017-06-25] MEDS: Insulin LISPRO 300 UNITS/3 ML VIAL SQ SCH ×4 (11:04→20:39)
--- NOTE | 2017-06-25 13:27 | Cardiology Progress Note ---
Date of Encounter: 06/25/17 Time of Encounter: 11:40 Assessment and Plan (1) Acute exacerbation of CHF (congestive heart failure) Current Visit: Yes Status: Acute Recent discharge, presents with recurrent acute on chronic CHF exacerbation. Patient reports compliance with Na/fluid restriction diet. No change in out-pt medications at that time. TTE 05/09/17: LVEF 30%, global LV systolic dysfunction, mild cLVH, mild LVDD, mild MR, severe PH (est. RVSP=60 mmHg) Continues to have fluid overload on exam. BNP 1803. CXR: small persistent bilateral pleural effusions, bibasilar atelectasis. Patient reports dyspnea and BLE improved today. Continues to have significant bilateral lower extremity edema. Continue IV diuretic. Nephrology following, on IV lasix 40 mg BID. Hx of CKD-4. Appreciate recommendations regarding IV diuretic. Cumulative I&O: -4020 mL. Na/Fluid restriction diet, daily weights, strict I&O's. Qualifiers: Congestive heart failure type: systolic Qualified Code(s): I50.23 - Acute on chronic systolic (congestive) heart failure (2) Elevated troponin Current Visit: Yes Status: Acute Troponin 1.14, 1.05, 0.79 in the setting of recent LHC, CKD-4, HTN urgency, and acute exacerbation of CHF; likely demand ischemia, however ACS cannot be ruled out. Patient denies chest pain or discomfort. No acute ECG changes noted. Recent C 06/17/2017 demonstrated SKI GUIDE of RCA otherwise non-obstructive CAD; medical management recommended. Continue asa, statin, betablocker, and nitrates. No indication for Cardiac rehab at this time. Will continue to follow. Discussion w patient/family: The assessment and plan as outlined above was discussed with the patient and/or family members who expressed understanding and agreement. All questions were answered. Thank you for involving us in the care of your patient. Please call with any questions. Subjective Principal diagnosis: systolic CHF exacerbation, elevated troponin Interval history: Mr. Jackson reports some improvement in SOB. Continues to have orthopnea. Noted to have chronic BLE edema. Reports edema increased from baseline. Notes water blisters on his serna. Objective Vital Signs, Last 4 Hours Temp Pulse Resp BP Pulse Ox 06/25/17 12:05 98.1 F 76 14 170/75 97 General: Conversant, No Apparent Distress HEENT: Atraumatic, Normocephaly, Mucus Membranes Moist Neck: No JVD, Normal carotid pulses Cardiac: Reg Rate and Rhythm, Normal S1 and S2, No Murmur Lungs: Other (Respirations unlabored) Neuro: Alert and responsive, No focal deficits noted Abdomen: Soft, Non-Tender Skin: No rashes noted on visualized skin Musculoskeletal: No Chest Wall Tenderness Extremities: No Clubbing, No Cyanosis, Normal Pulses, Other (BLE edema with redness, scabbed areas, skin is thick and scaley.) Results 06/25/17 04:20 06/25/17 04:20 Lab Results 06/25/17 06/25/17 04:20 04:20 WBC 10.3 Hgb 9.2 L Hct 28.4 L Plt Count 173 Sodium 139 Potassium 4.1 Chloride 112 H Carbon Dioxide 22 L BUN 71 H Creatinine 3.21 H Glucose 135 H Calcium 8.0 L Total Bilirubin 0.2 L AST 15 ALT 30 Alkaline Phosphatase 81 - Imaging and Cardiology Echo: report reviewed (04/2017- LVEF 30%. Normal LV chamber size. Global left ventricular systolic dysfunction. Mild concentric left ventricular hypertrophy. Mild left ventricular diastolic dysfunction. Normal right ventricular structure and function. Mild mitral regurgitation. Severe pulmonary hypertension. Estimated RVSP is 60 mmHg.) - EKG Interpretation EKG results cardiology: personally reviewed - VTE Documentation of Mechanical Device: Graduated compression elastic hosiery Consult Discharge Plan - Plan [facility]errals: [facility] [Primary Care Provider] -
--- NOTE | 2017-06-25 16:33 | Internal Med Progress Note ---
<AbdiasliviercheyenneCain Diop - Last Filed: 06/25/17 16:30> Date of Encounter: 06/25/17 Time of Encounter: 10:00 - Assessment and plan (1) Systolic and diastolic CHF, acute on chronic Current Visit: No Status: Acute Assessment and plan: Patient presenting with acute exacerbation of systolic heart failure. Last ejection fraction 30% (05/04), current BNP 1800, bilateral pleural effusions with left greater than right, pulmonary vascularization increased shortness of breath pitting edema bilateral upper and lower extremities and abdomen and back. 06/24: Patient continues to have appropriate urinary output, -2.2 L. Continue current management. We will reevaluate urinary output tomorrow and may consider increased to 40 mg IV Lasix 3 times a day. 06/25: Volume status clinically improving. Balance -3.8L, weight 106.6 -> 98.8kg , Appropriate urinary output. Plan: - Lasix 40 mg IV twice a day - 1500 mL fluid restrictions - Daily standing weights - Strict intake and output monitoring - Low sodium diet - Maximize cardiac medications. (2) CAD (coronary artery disease) Current Visit: Yes Status: Chronic Assessment and plan: Known history of coronary artery disease and peripheral vascular disease. - Risk factors include chronic smoker, diabetes, known CAD, hypertension LH performed 06/17/2017: Impressions: Double vessel coronary artery disease. Previously stented mid LAD and diagonal 1 are patent. 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 Peripheral vascular disease. - Recommendations at that time demonstrate optimal medical therapy and aggressive risk factor modifications. Plan: - Continue aspirin, Plavix, atorvastatin 80 mg by mouth at bedtime, PERI inhibitor and beta anita Qualifiers: Coronary Disease-Associated Artery/Lesion type: [place] artery [place] vs. transplanted heart: [place] heart Associated angina: without angina Qualified Code(s): I25.10 - Atherosclerotic heart disease of [place] coronary artery without angina pectoris (3) Diabetes mellitus Current Visit: Yes Status: Chronic Assessment and plan: Patient is a known type II diabetic with recurrent A1c 5.8, known stage IV chronic kidney disease PAD and CAD. - Continue Lantus 10 units at bedtime - Continue low-dose sliding scale and patient - ACHS glucose checks. Qualifiers: Diabetes mellitus type: type 2 Diabetes mellitus complication status: with kidney complications Diabetes mellitus complication detail: with chronic kidney disease Diabetes mellitus residential insulin use: with residential use Chronic kidney disease stage: stage 4 (severe) Qualified Code(s): E11.22 - Type 2 diabetes mellitus with diabetic chronic kidney disease; N18.4 - Chronic kidney disease, stage 4 (severe); N18.4 - Chronic kidney disease, stage 4 ( severe); N18.4 - Chronic kidney disease, stage 4 (severe); N18.4 - Chronic kidney disease, stage 4 (severe); Z79.4 - exterminator termite (current) use of insulin; Z79.4 - exterminator termite (current) use of insulin; Z79.4 - senior care (current) use of insulin; Z79.4 - exterminator termite (current) use of insulin (4) PAD (peripheral artery disease) Current Visit: No Status: Chronic Assessment and plan: Known peripheral artery disease, patient is symptomatic seen by vascular surgery. His ago for recommended follow-up and medical management. LHC demonstrated iliac vessel with 95% occlusion Plan: - Continue aspirin and Plavix as recommended by vascular surgery - Continue statin and continue treatment for coronary artery disease - Continue to monitor peripheral pulses. - Encouraged patient to quit smoking (5) Tobacco abuse Current Visit: No Status: Chronic Assessment and plan: Patient is a known daily smoker, recently reducing tobacco abuse. He has secondary coronary artery disease and peripheral vascular disease. - Encouraged tobacco cessation (6) CKD (chronic kidney disease) stage 4, GFR 15-29 ml/min Current Visit: Yes Status: Chronic Assessment and plan: Acute on chronic stage IV kidney disease. Likely contribute including cardiogenic as patient has a ejection fraction 30% in the setting of stage IV kidney disease. 06/25: Slighly worse today with IV Lasix and heart failure Plan: - Dose of IV Albumin - Patient followed by Dr. Pearson with nephrology - Continue to avoid nephrotoxic medications renally dose antibiotics. (7) Atherosclerosis of [place] arteries of extremities with intermittent claudication, bilateral legs Current Visit: No Status: Chronic Assessment and plan: As discussed above. (8) Elevated troponin Current Visit: Yes Status: Acute Assessment and plan: Patient had elevated troponins currently decreasing. Patient was started on heparin drip concerns for ACS. Known vascular disease, systolic heart failure with current acute systolic heart failure exacerbation. Recently seen by cardiology and is undergoing medical management. 06/24: Troponins trending down, continue current management, patient denies chest pain or chest pressure. 06/25: Appreciated cardiologies recommendations, patient stable. Patient will follow up with Cardiology outpatient. Plan: - Cardiology following appreciate recommendations - Continue aspirin, Plavix, atorvastatin, beta anita, PERI inhibitor, nitroglycerin . (9) HTN (hypertension) Current Visit: No Status: Chronic Assessment and plan: Patient is a known history of hypertension, currently blood pressure both systolic and diastolic elevated. Home antihypertensive medications include: Amlodipine 10 mg by mouth daily, Coreg 25 mg by mouth twice a day, Lasix 40 mg by mouth twice a day, lisinopril 10 mg by mouth daily, hydralazine 50 mg by mouth twice a day. Plan: - Currently on captopril 25 mg by mouth 3 times a day, plan to adjust home dose lisinopril accordingly - Corig 25 mg by mouth twice a day - Hydralazine 50 mg by mouth twice a day, 10 mg IV every 6 hours when necessary. Qualifiers: Hypertension type: essential hypertension Qualified Code(s): I10 - Essential (primary) hypertension (10) DVT prophylaxis Current Visit: Yes Status: Acute Assessment and plan: Heparin drip in the setting of elevated troponins - Subjective Interval history: Mr. Jackson has been seen and evaluated at patient bedside. He is alert, awake and interactive. Feels that his respiratory status is slightly improved. No concerns at this time. Tolerating diuresis. - Constitutional Vitals: Temp Pulse Resp BP Pulse Ox 98.1 F 76 14 170/75 97 06/25/17 12:05 06/25/17 12:05 06/25/17 12:05 06/25/17 12:05 06/25/17 12:05 General appearance: Present: cooperative, A&O X 3 ( ), pleasant, obese, severe distress (Respiratory), answers questions appropriately Exam: General: Patient alert, awake, oriented 3, interactive, in no acute distress, pale skin HEENT: Normocephalic, atraumatic, pupils equal reactive to light,oral mucosa moist, neck supple trachea midline no palpable lymphadenopathy, no thyromegaly. Chest: Symmetric bilateral correlating with respiratory effort, effort nonlabored. Cardiac: Regular rate and rhythm, positive S1 and S2. Radial pulses 2+ bilateral, posterior tibial and dorsal pedal pulses trace bilateral. Respiratory: Rhonchi appreciated in bilateral lung bases. Abdomen: Obese, nontender to palpation, palpable abdominal edema with pitting in the lower back. Positive bowel sounds Extremities: Symmetric bilateral, bilateral lower extremities demonstrate chronic changes secondary to poor perfusion and recurrent bilateral lower extremity edema, scabs on bilateral shins healing appropriately without erythema or drainage. Bilateral extremities with 1+ pitting edema Neurologic: No focal deficits appreciated on examination. Face symmetric, muscle strength symmetric bilateral upper and lower extremities. Internal Medicine: Result - Labs CBC & Chem 7: 06/25/17 04:20 06/25/17 04:20 Labs: Short CBC 06/25/17 Range/Units 04:20 WBC 10.3 (4.3-11.1) K/mcL Hgb 9.2 L (12.9-16.9) g/dL Hct 28.4 L (37.5-50.1) % Plt Count 173 (140-400) K/mcL Neutrophils # 8.1 (1.6-8.9) K/mcL BMP 06/25/17 04:20 Sodium 139 Potassium 4.1 Chloride 112 H Carbon Dioxide 22 L BUN 71 H Creatinine 3.21 H Glucose 135 H Calcium 8.0 L Liver Function 06/25/17 Range/Units 04:20 Total Bilirubin 0.2 L (0.3-1.0) mg/dL AST 15 (13-39) Units/L ALT 30 (7-52) Units/L Alkaline Phosphatase 81 (34-104) Units/L Albumin 2.4 L (3.5-5.7) g/dL - ABG Interpretation ABG results: ABG ABG pH 7.31 pH Units (7.32-7.45) L 06/22/17 23:22 ABG pCO2 34 mmHg (35-45) L 06/22/17 23:22 ABG pO2 63 mmHg (85-104) L 06/22/17 23:22 ABG O2 Saturation 90 % (95-98) L 06/22/17 23:22 PT/INR, D-dimer PT 12.1 Seconds (9.4-12.1) 06/22/17 18:10 - VTE Documentation of Mechanical Device: Graduated compression elastic hosiery Consult Discharge Plan - Plan [facility]errals: [facility] [Primary Care Provider] - <Yovany Church - Last Filed: 06/25/17 18:43> Date of Encounter: 06/25/17 - Assessment and plan (1) Respiratory failure with hypoxia Current Visit: Yes Status: Acute Qualifiers: Chronicity: acute Qualified Code(s): J96.01 - Acute respiratory failure with hypoxia (2) Acute exacerbation of CHF (congestive heart failure) Current Visit: Yes Status: Acute Qualifiers: Congestive heart failure type: systolic Qualified Code(s): I50.23 - Acute on chronic systolic (congestive) heart failure (3) CAD (coronary artery disease) Current Visit: Yes Status: Chronic Qualifiers: Coronary Disease-Associated Artery/Lesion type: [place] artery [place] vs. transplanted heart: [place] heart Associated angina: without angina Qualified Code(s): I25.10 - Atherosclerotic heart disease of [place] coronary artery without angina pectoris (4) Diabetes mellitus Current Visit: Yes Status: Chronic Qualifiers: Diabetes mellitus type: type 2 Diabetes mellitus complication status: with kidney complications Diabetes mellitus complication detail: with chronic kidney disease Diabetes mellitus exterminator termite insulin use: with residential use Chronic kidney disease stage: stage 4 (severe) Qualified Code(s): E11.22 - Type 2 diabetes mellitus with diabetic chronic kidney disease; N18.4 - Chronic kidney disease, stage 4 (severe); N18.4 - Chronic kidney disease, stage 4 ( severe); N18.4 - Chronic kidney disease, stage 4 (severe); N18.4 - Chronic kidney disease, stage 4 (severe); Z79.4 - exterminator termite (current) use of insulin; Z79.4 - exterminator termite (current) use of insulin; Z79.4 - senior care (current) use of insulin; Z79.4 - exterminator termite (current) use of insulin (5) HTN (hypertension) Current Visit: Yes Status: Ruled-out Qualifiers: Hypertension type: essential hypertension Qualified Code(s): I10 - Essential (primary) hypertension (6) Tobacco abuse Current Visit: No Status: Chronic (7) PAD (peripheral artery disease) Current Visit: No Status: Chronic - Constitutional Vitals: Temp Pulse Resp BP Pulse Ox 97.6 F 88 14 177/83 92 06/25/17 16:41 06/25/17 16:41 06/25/17 12:05 06/25/17 16:41 06/25/17 16:41 Internal Medicine: Result - Labs CBC & Chem 7: 06/25/17 04:20 06/25/17 04:20 Labs: Short CBC 06/25/17 Range/Units 04:20 WBC 10.3 (4.3-11.1) K/mcL Hgb 9.2 L (12.9-16.9) g/dL Hct 28.4 L (37.5-50.1) % Plt Count 173 (140-400) K/mcL Neutrophils # 8.1 (1.6-8.9) K/mcL BMP 06/25/17 04:20 Sodium 139 Potassium 4.1 Chloride 112 H Carbon Dioxide 22 L BUN 71 H Creatinine 3.21 H Glucose 135 H Calcium 8.0 L Liver Function 06/25/17 Range/Units 04:20 Total Bilirubin 0.2 L (0.3-1.0) mg/dL AST 15 (13-39) Units/L ALT 30 (7-52) Units/L Alkaline Phosphatase 81 (34-104) Units/L Albumin 2.4 L (3.5-5.7) g/dL - ABG Interpretation ABG results: ABG ABG pH 7.31 pH Units (7.32-7.45) L 06/22/17 23:22 ABG pCO2 34 mmHg (35-45) L 06/22/17 23:22 ABG pO2 63 mmHg (85-104) L 06/22/17 23:22 ABG O2 Saturation 90 % (95-98) L 06/22/17 23:22 PT/INR, D-dimer PT 12.1 Seconds (9.4-12.1) 06/22/17 18:10 - Attending Attestation I examined this patient and my medical decision-making was reviewed with the Resident Physician on 06/25/17. I agree with the documented findings, disposition and treatment plan as described except to the extent set forth below. Mr Jackson is currently admitted for exac CHF. He remains moderate to high risk due to potential for worsening clinical status. Mr Jackson is breathing better overall today. He has not had to use bipap during day. He is still edematous. No fever or CP. Exam alert. Comfortable Mucus membranes dry Heart distant Lungs diminished Abd soft Edema present I/P 1. Exac CHF 2. HTN Further diagnoses and plan as above.
[2017-06-25] MEDS ORDERED: Albumin 25% 25gram/100mL 25 GM/100 ML IV.SOLN IVPB ONE (17:25)
[2017-06-25] MEDS: Loratadine 10 MG TABLET PO SCH (20:52)
[2017-06-25] MEDS: amLODIPine 5 MG TABLET PO SCH (20:59)
[2017-06-25] MEDS: traZODone 50 MG TABLET PO PRN (20:59)
[2017-06-25] MEDS: traMADol 50 MG TABLET PO PRN (20:59)
[2017-06-25] MEDS: Insulin DETEMIR 100 UNIT/ML X5UNITS SQ SCH (21:03)
[2017-06-26] MEDS: *HR* Heparin 5,000 UNIT/ML VIAL SQ SCH (05:24)
[2017-06-26 06:30] LABS: Basophils % 0.1 %; Eosinophils # 0.1 K/mcL (0.0-0.6); Eosinophils % 1.9 %; Hematocrit 27.3 % (37.5-50.1); Hemoglobin 8.7 g/dL (12.9-16.9); Immature Granulocytes % 0.4 % (0-4); Lymphocytes # 1.3 K/mcL (0.6-4.6); Lymphocytes % 18.1 %; Mean Corpuscular HGB Conc 31.9 g/dL (31.6-35.5); Mean Platelet Volume 9.5 fL (9.4-12.4); Monocytes # 0.6 K/mcL (0.0-1.3); Monocytes % 8.2 %; Neutrophils # 4.9 K/mcL (1.6-8.9); Platelet Count 156 K/mcL (140-400); Red Cell Distribution Width 15.6 % (11.5-14.5); Segmented Neutrophils % 71.3 %
[2017-06-26 07:05] LABS: Albumin 2.6 g/dL (3.5-5.7); Albumin/Globulin Ratio 1.2 (1.1-2.2); Bilirubin,Total 0.3 mg/dL (0.3-1.0); Calcium 8.1 mg/dL (8.6-10.3); Globulin 2.1 g/dL (2.4-3.5); Potassium 4.1 mEq/L (3.5-5.1); Total Protein 4.7 g/dL (6.4-8.9)
[2017-06-26 07:09] VITALS: BP 127/59
[2017-06-26] MEDS: Insulin LISPRO 300 UNITS/3 ML VIAL SQ SCH (08:11)
[2017-06-26] MEDS: Isosorbide MONOnitrate (24 HR) 60 MG TAB.ER.24H PO SCH (08:12)
[2017-06-26] MEDS: Magnesium Oxide 400 MG TABLET PO SCH (08:12)
[2017-06-26] MEDS: Cholecalciferol (D-3) 1,000 UNIT TABLET PO SCH (08:13)
[2017-06-26] MEDS: Aspirin Enteric Coated 81 MG Tablet PO SCH (08:13)
[2017-06-26] MEDS: Nystatin POWDER 30 GM BOTTLE TP SCH (08:13)
[2017-06-26] MEDS: Gabapentin 300 MG CAPSULE PO SCH (08:13)
[2017-06-26] MEDS: BuPROPion SR (12 HR) 150 MG TABLET PO SCH (08:13)
[2017-06-26] MEDS: amLODIPine 5 MG TABLET PO SCH (08:13)
[2017-06-26] MEDS: Furosemide 40 MG/4 ML VIAL IVP SCH (08:13)
[2017-06-26] MEDS: hydrALAZINE 25 MG TABLET PO SCH (08:14)
--- NOTE | 2017-06-26 09:23 | Discharge Summary ---
<Cain Peck - Last Filed: 06/26/17 09:18> Date of Encounter: 06/26/17 Time of Encounter: 09:18 - Discharge Diagnosis (1) Systolic and diastolic CHF, acute on chronic Priority: Primary Status: Acute (2) CAD (coronary artery disease) Priority: Primary Status: Chronic Qualifiers: Coronary Disease-Associated Artery/Lesion type: [place] artery [place] vs. transplanted heart: [place] heart Associated angina: without angina Qualified Code(s): I25.10 - Atherosclerotic heart disease of [place] coronary artery without angina pectoris (3) Diabetes mellitus Priority: Secondary Status: Chronic Qualifiers: Diabetes mellitus type: type 2 Diabetes mellitus complication status: with kidney complications Diabetes mellitus complication detail: with chronic kidney disease Diabetes mellitus intermediate manager insulin use: with intermediate use Chronic kidney disease stage: stage 4 (severe) Qualified Code(s): E11.22 - Type 2 diabetes mellitus with diabetic chronic kidney disease; N18.4 - Chronic kidney disease, stage 4 (severe); N18.4 - Chronic kidney disease, stage 4 ( severe); N18.4 - Chronic kidney disease, stage 4 (severe); N18.4 - Chronic kidney disease, stage 4 (severe); Z79.4 - tank terminal 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; Z79.4 - [facility] (current) use of insulin; Z79.4 - tank terminal 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; Z79.4 - tank terminal 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 (4) PAD (peripheral artery disease) Priority: Secondary Status: Chronic (5) Tobacco abuse Priority: Secondary Status: Chronic (6) CKD (chronic kidney disease) stage 4, GFR 15-29 ml/min Priority: Secondary Status: Chronic (7) Atherosclerosis of [place] arteries of extremities with intermittent claudication, bilateral legs Priority: Secondary Status: Chronic (8) Elevated troponin Priority: Primary Status: Acute (9) HTN (hypertension) Priority: Secondary Status: Chronic Qualifiers: Hypertension type: essential hypertension Qualified Code(s): I10 - Essential (primary) hypertension (10) DVT prophylaxis Priority: Secondary Status: Acute - Discharge Medications Prescriptions: Nystatin POWDER [Nystop] 1 appl TP TID #1 bottle Home Medications: Aspirin [Lo-Dose Aspirin EC] 81 mg PO DAILY 11/08/16 [History] Atorvastatin Calcium [Lipitor] 80 mg PO HS 11/08/16 [History] BuPROPion SR (12 HR) [Wellbutrin SR] 150 mg PO BID 11/08/16 [History] Carvedilol [Coreg] 25 mg PO BID 11/08/16 [History] Cholecalciferol (Vitamin D3) [Vitamin D3] 2,000 unit PO DAILY 11/08/16 [History] Ferrous Gluconate 324 mg PO BID 11/08/16 [History] Insulin Glargine [Lantus] 20 unit SQ HS 11/08/16 [History] Mometasone/Formoterol [Dulera 200 Mcg/5 Mcg Inhaler] 2 puff IH DAILY 11/08/16 [ History] Omeprazole [PriLOSEC] 20 mg PO DAILY 11/08/16 [History] Tamsulosin HCl [Flomax] 0.4 mg PO DAILY 11/08/16 [History] Tramadol HCl [Ultram] 50 mg PO TID PRN 11/08/16 [History] Trazodone HCl 100 mg PO HS PRN 11/08/16 [History] Vit C/E/Zn/Coppr/Lutein/Zeaxan [Preservision Areds 2 Softgel] 1 tab PO BID 11/08 [History] Albuterol Sulfate [Albuterol Inhaler] 2 puff IH QID 05/09/17 [History] Calcitriol [Rocaltrol] 0.25 mcg PO DAILY 05/09/17 [History] Cetirizine HCl [Zyrtec] 10 mg PO HS 05/09/17 [History] Ipratropium [ATROVENT Inhaler] 2 puff IH BID 05/09/17 [History] Ipratropium/Albuterol Neb [Duoneb] 3 ml IH Q6HR PRN 05/09/17 [History] Amlodipine Besylate 10 mg PO DAILY 06/04/17 [History] Calcium Carbonate 1,300 mg PO DAILY 06/04/17 [History] Furosemide [Lasix] 40 mg PO BID 06/04/17 [History] GuaiFENesin/Dextromethorphan [Tussin Dm Syrup] 5 ml PO BID PRN 06/04/17 [History ] Prazosin HCl [Minipress] 10 mg PO HS 06/04/17 [History] Clopidogrel [Plavix] 75 mg PO DAILY #30 tablet 06/19/17 [Rx] Gabapentin [Neurontin] 300 mg PO BID #60 capsule 06/19/17 [Rx] Isosorbide MONOnitrate (24 HR) [Imdur] 120 mg PO DAILY #30 tab.er.24h 06/19/17 [ Rx] Lisinopril [Zestril] 10 mg PO DAILY #30 tablet 06/19/17 [Rx] Sodium Bicarbonate 650 mg PO TID #90 tablet 06/19/17 [Rx] hydrALAZINE [HydrALAZINE] 50 mg PO BID #60 tablet 06/19/17 [Rx] Magnesium Oxide [Magnesium] 400 mg PO BID 06/23/17 [History] Spironolactone [Aldactone] 25 mg PO DAILY 06/23/17 [History] Nystatin POWDER [Nystop] 1 appl TP TID #1 bottle 06/26/17 [Rx] Allergies/Adverse Reactions: 3 Allergy/AdvReac Type Severity Reaction Status Date / Time Doxepin Allergy Hives Verified 11/07/16 22:47 Penicillins Allergy Hives Verified 11/07/16 22:47 Sulfa (Sulfonamide Allergy Hives Verified 11/07/16 22:47 Antibiotics) Date of admission: 06/22/17 21:25 [facility] Consults: 06/23/17 08:56 Consult to Nephrology [CONS] Routine Consulting Provider: [facility] Reason for Consult: CKD IV getting to V Call Completed: Yes Discharging clinician: Cain Peck Anticipated date of discharge: 06/26/17 - Patient Status Disposition: Transfer Other Condition: Fair Functional capacity at discharge: uses cane/walker Overall status at discharge: patient is back to baseline - Discharge Instructions Instructions: Heart Failure (DC), Diabetes Mellitus Type 2 in Adults (DC), Chronic Obstructive Pulmonary Disease (DC), Pneumonia (DC), Cigarette Smoking and Your Health, Manufacturing Group Leader (GEN) Follow Up With: [facility] [Primary Care Provider] - Additional Instructions: 1. Follow-up with your primary care provider in the next 3-5 days 2. Take all prescriptions as prescribed, any concerns or questions contact her primary care provider. 3. Return to the emergency department if: Worsening of shortness of breath, worsening of extremity edema, chest pain, chest pressure or any other concerning medical symptoms or signs. - Diet and Activity Activity: increase activity as tolerated Diet: diabetic diet Hospital course: Mr. Jackson is a 67 year old male - Time Spent with Patient Total time spent providing and/or coordinating discharge services: - Constitutional Vitals: Temp Pulse Resp BP Pulse Ox 97.6 F 74 18 127/59 99 06/26/17 07:00 06/26/17 07:00 06/26/17 07:00 06/26/17 07:00 06/26/17 07:00 General appearance: Present: cooperative, A&O X 3 ( ), pleasant, obese, severe distress (Respiratory), answers questions appropriately Exam: General: Patient alert, awake, oriented 3, interactive, in no acute distress, pale skin HEENT: Normocephalic, atraumatic, pupils equal reactive to light,oral mucosa moist, neck supple trachea midline no palpable lymphadenopathy, no thyromegaly. Chest: Symmetric bilateral correlating with respiratory effort, effort nonlabored. Cardiac: Regular rate and rhythm, positive S1 and S2. Radial pulses 2+ bilateral, posterior tibial and dorsal pedal pulses trace bilateral. Respiratory: CTABL Abdomen: Obese, nontender to palpation, palpable abdominal edema with pitting in the lower back. Positive bowel sounds Extremities: Symmetric bilateral, bilateral lower extremities demonstrate chronic changes secondary to poor perfusion and recurrent bilateral lower extremity edema, scabs on bilateral shins healing appropriately without erythema or drainage. Bilateral extremities with 1+ pitting edema Neurologic: No focal deficits appreciated on examination. Face symmetric, muscle strength symmetric bilateral upper and lower extremities. - VTE Documentation of Mechanical Device: Graduated compression elastic hosiery <Yovany Church - Last Filed: 06/26/17 18:21> Date of Encounter: 06/26/17 - Discharge Diagnosis (1) Respiratory failure with hypoxia Priority: Primary Status: Resolved Qualifiers: Chronicity: acute Qualified Code(s): J96.01 - Acute respiratory failure with hypoxia (2) Acute exacerbation of CHF (congestive heart failure) Priority: Primary Status: Resolved Qualifiers: Congestive heart failure type: systolic Qualified Code(s): I50.23 - Acute on chronic systolic (congestive) heart failure (3) CAD (coronary artery disease) Priority: Secondary Status: Chronic Qualifiers: Coronary Disease-Associated Artery/Lesion type: [place] artery [place] vs. transplanted heart: [place] heart Associated angina: without angina Qualified Code(s): I25.10 - Atherosclerotic heart disease of [place] coronary artery without angina pectoris (4) Diabetes mellitus Status: Chronic Qualifiers: Diabetes mellitus type: type 2 Diabetes mellitus complication status: with kidney complications Diabetes mellitus complication detail: with chronic kidney disease Diabetes mellitus intermediate insulin use: with intermediate use Chronic kidney disease stage: stage 4 (severe) Qualified Code(s): E11.22 - Type 2 diabetes mellitus with diabetic chronic kidney disease; N18.4 - Chronic kidney disease, stage 4 (severe); N18.4 - Chronic kidney disease, stage 4 ( severe); N18.4 - Chronic kidney disease, stage 4 (severe); N18.4 - Chronic kidney disease, stage 4 (severe); Z79.4 - [facility] (current) use of insulin; Z79.4 - tank terminal 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; Z79.4 - [facility] (current) use of insulin; Z79.4 - tank terminal 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 (5) HTN (hypertension) Priority: Secondary Status: Ruled-out Qualifiers: Hypertension type: essential hypertension Qualified Code(s): I10 - Essential (primary) hypertension (6) Tobacco abuse Status: Chronic (7) PAD (peripheral artery disease) Status: Chronic Date of admission: 06/22/17 21:25 Primary care physician: PCP [facility] Consults: 06/23/17 08:56 Consult to Nephrology [CONS] Routine Consulting Provider: [facility] Reason for Consult: CKD IV getting to V Call Completed: Yes Hospital course: Mr. Jackson is a 67 year old male - Time Spent with Patient Total time spent providing and/or coordinating discharge services: 38min - Constitutional Vitals: Temp Pulse Resp BP Pulse Ox 97.6 F 74 18 127/59 99 06/26/17 07:00 06/26/17 07:00 06/26/17 07:00 06/26/17 07:00 06/26/17 08:05 - Attending Attestation I examined this patient and my medical decision-making was reviewed with the Resident Physician on 06/26/17. I agree with the documented findings, disposition and treatment plan as described except to the extent set forth below. Mr Jackson has been admitted for acute exac systolic CHF. He has improved to near his baseline status. [facility] has been evaluated [facility]. He is currently afebrile and ready for discharge Exam alert Comfortable Mucus membranes dry Heart distant Lungs diminished Edema improving Plan D[facility]C [facility]
--- NOTE | 2017-06-26 10:37 | Nephrology Progress Note ---
Date of Encounter: 06/26/17 Time of Encounter: 10:25 - Assessment and Plan (1) CKD (chronic kidney disease) stage 4, GFR 15-29 ml/min Current Visit: Yes Status: Chronic CKD 4-stable. SBP 125-140, improved. Documented urine output 1500 cc. Will follow in office with labs in 4 weeks. Subjective Principal diagnosis: systolic CHF exacerbation, elevated troponin Interval history: Sitting on edge of bed. States being transferred to inpatient rehab at [place]. Objective - Vital Signs Vital signs: Vital Signs Temp Pulse Resp BP Pulse Ox 06/26/17 08:05 99 06/26/17 07:00 97.6 F 74 18 127/59 99 06/26/17 03:53 97.9 F 66 18 137/57 98 06/26/17 03:18 17 98 06/25/17 20:25 97 06/25/17 20:11 97.8 F 78 18 181/83 97 06/25/17 16:41 97.6 F 88 177/83 92 06/25/17 12:05 98.1 F 76 14 170/75 97 Intake and Output 06/25/17 06/26/17 06/26/17 23:59 07:59 15:59 Intake Total 240 / 240 240 / 240 240 / 240 Output Total 400 / 400 1000 / 1000 Balance -160 / -160 -760 / -760 240 / 240 Intake: Oral 240 / 240 240 / 240 240 / 240 Output: Urine 400 / 400 1000 / 1000 Other: Meal Breakfast Percent of Meal Consumed 100% # Voids 0 0 Weight 98.5 kg Blood Glucose* 162 106 Patient Weight 06/26/17 23:59 Weight 98.5 kg - General Appearance General appearance: Present: well-developed, well-nourished, appears started age EENT: Present: mucous membranes moist Neck: Present: no JVD Respiratory: Present: wheezing Cardiology: Present: edema, regular rate, regular rhythm Additional Comments: mild pitting edema, chronic vascular skin changes. Gastrointestinal: Present: normoactive bowel sounds, no tenderness Integumentary: Present: warm and dry Neurologic: Present: alert and oriented x3 - Lab 06/26/17 06:17 06/26/17 06:17 Most recent lab results ABG pH 7.31 pH Units (7.32-7.45) L 06/22/17 23:22 ABG pCO2 34 mmHg (35-45) L 06/22/17 23:22 ABG pO2 63 mmHg (85-104) L 06/22/17 23:22 ABG HCO3 17 mEq/L (21-27) L 06/22/17 23:22 ABG O2 Saturation 90 % (95-98) L 06/22/17 23:22 Calcium 8.1 mg/dL (8.6-10.3) L 06/26/17 06:17 Magnesium 1.2 mg/dL (1.6-2.6) L 06/23/17 01:24 - VTE Documentation of Mechanical Device: Graduated compression elastic hosiery Consult Discharge Plan - Plan Instructions: Heart Failure (DC), Diabetes Mellitus Type 2 in Adults (DC), Chronic Obstructive Pulmonary Disease (DC), Pneumonia (DC), Cigarette Smoking and Your Health, Desilverizer (GEN) Additional Instructions: 1. Follow-up with your primary care provider in the next 3-5 days 2. Take all prescriptions as prescribed, any concerns or questions contact her primary care provider. 3. Return to the emergency department if: Worsening of shortness of breath, worsening of extremity edema, chest pain, chest pressure or any other concerning medical symptoms or signs. [facility]errals: [facility] [Primary Care Provider] - Prescriptions: Nystatin POWDER [Nystop] 1 appl TP TID #1 bottle
== END 2017-06-26 11:25 | disposition other institution (70) | DRG 291 ==
LOC: 2NENU 14:50 → EMEROO 14:50 → 2NENU 20:14 → SUATTDRO 21:25
PROVIDERS: ADMIT Nurse Practitioner Family; ATTEND Internal Medicine

== ENCOUNTER 2017-08-10 14:43 | Inpatient (IN) ==
[2017-08-10] MEDS ORDERED: Albuterol 2.5 MG/3 ML NEBULIZER IH PRN (16:50)
[2017-08-10] MEDS ORDERED: methylPREDNISolone 125 MG/2 ML VIAL IVP ONE (16:51)
[2017-08-10] MEDS ORDERED: *HR* Dextrose 50 % in Water (Syg) 50 ML SYRINGE IVP PRN (17:02)
[2017-08-10] MEDS ORDERED: Naloxone 0.4 MG/ML INJ IVP PRN (17:02)
[2017-08-10] MEDS ORDERED: D5% in Water 1,000 ML IVC PRN (17:02)
[2017-08-10] MEDS ORDERED: Dextrose Gel 15 GM/37.5 ML TUBE PO PRN ×2 (17:02)
[2017-08-10] MEDS: Ipratropium/Albuterol Neb 3 ML IH SCH ×2 (17:10→22:22)
--- NOTE | 2017-08-10 17:13 | Internal Med History&Physical ---
<Cristhian Mccall - Last Filed: 08/10/17 18:29> Date of Encounter: 08/10/17 Time of Encounter: 17:11 Assessment and Plan (1) Acute on chronic diastolic CHF (congestive heart failure) Current visit: Yes Status: Acute Presents today with acute on chronic respiratory failure with hypoxia secondary to diastolic congestive heart failure. Severe history of cardiomyopathy, CAD and pulmonary hypertension. The patient has recently been admitted for heart failure and was found to have a decrease in ejection fraction as well as severe pulmonary hypertension Since discharge she has been having increased difficulty breathing and bilateral lower extremity swelling; some of the swelling is chronic due to PVD He was additionally found to [facility] Troponin today from our lab as 0.82. On examination the patient is awake alert and oriented, in moderate respiratory distress. Heart sounds are normal, S1, S2. Decreased breath sounds bilaterally anterior and posterior with bibasilar rales. Bilateral 3+ pitting edema noted as well as stasis dermatitis Chest x-ray shows pulmonary edema with moderate right and small left pleural effusion. Echocardiogram results as follows LVEF 30%. Normal LV chamber size. Mild concentric left ventricular hypertrophy. Moderate left ventricular diastolic dysfunction. Atypical septal motion consistent with bundle branch block. Mildly dilated right ventricle with normal systolic function. Severely dilated left atrium. Severe pulmonary hypertension. Estimated RVSP is 54-64 mmHg -EKG repeated now -Portal chest -Trend troponin -Continue diuresis with IV Lasix -Nitroglycerin drip to reduce preload -Consult cardiology-dayshift team to call -Continue duo nebs -IV steroids (2) NSTEMI (non-ST elevated myocardial infarction) Current visit: Yes Status: Acute Presents today in respiratory failure with hypoxia secondary to acute on chronic diastolic congestive heart failure. Troponin peaked at 1.49. Troponin 0.82, concern for type II NJ. PLAN: - cardiac enzymes x 2 q 6 hr - EKG now and in AM - ASA -Continue BiPAP goal to wean to nasal cannula 3 L which is is baseline oxygen requirements - CBCD, BMP in AM - Heparin drip - 2D Echo recently completed earlier this month (3) Acute respiratory failure with hypoxia Current visit: Yes Status: Acute (4) Acute exacerbation of chronic obstructive airways disease Current visit: Yes Status: Acute (5) Chronic kidney disease, stage IV (severe) Current visit: Yes Status: Acute History of chronic kidney disease Avoid nephrotoxins Serum creatinine in the morning (6) Elevated troponin Current visit: Yes Status: Acute (7) Diabetes mellitus Current visit: Yes Status: Chronic sliding scale insulin coverage Qualifiers: Diabetes mellitus type: type 2 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 Diabetes mellitus complication status: with kidney complications Diabetes mellitus complication detail: with chronic kidney disease Chronic kidney disease stage: stage 4 (severe) Qualified Code(s): E11.22 - Type 2 diabetes mellitus with diabetic chronic kidney disease; N18.4 - Chronic kidney disease, stage 4 (severe); N18.4 - Chronic kidney disease, stage 4 (severe); N18.4 - Chronic kidney disease, stage 4 (severe); N18.4 - Chronic kidney disease, stage 4 (severe); Z79.4 - 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 SBP 180's on arrival. Volume overloaded, continue to diurese Qualifiers: Hypertension type: essential hypertension Qualified Code(s): I10 - Essential (primary) hypertension (10) PAD (peripheral artery disease) Current visit: Yes Status: Chronic H/o PAD, Chronic pedal edema and stasis dermatitis. (11) DVT prophylaxis Current visit: Yes Status: Acute Heparin gtt Internal Medicine - H&P: HPI Chief complaint: dyspnea Admitted From: Home Plans for Post Hospital Care: Home History of present illness: Mr. Jackson is a 67 year old male with a PMH of osteoarthritis, CAD, hyperlipidemia, PTSD, CKD, peripheral neuropathy, HTN, diabetes and CHF. He presents to [facility] today with an occurrence of chest pain yesterday and severe dyspnea which began early this morning at around 1 am and an elevation in troponin of 1.49. He was recently discharged 2-days ago from [facility] following a stay for CHF. During that stay he was found to have worsening heart failure with a change in EF from 40% to 30% with global LV systolic dysfunction , mild cLVH, mild LVDD and mild MR as well as sever pulmonary hypertension. As of this morning has c/o increased wheezing, dyspnea, and BLE swelling. He denies any CP currently. He notes that " I feel like I cannot catch my breath, I need a Bipap". He denies any chest pain, fevers, chills, cough, N/V/D/ or unilateral extremity swelling/pain. CXR at [facility] shows B/L pleural effusions right greater than left with associated airspace opacities. He also has an elevated WBC of 15.1 and troponin elevation. He is being admitted for acute heart failure, and r/o coronary event as there is some concern for a type 2 NJ. Past Med Surg Social Fam HX - Past Medical History Medical history: CHF, COPD, coronary artery disease, diabetes, hyperlipidemia, hypertension, peripheral artery disease, renal disease Psychiatric history: depression, PTSD - Past Surgical History Surgical History: appendectomy - Social History Smoking Status: Former smoker Smokeless Tobacco Status: No Alcohol use: none Drug use: none - Family History Mother Family Member Ethnicity: Non- Living Status: Hx Family Cancer: Yes Internal Medicine - H&P: Meds Aspirin [Lo-Dose Aspirin EC] 81 mg PO DAILY 11/08/16 [History] Atorvastatin Calcium [Lipitor] 80 mg PO HS 11/08/16 [History] BuPROPion SR (12 HR) [Wellbutrin SR] 150 mg PO BID 11/08/16 [History] Carvedilol [Coreg] 25 mg PO BID 11/08/16 [History] Cholecalciferol (Vitamin D3) [Vitamin D3] 2,000 unit PO DAILY 11/08/16 [History] Ferrous Gluconate 324 mg PO BID 11/08/16 [History] Insulin Glargine [Lantus] 16 unit SQ HS 11/08/16 [History] Omeprazole [PriLOSEC] 20 mg PO DAILY 11/08/16 [History] Tamsulosin HCl [Flomax] 0.8 mg PO DAILY 11/08/16 [History] Tramadol HCl [Ultram] 50 mg PO TID PRN 11/08/16 [History] Trazodone HCl 100 mg PO HS PRN 11/08/16 [History] Vit C/E/Zn/Coppr/Lutein/Zeaxan [Preservision Areds 2 Softgel] 1 tab PO BID 11/08 [History] Albuterol Sulfate [Albuterol Inhaler] 2 puff IH QID PRN 05/09/17 [History] Calcitriol [Rocaltrol] 0.25 mcg PO DAILY 05/09/17 [History] Cetirizine HCl [Zyrtec] 10 mg PO HS 05/09/17 [History] Ipratropium [ATROVENT Inhaler] 2 puff IH BID 05/09/17 [History] Ipratropium/Albuterol Neb [Duoneb] 3 ml IH Q6HR PRN 05/09/17 [History] Amlodipine Besylate 10 mg PO DAILY 06/04/17 [History] Calcium Carbonate 1,300 mg PO DAILY 06/04/17 [History] GuaiFENesin/Dextromethorphan [Tussin Dm Syrup] 5 ml PO BID PRN 06/04/17 [History ] Clopidogrel [Plavix] 75 mg PO DAILY #30 tablet 06/19/17 [Rx] Gabapentin [Neurontin] 300 mg PO BID #60 capsule 06/19/17 [Rx] Lisinopril [Zestril] 10 mg PO DAILY #30 tablet 06/19/17 [Rx] Sodium Bicarbonate 650 mg PO TID #90 tablet 06/19/17 [Rx] Nystatin POWDER [Nystop] 1 appl TP TID #1 bottle 06/26/17 [Rx] Acetaminophen [Tylenol] 975 mg PO Q6H PRN MDD 3000 mg 08/05/17 [History] Ammonium Lactate [Lac-Hydrin Five] 1 appl TP BID 08/05/17 [History] Clopidogrel [Plavix] 75 mg PO DAILY 08/05/17 [History] Hydralazine HCl 50 mg PO TID 08/05/17 [History] Insulin ASPART [NovoLOG] 2 - 6 unit SQ QID PRN 08/05/17 [History] Isosorbide MONOnitrate [Isosorbide Mononitrate ER] 120 mg PO DAILY 08/05/17 [ History] Mometasone Furoate [Asmanex] 2 puff IH DAILY 08/05/17 [History] Multivitamin-Min/Iron/FA/Vit K [Multi-Day Plus Minerals Tablet] 1 each PO DAILY 08/05/17 [History] Prazosin [Minipress] 1 mg PO HS 08/05/17 [History] Bumetanide [Bumex] 0.5 mg PO BIDDIURETIC #90 tablet 08/08/17 [Rx] Magnesium Oxide [Magnesium] 400 mg PO DAILY #0 08/08/17 [Rx] PredniSONE [Deltasone] 10 mg PO DAILY 16 Days tablet 08/08/17 [Rx] 3 Allergy/AdvReac Type Severity Reaction Status Date / Time Doxepin Allergy Hives Verified 08/05/17 16:51 Penicillins Allergy Hives Verified 08/05/17 16:51 Sulfa (Sulfonamide Allergy Hives Verified 08/05/17 16:51 Antibiotics) All Systems PM: A 10-system review of systems was performed and is negative for pertinent findings except as documented above in the HPI. - Constitutional Constitutional: fatigue, no chills, no fever(s) - Cardiovascular Cardiovascular ROS IM: dyspnea, dyspnea on exertion, edema, orthopnea, paroxysmal nocturnal dyspnea, no chest pain, no diaphoresis, no irregular heart rhythm, no lightheadedness, no palpitations, no syncope - Respiratory Respiratory: dyspnea, dyspnea on exertion, wheezing, no cough, no hemoptysis - Gastrointestinal Gastrointestinal: no abdominal pain, no diarrhea, no hematemesis, no hematochezia, no melena, no nausea, no vomiting - Genitourinary Genitourinary ROS male: no difficulty urinating, no dysuria, no flank pain - Musculoskeletal Musculoskeletal ROS IM: no numbness, no tingling - Integumentary Integumentary IM: erythema Additional comments: BLE swelling and erythema - Neurological Neurological ROS: weakness - Constitutional Vitals: Temp Pulse Resp BP Pulse Ox 98.1 F 86 15 188/97 91 08/10/17 16:08 08/10/17 16:08 08/10/17 16:08 08/10/17 16:08 08/10/17 16:08 General appearance: Present: A&O X 3, obese, severe distress, answers questions appropriately - Head Head exam: Present: atraumatic, normocephalic - Eye Eye exam: Present: PERRL - Neck Neck exam general surgery: Present: supple, trachea midline. Absent: lymphadenopathy - Respiratory Respiratory exam: Present: accessory muscle use, decreased breath sounds, prolonged expiratory phase, rales (B/L bases), respiratory distress, wheezes, tachypnea - Cardiovascular Cardiovascular exam: Present: irregular rhythm, +S1, +S2 - GI/Abdominal GI/Abdominal exam: Present: normal bowel sounds, soft, tenderness - Expanded Lower Extremities Exam Lower Leg exam: Present: erythema (appears to have venous stasis), swelling, tenderness - Neurological Exam Neurological exam: Present: alert, oriented X3. Absent: facial droop, speech deficit - Expanded Skin Exam Distribution of rash: Present: RLE, LLE Description of rash: Present: blisters, erythematous, swelling, tenderness Internal Med - H&P Results - EKG Data -: EKG Interpreted by Myself EKG shows normal: sinus rhythm - EKG Data Prior EKG available for review: yes When compared to previous EKG: there is no significant change <Mindy Obrien - Last Filed: 08/10/17 19:05> Date of Encounter: 08/10/17 Time of Encounter: 17:30 Internal Medicine - H&P: HPI History of present illness: Mr. Jackson is a 67 year old male All Systems PM: A 10-system review of systems was performed and is negative for pertinent findings except as documented above in the HPI. - Constitutional Vitals: Temp Pulse Resp BP Pulse Ox 98.1 F 86 20 188/97 92 08/10/17 16:08 08/10/17 16:08 08/10/17 17:10 08/10/17 16:08 08/10/17 17:10 Internal Med - H&P Results - Labs Labs: Cardiac Enzymes 08/10/17 Range/Units 17:41 Troponin I 0.82 H* (< 0.04) ng/mL - ABG Interpretation ABG results: 08/10/17 17:15 ABG pH 7.39 ABG pCO2 53 H ABG pO2 61 L ABG HCO3 32 H ABG Total CO2 34 H ABG O2 Saturation 90 L ABG Base Excess 6 H - Impressions ITS Impressions Chest X-Ray 08/10/17 17:02 IMPRESSION: No significant change in pulmonary edema with moderate right and small left pleural effusion. Bilateral associated atelectasis is unchanged. D/ / 08/10/2017 17:27:19 Estelle Lopez MD / judy Interpreting Provider: Estelle Lopez MD - Attending Attestation I examined this patient and my medical decision-making was reviewed with the Nurse Practitioner, Cristhian Mccall. I agree with the documented findings, disposition and treatment plan as described with any changes as documented below. Patient with a history of severe cardiomyopathy, coronary artery disease, pulmonary hypertension, diabetes, congestive heart failure, chronic kidney disease who was discharged from the hospital yesterday to [facility] was doing well initially but began to have chest pain last night and then began to have worsening shortness of breath this morning. His troponins were checked and they were elevated at 0.7 and then 1.4 and so he was transferred here for further evaluation. Patient is currently on BiPAP. He states he is now feeling better after being placed on BiPAP. He denies any chest pain at this time. On examination, patient is awake and alert. In respiratory distress. Heart sounds are normal. Decreased breath sounds at both bases. Patient appears to have chronic pedal edema and stasis dermatitis changes. EKG shows normal sinus rhythm Troponin here is 0.82. ABG shows pH of 7.39 with PCO2 of 53 and PO2 of 61. Acute on chronic hypoxic hypercapnic respiratory failure: Due to underlying congestive heart failure. Will treat with BiPAP. Treat underlying CHF. Monitor vital signs closely. Next Acute combined congestive heart failure: Patient is in severe congestive heart failure. Will treat with IV Lasix. Place patient on nitroglycerin drip to decrease preload. Consult cardiology. Acute non-ST elevation NJ: Patient reported chest pain yesterday and troponins are elevated. He does have a history of coronary artery disease and had left heart catheterization with [employer] off proximal RCA earlier this year. Stents were patent. We will consult cardiology did place patient on IV heparin. Diabetes mellitus type 2: Continue Levemir. Sliding scale insulin. Diabetic diet. High risk for complications.
[2017-08-10 17:18] LABS: ABG Base Excess 6 mEq/L (-2 to 3); ABG HCO3 32 mEq/L (21-27); ABG Oxygen Saturation 90 % (95-98); ABG PCO2 53 mmHg (35-45); ABG PH 7.39 pH Units (7.32-7.45); ABG PO2 61 mmHg (85-104); ABG TCO2 34 mEq/L (20-26)
[2017-08-10] MEDS: Nitroglycerin 25 MG/250 ML INFUS..BTL IVC SCH (17:53)
[2017-08-10] MEDS ORDERED: *HR* Heparin 5,000 UNIT/ML VIAL SQ SCH (18:00)
--- NOTE | 2017-08-10 18:31 | Event Note ---
Date of Encounter: 08/10/17 Time of Encounter: 18:00 I examined this patient and my medical decision-making was reviewed with the Nurse Practitioner, Cristhian Mccall. I agree with the documented findings, disposition and treatment plan as described with any changes as documented below. Patient with a history of severe cardiomyopathy, coronary artery disease, pulmonary hypertension, diabetes, congestive heart failure, chronic kidney disease who was discharged from the hospital yesterday to [facility] was doing well initially but began to have chest pain last night and then began to have worsening shortness of breath this morning. His troponins were checked and they were elevated at 0.7 and then 1.4 and so he was transferred here for further evaluation. Patient is currently on BiPAP. He states he is now feeling better after being placed on BiPAP. He denies any chest pain at this time. On examination, patient is awake and alert. In respiratory distress. Heart sounds are normal. Decreased breath sounds at both bases. Patient appears to have chronic pedal edema and stasis dermatitis changes. EKG shows normal sinus rhythm Troponin here is 0.82. ABG shows pH of 7.39 with PCO2 of 53 and PO2 of 61. Acute on chronic hypoxic hypercapnic respiratory failure: Due to underlying congestive heart failure. Will treat with BiPAP. Treat underlying CHF. Monitor vital signs closely. Next Acute combined congestive heart failure: Patient is in severe congestive heart failure. Will treat with IV Lasix. Place patient on nitroglycerin drip to decrease preload. Consult cardiology. Acute non-ST elevation [place]: Patient reported chest pain yesterday and troponins are elevated. He does have a history of coronary artery disease and had left heart catheterization with [employer] off proximal RCA earlier this year. Stents were patent. We will consult cardiology did place patient on IV heparin. Diabetes mellitus type 2: Continue Levemir. Sliding scale insulin. Diabetic diet. High risk for complications.
[2017-08-10] MEDS ORDERED: *HR* Heparin 5,000 UNIT/ML VIAL IVP PRN (18:32)
[2017-08-10] MEDS ORDERED: *HR* Heparin 5,000 UNIT/ML VIAL IVP ONE (18:32)
[2017-08-10] MEDS: Heparin 25,000 UNIT/500 ML D5W 25,000 UNIT/500 ML BAG IVC SCH (19:03)
[2017-08-10 19:44] LABS: Hematocrit 33.4 % (37.5-50.1); Hemoglobin 10.1 g/dL (12.9-16.9); Mean Corpuscular HGB Conc 30.2 g/dL (31.6-35.5); Mean Corpuscular Hemoglobin 27.6 pg (28.0-33.3); Mean Corpuscular Volume 91.3 fL (83.0-100.0); Mean Platelet Volume 9.5 fL (9.4-12.4); Platelet Count 219 K/mcL (140-400); Red Blood Count 3.66 M/mcL (4.19-5.50)
[2017-08-10 19:50] LABS: INR 1.2; Prothrombin Time 12.5 Seconds (9.4-12.1)
[2017-08-10 20:18] LABS: Activated Partial Thrombo Time > 360.0 Seconds (26.0-36.0)
[2017-08-10 20:26] LABS: Heparin anti-factor XA UFH 1.05 IU/mL (0.30-0.70)
[2017-08-10] MEDS: hydrALAZINE 25 MG TABLET PO SCH (20:44)
[2017-08-10] MEDS: Gabapentin 300 MG CAPSULE PO SCH (20:45)
[2017-08-10] MEDS: BuPROPion SR (12 HR) 150 MG TABLET PO SCH (20:45)
[2017-08-10] MEDS: Loratadine 10 MG TABLET PO SCH (20:45)
[2017-08-10] MEDS: Insulin DETEMIR 100 UNIT/ML X5UNITS SQ SCH (20:52)
[2017-08-10] MEDS: Insulin LISPRO 300 UNITS/3 ML VIAL SQ SCH (21:07)
[2017-08-10] MEDS: methylPREDNISolone 125 MG/2 ML VIAL IVP SCH (22:44)
[2017-08-11 03:45] LABS: Basophils % 0.1 %; Hematocrit 30.6 % (37.5-50.1); Hemoglobin 9.4 g/dL (12.9-16.9); Immature Granulocytes % 0.9 % (0-4); Lymphocytes # 0.2 K/mcL (0.6-4.6); Lymphocytes % 2.8 %; Mean Corpuscular HGB Conc 30.7 g/dL (31.6-35.5); Mean Corpuscular Hemoglobin 27.8 pg (28.0-33.3); Mean Corpuscular Volume 90.5 fL (83.0-100.0); Mean Platelet Volume 9.6 fL (9.4-12.4); Monocytes # 0.2 K/mcL (0.0-1.3); Monocytes % 1.7 %; Neutrophils # 8.1 K/mcL (1.6-8.9); Platelet Count 183 K/mcL (140-400); Red Blood Count 3.38 M/mcL (4.19-5.50); Segmented Neutrophils % 94.5 %
[2017-08-11 04:00] LABS: Calcium 8.6 mg/dL (8.6-10.3); Potassium 4.6 mEq/L (3.5-5.1)
[2017-08-11 04:05] LABS: Troponin I 0.68 ng/mL (< 0.04)
[2017-08-11] MEDS: methylPREDNISolone 125 MG/2 ML VIAL IVP SCH (04:40)
[2017-08-11] MEDS: Ipratropium/Albuterol Neb 3 ML IH SCH ×4 (05:08→22:07)
[2017-08-11] MEDS: *HR* Heparin 5,000 UNIT/ML VIAL IVP PRN ×2 (07:24→20:35)
--- NOTE | 2017-08-11 08:24 | Internal Med Progress Note ---
<EspañaKeven R - Last Filed: 08/11/17 12:38> Date of Encounter: 08/11/17 - Constitutional Vitals: Temp Pulse Resp BP Pulse Ox 97.1 F L 84 20 163/77 93 08/11/17 11:16 08/11/17 10:48 08/11/17 11:27 08/11/17 11:27 08/11/17 11:27 Internal Medicine: Result - Labs CBC & Chem 7: 08/11/17 03:26 08/11/17 03:26 Labs: Short CBC 08/10/17 08/11/17 Range/Units 19:24 03:26 WBC 12.3 H D 8.6 (4.3-11.1) K/mcL Hgb 10.1 L D 9.4 L (12.9-16.9) g/dL Hct 33.4 L 30.6 L (37.5-50.1) % Plt Count 219 183 (140-400) K/mcL Neutrophils # 8.1 (1.6-8.9) K/mcL BMP 08/11/17 03:26 Sodium 138 Potassium 4.6 Chloride 103 Carbon Dioxide 26 BUN 73 H Creatinine 3.29 H Glucose 247 H Calcium 8.6 Cardiac Enzymes 08/10/17 08/10/17 08/11/17 Range/Units 17:41 22:09 03:26 Troponin I 0.82 H* 0.59 H* 0.68 H* (< 0.04) ng/mL - ABG Interpretation ABG results: ABG ABG pH 7.39 pH Units (7.32-7.45) 08/10/17 17:15 ABG pCO2 53 mmHg (35-45) H 08/10/17 17:15 ABG pO2 61 mmHg (85-104) L 08/10/17 17:15 ABG O2 Saturation 90 % (95-98) L 08/10/17 17:15 PT/INR, D-dimer PT 12.5 Seconds (9.4-12.1) H 08/10/17 19:24 - Impressions Impressions Chest X-Ray 08/10/17 17:02 IMPRESSION: No significant change in pulmonary edema with moderate right and small left pleural effusion. Bilateral associated atelectasis is unchanged. D/ / 08/10/2017 17:27:19 Estelle Lopez MD / judy Interpreting Provider: Estelle Lopez MD Consult Discharge Plan - Plan Referrals: [facility],PCP [Primary Care Provider] - - Attending Attestation I performed an independent interview and examin of this patient. I agree with the findings, assessment, and plan of Dr. Siddiqui, internal medicine research program internship. Patient's acute hypoxemic respiratory failure is likely due to his combined systolic and diastolic CHF, acute on chronic. Patient also has worsening of his chronic kidney disease stage IV. I discussed the case with cardioly attending at the bedside. We will try a Lasix drip, paying close attention to his renal function and blood pressure. I do not believe patient has pneumonia. I do not believe he has a COPD exacerbation and therefore I stopped his steroids. Patient although has an EF of 30%, has not markedly elevated blood pressure, hopefully implying improved LV function. We will continue to closely monitor. [place] as outlined Assessment and Plan (1) Elevated troponin Current Visit: Yes Status: Acute Troponins reportedly 0.7 and then 1.4 at the [facility]. Troponins at [facility] 0.82, 0.59, 0.68. One episode of chest tightness 2 nights ago associated with worsening dyspnea. No EKG changes compared to prior. Suspect demand ischemia in setting of CKD stage 4 and CHF exacerbation, accelerated HTN. Nondiagnostic for ACS. [facility] 05/2017 [employer] of pRCA, otherwise nonobstructive disease. Medical management was recommended at that time. Currently on heparin gtt. On ASA, Statin, Plavix, BB, Nitrates. Recent TTE 08/06/17 EF 30%, mild concentric LVH, moderate LVDD, mildly dilated RV. Severely dilated LA, severe phtn est RVSP 54-64mmHg. Pleural effusion. Do not anticipate any repeat ischemic eval while inpt. Will discuss and review with Dr. Junior. (2) Systolic and diastolic CHF, acute on chronic Current Visit: Yes Status: Acute Known EF of 30% on TTE 08/06/17. EF has been 30% since TTE 04/2017. Prior to that EF was 40% 10/2016. Currently on nitro gtt at 18mcg. Hypertensive. Will attempt to wean off and adjust antihypertensives. Started on IV Lasix 40mg BID. On recent d/c, was on Bumex 0.5mg BID. Recommend strict I/Os, daily weights, Na and fluid restriction. (3) CAD (coronary artery disease) Current Visit: Yes Status: Chronic [facility] 05/2017--[facility] AGENT pRCA, otherwise nonobstuctive disease. Continue ASA, Statin, Plavix, BB, nitrates. Qualifiers: Coronary Disease-Associated Artery/Lesion type: craig artery [place] vs. transplanted heart: craig heart Associated angina: without angina Qualified Code(s): I25.10 - Atherosclerotic heart disease of craig coronary artery without angina pectoris (4) HTN (hypertension) Current Visit: Yes Status: Chronic BP as high as 180s/100s. Increase PO Hydralazine. Further adjust antihypertensives as warranted. Qualifiers: Hypertension type: essential hypertension Qualified Code(s): I10 - Essential (primary) hypertension Discussion w patient/family: The assessment and plan as outlined above was discussed with the patient and/or family members who expressed understanding and agreement. All questions were answered. Thank you for involving us in the care of your patient. Please call with any questions. I will discuss all the above with Dr. Junior and make changes as necessary. He should rest refill air is likely primarily due to acute on chronic systolic CHF. <Keven Siddiqui - Last Filed: 08/11/17 15:41> Date of Encounter: 08/11/17 Time of Encounter: 09:00 - Assessment and plan (1) Respiratory failure with hypoxia Current Visit: Yes Status: Acute Assessment and plan: Acute on chronic hypoxic respiratory failure The patient has required BiPAP for a majority of his stay At time of exam, the patient became hypoxic on 4L O2 NC, required increase There are rales present in lungs b/l with diminished sounds Likely secondary to CHF for the most part We initiated a Lasix drip in order to alleviate the lungs some of the fluid We will continue to monitor Qualifiers: Chronicity: acute on chronic Qualified Code(s): J96.21 - Acute and chronic respiratory failure with hypoxia (2) Systolic and diastolic CHF, acute on chronic Current Visit: Yes Status: Acute Assessment and plan: Known severe ischemic cardiomyopathy Echocardiogram LVEF 30%. Mild concentric left ventricular hypertrophy. Moderate left ventricular diastolic dysfunction. Atypical septal motion consistent with bundle branch block. Mildly dilated right ventricle with normal systolic function. Severely dilated left atrium. Severe pulmonary hypertension. Estimated RVSP is 54-64 mmHg Patient is appropriately on ASA, Statin, BB, Imdur. PERI is held for CKD We will initiate lasix drip, measure strict I/O and daily weights Cardiology is onboard and we appreciate recommendations (3) HTN (hypertension) Current Visit: Yes Status: Chronic Assessment and plan: Hypertensive urgency Elevated BP in setting of CHF with elevated trop Currently treated with Nitro and Lasix drips in addition to home BP meds Cardiology recommends increased hydralazine PO Will attempt to titrate down on Nitro drip to SBP <160 We appreciate further recommendations Qualifiers: Hypertension type: essential hypertension Qualified Code(s): I10 - Essential (primary) hypertension (4) CAD (coronary artery disease) Current Visit: Yes Status: Chronic Assessment and plan: [facility] 2018 does not show significant disease which can be treated with intervention Per cardiology, Continue ASA, Statin, Plavix, BB, nitrates. Qualifiers: Coronary Disease-Associated Artery/Lesion type: craig artery [place] vs. transplanted heart: craig heart Associated angina: without angina Qualified Code(s): I25.10 - Atherosclerotic heart disease of craig coronary artery without angina pectoris (5) CKD (chronic kidney disease) stage 4, GFR 15-29 ml/min Current Visit: Yes Status: Chronic Assessment and plan: CKD Stage 4, eGFR 19 Patient continues to make urine, and is successfully diuresed We will continue with Lasix drip for tighter control, and to prevent large boluses to the kidneys Continue to hold PERI-i (6) Elevated troponin Current Visit: Yes Status: Acute Assessment and plan: Likely demand ischemia in the setting of Acute on Chronic Kidney Disease Per cardiology, we will continue heparin drip (7) Diabetes mellitus Current Visit: Yes Status: Chronic Assessment and plan: Discontinue oral medications Sliding scale and mealtime insulin Qualifiers: Diabetes mellitus type: type 2 Diabetes mellitus termite helper insulin use: with custodial use Diabetes mellitus complication status: with kidney complications Diabetes mellitus complication detail: with chronic kidney disease Chronic kidney disease stage: stage 4 (severe) Qualified Code(s): E11.22 - Type 2 diabetes mellitus with diabetic chronic kidney disease; N18.4 - Chronic kidney disease, stage 4 (severe); N18.4 - Chronic kidney disease, stage 4 (severe); N18.4 - Chronic kidney disease, stage 4 (severe); N18.4 - Chronic kidney disease, stage 4 (severe); Z79.4 - terminal worker (current) use of insulin; Z79.4 - correction (current) use of insulin; Z79.4 - terminal worker (current) use of insulin; Z79.4 - correction (current) use of insulin (8) DVT prophylaxis Current Visit: Yes Status: Acute - Constitutional Vitals: Temp Pulse Resp BP Pulse Ox 97.8 F 82 16 165/74 94 08/11/17 07:33 08/11/17 07:33 08/11/17 07:33 08/11/17 07:33 08/11/17 07:33 General appearance: Present: A&O X 3, obese, severe distress, answers questions appropriately Exam: Gen: Vitals noted. No acute distress. AAOx3 HEENT: PERRL/EOMI, oropharynx clear, Normocephalic, atraumatic Neck: Supple. No adenopathy. Cardiac: RRR, no murmur, +S1/S2 Pulmonary: Bibasilar rales, diminished globally Abdomen: soft, nontender, BS noted, no guarding Back: Nontender throughout. MSK: ROM intact, no joint swelling noted Extremities: Substantial edema (+2) in b/l LE and moderate edema in upper extremities. Evidence of chronic stasis ulceration Neuro: A&Ox3, moves all extremities, no focal deficits Psych: Appropriate mood and behavior Internal Medicine: Result - Labs CBC & Chem 7: 08/11/17 03:26 08/11/17 03:26 Labs: Short CBC 08/10/17 08/11/17 Range/Units 19:24 03:26 WBC 12.3 H D 8.6 (4.3-11.1) K/mcL Hgb 10.1 L D 9.4 L (12.9-16.9) g/dL Hct 33.4 L 30.6 L (37.5-50.1) % Plt Count 219 183 (140-400) K/mcL Neutrophils # 8.1 (1.6-8.9) K/mcL BMP 08/11/17 03:26 Sodium 138 Potassium 4.6 Chloride 103 Carbon Dioxide 26 BUN 73 H Creatinine 3.29 H Glucose 247 H Calcium 8.6 Cardiac Enzymes 08/10/17 08/10/17 08/11/17 Range/Units 17:41 22:09 03: Troponin I 0.82 H* 0.59 H* 0.68 H* (< 0.04) ng/mL - ABG Interpretation ABG results: ABG ABG pH 7.39 pH Units (7.32-7.45) 08/10/17 17:15 ABG pCO2 53 mmHg (35-45) H 08/10/17 17:15 ABG pO2 61 mmHg (85-104) L 08/10/17 17:15 ABG O2 Saturation 90 % (95-98) L 08/10/17 17:15 PT/INR, D-dimer PT 12.5 Seconds (9.4-12.1) H 08/10/17 19:24 - Impressions Impressions Chest X-Ray 08/10/17 17:02 IMPRESSION: No significant change in pulmonary edema with moderate right and small left pleural effusion. Bilateral associated atelectasis is unchanged. D/ / 08/10/2017 17:27:19 Estelle Lopez MD / [facility] Interpreting Provider: Estelle Lopez MD
[2017-08-11] MEDS ORDERED: predniSONE 20 MG TABLET PO SCH (09:00)
[2017-08-11] MEDS: Nitroglycerin 25 MG/250 ML INFUS..BTL IVC SCH ×2 (09:30→23:49)
[2017-08-11] MEDS: Insulin LISPRO 300 UNITS/3 ML VIAL SQ SCH ×4 (09:47→20:38)
[2017-08-11] MEDS: Multivit/Ca/Min/Fe/FA 1 TAB TABLET PO SCH (09:57)
[2017-08-11] MEDS: BuPROPion SR (12 HR) 150 MG TABLET PO SCH ×2 (09:58→20:33)
[2017-08-11] MEDS: Magnesium Oxide 400 MG TABLET PO SCH (09:58)
[2017-08-11] MEDS: Gabapentin 300 MG CAPSULE PO SCH ×2 (09:58→20:32)
[2017-08-11] MEDS: amLODIPine 5 MG TABLET PO SCH (09:58)
[2017-08-11] MEDS: Isosorbide MONOnitrate (24 HR) 60 MG TAB.ER.24H PO SCH (09:58)
[2017-08-11] MEDS: Cholecalciferol (D-3) 1,000 UNIT TABLET PO SCH (09:58)
[2017-08-11] MEDS: hydrALAZINE 25 MG TABLET PO SCH ×3 (09:58→20:32)
[2017-08-11] MEDS: Aspirin Enteric Coated 81 MG Tablet PO SCH (09:59)
[2017-08-11] MEDS ORDERED: Furosemide 40 MG/4 ML VIAL IVP SCH (10:45)
[2017-08-11 10:46] LABS: Activated Partial Thrombo Time > 360.0 Seconds (26.0-36.0)
--- NOTE | 2017-08-11 10:53 | Cardiology Consult Note ---
Date of Encounter: 08/11/17 Time of Encounter: 10:53 Assessment and Plan (1) Elevated troponin Current Visit: Yes Status: Acute Troponins reportedly 0.7 and then 1.4 at the [place]. Troponins at [facility] 0.82, 0.59, 0.68. One episode of chest tightness 2 nights ago associated with worsening dyspnea. No EKG changes compared to prior. Suspect demand ischemia in setting of CKD stage 4 and CHF exacerbation, accelerated HTN. Nondiagnostic for ACS. [facility] 05/2017 ON LINE CSR of pRCA, otherwise nonobstructive disease. Medical management was recommended at that time. Currently on heparin gtt. On ASA, Statin, Plavix, BB, Nitrates. Recent TTE 08/06/17 EF 30%, mild concentric LVH, moderate LVDD, mildly dilated RV. Severely dilated LA, severe phtn est RVSP 54-64mmHg. Pleural effusion. Do not anticipate any repeat ischemic eval while inpt. Will discuss and review with Dr. Junior. (2) Systolic and diastolic CHF, acute on chronic Current Visit: Yes Status: Acute Known EF of 30% on TTE 08/06/17. EF has been 30% since TTE 04/2017. Prior to that EF was 40% 10/2016. Currently on nitro gtt at 18mcg. Hypertensive. Will attempt to wean off and adjust antihypertensives. Started on IV Lasix 40mg BID. On recent d/c, was on Bumex 0.5mg BID. Recommend strict I/Os, daily weights, Na and fluid restriction. (3) CAD (coronary artery disease) Current Visit: Yes Status: Chronic [facility] 05/2017--ON LINE CSR pRCA, otherwise nonobstuctive disease. Continue ASA, Statin, Plavix, BB, nitrates. Qualifiers: Coronary Disease-Associated Artery/Lesion type: [place] artery [place] vs. transplanted heart: [place] heart Associated angina: without angina Qualified Code(s): I25.10 - Atherosclerotic heart disease of [place] coronary artery without angina pectoris (4) HTN (hypertension) Current Visit: Yes Status: Chronic BP as high as 180s/100s. Increase PO Hydralazine. Further adjust antihypertensives as warranted. Qualifiers: Hypertension type: essential hypertension Qualified Code(s): I10 - Essential (primary) hypertension Discussion w patient/family: The assessment and plan as outlined above was discussed with the patient and/or family members who expressed understanding and agreement. All questions were answered. Thank you for involving us in the care of your patient. Please call with any questions. I will discuss all the above with Dr. Junior and make changes as necessary. History of Present Illness Consult date: 08/11/17 Requesting physician: Mindy Obrien Consult reason: elevated troponins, CHF Chief complaint: dyspnea, chest tighthess History of present illness: Mr. Jackson is a 67 year old male with PMHx significant for CKD-4, systolic CHF, CAD, DMII, HLD, HTN, and PVD --known systolic CHF (EF 30%) with [facility] 05/2017 which demonstrated ON LINE CSR of pRCA, otherwise non-obstructive CAD--medical management recommended. He was discharged from the hospital 2 days ago to [facility] was doing well initially but began to have chest tightness last night and then worsening shortness of breath yesterday morning. His troponins were checked and they were elevated at 0.7 and then 1.4 at the [place]. He was transferred to [facility] for further evaluation, was placed on BiPAP. He is now off BiPAP and on NC. He denies chest pain currently. Troponins at [facility] 0.82, 0.59, 0.68. Cardiology consulted for further recommendations. CXR no significant change in pulmonary edema with moderate right and small left pleural effusion. Recent CV testing: TTE 08/06/17: LVEF 30%. Normal LV chamber size. Mild concentric left ventricular hypertrophy. Moderate left ventricular diastolic dysfunction. Atypical septal motion consistent with bundle branch block. Mildly dilated right ventricle with normal systolic function. Severely dilated left atrium. Severe pulmonary hypertension. Estimated RVSP is 54-64 mmHg. Pleural effusion noted. Findings similar to prior TTE from 04/2017. TTE 05/09/17: LVEF 30%, global LV systolic dysfunction, mild cLVH, mild LVDD , mild MR, severe PH (est. RVSP 60 mmHg). [facility] 06/17/17: 20% LMCA, 35% pLAD, 20% mLAD, 30% 1st Diag, 30% pLCx, and 100% pRCA--ON LINE CSR. 95% mid right common iliac Past Med Surg Social Fam HX - Past Medical History Medical history: CHF, COPD, coronary artery disease, diabetes, hyperlipidemia, hypertension, peripheral artery disease, renal disease Psychiatric history: depression, PTSD - Past Surgical History Surgical History: appendectomy - Social History Smoking Status: Former smoker Smokeless Tobacco Status: No Alcohol use: none Drug use: none - Family History Mother Family Member Ethnicity: Non- Living Status: Hx Family Cancer: Yes Medications and Allergies Aspirin [Lo-Dose Aspirin EC] 81 mg PO DAILY 11/08/16 [History] Atorvastatin Calcium [Lipitor] 80 mg PO HS 11/08/16 [History] BuPROPion SR (12 HR) [Wellbutrin SR] 150 mg PO BID 11/08/16 [History] Carvedilol [Coreg] 25 mg PO BID 11/08/16 [History] Cholecalciferol (Vitamin D3) [Vitamin D3] 2,000 unit PO DAILY 11/08/16 [History] Ferrous Gluconate 324 mg PO BID 11/08/16 [History] Insulin Glargine [Lantus] 20 unit SQ HS 11/08/16 [History] Omeprazole [PriLOSEC] 20 mg PO DAILY 11/08/16 [History] Tamsulosin HCl [Flomax] 0.8 mg PO DAILY 11/08/16 [History] Tramadol HCl [Ultram] 50 mg PO TID PRN 11/08/16 [History] Trazodone HCl 100 mg PO HS PRN 11/08/16 [History] Vit C/E/Zn/Coppr/Lutein/Zeaxan [Preservision Areds 2 Softgel] 1 tab PO BID 11/08 [History] Albuterol Sulfate [Albuterol Inhaler] 2 puff IH QID PRN 05/09/17 [History] Calcitriol [Rocaltrol] 0.25 mcg PO DAILY 05/09/17 [History] Cetirizine HCl [Zyrtec] 10 mg PO HS 05/09/17 [History] Ipratropium [ATROVENT Inhaler] 2 puff IH BID 05/09/17 [History] Ipratropium/Albuterol Neb [Duoneb] 3 ml IH Q6HR PRN 05/09/17 [History] Amlodipine Besylate 10 mg PO DAILY 06/04/17 [History] Calcium Carbonate 1,300 mg PO DAILY 06/04/17 [History] GuaiFENesin/Dextromethorphan [Tussin Dm Syrup] 5 ml PO BID PRN 06/04/17 [History ] Clopidogrel [Plavix] 75 mg PO DAILY #30 tablet 06/19/17 [Rx] Gabapentin [Neurontin] 300 mg PO BID #60 capsule 06/19/17 [Rx] Lisinopril [Zestril] 10 mg PO DAILY #30 tablet 06/19/17 [Rx] Sodium Bicarbonate 650 mg PO TID #90 tablet 06/19/17 [Rx] Nystatin POWDER [Nystop] 1 appl TP TID #1 bottle 06/26/17 [Rx] Acetaminophen [Tylenol] 975 mg PO Q6H PRN MDD 3000 mg 08/05/17 [History] Ammonium Lactate [Lac-Hydrin Five] 1 appl TP BID 08/05/17 [History] Clopidogrel [Plavix] 75 mg PO DAILY 08/05/17 [History] Hydralazine HCl 50 mg PO TID 08/05/17 [History] Insulin ASPART [NovoLOG] 2 - 6 unit SQ QID PRN 08/05/17 [History] Isosorbide MONOnitrate [Isosorbide Mononitrate ER] 120 mg PO DAILY 08/05/17 [ History] Mometasone Furoate [Asmanex] 2 puff IH DAILY 08/05/17 [History] Multivitamin-Min/Iron/FA/Vit K [Multi-Day Plus Minerals Tablet] 1 each PO DAILY 08/05/17 [History] Prazosin [Minipress] 1 mg PO HS 08/05/17 [History] Bumetanide [Bumex] 0.5 mg PO BIDDIURETIC #90 tablet 08/08/17 [Rx] Magnesium Oxide [Magnesium] 400 mg PO DAILY #0 08/08/17 [Rx] PredniSONE [Deltasone] 10 mg PO DAILY 16 Days tablet 08/08/17 [Rx] 3 Allergy/AdvReac Type Severity Reaction Status Date / Time Doxepin Allergy Hives Verified 08/05/17 16:51 Penicillins Allergy Hives Verified 08/05/17 16:51 Sulfa (Sulfonamide Allergy Hives Verified 08/05/17 16:51 Antibiotics) All Systems Review: The remainder of the systems were reviewed and are negative - Cardiovascular Cardiovascular: as per HPI, chest pain at rest, dyspnea at rest, dyspnea on exertion, leg edema - Respiratory Respiratory: dyspnea Physical Examination Vital Signs, Last 4 Hours Temp Pulse Resp BP Pulse Ox 08/11/17 10:48 84 18 163/77 91 08/11/17 07:33 97.8 F 82 16 165/74 94 Vital Signs Temp Pulse Resp BP Pulse Ox 08/11/17 10:48 84 18 163/77 91 08/11/17 07:33 97.8 F 82 16 165/74 94 08/11/17 05:08 17 174/99 96 08/11/17 04:12 75 20 174/99 93 08/11/17 00:28 68 19 150/72 94 08/10/17 22:22 18 189/107 95 08/10/17 21:00 97.3 F L 96 20 188/119 90 08/10/17 20:53 18 189/107 97 08/10/17 17:10 20 92 08/10/17 16:08 98.1 F 86 15 188/97 91 Intake and Output 08/10/17 08/11/17 08/11/17 23:59 07:59 15:59 Intake Total 56 / 56 74 / 351 / 351 Output Total 150 / 150 Balance -94 / -94 351 / 351 Intake: IV Fluids 56 / 351 / 351 Heparin 25,000 UNIT/500 ML D5W 126 / 126 25,000 unit In 500 ml @ 9 UNIT/ KG/HR 19.332 mls/hr IVC .Q24H MARSHA Rx#:[id number] Nitroglycerin Premix 25 MG/250 25 / 25 225 / 225 ML 25 mg In 250 ml @ 5 MCG/MIN 3 mls/hr IVC .Q24H MARSHA Rx#: [id number] Oral 0 / 0 Output: Urine 150 / 150 Other: Meal NPO Percent of Meal Consumed 0% # Voids 0 Weight 107.4 kg 107.5 kg Blood Glucose* 260 232 Patient Weight 08/11/17 23:59 Weight 107.5 kg General: Conversant, No Apparent Distress HEENT: Atraumatic, Normocephaly, Mucus Membranes Moist Neck: No JVD, Normal carotid pulses Cardiac: Reg Rate and Rhythm, Normal S1 and S2, No Murmur Lungs: Other (diminished, rales) Neuro: Alert and responsive, No focal deficits noted Abdomen: Soft, Non-Tender Skin: No rashes noted on visualized skin Musculoskeletal: No Chest Wall Tenderness Extremities: Other (Chronic LE edema and venous stasis) Results 08/11/17 03:26 08/11/17 03:26 Lab Results 08/10/17 08/10/17 08/10/17 17:41 19:24 19:24 WBC 12.3 H D Hgb 10.1 L D Hct 33.4 L Plt Count 219 INR 1.2 APTT > 360.0 H* Sodium Potassium Chloride Carbon Dioxide BUN Creatinine Glucose Calcium Troponin I 0.82 H* 08/10/17 08/11/17 08/11/17 22:09 03:26 03:26 WBC 8.6 Hgb 9.4 L Hct 30.6 L Plt Count 183 INR APTT Sodium 138 Potassium 4.6 Chloride 103 Carbon Dioxide 26 BUN 73 H Creatinine 3.29 H Glucose 247 H Calcium 8.6 Troponin I 0.59 H* 0.68 H* 08/11/17 08/11/17 03:26 09:55 WBC Hgb Hct Plt Count INR APTT 38.4 H D > 360.0 H* D Sodium Potassium Chloride Carbon Dioxide BUN Creatinine Glucose Calcium Troponin I Short CBC 08/11/17 08/10/17 Range/Units 03:26 19:24 WBC 8.6 12.3 H D (4.3-11.1) K/mcL Hgb 9.4 L 10.1 L D (12.9-16.9) g/dL Hct 30.6 L 33.4 L (37.5-50.1) % Plt Count 183 219 (140-400) K/mcL Neutrophils # 8.1 (1.6-8.9) K/mcL BMP 08/11/17 Range/Units 03:26 Sodium 138 (136-145) mEq/L Potassium 4.6 (3.5-5.1) mEq/L Chloride 103 (98-107) mEq/L Carbon Dioxide 26 (23-29) mEq/L BUN 73 H (8-23) mg/dL Creatinine 3.29 H (0.70-1.30) mg/dL Glucose 247 H (70-105) mg/dL Calcium 8.6 (8.6-10.3) mg/dL Cardiac Enzymes 08/11/17 08/10/17 08/10/17 Range/Units 03: 22:09 17:41 Troponin I 0.68 H* 0.59 H* 0.82 H* (< 0.04) ng/mL Impressions Chest X-Ray 08/10/17 17:02 IMPRESSION: No significant change in pulmonary edema with moderate right and small left pleural effusion. Bilateral associated atelectasis is unchanged. D/ / 08/10/2017 17:27:19 Estelle Lopez MD / judy Interpreting Provider: Estelle Lopez MD Active Medications Albuterol Sulfate (Proventil Neb) 2.5 mg IH Q2H PRN PRN Reason: Shortness Of Breath/Wheezing Stop: 02/09/18 16:51 Albuterol/Ipratropium (Duoneb) 3 ml IH QIDR [facility] Stop: 02/09/18 17:01 Last Admin: 08/11/17 05:08 Dose: 3 ml Amlodipine Besylate (Norvasc) 10 mg PO DAILY [facility] Stop: 02/10/18 09:01 Last Admin: 08/11/17 09:58 Dose: 10 mg Aspirin (Aspirin Ec) 81 mg PO DAILY [facility] Stop: 02/10/18 09:01 Last Admin: 08/11/17 09:59 Dose: 81 mg Atorvastatin Calcium (Lipitor) 80 mg PO HS [facility] Stop: 02/09/18 21:01 Last Admin: 08/10/17 20:44 Dose: 80 mg Bupropion HCl (Wellbutrin Sr) 150 mg PO BID [facility] Stop: 02/09/18 21:01 Last Admin: 08/11/17 09:58 Dose: 150 mg Calcitriol (Rocaltrol) 0.25 mcg PO DAILY [facility] Stop: 02/10/18 09:01 Last Admin: 08/11/17 09:58 Dose: 0.25 mcg Calcium Carbonate (Tums) 1,250 mg PO DAILY [facility] Stop: 02/10/18 09:01 Last Admin: 08/11/17 09:59 Dose: 1,250 mg Carvedilol (Coreg) 25 mg PO BID [facility]SHA PRN Reason: Protocol Stop: 02/09/18 21:01 Last Admin: 08/11/17 09:57 Dose: 25 mg Clopidogrel Bisulfate (Plavix) 75 mg PO DAILY [facility] Stop: 02/10/18 09:01 Last Admin: 08/11/17 09:57 Dose: 75 mg Dextrose/Water (Dextrose 50% (Syg)) 25 ml IVP AD PRN PRN Reason: Hypoglycemia Stop: 02/09/18 17:03 Ferrous Sulfate (Ferrous Sulfate) 325 mg PO BID [facility] Stop: 02/09/18 21:01 Last Admin: 08/11/17 09:58 Dose: 325 mg Furosemide (Lasix) 40 mg IVP BID [facility] Stop: 02/10/18 10:46 Gabapentin (Neurontin) 300 mg PO BID [facility] Stop: 02/09/18 21:01 Last Admin: 08/11/17 09:58 Dose: 300 mg Glucagon (Glucagen) 1 mg IM ONCE PRN PRN Reason: Hypoglycemia Stop: 02/09/18 17:03 Glucose (Gluctose) 15 gm PO ONCE PRN PRN Reason: Hypoglycemia Stop: 02/09/18 17:03 Glucose (Gluctose) 30 gm PO ONCE PRN PRN Reason: Hypoglycemia Stop: 02/09/18 17:03 Guaifenesin (Robitussin/Dm) 5 ml PO BID PRN PRN Reason: Cough Stop: 02/09/18 21:01 Heparin Sodium (Porcine) (Heparin) 4,000 unit IVP Q6HR PRN PRN Reason: SEE COMMENTS Stop: 02/09/18 18:33 Last Admin: 08/11/17 07:24 Dose: 4,000 unit Heparin Sodium (Porcine) (Heparin) 2,000 unit IVP Q6H PRN PRN Reason: SEE COMMENTS Stop: 02/09/18 18:33 Hydralazine HCl (Hydralazine) 50 mg PO TID [facility] Stop: 02/09/18 21:01 Last Admin: 08/11/17 09:58 Dose: 50 mg Nitroglycerin (Nitroglycerin Premix 25 Mg/250 Ml) 25 mg in 250 mls @ 3 mls/hr IVC .Q24H MARSHA; 5 MCG/MIN PRN Reason: Protocol Stop: 02/09/18 17:01 Last Admin: 08/11/17 09:30 Dose: 30 mcg/min, 18 mls/hr Dextrose (Dextrose 5%) 1,000 mls @ 100 mls/hr IVC .Q10H PRN PRN Reason: HYPOGLYCEMIA Stop: 02/09/18 17:03 Heparin Sodium/Dextrose (Heparin 25,000 Unit/500 Ml D5w) 25,000 unit in 500 mls @ 19.332 mls/hr IVC .Q24H MARSHA; 9 UNIT/KG/HR PRN Reason: Protocol Stop: 02/09/18 18:46 Last Titration: 08/11/17 10:48 Dose: 6.75 unit/kg/hr, 14.5 mls/hr Furosemide 240 mg/ Dextrose 120 mls @ 5 mls/hr IVC .Q24H [facility]SHA PRN Reason: 10 MG/HR Stop: 02/10/18 09:46 Insulin Detemir (Levemir) 16 unit SQ HS [facility] Stop: 02/09/18 21:01 Last Admin: 08/10/17 20:52 Dose: 16 unit Insulin Human Lispro (Humalog) 0 units SQ HS [facility] PRN Reason: Protocol Stop: 02/09/18 21:01 Last Admin: 08/10/17 21:07 Dose: 3 units Insulin Human Lispro (Humalog) 0 units SQ TIDAC [facility] PRN Reason: Protocol Stop: 02/10/18 07:31 Last Admin: 08/11/17 09:47 Dose: Not Given Isosorbide Mononitrate (Imdur) 120 mg PO DAILY [facility] Stop: 02/10/18 09:01 Last Admin: 08/11/17 09:58 Dose: 120 mg Loratadine (Claritin) 10 mg PO [facility] Stop: 02/09/18 21:01 Last Admin: 08/10/17 20:45 Dose: 10 mg Magnesium Oxide (Mag-Ox) 400 mg PO DAILY [facility] PRN Reason: Protocol Stop: 02/10/18 09:01 Last Admin: 08/11/17 09:58 Dose: 400 mg Multivitamins/Calcium (Thera M Plus) 1 tab PO DAILY [facility] Stop: 02/10/18 09:01 Last Admin: 08/11/17 09:57 Dose: 1 tab Naloxone HCl (Narcan) 0.4 mg IVP Q2MIN PRN PRN Reason: SEE COMMENTS Stop: 02/09/18 17:03 Omeprazole (Prilosec) 20 mg PO 0630 [facility] PRN Reason: Protocol Stop: 02/10/18 06:31 Last Admin: 08/11/17 07:25 Dose: 20 mg Prazosin HCl (Minipress) 1 mg PO HS [facility] Stop: 02/09/18 21:01 Last Admin: 08/10/17 20:45 Dose: 1 mg Sodium Bicarbonate (Sodium Bicarbonate) 650 mg PO TID [facility] Stop: 02/09/18 21:01 Last Admin: 08/11/17 09:57 Dose: 650 mg Tamsulosin HCl (Flomax) 0.8 mg PO DAILY [facility] PRN Reason: Protocol Stop: 02/10/18 09:01 Last Admin: 08/11/17 09:58 Dose: 0.8 mg Vitamin D (Vitamin D) 1,000 unit PO DAILY [facility] Stop: 02/10/18 09:01 Last Admin: 08/11/17 09:58 Dose: 1,000 unit - Imaging and Cardiology Echo: report reviewed Cardiac cath: report reviewed - EKG Interpretation EKG results cardiology: personally reviewed (SR, old inferior DC), other (12 hr tele AVG HR 74, SR, no significant pauses or arrhythmias noted) Consult Discharge Plan - Plan [facility]errals: [facility] [Primary Care Provider] -
[2017-08-11 11:00] LABS: Heparin anti-factor XA UFH 1.01 IU/mL (0.30-0.70)
[2017-08-11] MEDS: Furosemide 240 MG in D5% in Water 96 ML IVC SCH (13:40)
[2017-08-11] MEDS: Insulin DETEMIR 100 UNIT/ML X5UNITS SQ SCH (20:33)
[2017-08-11] MEDS: Loratadine 10 MG TABLET PO SCH (20:33)
[2017-08-11] MEDS: traZODone 50 MG TABLET PO SCH (22:34)
[2017-08-11] MEDS: traMADol 50 MG TABLET PO PRN (22:34)
[2017-08-12 03:19] LABS: Calcium 8.1 mg/dL (8.6-10.3)
[2017-08-12 03:24] LABS: Activated Partial Thrombo Time > 360.0 Seconds (26.0-36.0)
[2017-08-12 03:37] LABS: Heparin anti-factor XA UFH 0.89 IU/mL (0.30-0.70)
[2017-08-12] MEDS: Ipratropium/Albuterol Neb 3 ML IH SCH ×4 (04:00→22:20)
[2017-08-12] MEDS: Heparin 25,000 UNIT/500 ML D5W 25,000 UNIT/500 ML BAG IVC SCH (06:23)
--- NOTE | 2017-08-12 07:50 | Internal Med Progress Note ---
<Keven Siddiqui - Last Filed: 08/12/17 08:45> Date of Encounter: 08/12/17 Time of Encounter: 08:36 - Assessment and plan (1) Respiratory failure with hypoxia Current Visit: Yes Status: Acute Assessment and plan: Acute on chronic hypoxic respiratory failure The patient has required BiPAP for a majority of his stay At time of exam, the patient became hypoxic on 4L O2 NC, required increase There are rales present in lungs b/l with diminished sounds Likely secondary to CHF for the most part We initiated a Lasix drip in order to alleviate the lungs some of the fluid We will continue to monitor 08/12 Lasix drip did not successfully draw significant urine output Renal function has improved by Labs Qualifiers: Chronicity: acute on chronic Qualified Code(s): J96.21 - Acute and chronic respiratory failure with hypoxia (2) Systolic and diastolic CHF, acute on chronic Current Visit: Yes Status: Acute Assessment and plan: Known severe ischemic cardiomyopathy Echocardiogram LVEF 30%. Mild concentric left ventricular hypertrophy. Moderate left ventricular diastolic dysfunction. Atypical septal motion consistent with bundle branch block. Mildly dilated right ventricle with normal systolic function. Severely dilated left atrium. Severe pulmonary hypertension. Estimated RVSP is 54-64 mmHg Patient is appropriately on ASA, Statin, BB, Imdur. PERI is held for CKD We will initiate lasix drip, measure strict I/O and daily weights Cardiology is onboard and we appreciate recommendations 08/12 No significant improvement in fluid balance following diuresis Cardiology continues to monitor (3) HTN (hypertension) Current Visit: Yes Status: Chronic Assessment and plan: Hypertensive urgency Elevated BP in setting of CHF with elevated trop Currently treated with Nitro and Lasix drips in addition to home BP meds Cardiology recommends increased hydralazine PO Will attempt to titrate down on Nitro drip to SBP <160 We appreciate further recommendations 08/12 BP Improved overnight on current meds SBP maintained <160 for majority of evening We will attempt to transition to PO meds Qualifiers: Hypertension type: essential hypertension Qualified Code(s): I10 - Essential (primary) hypertension (4) CAD (coronary artery disease) Current Visit: Yes Status: Chronic Assessment and plan: [facility] 2018 does not show significant disease which can be treated with intervention Per cardiology, Continue ASA, Statin, Plavix, BB, nitrates. Qualifiers: Coronary Disease-Associated Artery/Lesion type: [place] artery [place] vs. transplanted heart: [place] heart Associated angina: without angina Qualified Code(s): I25.10 - Atherosclerotic heart disease of [place] coronary artery without angina pectoris (5) CKD (chronic kidney disease) stage 4, GFR 15-29 ml/min Current Visit: Yes Status: Chronic Assessment and plan: CKD Stage 4, eGFR 19 Patient continues to make urine, and is successfully diuresed We will continue with Lasix drip for tighter control, and to prevent large boluses to the kidneys Continue to hold PERI-i 08/12 Mildly improved kidney function following lasix drip Possibly worsened by fluid overload We will continue to diurese as possible (6) Elevated troponin Current Visit: Yes Status: Acute Assessment and plan: Likely demand ischemia in the setting of Acute on Chronic Kidney Disease Per cardiology, we will continue heparin drip (7) Diabetes mellitus Current Visit: Yes Status: Chronic Assessment and plan: Discontinue oral medications Sliding scale and mealtime insulin Qualifiers: Diabetes mellitus type: type 2 Diabetes mellitus 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 insulin use: with usp use Diabetes mellitus complication status: with kidney complications Diabetes mellitus complication detail: with chronic kidney disease Chronic kidney disease stage: stage 4 (severe) Qualified Code(s): E11.22 - Type 2 diabetes mellitus with diabetic chronic kidney disease; N18.4 - Chronic kidney disease, stage 4 (severe); N18.4 - Chronic kidney disease, stage 4 (severe); N18.4 - Chronic kidney disease, stage 4 (severe); N18.4 - Chronic kidney disease, stage 4 (severe); Z79.4 - skilled nursing (current) use of insulin; Z79.4 - skilled nursing (current) use of insulin; Z79.4 - long term care administrator (current) use of insulin; Z79.4 - skilled nursing (current) use of insulin (8) DVT prophylaxis Current Visit: Yes Status: Acute Assessment and plan: Patient is on heparin drip - Subjective Interval history: The patient says that he is feeling better than he was. He was able to urinate twice overnight, and describes the amount as moderate. He did not have any trouble breathing overnight and had no chest pain. He does state that he wishes the swelling in his extremities would go down, however he otherwise is happy with his progress. - Constitutional Vitals: Temp Pulse Resp BP Pulse Ox 97.4 F L 67 18 162/87 99 08/12/17 06:48 08/12/17 06:48 08/12/17 06:48 08/12/17 06:48 08/12/17 06:48 General appearance: Present: A&O X 3, obese, severe distress, answers questions appropriately Exam: Gen: Vitals noted. No acute distress. AAOx3 HEENT: PERRL/EOMI, oropharynx clear, Normocephalic, atraumatic Neck: Supple. No adenopathy. Cardiac: RRR, no murmur, +S1/S2 Pulmonary: Bibasilar rales, diminished globally but L>R Abdomen: soft, nontender, BS noted, no guarding Back: Nontender throughout. MSK: ROM intact, no joint swelling noted Extremities: Substantial edema (+2) in b/l LE and moderate edema in upper extremities. Evidence of chronic stasis ulceration Neuro: A&Ox3, moves all extremities, no focal deficits Psych: Appropriate mood and behavior Internal Medicine: Result - Labs CBC & Chem 7: 08/11/17 03:26 08/12/17 02:37 Labs: BMP 08/12/17 02:37 Sodium 136 Potassium 4.0 Chloride 102 Carbon Dioxide 30 H BUN 74 H Creatinine 3.12 H Glucose 206 H Calcium 8.1 L - ABG Interpretation ABG results: ABG ABG pH 7.39 pH Units (7.32-7.45) 08/10/17 17:15 ABG pCO2 53 mmHg (35-45) H 08/10/17 17:15 ABG pO2 61 mmHg (85-104) L 08/10/17 17:15 ABG O2 Saturation 90 % (95-98) L 08/10/17 17:15 PT/INR, D-dimer PT 12.5 Seconds (9.4-12.1) H 08/10/17 19:24 Consult Discharge Plan - Plan [facility]errals: [facility] [Primary Care Provider] - <Tk Salmon H - Last Filed: 08/12/17 16:03> Date of Encounter: 08/12/17 - Constitutional Vitals: Temp Pulse Resp BP Pulse Ox 97.4 F L 71 16 160/75 96 08/12/17 06:48 08/12/17 11:00 08/12/17 11:02 08/12/17 11:30 08/12/17 11:02 Internal Medicine: Result - Labs CBC & Chem 7: 08/11/17 03:26 08/12/17 02:37 Labs: BMP 08/12/17 02:37 Sodium 136 Potassium 4.0 Chloride 102 Carbon Dioxide 30 H BUN 74 H Creatinine 3.12 H Glucose 206 H Calcium 8.1 L - ABG Interpretation ABG results: ABG ABG pH 7.39 pH Units (7.32-7.45) 08/10/17 17:15 ABG pCO2 53 mmHg (35-45) H 08/10/17 17:15 ABG pO2 61 mmHg (85-104) L 08/10/17 17:15 ABG O2 Saturation 90 % (95-98) L 08/10/17 17:15 PT/INR, D-dimer PT 12.5 Seconds (9.4-12.1) H 08/10/17 19:24 - Attending Attestation Acute on chronic hypoxic respiratory failure secondary to acute systolic CHF exacerbation combination with acute COPD exacerbation due to acute bronchitis treated recently Elevated troponins possibly secondary to demand ischemia Continue Lasix drip, restart steroids with prednisone 40 mg daily and slow taper Cardiology recommendations appreciated Accelerated hypertension, continue hydralazine by mouth and add hydralazine IV as needed I examined this patient and my medical decision-making was reviewed with the Resident Physician. I agree with the documented findings, disposition and treatment plan as described except to the extent set forth below.
[2017-08-12] MEDS: Aspirin Enteric Coated 81 MG Tablet PO SCH (09:08)
[2017-08-12] MEDS: Cholecalciferol (D-3) 1,000 UNIT TABLET PO SCH (09:08)
[2017-08-12] MEDS: Gabapentin 300 MG CAPSULE PO SCH ×2 (09:08→21:53)
[2017-08-12] MEDS: BuPROPion SR (12 HR) 150 MG TABLET PO SCH ×2 (09:09→21:53)
[2017-08-12] MEDS: hydrALAZINE 25 MG TABLET PO SCH ×3 (09:09→21:54)
[2017-08-12] MEDS: Multivit/Ca/Min/Fe/FA 1 TAB TABLET PO SCH (09:09)
[2017-08-12] MEDS: amLODIPine 5 MG TABLET PO SCH (09:09)
[2017-08-12] MEDS: Magnesium Oxide 400 MG TABLET PO SCH (09:09)
[2017-08-12] MEDS: Isosorbide MONOnitrate (24 HR) 60 MG TAB.ER.24H PO SCH (09:09)
[2017-08-12] MEDS: Insulin LISPRO 300 UNITS/3 ML VIAL SQ SCH ×4 (09:10→21:56)
--- NOTE | 2017-08-12 10:24 | Cardiology Progress Note ---
Date of Encounter: 08/12/17 Time of Encounter: 10:22 Assessment and Plan (1) Elevated troponin Current Visit: Yes Status: Acute Troponins reportedly 0.7 and then 1.4 at the [place]. Troponins at [facility] 0.82, 0.59, 0.68. One episode of chest tightness 2 nights ago associated with worsening dyspnea. Chest tightness this AM. No EKG changes compared to prior. Suspect demand ischemia in setting of CKD stage 4 and CHF exacerbation, accelerated HTN. Nondiagnostic for ACS. [facility] 05/2017 HAND SUTURE WINDER of pRCA, otherwise nonobstructive disease. Medical management was recommended at that time. Currently on heparin gtt. On ASA, Statin, Plavix, BB, Nitrates. Recent TTE 08/06/17 EF 30%, mild concentric LVH, moderate LVDD, mildly dilated RV. Severely dilated LA, severe phtn est RVSP 54-64mmHg. Pleural effusion. Do not anticipate any repeat ischemic eval while inpt. (2) Systolic and diastolic CHF, acute on chronic Current Visit: Yes Status: Acute Known EF of 30% on TTE 08/06/17. EF has been 30% since TTE 04/2017. Prior to that EF was 40% 10/2016. Presents in decompensated CHF. Currently on nitro gtt at 5mcg and Lasix gtt at 5mg/hr Recommend strict I/Os, daily weights, Na and fluid restriction. Pt reports improvement in dyspnea and LE edema. Appears more comfortable today. Is on 4.5L O2 NC. Suspect inaccurate I/Os given that pt refuses duvall catheter. Renal function improved, 3.12, within his baseline range--CKD stage 4. Recommend continuing diuresis with Lasix gtt. (3) CAD (coronary artery disease) Current Visit: Yes Status: Chronic [facility] 05/2017--HAND SUTURE WINDER pRCA, otherwise nonobstuctive disease. Continue ASA, Statin, Plavix, BB, nitrates. Qualifiers: Coronary Disease-Associated Artery/Lesion type: [place] artery [place] vs. transplanted heart: [place] heart Associated angina: without angina Qualified Code(s): I25.10 - Atherosclerotic heart disease of [place] coronary artery without angina pectoris (4) HTN (hypertension) Current Visit: Yes Status: Chronic BP as high as 180s/100s on presentation. Increased PO Hydralazine yesterday to 75mg TID. BP improved. Further adjust antihypertensives as warranted. Qualifiers: Hypertension type: essential hypertension Qualified Code(s): I10 - Essential (primary) hypertension Discussion w patient/family: The assessment and plan as outlined above was discussed with the patient and/or family members who expressed understanding and agreement. All questions were answered. Thank you for involving us in the care of your patient. Please call with any questions. I will discuss all the above with Dr. Junior and make changes as necessary. Subjective Principal diagnosis: CHF exacerbation Interval history: Pt reports dyspnea has improved on Lasix gtt at 5mg/hr. Reported episode of right sided chest tightness and "thumping" this AM. Reports LE edema has improved. Minimal output documented on I/Os, but pt refuses duvall. Renal function has mildly improved. Objective Vital Signs, Last 4 Hours Temp Pulse Resp BP Pulse Ox 08/12/17 06:48 97.4 F L 67 18 162/87 99 Vital Signs Temp Pulse Resp BP Pulse Ox 08/12/17 06:48 97.4 F L 67 18 162/87 99 08/12/17 06:01 97.9 F 63 18 148/75 99 08/12/17 04:00 18 98 08/11/17 23:44 77 18 151/70 96 08/11/17 22:30 86 18 153/93 91 08/11/17 22:07 17 91 08/11/17 19:00 97.8 F 82 18 162/80 92 08/11/17 15:58 97.6 F 80 18 154/74 90 08/11/17 15:10 20 93 08/11/17 11:27 20 163/77 93 08/11/17 11:16 97.1 F L 08/11/17 10:48 84 18 163/77 91 Intake and Output 08/11/17 08/12/17 08/12/17 23:59 07:59 15:59 Intake Total 486 / 486 285 / 285 240 / 240 Output Total 550 / 550 200 / 200 Balance -64 / -64 85 / 85 240 / 240 Intake: IV Fluids 366 / 366 225 / 225 Heparin 25,000 UNIT/500 ML D5W 116 / 116 153 / 153 25,000 unit In 500 ml @ 9 UNIT/ KG/HR 19.332 mls/hr IVC .Q24H [facility] Rx#:[id number] Nitroglycerin Premix 25 MG/250 250 / 250 72 / 72 ML 25 mg In 250 ml @ 5 MCG/MIN 3 mls/hr IVC .Q24H [facility] Rx#: [id number] Oral 120 / 120 60 / 60 240 / 240 Output: Urine 550 / 550 200 / 200 Other: Meal Breakfast Percent of Meal Consumed 100% # Voids 1 1 Weight 107.1 kg Blood Glucose* 393 151 Patient Weight 08/12/17 23:59 Weight 107.1 kg General: Conversant, No Apparent Distress HEENT: Atraumatic, Normocephaly, Mucus Membranes Moist Neck: Normal carotid pulses Cardiac: Reg Rate and Rhythm, Normal S1 and S2, No Murmur Lungs: Other (diminished) Neuro: Alert and responsive, No focal deficits noted Abdomen: Soft, Non-Tender Skin: No rashes noted on visualized skin Musculoskeletal: No Chest Wall Tenderness Extremities: Other (LE edema and venous stasis noted) Results 08/11/17 03:26 08/12/17 02:37 Lab Results 08/11/17 08/11/17 08/12/17 09:55 19:25 02:37 APTT > 360.0 H* D 39.4 H D Sodium 136 Potassium 4.0 Chloride 102 Carbon Dioxide 30 H BUN 74 H Creatinine 3.12 H Glucose 206 H Calcium 8.1 L 08/12/17 02:37 APTT > 360.0 H* D Sodium Potassium Chloride Carbon Dioxide BUN Creatinine Glucose Calcium BMP 08/12/17 Range/Units 02:37 Sodium 136 (136-145) mEq/L Potassium 4.0 (3.5-5.1) mEq/L Chloride 102 (98-107) mEq/L Carbon Dioxide 30 H (23-29) mEq/L BUN 74 H (8-23) mg/dL Creatinine 3.12 H (0.70-1.30) mg/dL Glucose 206 H (70-105) mg/dL Calcium 8.1 L (8.6-10.3) mg/dL Active Medications Albuterol Sulfate (Proventil Neb) 2.5 mg IH Q2H PRN PRN Reason: Shortness Of Breath/Wheezing Stop: 02/09/18 16:51 Albuterol/Ipratropium (Duoneb) 3 ml IH QIDR [facility] Stop: 02/09/18 17:01 Last Admin: 08/12/17 04:00 Dose: 3 ml Amlodipine Besylate (Norvasc) 10 mg PO DAILY [facility] Stop: 02/10/18 09:01 Last Admin: 08/12/17 09:09 Dose: 10 mg Aspirin (Aspirin Ec) 81 mg PO DAILY [facility] Stop: 02/10/18 09:01 Last Admin: 08/12/17 09:08 Dose: 81 mg Atorvastatin Calcium (Lipitor) 80 mg PO HS [facility] Stop: 02/09/18 21:01 Last Admin: 08/11/17 20:33 Dose: 80 mg Bupropion HCl (Wellbutrin Sr) 150 mg PO BID [facility] Stop: 02/09/18 21:01 Last Admin: 08/12/17 09:09 Dose: 150 mg Calcitriol (Rocaltrol) 0.25 mcg PO DAILY [facility] Stop: 02/10/18 09:01 Last Admin: 08/12/17 09:09 Dose: 0.25 mcg Calcium Carbonate (Tums) 1,250 mg PO DAILY [facility] Stop: 02/10/18 09:01 Last Admin: 08/12/17 09:10 Dose: 1,250 mg Carvedilol (Coreg) 25 mg PO BIDWM [facility] PRN Reason: Protocol Stop: 02/09/18 21:01 Last Admin: 08/12/17 09:08 Dose: 25 mg Clopidogrel Bisulfate (Plavix) 75 mg PO DAILY [facility] Stop: 02/10/18 09:01 Last Admin: 08/12/17 09:08 Dose: 75 mg Dextrose/Water (Dextrose 50% (Syg)) 25 ml IVP AD PRN PRN Reason: Hypoglycemia Stop: 02/09/18 17:03 Ferrous Sulfate (Ferrous Sulfate) 325 mg PO BID [facility] Stop: 02/09/18 21:01 Last Admin: 08/12/17 09:08 Dose: 325 mg Gabapentin (Neurontin) 300 mg PO BID [facility] Stop: 02/09/18 21:01 Last Admin: 08/12/17 09:08 Dose: 300 mg Glucagon (Glucagen) 1 mg IM ONCE PRN PRN Reason: Hypoglycemia Stop: 02/09/18 17:03 Glucose (Gluctose) 15 gm PO ONCE PRN PRN Reason: Hypoglycemia Stop: 02/09/18 17:03 Glucose (Gluctose) 30 gm PO ONCE PRN PRN Reason: Hypoglycemia Stop: 02/09/18 17:03 Guaifenesin (Robitussin/Dm) 5 ml PO BID PRN PRN Reason: Cough Stop: 02/09/18 21:01 Heparin Sodium (Porcine) (Heparin) 4,000 unit IVP Q6HR PRN PRN Reason: SEE COMMENTS Stop: 02/09/18 18:33 Last Admin: 08/11/17 20:35 Dose: 4,000 unit Heparin Sodium (Porcine) (Heparin) 2,000 unit IVP Q6H PRN PRN Reason: SEE COMMENTS Stop: 02/09/18 18:33 Hydralazine HCl (Hydralazine) 75 mg PO TID [facility] Stop: 02/10/18 15:01 Last Admin: 08/12/17 09:09 Dose: 75 mg Nitroglycerin (Nitroglycerin Premix 25 Mg/250 Ml) 25 mg in 250 mls @ 3 mls/hr IVC .Q24H [facility]; 5 MCG/MIN PRN Reason: Protocol Stop: 02/09/18 17:01 Last Titration: 08/12/17 06:27 Dose: 10 mcg/min, 6 mls/hr Dextrose (Dextrose 5%) 1,000 mls @ 100 mls/hr IVC .Q10H PRN PRN Reason: HYPOGLYCEMIA Stop: 02/09/18 17:03 Heparin Sodium/Dextrose (Heparin 25,000 Unit/500 Ml D5w) 25,000 unit in 500 mls @ 19.332 mls/hr IVC .Q24H [facility]; 9 UNIT/KG/HR PRN Reason: Protocol Stop: 02/09/18 18:46 Last Admin: 08/12/17 06:23 Dose: 7.75 unit/kg/hr, 16.647 mls/hr Furosemide 240 mg/ Dextrose 120 mls @ 5 mls/hr IVC .Q24H [facility] PRN Reason: 10 MG/HR Stop: 02/10/18 09:46 Last Admin: 08/11/17 13:40 Dose: 10 mg/hr, 5 mls/hr Insulin Detemir (Levemir) 16 unit SQ HS [facility] Stop: 02/09/18 21:01 Last Admin: 08/11/17 20:33 Dose: 16 unit Insulin Human Lispro (Humalog) 0 units SQ HS [facility] PRN Reason: Protocol Stop: 02/09/18 21:01 Last Admin: 08/11/17 20:38 Dose: 6 units Insulin Human Lispro (Humalog) 0 units SQ TIDAC [facility] PRN Reason: Protocol Stop: 02/10/18 07:31 Last Admin: 08/12/17 09:10 Dose: 2 units Isosorbide Mononitrate (Imdur) 120 mg PO DAILY [facility] Stop: 02/10/18 09:01 Last Admin: 08/12/17 09:09 Dose: 120 mg Loratadine (Claritin) 10 mg PO HS [facility] Stop: 02/09/18 21:01 Last Admin: 08/11/17 20:33 Dose: 10 mg Magnesium Oxide (Mag-Ox) 400 mg PO DAILY [facility] PRN Reason: Protocol Stop: 02/10/18 09:01 Last Admin: 08/12/17 09:09 Dose: 400 mg Multivitamins/Calcium (Thera M Plus) 1 tab PO DAILY [facility] Stop: 02/10/18 09:01 Last Admin: 08/12/17 09:09 Dose: 1 tab Naloxone HCl (Narcan) 0.4 mg IVP Q2MIN PRN PRN Reason: SEE COMMENTS Stop: 02/09/18 17:03 Omeprazole (Prilosec) 20 mg PO 0630 [facility] PRN Reason: Protocol Stop: 02/10/18 06:31 Last Admin: 08/12/17 06:23 Dose: 20 mg Prazosin HCl (Minipress) 1 mg PO HS [facility] Stop: 02/09/18 21:01 Last Admin: 08/11/17 20:33 Dose: 1 mg Sodium Bicarbonate (Sodium Bicarbonate) 650 mg PO TID [facility] Stop: 02/09/18 21:01 Last Admin: 08/12/17 09:09 Dose: 650 mg Tamsulosin HCl (Flomax) 0.8 mg PO DAILY [facility] PRN Reason: Protocol Stop: 02/10/18 09:01 Last Admin: 08/12/17 09:08 Dose: 0.8 mg Tramadol HCl (Ultram) 50 mg PO TID PRN PRN Reason: Moderate Pain Stop: 02/10/18 21:29 Last Admin: 08/11/17 22:34 Dose: 50 mg Trazodone HCl (Trazodone) 100 mg PO HS [facility] Stop: 02/10/18 21:31 Last Admin: 08/11/17 22:34 Dose: 100 mg Vitamin D (Vitamin D) 1,000 unit PO DAILY [facility] Stop: 02/10/18 09:01 Last Admin: 08/12/17 09:08 Dose: 1,000 unit - Imaging and Cardiology Echo: report reviewed - EKG Interpretation EKG results cardiology: other (12 hr tele AVG HR 71, SR, no significant pauses or arrhythmias) Consult Discharge Plan - Plan [facility]errals: [facility] [Primary Care Provider] -
[2017-08-12] MEDS: predniSONE 20 MG TABLET PO SCH (11:58)
--- NOTE | 2017-08-12 19:37 | Electrocardiograph Report ---
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
--- NOTE | 2017-08-12 19:38 | Electrocardiograph Report ---
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
[2017-08-12] MEDS: traZODone 50 MG TABLET PO SCH (21:53)
[2017-08-12] MEDS: traMADol 50 MG TABLET PO PRN (21:53)
[2017-08-12] MEDS: Loratadine 10 MG TABLET PO SCH (21:54)
[2017-08-12] MEDS: *HR* Heparin 5,000 UNIT/ML VIAL SQ SCH (21:54)
[2017-08-12] MEDS: Insulin DETEMIR 100 UNIT/ML X5UNITS SQ SCH (21:57)
[2017-08-13] MEDS: Ipratropium/Albuterol Neb 3 ML IH SCH ×4 (04:10→22:37)
[2017-08-13] MEDS: *HR* Heparin 5,000 UNIT/ML VIAL SQ SCH ×2 (05:49→18:08)
--- NOTE | 2017-08-13 08:15 | Internal Med Progress Note ---
<Keven Siddiqui - Last Filed: 08/13/17 09:56> Date of Encounter: 08/13/17 Time of Encounter: 09:56 - Assessment and plan (1) Respiratory failure with hypoxia Current Visit: Yes Status: Acute Assessment and plan: Acute on chronic hypoxic respiratory failure The patient has required BiPAP for a majority of his stay At time of exam, the patient became hypoxic on 4L O2 NC, required increase There are rales present in lungs b/l with diminished sounds Likely secondary to CHF for the most part We initiated a Lasix drip in order to alleviate the lungs some of the fluid We will continue to monitor 08/13 Patient is significantly improved, says that he's breathing easier We will continue to diurese Qualifiers: Chronicity: acute on chronic Qualified Code(s): J96.21 - Acute and chronic respiratory failure with hypoxia (2) Systolic and diastolic CHF, acute on chronic Current Visit: Yes Status: Acute Assessment and plan: Known severe ischemic cardiomyopathy Echocardiogram LVEF 30%. Mild concentric left ventricular hypertrophy. Moderate left ventricular diastolic dysfunction. Atypical septal motion consistent with bundle branch block. Mildly dilated right ventricle with normal systolic function. Severely dilated left atrium. Severe pulmonary hypertension. Estimated RVSP is 54-64 mmHg Patient is appropriately on ASA, Statin, BB, Imdur. PERI is held for CKD We will initiate lasix drip, measure strict I/O and daily weights Cardiology is onboard and we appreciate recommendations 08/12 Patient remains on lasix drip Put out ~1400mL urine in prior 24h Edema seems to have improved significantly We will continue this treatment and eventually transition to oral meds (3) HTN (hypertension) Current Visit: Yes Status: Chronic Assessment and plan: Hypertensive urgency Elevated BP in setting of CHF with elevated trop Currently treated with Nitro and Lasix drips in addition to home BP meds Cardiology recommends increased hydralazine PO Will attempt to titrate down on Nitro drip to SBP <160 We appreciate further recommendations 08/13 BP Improved overnight on current meds SBP maintained <160 for majority of evening We will attempt to transition to PO meds as able Continue lasix drip for now Recieved lisinopril yesterday and responded well Qualifiers: Hypertension type: essential hypertension Qualified Code(s): I10 - Essential (primary) hypertension (4) CAD (coronary artery disease) Current Visit: Yes Status: Chronic Assessment and plan: [facility] 2018 does not show significant disease which can be treated with intervention Per cardiology, Continue ASA, Statin, Plavix, BB, nitrates Qualifiers: Coronary Disease-Associated Artery/Lesion type: [place] artery [place] vs. transplanted heart: [place] heart Associated angina: without angina Qualified Code(s): I25.10 - Atherosclerotic heart disease of [place] coronary artery without angina pectoris (5) CKD (chronic kidney disease) stage 4, GFR 15-29 ml/min Current Visit: Yes Status: Chronic Assessment and plan: CKD Stage 4, eGFR 19 Patient continues to make urine, and is successfully diuresed We will continue with Lasix drip for tighter control, and to prevent large boluses to the kidneys Continue to hold PERI-i 08/13 Kidney function seems to be stable on lasix drip We will continue to watch for signs of renal status decline (6) Elevated troponin Current Visit: Yes Status: Acute Assessment and plan: Likely demand ischemia in the setting of Acute on Chronic Kidney Disease Stop heparin drip. (7) Diabetes mellitus Current Visit: Yes Status: Chronic Assessment and plan: Discontinue oral medications Sliding scale and mealtime insulin Qualifiers: Diabetes mellitus type: type 2 Diabetes mellitus buttermaker helper insulin use: with detention use Diabetes mellitus complication status: with kidney complications Diabetes mellitus complication detail: with chronic kidney disease Chronic kidney disease stage: stage 4 (severe) Qualified Code(s): E11.22 - Type 2 diabetes mellitus with diabetic chronic kidney disease; N18.4 - Chronic kidney disease, stage 4 (severe); N18.4 - Chronic kidney disease, stage 4 (severe); N18.4 - Chronic kidney disease, stage 4 (severe); N18.4 - Chronic kidney disease, stage 4 (severe); 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 He was able to urinate twice overnight, and describes the amount as moderate. He did not have any trouble breathing overnight and had no chest pain. He does state that he wishes the swelling in his extremities would go down, however he otherwise is happy with his progress. - Constitutional Vitals: Temp Pulse Resp BP Pulse Ox 98 F 77 16 102/71 99 08/13/17 07:26 08/13/17 07:26 08/13/17 07:26 08/13/17 07:26 08/13/17 07:26 General appearance: Present: A&O X 3, obese, severe distress, answers questions appropriately Exam: Gen: Vitals noted. No acute distress. AAOx3 HEENT: Normocephalic, atraumatic Neck: Supple. No adenopathy. Cardiac: RRR, no murmur, +S1/S2 Pulmonary: diminished globally but L>R Abdomen: soft, nontender, BS noted, no guarding Back: Nontender throughout. MSK: ROM intact, no joint swelling noted Extremities: Substantial edema (+1) in b/l LE and moderate edema in upper extremities. Evidence of chronic stasis ulceration. Significantly improved from prior Neuro: A&Ox3, moves all extremities, no focal deficits Psych: Appropriate mood and behavior Internal Medicine: Result - Labs CBC & Chem 7: 08/11/17 03:26 08/13/17 08:30 - ABG Interpretation ABG results: ABG ABG pH 7.39 pH Units (7.32-7.45) 08/10/17 17:15 ABG pCO2 53 mmHg (35-45) H 08/10/17 17:15 ABG pO2 61 mmHg (85-104) L 08/10/17 17:15 ABG O2 Saturation 90 % (95-98) L 08/10/17 17:15 PT/INR, D-dimer PT 12.5 Seconds (9.4-12.1) H 08/10/17 19:24 - Impressions Impressions Chest X-Ray 08/10/17 17:02 IMPRESSION: No significant change in pulmonary edema with moderate right and small left pleural effusion. Bilateral associated atelectasis is unchanged. D/ / 08/10/2017 17:27:19 Est[facility] Interpreting Provider: Estelle Lopez MD Consult Discharge Plan - Plan [facility]errals: [facility] [Primary Care Provider] - <Tk Salmon H - Last Filed: 08/13/17 10:44> Date of Encounter: 08/13/17 - Constitutional Vitals: Temp Pulse Resp BP Pulse Ox 98 F 77 16 102/71 99 08/13/17 07:26 08/13/17 07:26 08/13/17 07:26 08/13/17 07:26 08/13/17 07:26 Internal Medicine: Result - Labs CBC & Chem 7: 08/11/17 03:26 08/13/17 08:30 Labs: BMP 08/13/17 08:30 Sodium 139 Potassium 4.2 Chloride 101 Carbon Dioxide 33 H BUN 78 H Creatinine 3.18 H Glucose 150 H Calcium 8.3 L - ABG Interpretation ABG results: ABG ABG pH 7.39 pH Units (7.32-7.45) 08/10/17 17:15 ABG pCO2 53 mmHg (35-45) H 08/10/17 17:15 ABG pO2 61 mmHg (85-104) L 08/10/17 17:15 ABG O2 Saturation 90 % (95-98) L 08/10/17 17:15 PT/INR, D-dimer PT 12.5 Seconds (9.4-12.1) H 08/10/17 19:24 - Impressions Impressions Chest X-Ray 08/10/17 17:02 IMPRESSION: No significant change in pulmonary edema with moderate right and small left pleural effusion. Bilateral associated atelectasis is unchanged. D/ / 08/10/2017 17:27:19 Estelle Lopez MD / [facility] Interpreting Provider: Estelle Lopez MD - Attending Attestation Acute on chronic hypoxic respiratory failure secondary to acute systolic CHF exacerbation combination with acute COPD exacerbation due to acute bronchitis treated recently Elevated troponins possibly secondary to demand ischemia Continue Lasix drip, restarted prednisone 40 mg daily and slow taper Cardiology signed off Accelerated hypertension, continue hydralazine by mouth and added hydralazine IV as needed I examined this patient and my medical decision-making was reviewed with the Resident Physician. I agree with the documented findings, disposition and treatment plan as described except to the extent set forth below.
[2017-08-13] MEDS: Insulin LISPRO 300 UNITS/3 ML VIAL SQ SCH ×4 (08:39→22:00)
--- NOTE | 2017-08-13 09:10 | Cardiology Progress Note ---
Date of Encounter: 08/13/17 Time of Encounter: 09:08 Assessment and Plan (1) Elevated troponin Current Visit: Yes Status: Acute Troponins reportedly 0.7 and then 1.4 at the OR. Troponins at [facility] 0.82, 0.59, 0.68. One episode of chest tightness 2 nights ago associated with worsening dyspnea. Chest tightness this AM. No EKG changes compared to prior. Suspect demand ischemia in setting of CKD stage 4 and CHF exacerbation, accelerated HTN. Nondiagnostic for ACS. 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 Medical management was recommended at that time. On ASA, Statin, Plavix, BB, Nitrates. Recent TTE 08/06/17 EF 30%, mild concentric LVH, moderate LVDD, mildly dilated RV. Severely dilated LA, severe phtn est RVSP 54-64mmHg. Pleural effusion. Do not anticipate any repeat ischemic eval while inpt. Cardiology signing off. Reconsult PRN. Will coordinate outpt follow-up. (2) Systolic and diastolic CHF, acute on chronic Current Visit: Yes Status: Acute Known EF of 30% on TTE 08/06/17. EF has been 30% since TTE 04/2017. Prior to that EF was 40% 10/2016. Presents in decompensated CHF. Currently on Lasix gtt at 10mg/hr Recommend strict I/Os, daily weights, Na and fluid restriction. Pt reports improvement in dyspnea and LE edema. Suspect inaccurate I/Os given that pt refuses duvall catheter. Creatinine 3.18 today, within his baseline range--CKD stage 4. Continue Lasix gtt. Transition to PO maintenance diuretics prior to d/c. Cardiology signing off. Reconsult PRN. Will coordinate outpt follow-up. 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 Continue ASA, Statin, Plavix, BB, nitrates. Qualifiers: Coronary Disease-Associated Artery/Lesion type: [place] artery [place] vs. transplanted heart: [place] heart Associated angina: without angina Qualified Code(s): I25.10 - Atherosclerotic heart disease of [place] coronary artery without angina pectoris (4) HTN (hypertension) Current Visit: Yes Status: Chronic BP as high as 180s/100s on presentation. Increased PO Hydralazine to 75mg TID. BP improved. Further adjust antihypertensives as warranted. Qualifiers: Hypertension type: essential hypertension Qualified Code(s): I10 - Essential (primary) hypertension Discussion w patient/family: The assessment and plan as outlined above was discussed with the patient and/or family members who expressed understanding and agreement. All questions were answered. Thank you for involving us in the care of your patient. Please call with any questions. I will discuss all the above with Dr. Junior and make changes as necessary. Subjective Principal diagnosis: CHF exacerbation Interval history: Pt reports dyspnea has improved on Lasix gtt at 10mg/hr. Denies chest pain overnight. Reports LE edema has improved. Minimal output documented on I/Os, but pt refuses duvall. Objective Vital Signs, Last 4 Hours Temp Pulse Resp BP Pulse Ox 08/13/17 07:26 98 F 77 16 102/71 99 Vital Signs Temp Pulse Resp BP Pulse Ox 08/13/17 07:26 98 F 77 16 102/71 99 08/13/17 05:00 73 16 150/73 98 08/13/17 04:10 19 100 08/12/17 23:58 18 92 08/12/17 18:00 98.2 F 87 18 165/67 93 08/12/17 15:00 97.5 F L 78 18 160/76 97 08/12/17 11:30 160/75 08/12/17 11:02 16 96 08/12/17 11:00 71 18 Intake and Output 08/12/17 08/13/17 08/13/17 23:59 07:59 15:59 Intake Total 310 / 310 120 / 120 Output Total 500 / 500 400 / 400 600 / 600 Balance -190 / -190 -280 / -280 -600 / -600 Intake: Oral 310 / 310 120 / 120 Output: Urine 500 / 500 400 / 400 600 / 600 Other: Meal Dinner Percent of Meal Consumed 90% Stool Size Large Stool Consistency soft Stool Color Brown # Voids 1 1 # Bowel Movements 1 Blood Glucose* [id number] General: Conversant, No Apparent Distress HEENT: Atraumatic, Normocephaly, Mucus Membranes Moist Neck: Normal carotid pulses Cardiac: Reg Rate and Rhythm, Normal S1 and S2, No Murmur Lungs: Normal Breath Sounds, No Wheeze, Rales, Rhonchi Neuro: Alert and responsive, No focal deficits noted Abdomen: Soft, Non-Tender Skin: No rashes noted on visualized skin Musculoskeletal: No Chest Wall Tenderness Extremities: Other (Mild LE edema, venous stasis) Results 08/11/17 03:26 08/13/17 08:30 Impressions Chest X-Ray 08/10/17 17:02 IMPRESSION: No significant change in pulmonary edema with moderate right and small left pleural effusion. Bilateral associated atelectasis is unchanged. D/ / 08/10/2017 17:27:19 Estelle Lopez MD / judy Interpreting Provider: Estelle Lopez MD Active Medications Albuterol Sulfate (Proventil Neb) 2.5 mg IH Q2H PRN PRN Reason: Shortness Of Breath/Wheezing Stop: 02/09/18 16:51 Albuterol/Ipratropium (Duoneb) 3 ml IH QIDR MARSHA Stop: 02/09/18 17:01 Last Admin: 08/13/17 04:10 Dose: 3 ml Amlodipine Besylate (Norvasc) 10 mg PO DAILY MARSHA Stop: 02/10/18 09:01 Last Admin: 08/12/17 09:09 Dose: 10 mg Aspirin (Aspirin Ec) 81 mg PO DAILY MARSHA Stop: 02/10/18 09:01 Last Admin: 08/12/17 09:08 Dose: 81 mg Atorvastatin Calcium (Lipitor) 80 mg PO HS MARSHA Stop: 02/09/18 21:01 Last Admin: 08/12/17 21:53 Dose: 80 mg Bupropion HCl (Wellbutrin Sr) 150 mg PO BID MARSHA Stop: 02/09/18 21:01 Last Admin: 08/12/17 21:53 Dose: 150 mg Calcitriol (Rocaltrol) 0.25 mcg PO DAILY MARSHA Stop: 02/10/18 09:01 Last Admin: 08/12/17 09:09 Dose: 0.25 mcg Calcium Carbonate (Tums) 1,250 mg PO DAILY MARSHA Stop: 02/10/18 09:01 Last Admin: 08/12/17 09:10 Dose: 1,250 mg Carvedilol (Coreg) 25 mg PO BIDWM MARSHA PRN Reason: Protocol Stop: 02/09/18 21:01 Last Admin: 08/13/17 08:33 Dose: 25 mg Clopidogrel Bisulfate (Plavix) 75 mg PO DAILY [facility] Stop: 02/10/18 09:01 Last Admin: 08/12/17 09:08 Dose: 75 mg Dextrose/Water (Dextrose 50% (Syg)) 25 ml IVP AD PRN PRN Reason: Hypoglycemia Stop: 02/09/18 17:03 Ferrous Sulfate (Ferrous Sulfate) 325 mg PO BID MARSHA Stop: 02/09/18 21:01 Last Admin: 08/12/17 21:53 Dose: 325 mg Gabapentin (Neurontin) 300 mg PO BID [facility] Stop: 02/09/18 21:01 Last Admin: 08/12/17 21:53 Dose: 300 mg Glucagon (Glucagen) 1 mg IM ONCE PRN PRN Reason: Hypoglycemia Stop: 02/09/18 17:03 Glucose (Gluctose) 15 gm PO ONCE PRN PRN Reason: Hypoglycemia Stop: 02/09/18 17:03 Glucose (Gluctose) 30 gm PO ONCE PRN PRN Reason: Hypoglycemia Stop: 02/09/18 17:03 Guaifenesin (Robitussin/Dm) 5 ml PO BID PRN PRN Reason: Cough Stop: 02/09/18 21:01 Heparin Sodium (Porcine) (Heparin) 5,000 unit SQ Q12HCO [facility] Stop: 02/11/18 18:01 Last Admin: 08/13/17 05:49 Dose: 5,000 unit Hydralazine HCl (Hydralazine) 75 mg PO TID [facility] Stop: 02/10/18 15:01 Last Admin: 08/12/17 21:54 Dose: 75 mg Hydralazine HCl (Hydralazine) 20 mg IVP Q6HR PRN PRN Reason: Hypertension Stop: 02/11/18 15:29 Dextrose (Dextrose 5%) 1,000 mls @ 100 mls/hr IVC .Q10H PRN PRN Reason: HYPOGLYCEMIA Stop: 02/09/18 17:03 Furosemide 240 mg/ Dextrose 120 mls @ 5 mls/hr IVC .Q24H MARSHA PRN Reason: 10 MG/HR Stop: 02/10/18 09:46 Last Admin: 08/11/17 13:40 Dose: 10 mg/hr, 5 mls/hr Insulin Detemir (Levemir) 16 unit SQ HS [facility] Stop: 02/09/18 21:01 Last Admin: 08/12/17 21:57 Dose: 16 unit Insulin Human Lispro (Humalog) 0 units SQ HS [facility] PRN Reason: Protocol Stop: 02/09/18 21:01 Last Admin: 08/12/17 21:56 Dose: 5 units Insulin Human Lispro (Humalog) 0 units SQ TIDAC [facility] PRN Reason: Protocol Stop: 02/10/18 07:31 Last Admin: 08/13/17 08:39 Dose: 2 units Isosorbide Mononitrate (Imdur) 120 mg PO DAILY [facility] Stop: 02/10/18 09:01 Last Admin: 08/12/17 09:09 Dose: 120 mg Lisinopril (Zestril) 5 mg PO DAILY [facility] PRN Reason: Protocol Stop: 02/12/18 09:01 Loratadine (Claritin) 10 mg PO HS [facility] Stop: 02/09/18 21:01 Last Admin: 08/12/17 21:54 Dose: 10 mg Magnesium Oxide (Mag-Ox) 400 mg PO DAILY [facility] PRN Reason: Protocol Stop: 02/10/18 09:01 Last Admin: 08/12/17 09:09 Dose: 400 mg Multivitamins/Calcium (Thera M Plus) 1 tab PO DAILY [facility] Stop: 02/10/18 09:01 Last Admin: 08/12/17 09:09 Dose: 1 tab Naloxone HCl (Narcan) 0.4 mg IVP Q2MIN PRN PRN Reason: SEE COMMENTS Stop: 02/09/18 17:03 Omeprazole (Prilosec) 20 mg PO 0630 [facility] PRN Reason: Protocol Stop: 02/10/18 06:31 Last Admin: 08/13/17 05:50 Dose: 20 mg Prazosin HCl (Minipress) 1 mg PO HS [facility] Stop: 02/09/18 21:01 Last Admin: 08/12/17 21:54 Dose: 1 mg Prednisone (Prednisone) 40 mg PO DAILY [facility] Stop: 02/11/18 12:01 Last Admin: 08/12/17 11:58 Dose: 40 mg Sodium Bicarbonate (Sodium Bicarbonate) 650 mg PO TID [facility] Stop: 02/09/18 21:01 Last Admin: 08/12/17 21:54 Dose: 650 mg Tamsulosin HCl (Flomax) 0.8 mg PO DAILY [facility] PRN Reason: Protocol Stop: 02/10/18 09:01 Last Admin: 08/12/17 09:08 Dose: 0.8 mg Tramadol HCl (Ultram) 50 mg PO TID PRN PRN Reason: Moderate Pain Stop: 02/10/18 21:29 Last Admin: 08/12/17 21:53 Dose: 50 mg Trazodone HCl (Trazodone) 100 mg PO HS MARSHA Stop: 02/10/18 21:31 Last Admin: 08/12/17 21:53 Dose: 100 mg Vitamin D (Vitamin D) 1,000 unit PO DAILY [facility] Stop: 02/10/18 09:01 Last Admin: 08/12/17 09:08 Dose: 1,000 unit - Imaging and Cardiology Echo: report reviewed - EKG Interpretation EKG results cardiology: other (12 hr tele AVG HR 71, SR, no significant pauses or arrhythmias noted) Consult Discharge Plan - Plan [facility]errals: [facility]Primary Care Provider[facility] -
[2017-08-13] MEDS: Isosorbide MONOnitrate (24 HR) 60 MG TAB.ER.24H PO SCH (09:40)
[2017-08-13 09:43] LABS: Calcium 8.3 mg/dL (8.6-10.3); Potassium 4.2 mEq/L (3.5-5.1)
[2017-08-13] MEDS: Multivit/Ca/Min/Fe/FA 1 TAB TABLET PO SCH (09:44)
[2017-08-13] MEDS: Cholecalciferol (D-3) 1,000 UNIT TABLET PO SCH (09:44)
[2017-08-13] MEDS: Gabapentin 300 MG CAPSULE PO SCH ×2 (09:48→21:59)
[2017-08-13] MEDS: hydrALAZINE 25 MG TABLET PO SCH ×3 (09:48→21:57)
[2017-08-13] MEDS: predniSONE 20 MG TABLET PO SCH (09:49)
[2017-08-13] MEDS: Aspirin Enteric Coated 81 MG Tablet PO SCH (09:49)
[2017-08-13] MEDS: BuPROPion SR (12 HR) 150 MG TABLET PO SCH ×2 (09:49→21:59)
[2017-08-13] MEDS: Magnesium Oxide 400 MG TABLET PO SCH (09:57)
[2017-08-13] MEDS: amLODIPine 5 MG TABLET PO SCH (09:57)
[2017-08-13] MEDS: Furosemide 240 MG in D5% in Water 96 ML IVC SCH (17:05)
[2017-08-13] MEDS: traZODone 50 MG TABLET PO SCH (21:57)
[2017-08-13] MEDS: traMADol 50 MG TABLET PO PRN (21:57)
[2017-08-13] MEDS: Insulin DETEMIR 100 UNIT/ML X5UNITS SQ SCH (21:59)
[2017-08-13] MEDS: Loratadine 10 MG TABLET PO SCH (21:59)
[2017-08-14] MEDS: Ipratropium/Albuterol Neb 3 ML IH SCH ×4 (04:07→22:12)
[2017-08-14] MEDS: *HR* Heparin 5,000 UNIT/ML VIAL SQ SCH ×2 (06:40→17:18)
[2017-08-14 07:55] LABS: Calcium 8.3 mg/dL (8.6-10.3); Potassium 4.2 mEq/L (3.5-5.1)
[2017-08-14] MEDS: Insulin LISPRO 300 UNITS/3 ML VIAL SQ SCH ×4 (08:14→20:53)
[2017-08-14] MEDS: Isosorbide MONOnitrate (24 HR) 60 MG TAB.ER.24H PO SCH (08:15)
[2017-08-14] MEDS: predniSONE 20 MG TABLET PO SCH (08:16)
[2017-08-14] MEDS: Gabapentin 300 MG CAPSULE PO SCH ×2 (08:16→20:46)
[2017-08-14] MEDS: Multivit/Ca/Min/Fe/FA 1 TAB TABLET PO SCH (08:17)
[2017-08-14] MEDS: Aspirin Enteric Coated 81 MG Tablet PO SCH (08:17)
[2017-08-14] MEDS: Cholecalciferol (D-3) 1,000 UNIT TABLET PO SCH (08:17)
[2017-08-14] MEDS: amLODIPine 5 MG TABLET PO SCH (08:18)
[2017-08-14] MEDS: hydrALAZINE 25 MG TABLET PO SCH ×3 (08:18→20:46)
[2017-08-14] MEDS: BuPROPion SR (12 HR) 150 MG TABLET PO SCH ×2 (08:19→20:45)
[2017-08-14] MEDS: Magnesium Oxide 400 MG TABLET PO SCH (08:19)
--- NOTE | 2017-08-14 09:19 | Internal Med Progress Note ---
<Keven Siddiqui - Last Filed: 08/14/17 14:43> Date of Encounter: 08/14/17 Time of Encounter: 09:00 - Assessment and plan (1) Respiratory failure with hypoxia Current Visit: Yes Status: Acute Assessment and plan: Acute on chronic hypoxic respiratory failure The patient has required BiPAP for a majority of his stay At time of exam, the patient became hypoxic on 4L O2 NC, required increase There are rales present in lungs b/l with diminished sounds Likely secondary to CHF for the most part We initiated a Lasix drip in order to alleviate the lungs some of the fluid We will continue to monitor 08/13 Patient is significantly improved, says that he's breathing easier We will continue to diurese 08/14 Improved Qualifiers: Chronicity: acute on chronic Qualified Code(s): J96.21 - Acute and chronic respiratory failure with hypoxia (2) Systolic and diastolic CHF, acute on chronic Current Visit: Yes Status: Acute Assessment and plan: Known severe ischemic cardiomyopathy Echocardiogram LVEF 30%. Mild concentric left ventricular hypertrophy. Moderate left ventricular diastolic dysfunction. Atypical septal motion consistent with bundle branch block. Mildly dilated right ventricle with normal systolic function. Severely dilated left atrium. Severe pulmonary hypertension. Estimated RVSP is 54-64 mmHg Patient is appropriately on ASA, Statin, BB, Imdur. PERI is held for CKD We will initiate lasix drip, measure strict I/O and daily weights Cardiology is onboard and we appreciate recommendations 08/14 Patient continues to have success with diuresis I/O [id number], [id number] We will continue Lasix drip for slow diuresis (3) HTN (hypertension) Current Visit: Yes Status: Chronic Assessment and plan: Hypertensive urgency Elevated BP in setting of CHF with elevated trop Currently treated with Nitro and Lasix drips in addition to home BP meds Cardiology recommends increased hydralazine PO Will attempt to titrate down on Nitro drip to SBP <160 We appreciate further recommendations 08/14 BP Improved overnight on current meds SBP maintained <160 for majority of evening We will attempt to transition to PO meds as able Continue lasix drip for now Qualifiers: Hypertension type: essential hypertension Qualified Code(s): I10 - Essential (primary) hypertension (4) CAD (coronary artery disease) Current Visit: Yes Status: Chronic Assessment and plan: [facility] 2018 does not show significant disease which can be treated with intervention Per cardiology, Continue ASA, Statin, Plavix, BB, nitrates Qualifiers: Coronary Disease-Associated Artery/Lesion type: [place] artery [place] vs. transplanted heart: [place] heart Associated angina: without angina Qualified Code(s): I25.10 - Atherosclerotic heart disease of [place] coronary artery without angina pectoris (5) CKD (chronic kidney disease) stage 4, GFR 15-29 ml/min Current Visit: Yes Status: Chronic Assessment and plan: CKD Stage 4, eGFR 19 Patient continues to make urine, and is successfully diuresed We will continue with Lasix drip for tighter control, and to prevent large boluses to the kidneys Continue to hold PERI-i 08/13 Kidney function seems to be stable on lasix drip We will continue to watch for signs of renal status decline 08/14 Kidney function remains stable Continue diuresis with lasix drip (6) Elevated troponin Current Visit: Yes Status: Resolved (7) Diabetes mellitus Current Visit: Yes Status: Chronic Assessment and plan: Discontinue oral medications Sliding scale and mealtime insulin Qualifiers: Diabetes mellitus type: type 2 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 Diabetes mellitus complication status: with kidney complications Diabetes mellitus complication detail: with chronic kidney disease Chronic kidney disease stage: stage 4 (severe) Qualified Code(s): E11.22 - Type 2 diabetes mellitus with diabetic chronic kidney disease; N18.4 - Chronic kidney disease, stage 4 (severe); N18.4 - Chronic kidney disease, stage 4 (severe); N18.4 - Chronic kidney disease, stage 4 (severe); N18.4 - Chronic kidney disease, stage 4 (severe); Z79.4 - nursing home (current) use of insulin; Z79.4 - nursing home (current) use of insulin; 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 He said that he was able to put out a significant amount of urine overnight, and he feels that he is breathing easier again today. He says that he does still have some swelling in his legs, particularly on the left leg there is no pain or cramping associated with this. He has no other acute complaints. - Constitutional Vitals: Temp Pulse Resp BP Pulse Ox 97.1 F L 63 20 143/72 92 08/14/17 07:17 08/14/17 07:17 08/14/17 07:17 08/14/17 07:17 08/14/17 08:36 General appearance: Present: A&O X 3, obese, severe distress, answers questions appropriately Exam: Gen: Vitals noted. No acute distress. AAOx3 HEENT: Normocephalic, atraumatic Neck: Supple. No adenopathy. Cardiac: RRR, no murmur, +S1/S2 Pulmonary: diminished globally but L>R Abdomen: soft, nontender, BS noted, no guarding Back: Nontender throughout. MSK: ROM intact, no joint swelling noted Extremities: Substantial edema (+1) in b/l LE and moderate edema in upper extremities. Evidence of chronic stasis ulceration. Significantly improved from prior Neuro: A&Ox3, moves all extremities, no focal deficits Psych: Appropriate mood and behavior Internal Medicine: Result - Labs CBC & Chem 7: 08/11/17 03:26 08/14/17 07:29 Labs: BMP 08/13/17 08/14/17 08:30 07:29 Sodium 139 138 Potassium 4.2 4.2 Chloride 101 101 Carbon Dioxide 33 H 32 H BUN 78 H 80 H Creatinine 3.18 H 3.15 H Glucose 150 H 144 H Calcium 8.3 L 8.3 L - ABG Interpretation ABG results: ABG ABG pH 7.39 pH Units (7.32-7.45) 08/10/17 17:15 ABG pCO2 53 mmHg (35-45) H 08/10/17 17:15 ABG pO2 61 mmHg (85-104) L 08/10/17 17:15 ABG O2 Saturation 90 % (95-98) L 08/10/17 17:15 PT/INR, D-dimer PT 12.5 Seconds (9.4-12.1) H 08/10/17 19:24 Consult Discharge Plan - Plan [facility]errals: [facility] [Primary Care Provider[facility] - <Tk Salmon H - Last Filed: 08/14/17 15:15> Date of Encounter: 03/29/18 - Constitutional Vitals: Temp Pulse Resp BP Pulse Ox 97.8 F 76 18 147/59 96 08/14/17 15:11 08/14/17 15:11 08/14/17 15:11 08/14/17 15:11 08/14/17 15:11 Internal Medicine: Result - Labs CBC & Chem 7: 08/11/17 03:26 08/14/17 07:29 Labs: BMP 08/14/17 07:29 Sodium 138 Potassium 4.2 Chloride 101 Carbon Dioxide 32 H BUN 80 H Creatinine 3.15 H Glucose 144 H Calcium 8.3 L - ABG Interpretation ABG results: ABG ABG pH 7.39 pH Units (7.32-7.45) 08/10/17 17:15 ABG pCO2 53 mmHg (35-45) H 08/10/17 17:15 ABG pO2 61 mmHg (85-104) L 08/10/17 17:15 ABG O2 Saturation 90 % (95-98) L 08/10/17 17:15 PT/INR, D-dimer PT 12.5 Seconds (9.4-12.1) H 08/10/17 19:24 - Attending Attestation Acute on chronic hypoxic respiratory failure secondary to acute systolic CHF exacerbation combination with acute COPD exacerbation due to acute bronchitis treated recently Elevated troponins possibly secondary to demand ischemia Continue Lasix drip, restarted prednisone 40 mg daily and slow taper Cardiology signed off Accelerated hypertension, continue hydralazine by mouth and added hydralazine IV as needed may discharge in the morning if stable I examined this patient and my medical decision-making was reviewed with the Resident Physician. I agree with the documented findings, disposition and treatment plan as described except to the extent set forth below.
[2017-08-14] MEDS: Furosemide 240 MG in D5% in Water 96 ML IVC SCH (17:19)
[2017-08-14] MEDS: traMADol 50 MG TABLET PO PRN (20:46)
[2017-08-14] MEDS: Loratadine 10 MG TABLET PO SCH (20:46)
[2017-08-14] MEDS: traZODone 50 MG TABLET PO SCH (20:46)
[2017-08-14] MEDS: Insulin DETEMIR 100 UNIT/ML X5UNITS SQ SCH (20:53)
[2017-08-15] MEDS: Ipratropium/Albuterol Neb 3 ML IH SCH ×2 (04:37→09:54)
[2017-08-15] MEDS: *HR* Heparin 5,000 UNIT/ML VIAL SQ SCH (06:29)
[2017-08-15 06:46] LABS: Calcium 8.2 mg/dL (8.6-10.3); Potassium 4.3 mEq/L (3.5-5.1)
[2017-08-15 07:04] VITALS: BP 160/73
--- NOTE | 2017-08-15 07:07 | Discharge Summary ---
<Keven Siddiqui - Last Filed: 08/15/17 09:19> - NOTES TO OUTPATIENT PROVIDER Notes to Outpatient Provider: The patient will require careful adjustments to diuresis as needed. He has had multiple issues with fluid overload in the past , and is not necessarily compliant with his fluid or salt intake. Additionally , we started the patient on a slow taper of prednisone. Date of Encounter: 08/15/17 Time of Encounter: 09:41 - Discharge Diagnosis (1) Respiratory failure with hypoxia Priority: Primary Status: Acute Qualifiers: Chronicity: acute on chronic Qualified Code(s): J96.21 - Acute and chronic respiratory failure with hypoxia (2) Systolic and diastolic CHF, acute on chronic Priority: Primary Status: Acute (3) HTN (hypertension) Priority: Secondary Status: Chronic Qualifiers: Hypertension type: essential hypertension Qualified Code(s): I10 - Essential (primary) hypertension (4) CAD (coronary artery disease) Priority: Secondary Status: Chronic Qualifiers: Coronary Disease-Associated Artery/Lesion type: [place] artery [place] vs. transplanted heart: [place] heart Associated angina: without angina Qualified Code(s): I25.10 - Atherosclerotic heart disease of [place] coronary artery without angina pectoris (5) CKD (chronic kidney disease) stage 4, GFR 15-29 ml/min Priority: Secondary Status: Chronic (6) Elevated troponin Priority: Secondary Status: Resolved (7) Diabetes mellitus Priority: Secondary Status: Chronic Qualifiers: Diabetes mellitus type: type 2 Diabetes mellitus care home insulin use: with care home use Diabetes mellitus complication status: with kidney complications Diabetes mellitus complication detail: with chronic kidney disease Chronic kidney disease stage: stage 4 (severe) Qualified Code(s): E11.22 - Type 2 diabetes mellitus with diabetic chronic kidney disease; N18.4 - Chronic kidney disease, stage 4 (severe); N18.4 - Chronic kidney disease, stage 4 (severe); N18.4 - Chronic kidney disease, stage 4 (severe); N18.4 - Chronic kidney disease, stage 4 (severe); Z79.4 - skilled nursing (current) use of insulin; Z79.4 - skilled nursing (current) use of insulin; 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 Jackson is a 67 year old male with history of osteoarthritis, CAD, hyperlipidemia, PTSD, CKD, peripheral neuropathy, hypertension, diabetes and CHF is recently in the hospital for CHF exacerbation multiple times. He says it has been in and out of the hospital for the past 2-3 months, and has only spent a few days at home. He was discharged from [facility] approximately 2 days prior to arrival, at which time he was treated for an exacerbation of CHF. He has been found to have worsening heart failure with an EF of 30% from previously 40%. He was worked up at that time for reversible causes of cardiomyopathy and was found to have negative exam. He does not have significant chest pain at time of arrival, however he has had severe dyspnea and felt that he was unable to breathe. On arrival to the ED it was found that he had an elevated troponin of 1.49. He is complaining of orthopnea, PND, significant edema in his extremities including his upper and lower extremities. He said that he felt like he needed BiPAP. The patient was admitted for treatment of CHF exacerbation and he was started on aggressive diuresis through means of a Lasix drip. Over the course of this hospital stay, the patient continually began producing copious urine and improved clinically throughout this time. Because the patient does have a significant chronic kidney disease, we did have concerns about diuresis and the patient aggressively. It appears that his kidneys were able to handle a diuresis, and actually did show improvement as his fluid overload improved. Cardiology did see the patient and made no recommendations regarding procedures, however instead suggested that he follow up as an outpatient. The patient is now stable, is having no chest pains and his edema has significantly decreased. He feels that he is back to his general baseline. Discharge discussed with: patient, nurse, social work, case management, it infrastructure consultant - Time Spent with Patient Total time spent providing and/or coordinating discharge services: - Discharge Medications Prescriptions: Bumetanide [Bumex] 1 mg PO Q12HR #60 tablet predniSONE [PredniSONE] See Taper PO DAILY #53 tablet Home Medications: Aspirin [Lo-Dose Aspirin EC] 81 mg PO DAILY 11/08/16 [History] Atorvastatin Calcium [Lipitor] 80 mg PO HS 11/08/16 [History] BuPROPion SR (12 HR) [Wellbutrin SR] 150 mg PO BID 11/08/16 [History] Carvedilol [Coreg] 25 mg PO BID 11/08/16 [History] Cholecalciferol (Vitamin D3) [Vitamin D3] 2,000 unit PO DAILY 11/08/16 [History] Ferrous Gluconate 324 mg PO BID 11/08/16 [History] Insulin Glargine [Lantus] 20 unit SQ HS 11/08/16 [History] Omeprazole [PriLOSEC] 20 mg PO DAILY 11/08/16 [History] Tamsulosin HCl [Flomax] 0.8 mg PO DAILY 11/08/16 [History] Tramadol HCl [Ultram] 50 mg PO TID PRN 11/08/16 [History] Trazodone HCl 100 mg PO HS PRN 11/08/16 [History] Vit C/E/Zn/Coppr/Lutein/Zeaxan [Preservision Areds 2 Softgel] 1 tab PO BID 11/08 [History] Albuterol Sulfate [Albuterol Inhaler] 2 puff IH QID PRN 05/09/17 [History] Calcitriol [Rocaltrol] 0.25 mcg PO DAILY 05/09/17 [History] Cetirizine HCl [Zyrtec] 10 mg PO HS 05/09/17 [History] Ipratropium [ATROVENT Inhaler] 2 puff IH BID 05/09/17 [History] Ipratropium/Albuterol Neb [Duoneb] 3 ml IH Q6HR PRN 05/09/17 [History] Amlodipine Besylate 10 mg PO DAILY 06/04/17 [History] Calcium Carbonate 1,300 mg PO DAILY 06/04/17 [History] GuaiFENesin/Dextromethorphan [Tussin Dm Syrup] 5 ml PO BID PRN 06/04/17 [History ] Clopidogrel [Plavix] 75 mg PO DAILY #30 tablet 06/19/17 [Rx] Gabapentin [Neurontin] 300 mg PO BID #60 capsule 06/19/17 [Rx] Lisinopril [Zestril] 10 mg PO DAILY #30 tablet 06/19/17 [Rx] Sodium Bicarbonate 650 mg PO TID #90 tablet 06/19/17 [Rx] Nystatin POWDER [Nystop] 1 appl TP TID #1 bottle 06/26/17 [Rx] Acetaminophen [Tylenol] 975 mg PO Q6H PRN MDD 3000 mg 08/05/17 [History] Ammonium Lactate [Lac-Hydrin Five] 1 appl TP BID 08/05/17 [History] Clopidogrel [Plavix] 75 mg PO DAILY 08/05/17 [History] Hydralazine HCl 50 mg PO TID 08/05/17 [History] Insulin ASPART [NovoLOG] 2 - 6 unit SQ QID PRN 08/05/17 [History] Isosorbide MONOnitrate [Isosorbide Mononitrate ER] 120 mg PO DAILY 08/05/17 [ History] Mometasone Furoate [Asmanex] 2 puff IH DAILY 08/05/17 [History] Multivitamin-Min/Iron/FA/Vit K [Multi-Day Plus Minerals Tablet] 1 each PO DAILY 08/05/17 [History] Prazosin [Minipress] 1 mg PO HS 08/05/17 [History] Magnesium Oxide [Magnesium] 400 mg PO DAILY #0 08/08/17 [Rx] PredniSONE [Deltasone] 10 mg PO DAILY 16 Days tablet 08/08/17 [Rx] Bumetanide [Bumex] 1 mg PO Q12HR #60 tablet 08/15/17 [Rx] predniSONE [PredniSONE] See Taper PO DAILY #53 tablet 08/15/17 [Rx] traZODone [TraZODone] 100 mg PO HS tablet 08/15/17 [Rx] Allergies/Adverse Reactions: 3 Allergy/AdvReac Type Severity Reaction Status Date / Time Doxepin Allergy Hives Verified 08/05/17 16:51 Penicillins Allergy Hives Verified 08/05/17 16:51 Sulfa (Sulfonamide Allergy Hives Verified 08/05/17 16:51 Antibiotics) Date of admission: 08/10/17 15:52 Primary care physician: PCP [facility] Consults: 08/11/17 07:23 Consult to Cardiology [CONS] Routine Comment: Consulting Provider: Brody Whitaker Reason for Consult: NSTEMI / CHF Time Notified: 07:23 Call Completed: No 08/11/17 15:32 Consult to Casing Runner [CONS] Routine Reason for SW Consult: From [facility] re[facility]bed hold Discharging clinician: Keven Siddiqui Anticipated date of discharge: 08/15/17 - Constitutional Vitals: Temp Pulse Resp BP Pulse Ox 97.2 F L 69 18 160/73 99 08/15/17 07:00 08/15/17 07:00 08/15/17 07:00 08/15/17 07:00 08/15/17 07:00 General appearance: Present: A&O X 3, obese, severe distress, answers questions appropriately Exam: Gen: Vitals noted. No acute distress. AAOx3 HEENT: Normocephalic, atraumatic Neck: Supple. No adenopathy. Cardiac: RRR, no murmur, +S1/S2 Pulmonary: diminished globally but L>R Abdomen: soft, nontender, BS noted, no guarding Back: Nontender throughout. MSK: ROM intact, no joint swelling noted Extremities: Substantial edema (+1) in b/l LE and moderate edema in upper extremities. Evidence of chronic stasis ulceration. Significantly improved from prior Neuro: A&Ox3, moves all extremities, no focal deficits Psych: Appropriate mood and behavior - Patient Status Disposition: Transfer Inpatient Rehab Fac Condition: Fair Functional capacity at discharge: independent ambulation Overall status at discharge: patient is progressing back to baseline - Ambulatory Orders Ambulatory Orders: Basic Metabolic Panel [CHEM] Time Frame: 1 Week, Location: ANY - Discharge Instructions Instructions: Bumetanide (By mouth), Prednisone (By mouth), Myocardial Infarction (DC), Heart Failure (DC), Pulmonary Embolism (DC), Acute Respiratory Distress Syndrome (DC), Diabetes Mellitus Type 2 in Adults (DC), Peripheral Vascular Disorders (DC), Chronic Obstructive Pulmonary Disease (DC), Chronic Hypertension (DC), Pneumonia (DC), Cigarette Smoking and Your Health, 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 Jackson is a 67 year old male - Time Spent with Patient Total time spent providing and/or coordinating discharge services: Date of admission: 08/10/17 15:52 Primary care physician: PCP [facility] Consults: 08/11/17 07:23 Consult to Cardiology [CONS] Routine Comment: Consulting Provider: Brody Whitaker Reason for Consult: NSTEMI / CHF Time Notified: 07:23 Call Completed: No 08/11/17 15:32 Consult to Casing Runner [CONS] Routine Reason for SW Consult: From [facility] re[facility]bed [facility] - Constitutional Vitals: Temp Pulse Resp BP Pulse Ox 97.2 F L 69 18 160/73 99 08/15/17 07:00 08/15/17 07:00 08/15/17 07:00 08/15/17 07:00 08/15/17 07:00 - Attending Attestation Acute on chronic hypoxic respiratory failure secondary to acute systolic CHF exacerbation combination with acute COPD exacerbation due to acute bronchitis treated recently Elevated troponins possibly secondary to demand ischemia Continue Bumex at an increased dose of 1 mg twice a day, restarted prednisone 40 mg daily and slow taper: 40 mg for 5 days then 30 mg for 5 days then 20 mg for 5 days and 10 mg for 5 days. Cardiology signed off Accelerated hypertension, continue hydralazine by mouth time spent 40 minutes I examined this patient and my medical decision-making was reviewed with the Resident Physician. I agree with the documented findings, disposition and treatment plan as described except to the extent set forth below.
[2017-08-15] MEDS: Insulin LISPRO 300 UNITS/3 ML VIAL SQ SCH (07:59)
--- NOTE | 2017-08-15 09:43 | Physician Discharge Referral ---
<Keven Siddiqui - Last Filed: 08/15/17 09:41> ExtendedCare Referral Info Transfer To: [facility] Provider in Charge: Nica Provider in Charge after Transfer: PCP Institutional Level of Care: Intermediate - Diagnosis (1) Respiratory failure with hypoxia Priority: Primary Status: Acute (2) Systolic and diastolic CHF, acute on chronic Priority: Primary Status: Acute (3) HTN (hypertension) Priority: Secondary Status: Chronic (4) CAD (coronary artery disease) Priority: Secondary Status: Chronic (5) CKD (chronic kidney disease) stage 4, GFR 15-29 ml/min Priority: Secondary Status: Chronic (6) Elevated troponin Priority: Secondary Status: Resolved (7) Diabetes mellitus Priority: Secondary Status: Chronic Prognosis: Fair Aware of Diagnosis: Patient Aware of Prognosis: Patient - Transfer Medications Prescriptions: Bumetanide [Bumex] 1 mg PO Q12HR #60 tablet predniSONE [PredniSONE] See Taper PO DAILY #53 tablet Home Medications: Aspirin [Lo-Dose Aspirin EC] 81 mg PO DAILY 11/08/16 [History] Atorvastatin Calcium [Lipitor] 80 mg PO HS 11/08/16 [History] BuPROPion SR (12 HR) [Wellbutrin SR] 150 mg PO BID 11/08/16 [History] Carvedilol [Coreg] 25 mg PO BID 11/08/16 [History] Cholecalciferol (Vitamin D3) [Vitamin D3] 2,000 unit PO DAILY 11/08/16 [History] Ferrous Gluconate 324 mg PO BID 11/08/16 [History] Insulin Glargine [Lantus] 20 unit SQ HS 11/08/16 [History] Omeprazole [PriLOSEC] 20 mg PO DAILY 11/08/16 [History] Tamsulosin HCl [Flomax] 0.8 mg PO DAILY 11/08/16 [History] Tramadol HCl [Ultram] 50 mg PO TID PRN 11/08/16 [History] Trazodone HCl 100 mg PO HS PRN 11/08/16 [History] Vit C/E/Zn/Coppr/Lutein/Zeaxan [Preservision Areds 2 Softgel] 1 tab PO BID 11/08 [History] Albuterol Sulfate [Albuterol Inhaler] 2 puff IH QID PRN 05/09/17 [History] Calcitriol [Rocaltrol] 0.25 mcg PO DAILY 05/09/17 [History] Cetirizine HCl [Zyrtec] 10 mg PO HS 05/09/17 [History] Ipratropium [ATROVENT Inhaler] 2 puff IH BID 05/09/17 [History] Ipratropium/Albuterol Neb [Duoneb] 3 ml IH Q6HR PRN 05/09/17 [History] Amlodipine Besylate 10 mg PO DAILY 06/04/17 [History] Calcium Carbonate 1,300 mg PO DAILY 06/04/17 [History] GuaiFENesin/Dextromethorphan [Tussin Dm Syrup] 5 ml PO BID PRN 06/04/17 [History ] Clopidogrel [Plavix] 75 mg PO DAILY #30 tablet 06/19/17 [Rx] Gabapentin [Neurontin] 300 mg PO BID #60 capsule 06/19/17 [Rx] Lisinopril [Zestril] 10 mg PO DAILY #30 tablet 06/19/17 [Rx] Sodium Bicarbonate 650 mg PO TID #90 tablet 06/19/17 [Rx] Nystatin POWDER [Nystop] 1 appl TP TID #1 bottle 06/26/17 [Rx] Acetaminophen [Tylenol] 975 mg PO Q6H PRN MDD 3000 mg 08/05/17 [History] Ammonium Lactate [Lac-Hydrin Five] 1 appl TP BID 08/05/17 [History] Clopidogrel [Plavix] 75 mg PO DAILY 08/05/17 [History] Hydralazine HCl 50 mg PO TID 08/05/17 [History] Insulin ASPART [NovoLOG] 2 - 6 unit SQ QID PRN 08/05/17 [History] Isosorbide MONOnitrate [Isosorbide Mononitrate ER] 120 mg PO DAILY 08/05/17 [ History] Mometasone Furoate [Asmanex] 2 puff IH DAILY 08/05/17 [History] Multivitamin-Min/Iron/FA/Vit K [Multi-Day Plus Minerals Tablet] 1 each PO DAILY 08/05/17 [History] Prazosin [Minipress] 1 mg PO HS 08/05/17 [History] Magnesium Oxide [Magnesium] 400 mg PO DAILY #0 08/08/17 [Rx] PredniSONE [Deltasone] 10 mg PO DAILY 16 Days tablet 08/08/17 [Rx] Bumetanide [Bumex] 1 mg PO Q12HR #60 tablet 08/15/17 [Rx] predniSONE [PredniSONE] See Taper PO DAILY #53 tablet 08/15/17 [Rx] traZODone [TraZODone] 100 mg PO HS tablet 08/15/17 [Rx] Allergies/Adverse Reactions: 3 Allergy/AdvReac Type Severity Reaction Status Date / Time Doxepin Allergy Hives Verified 08/05/17 16:51 Penicillins Allergy Hives Verified 08/05/17 16:51 Sulfa (Sulfonamide Allergy Hives Verified 08/05/17 16:51 Antibiotics) - Respiratory Orders Oxygen / L per min (Titrate to SPO2 88-92) Smoking Cessation: Smoking cessation has been advised. For more information, call the [employer] Quit Line at 7-451-VCDQ-NOW. - Ancillary Orders May use pressure relief devices daily prn - Advance Directives Living Will: Yes Power of Design Architect: Yes Code Status: DNR-Arrest/Don't Intubate - Mobility Orders Chair - Rehabiliation Orders Rehab Potential: Good Rehab Orders: ROM Exercises, Evaluation for Physical Therapy, Evaluation for Occupational Therapy - Diet Orders No Added Salt (DOM), Renal, Cardiac (Fluid restriction 1500mL) CERTIFICATION: I certify that the transfer of the above named patient to an Extended Care Facility is necessary for the continuing treatment of the diagnosis listed. The above information is true and accurate reflection of patient's current condition. Confidential - Redisclosure prohibited without a patient's written consent. <Tk Salmon H - Last Filed: 08/15/17 11:23> - Respiratory Orders Smoking Cessation: Smoking cessation has been advised. For more information, call the [employer] Quit Line at 3-712-GCLY-NOW. CERTIFICATION: I certify that the transfer of the above named patient to an Extended Care Facility is necessary for the continuing treatment of the diagnosis listed. The above information is true and accurate reflection of patient's current condition. Confidential - Redisclosure prohibited without a patient's written consent. prednisone 40 mg daily and slow taper: 40 mg for 5 days then 30 mg for 5 days then 20 mg for 5 days and 10 mg for 5 days.
[2017-08-15] MEDS: Multivit/Ca/Min/Fe/FA 1 TAB TABLET PO SCH (10:09)
[2017-08-15] MEDS: Isosorbide MONOnitrate (24 HR) 60 MG TAB.ER.24H PO SCH (10:10)
[2017-08-15] MEDS: predniSONE 20 MG TABLET PO SCH (10:11)
[2017-08-15] MEDS: BuPROPion SR (12 HR) 150 MG TABLET PO SCH (10:11)
[2017-08-15] MEDS: Magnesium Oxide 400 MG TABLET PO SCH (10:11)
[2017-08-15] MEDS: Cholecalciferol (D-3) 1,000 UNIT TABLET PO SCH (10:11)
[2017-08-15] MEDS: hydrALAZINE 25 MG TABLET PO SCH (10:11)
[2017-08-15] MEDS: Aspirin Enteric Coated 81 MG Tablet PO SCH (10:11)
[2017-08-15] MEDS: amLODIPine 5 MG TABLET PO SCH (10:12)
[2017-08-15] MEDS: Gabapentin 300 MG CAPSULE PO SCH (10:12)
== END 2017-08-15 11:51 | DRG 280 ==
LOC: 2NENU 15:52
PROVIDERS: ADMIT Internal Medicine; ATTEND Internal Medicine